=== PATIENT | male | born 1945 | race Caucasian/White ===

== ENCOUNTER 2018-01-31 02:03 | Inpatient (IN) | payer MEDICARE ==
--- NOTE | 2018-01-31 02:45 | ED ---
Chest Pain HPI - General Chief Complaint: Chest Pain Stated Complaint: chest pain Time Seen by Provider: 01/31/18 02:05 Source: patient Mode of arrival: EMS Limitations: no limitations - History of Present Illness Initial Comments: 72 years old male transferred from [facility] with the chest pain, and arrival he has some chest discomfort he calls a 22/10 now shortness of breath earlier when he went to [place] his chest pain was 10 over 10 he had a chest x-ray done he had the CT chest angiogram ruled out pulmonary embolism as well as aortic dissection. Now he denies any headaches no neck stiffness no blurred vision no slurred speech chest pain as above no abdominal pain no frequency urgency dysuria no symptoms of TIA or CVA - Related Data Allergies Allergy/AdvReac Type Severity Reaction Status Date / Time No Known Allergies Allergy Verified 01/31/18 02:18 Review of Systems ROS Statement: Those systems with pertinent positive or pertinent negative responses have been documented in the HPI. ROS Other: All systems not noted in ROS Statement are negative. EKG Findings - EKG Comments: EKG Findings:: EKG is normal sinus rhythm with a sinus bradycardia ventricular rate is 55 CA interval is 180 QRS duration is 84 QT/QTc is 458/438 noticed some T-wave inversion and flattening in lead 1 and 2 and 3 as well as aVL no ST elevation or ST depression noticed in the rest of the leads Past Medical History Past Medical History: No Reported History History of Any Multi-Drug Resistant Organisms: None Reported Past Surgical History: Cholecystectomy, Orthopedic Surgery Additional Past Surgical History / Comment(s): right shoulder rotator cuff Past Psychological History: No Psychological Hx Reported Smoking Status: Former smoker Past Alcohol Use History: None Reported Past Drug Use History: None Reported General Exam - General Exam Comments Initial Comments: General: The patient is awake and alert, in no distress, and does not appear acutely ill. Skin: Skin is warm and dry and no rashes or lesions are noted. Eye: Pupils are equal, round and reactive to light, extra-ocular movements are intact; there is normal conjunctiva bilaterally. Ears, nose, mouth and throat: There are moist mucous membranes and no oral lesions. Neck: The neck is supple, there is no tenderness or JVD. Cardiovascular: There is a regular rate and rhythm. No murmur, rub or gallop is appreciated. Respiratory: To auscultation bilateral, no wheezing no rhonchi no distress respiratory suazo noticed Gastrointestinal: Soft, non-distended, non-tender abdomen without masses or organomegaly noted. There is no rebound or guarding present. Bowel sounds are unremarkable. Back: There is no tenderness to palpation in the midline. There is no obvious deformity. Musculoskeletal: Normal ROM, no tenderness, There is no pedal edema. There is no calf tenderness or swelling. No cords were appreciated. Neurological: CN II-XII intact, Cranial nerves III through XII are intact. There are no obvious motor or sensory deficits. Coordination appears grossly intact. Speech is normal. Psychiatric: Cooperative, appropriate mood & affect, normal judgment. Limitations: no limitations Course Vital Signs 01/31/18 02:10 Temperature 97.8 F Pulse Rate 66 Respiratory 18 Rate Blood Pressure 148/88 O2 Sat by Pulse 97 Oximetry Supine] First troponin at the [place] was unremarkable second troponin and [place] is 0.201, patient be started on a heparin infusion , will be admitted to selective care and cardiology be consulted and patient be admitted under Dr. Oliver Shannon's service Critical Care Time Total Critical Care Time: 30 Critical Care Time: Patient had him a chest pain is May started earlier about 1 PM today, May toes off-and-on all day he was evaluated at [facility] 8 PM, EKG and troponin was unremarkable, second troponin now here was quite significantly positive patient is hemodynamically stable all started him on heparin infusion and will consult cardiology was probably organic further evaluation for his coronaries over the next 24 hours Disposition Clinical Impression: Chest pain, Myocardial infarction Disposition: ADMITTED IP TO THIS HOSP Condition: Good Referrals: None,Stated [Primary Care Provider] - 1-2 days
[2018-01-31] MEDS ORDERED: HEPARIN SODIUM,PORCINE 5,000 UNIT/ML 1 ML VIAL IV ONE (03:43)
[2018-01-31] MEDS ORDERED: HEPARIN SOD,PORK IN 0.45% NACL 25,000 UNIT in 0.45% NACL 1 500ML.BAG IV SCH (03:45)
[2018-01-31] MEDS: HEPARIN SODIUM,PORCINE/D5W PMX 25,000 UNIT in DEXTROSE/WATER 1 500ML.BAG IV SCH (04:20)
[2018-01-31 05:08] LABS: Glucose,Whole Blood 79 mg/dL (75-99)
[2018-01-31 06:35] LABS: Basophils % (A) 1 %; Eosinophils # (A) 0.3 k/uL (0-0.7); Eosinophils % (A) 4 %; HCT 32.5 % (39.0-53.0); HGB 10.8 gm/dL (13.0-17.5); Lymphocytes # (A) 1.8 k/uL (1.0-4.8); Lymphocytes % (A) 28 %; MCH 32.6 pg (25.0-35.0); MCHC 33.1 g/dL (31.0-37.0); MCV 98.5 fL (80.0-100.0); Monocytes # (A) 0.3 k/uL (0-1.0); Monocytes % (A) 5 %; Neutrophils # (A) 3.9 k/uL (1.3-7.7); Neutrophils % (A) 61 %; Platelet Count 175 k/uL (150-450); RDW 14.5 % (11.5-15.5); WBC 6.5 k/uL (3.8-10.6)
[2018-01-31] MEDS: NITROGLYCERIN OINT 1 INCH/GM PACKET TOPICAL SCH ×3 (07:30→18:09)
[2018-01-31 07:38] LABS: Calcium 9.5 mg/dL (8.4-10.2); Magnesium 2.1 mg/dL (1.6-2.3); Potassium 3.9 mmol/L (3.5-5.1)
--- NOTE | 2018-01-31 07:56 | HP ---
HISTORY AND PHYSICAL CHIEF COMPLAINT: A 72-year-old male with chest pain with some chest discomfort. Went to [place]. His chest pain is 10 out of 10. Chest x-ray, CT and angiogram revealed a pulmonary embolism as well as aortic dissection. Came to hospital due to possible myocardial infarction. No dysuria, urgency, frequency, hesitancy, TIA or CVA. ALLERGIES: Negative. REVIEW OF SYSTEMS: Fourteen point review of systems negative except for mentioned in HPI. EKG shows normal sinus rhythm, sinus bradycardia. T-wave inversion and flattening in leads 1, 2 and 3. PAST MEDICAL HISTORY: SURGICAL HISTORY: Cholecystectomy, orthopedic surgery, right rotator cuff surgery. SOCIAL HISTORY: Former smoker. No alcohol. No illicit drugs. PHYSICAL EXAM: Temp 97.8, pulse 66, respiratory 16 to 18, blood pressure 148/88, O2 97% on room air. Cardiovascular S1, S2. LUNGS: Transmitted upper airway sounds. GI soft, nontender. Hematology negative Homans. Psych fair mood and affect. NEUROLOGIC: Alert and oriented x3. Ophthalmologic pupils equal, round, reactive to light and accommodation. ENT examination of ear canals within normal limits. NECK: Supple. No lymphadenopathy. Ophthalmologic: Pupils equal, round, reactive to light and accommodation. ASSESSMENT: At this time is: 1. Chest pain, possible myocardial infarction. 2. Acute on chronic anemia. PLAN: Await Cardiology consult. He remains on nitroglycerin, heparin, Lipitor. ICU time 45 minutes. MMODL / IJN: [id number] /
[2018-01-31] MEDS: LISINOPRIL 10 MG TAB PO SCH (08:22)
[2018-01-31] MEDS ORDERED: ATORVASTATIN 80 MG TAB PO STA (09:50)
[2018-01-31] MEDS ORDERED: SODIUM CHLORIDE 0.9% 1,000 ML in EMPTY BAG 1 BAG IV ONE (09:50)
[2018-01-31] MEDS ORDERED: ALPRAZolam 0.5 MG TAB PO PRN (09:50)
[2018-01-31] MEDS ORDERED: ALPRAZolam 0.25 MG TAB PO PRN (09:50)
[2018-01-31] MEDS ORDERED: NITROGLYCERIN SL TABS 0.4 MG TAB SUBLINGUAL PRN (09:50)
[2018-01-31] MEDS ORDERED: ASPIRIN 325 MG TAB PO STA (09:50)
[2018-01-31 09:59] LABS: HDL Cholesterol 82 mg/dL (40-60); Triglycerides 109 mg/dL (<150)
[2018-01-31 10:05] LABS: LDL Cholesterol,Calculated 268 mg/dL (0-99)
[2018-01-31 10:10] LABS: Cholesterol 372 mg/dL (<200)
--- NOTE | 2018-01-31 10:35 | CONS ---
CONSULTATION Mrs. Roper is a 72-year-old male, who was transferred from the [facility] with chest pain. The patient gives a history that yesterday afternoon he started having discomfort in the chest which was across the chest and in the both arms and the pain was very reoccurring. Ultimately patient went to the [facility] where he had a CT angiogram done which did not show any evidence of pulmonary embolism or dissection. The patient was transferred over here. Initial troponin was normal. The patient denies any history of diabetes or hypertension. He is physically and functionally independent but not much active. PAST MEDICAL HISTORY: History of cholecystectomy. No history of any other major surgeries. REVIEW OF THE SYSTEM: Patient does not smoke. PHYSICAL EXAMINATION: At present reveals a 72-year-old gentleman who does not appear to be in any acute distress. Blood pressure is 152/97 mmHg. Heart rate is 60 per minute. HEENT examination is negative. NECK: Supple. No increase in jugular venous pressure is noted. Both the carotid pulses are felt. There is no bruit. Chest is symmetrical. Heart the PMI is not felt. First and second heart sounds are normal. No significant murmurs are noted. Lungs are clinically clear to auscultation and percussion. ABDOMEN: Soft. Liver and spleen are not enlarged. Bowel sounds are heard. Extremities, peripheral pulses are 1+ and diminished. EKG shows a normal sinus rhythm without any acute ischemic changes. Patient's hemoglobin is 10.8, initial troponin was less than 0.012 at [place], repeat troponin here is 0.2. FINAL IMPRESSION: This patient has history suggestive of non-Q-wave myocardial infarction. The patient had a 2nd troponin is high, 3rd troponin is being awaited. EKG does not show any significant acute ischemic changes. Patient is advised further evaluation with a cardiac catheterization for definitive diagnosis. Procedure and risks were fully explained to the patient. We will obtain echo and Doppler study. Thank you for the consultation. MMODL / IJN: [id number] /
[2018-01-31 10:45] LABS: Creatine Kinase MB 11.9 ng/mL (0.0-2.4); Troponin I 0.862 ng/mL (0.000-0.034)
[2018-01-31] MEDS ORDERED: SODIUM CHLORIDE 0.9% 1,000 ML IV ONE (11:16)
[2018-01-31 11:18] LABS: T4, Free (Free Thyroxine) <0.07 ng/dL (0.78-2.19)
[2018-01-31] MEDS ORDERED: fentaNYL (PF) 50 MCG/ML 2 ML AMP IV ONE (11:25)
[2018-01-31] MEDS ORDERED: MIDAZOLAM 2 MG/2 ML VIAL IV ONE (11:25)
[2018-01-31] MEDS ORDERED: LIDOCAINE 2% INJ 20 MG/ML SQ ONE (11:29)
[2018-01-31] MEDS ORDERED: NALOXONE 0.4 MG/ML 1 ML VIAL IV ONE (11:42)
[2018-01-31] MEDS ORDERED: IOPAMIDOL-370 125ML BTL INJ ONE (11:46)
[2018-01-31] MEDS ORDERED: IOPAMIDOL-370 50ML BTL INJ ONE (11:47)
[2018-01-31] MEDS: ACETAMINOPHEN TAB 325 MG TAB PO PRN (12:52)
--- NOTE | 2018-01-31 13:17 | CC ---
CARDIAC CATHETERIZATION REPORT Mr. Roper was admitted with symptoms of prolonged episode of chest pain. The patient's 2nd troponin was elevated suggestive of non-Q-wave myocardial infarction. In view of that, the patient was recommended to have a cardiac catheterization for definitive diagnosis. DESCRIPTION OF PROCEDURE: The right groin was prepped and draped in the usual manner and the skin was infiltrated with 2% Xylocaine. The right femoral artery was entered using Seldinger technique with micropuncture technique and #6-Maltese sheath was placed in. Selective coronary angiography was then performed in multiple projections. The left ventriculography was performed in 30 degree BRUCE projection. Patient tolerated the procedure well. HEMODYNAMICS: The left ventricular end-diastolic pressure is 16 mmHg prior to angiography. No gradient is noted across the aortic valve. SELECTIVE CORONARY ANGIOGRAPHY: 1. Left main coronary artery shows the distal left main stenosis of about 70%. 2. The LAD is a good caliber blood vessels. There is ostial stenosis of about 40%. The proximal LAD has a long lesion of 50-60% and in the mid LAD has a high-grade lesion of 90%. 3. The circumflex coronary artery is a good caliber blood vessel. The ostial circumflex has a 50% stenosis. There was a good size obtuse marginal branch. 4. Right coronary artery is a good caliber blood vessel and is diffusely diseased. The distal right coronary artery has a 50-60% stenosis. The PDA branch, ostium of the PDA branch has 80% stenosis and the mid portion of the PDA branch has another area of 80% stenosis. PLV is a good caliber blood vessel. LEFT VENTRICULOGRAPHY: Left ventriculography was performed in 30 degree BRUCE projections reveals normal left ventricular systolic function. FINAL IMPRESSION: This study reveals severe triple-vessel disease. There is a 70% the left main coronary artery stenosis. Proximal LAD has a diffuse area of 60% stenosis. Mid LAD has 90% stenosis. Ostial circumflex has 50% stenosis. Right coronary artery is diffusely diseased. Distal RCA has a 60% stenosis. The origin of the PDA branch has a 80% stenosis. Mid portion of the PDA branch also has 80% stenosis. RECOMMENDATIONS: In view of the diffuse coronary artery disease, surgical evaluation would be obtained and patient would be considered for coronary artery bypass surgery. Total sedation time use was 15 minutes. MMODL / IJN: [id number] /
[2018-01-31] MEDS ORDERED: MD COMMUNICATION TO PHARMACY 1 EACH MISC PO ONE (13:26)
[2018-01-31 14:32] LABS: Magnesium 2.1 mg/dL (1.6-2.3)
--- NOTE | 2018-01-31 16:01 | P.GSCN ---
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 Requesting physician: Megan Justice History of present illness: This is a 72-year-old gentleman who has not seen a primary care physician in over a year as his primary care left his practice and the patient has not found another physician to follow up with. He does have a previous medical history of hyperlipidemia, previous tobacco dependence, obstructive sleep apnea without CPAP use, and family history of heart disease. He presented to [facility] with complaints of chest pain which began Wednesday around 1 PM. He states that the pain radiated to his back and both arms as well as his jaw, it did get better with movement, and worse with laying still. He described it as pressure. He denied nausea, vomiting, shortness of breath, diaphoresis or any similar type of pain in the past. EKG at [place] demonstrated sinus rhythm with no ischemic changes. He did have a CT angiogram which was negative for pulmonary embolus him and aortic dissection. His initial troponin was negative. He was transported to [facility] for further workup and evaluation. Second troponin was positive and he was ruled in for non-ST elevation myocardial infarction. He was taken to the cardiac catheter lab which demonstrated distal left main stenosis 70%, mid LAD stenosis 90%, RCA stenosis 50-60%, ostial circumflex stenosis 50%, and PDA 80% stenosis. Left ventricular gram was completed which demonstrated normal LV function. Due to the results of his heart catheterization Dr. Singh from cardiothoracic surgery was consulted for surgical recommendations. Review of Systems 14 point review of systems was completed and was negative except as noted. - Constitutional Reports weakness - Cardiovascular Reports as per HPI, Reports chest pain, Reports decreased exercise tolerance - Respiratory Reports as per HPI, Reports sleep apnea - Musculoskeletal Reports frequent falls, Reports low back pain right: shoulder pain Past Medical History Past Medical History: Coronary Artery Disease (CAD), Hyperlipidemia, Sleep Apnea /CPAP/BIPAP History of Any Multi-Drug Resistant Organisms: None Reported Past Surgical History: Cholecystectomy, Orthopedic Surgery Additional Past Surgical History / Comment(s): right shoulder rotator cuff Past Psychological History: No Psychological Hx Reported Smoking Status: Former smoker Past Alcohol Use History: None Reported Past Drug Use History: None Reported Medications and Allergies Home Medications Medication Instructions Recorded Confirmed Type No Known Home Medications [No 01/31/18 01/31/18 History Known Home Medications] Allergies Allergy/AdvReac Type Severity Reaction Status Date / Time morphine AdvReac Hallucinati Verified 01/31/18 09:10 ons Surgical - Exam Vital Signs Temp Pulse Resp BP Pulse Ox 97.8 F 66 18 148/88 97 01/31/18 02:10 01/31/18 02:10 01/31/18 02:10 01/31/18 02:10 01/31/18 02:10 - General well developed, well nourished, no distress, no pain - Eyes PERRL, normal ocular movement - ENT no hearing loss, dentures - Neck no masses, no bruits, trachea midline - Respiratory Lungs sounds diminished bilaterally. Respirations even, nonlabored. Currently on 2 L nasal cannula oxygen saturation 98%. No chest wall deformity. - Cardiovascular S1, S2 present. Slow but regular rate and rhythm, sinus bradycardia on telemetry. Palpable peripheral pulses bilaterally. No edema present. Positive varicosities to bilateral lower extremities. Left radial artery negative Du's test. - Abdomen Abdomen: soft, non tender, bowel sounds - Genitourinary Deferred - Rectum Deferred - Integumentary no rash, no growths - Neurologic Patient's speech is slow which family states his intermittently normal for him. normal coordination, normal sensation - Psychiatric oriented to time, oriented to person, oriented to place, speech is normal, memory intact Results - Labs 01/31/18 06:25 01/31/18 06:25 Abnormal Lab Results - Last 24 Hours (Table) 01/31/18 01/31/18 01/31/18 Range/Units 02:40 05:44 06:25 RBC 3.30 L (4.30-5.90) m/uL Hgb 10.8 L (13.0-17.5) gm/dL Hct 32.5 L (39.0-53.0) % APTT (22.0-30.0) sec Total Creatine Kinase (55-170) U/L CK-MB (CK-2) (0.0-2.4) ng/mL Troponin I 0.201 H* (0.000-0.034) ng/mL Cholesterol (<200) mg/dL LDL Cholesterol, Calc (0-99) mg/dL HDL Cholesterol (40-60) mg/dL TSH 46.000 H (0.465-4.680) mIU/L Free T4 (0.78-2.19) ng/dL 01/31/18 01/31/18 01/31/18 Range/Units 09:28 09:28 09:28 RBC (4.30-5.90) m/uL Hgb (13.0-17.5) gm/dL Hct (39.0-53.0) % APTT 96.6 H* (22.0-30.0) sec Total Creatine Kinase 683 H (55-170) U/L CK-MB (CK-2) 11.9 H* (0.0-2.4) ng/mL Troponin I 0.862 H* (0.000-0.034) ng/mL Cholesterol 372 H (<200) mg/dL LDL Cholesterol, Calc 268 H (0-99) mg/dL HDL Cholesterol 82 H (40-60) mg/dL TSH 46.300 H (0.465-4.680) mIU/L Free T4 <0.07 L (0.78-2.19) ng/dL Diabetes panel 01/31/18 01/31/18 Range/Units 06:25 09:28 Sodium 141 (137-145) mmol/L Potassium 3.9 (3.5-5.1) mmol/L Chloride 101 (98-107) mmol/L Carbon Dioxide 29 (22-30) mmol/L BUN 19 (9-20) mg/dL Creatinine 1.05 (0.66-1.25) mg/dL Glucose 88 (74-99) mg/dL Calcium 9.5 (8.4-10.2) mg/dL Triglycerides 109 (<150) mg/dL HDL Cholesterol 82 H (40-60) mg/dL Thyroid panel 01/31/18 01/31/18 Range/Units 05:44 09:28 TSH 46.000 H 46.300 H (0.465-4.680) mIU/L Calcium panel 01/31/18 Range/Units 06:25 Calcium 9.5 (8.4-10.2) mg/dL Pituitary panel 01/31/18 01/31/18 01/31/18 Range/Units 05:44 06:25 09:28 Sodium 141 (137-145) mmol/L Potassium 3.9 (3.5-5.1) mmol/L Chloride 101 (98-107) mmol/L Carbon Dioxide 29 (22-30) mmol/L BUN 19 (9-20) mg/dL Creatinine 1.05 (0.66-1.25) mg/dL Glucose 88 (74-99) mg/dL Calcium 9.5 (8.4-10.2) mg/dL TSH 46.000 H 46.300 H (0.465-4.680) mIU/L Adrenal panel 01/31/18 Range/Units 06:25 Sodium 141 (137-145) mmol/L Potassium 3.9 (3.5-5.1) mmol/L Chloride 101 (98-107) mmol/L Carbon Dioxide 29 (22-30) mmol/L BUN 19 (9-20) mg/dL Creatinine 1.05 (0.66-1.25) mg/dL Glucose 88 (74-99) mg/dL Calcium 9.5 (8.4-10.2) mg/dL - Imaging Additional studies: Cardiac catheterization films reviewed. Assessment and Plan (1) Non-STEMI (non-ST elevated myocardial infarction) Current Visit: Yes Status: Acute Code(s): I21.4 - NON-ST ELEVATION (NSTEMI) MYOCARDIAL INFARCTION SNOMED Code(s): 016671460 (2) Hyperlipidemia Current Visit: Yes Status: Chronic Code(s): E78.5 - HYPERLIPIDEMIA, UNSPECIFIED SNOMED Code(s): 27670580 (3) Obstructive sleep apnea Current Visit: Yes Status: Chronic Code(s): G47.33 - OBSTRUCTIVE SLEEP APNEA (ADULT) (PEDIATRIC) SNOMED Code(s): 52127051 (4) Tobacco dependence in remission Current Visit: No Status: Resolved Code(s): F17.201 - NICOTINE DEPENDENCE, UNSPECIFIED, IN REMISSION SNOMED Code(s): 942400018 (5) Chronic low back pain Current Visit: Yes Status: Chronic Code(s): M54.5 - LOW BACK PAIN; G89.29 - OTHER CHRONIC PAIN SNOMED Code(s): 575596863 Plan: The patient was seen and examined at the bedside with Dr. Singh. Chart/ diagnostics were reviewed. Cardiac catheterization films were reviewed. Preoperative testing initiated. Preoperative teaching initiated with the patient in the family. At this time would recommend continuing aspirin, statin , Edin. Would like patient to be on beta konrad, however currently bradycardic with heart rate in the low 50s. Plan is for coronary artery bypass graft surgery on February 03 pending outcome of preoperative testing. Extensive discussion had with patient and family regarding risks and benefits. They do consent to surgery. More recommendations to follow. Thank you Dr. Justice for this consult. We look forward to working with you in the care of your patient. Time with Patient: Greater than 30
[2018-01-31 16:09] LABS: Creatine Kinase MB 11.6 ng/mL (0.0-2.4); Troponin I 0.955 ng/mL (0.000-0.034)
--- NOTE | 2018-01-31 17:02 | US ---
EXAMINATION TYPE: US carotid duplex BILAT DATE OF EXAM: 01/31/2018 COMPARISON: NONE CLINICAL HISTORY: Ankle Brachial Index (MADDI) . PreCABG, No TIA's, no HTN EXAM MEASUREMENTS: RIGHT: Peak Systolic Velocity (PSV) cm/sec ----- Right CCA: 59.2 ----- Right ICA: 59.2 ----- Right ECA: 51.4 ICA/CCA ratio: 1.0 RIGHT: End Diastole cm/sec ----- Right CCA: 13.9 ----- Right ICA: 27.0 ----- Right ECA: 0.0 LEFT: Peak Systolic Velocity (PSV) cm/sec ----- Left CCA: 45.5 ----- Left ICA: 56.2 ----- Left ECA: 56.2 ICA/CCA ratio: 1.2 LEFT: End Diastole cm/sec ----- Left CCA: 12.7 ----- Left ICA: 14.2 ----- Left ECA: 0.0 VERTEBRALS (direction of flow): Right Vertebral: Antegrade Left Vertebral: Antegrade Rhythm: Normal Grayscale images show no significant focal plaque at the carotid bulb level bilaterally. Velocity shelly surements and ratios in visualized portion of both internal carotid arteries is within normal limits. IMPRESSION: No hemodynamically significant stenosis is seen in either internal carotid artery.
[2018-01-31 17:52] LABS: Appearance,Urine Clear (Clear); Bilirubin,Urine Negative (Negative); Blood,Urine Negative (Negative); Color,Urine Yellow; Glucose,Urine (UA) Negative (Negative); Ketones,Urine Negative (Negative); Leukocyte Esterase,Urine Negative (Negative); Nitrite,Urine Negative (Negative); Protein,Urine Negative (Negative); Urobilinogen,Urine <2.0 mg/dL (<2.0)
[2018-01-31] MEDS: SODIUM CHLORIDE 0.9% 1,000 ML IV SCH (18:09)
[2018-01-31 20:10] LABS: Hepatitis A Antibody IgM Non-Reactive (Non-Reactive); Hepatitis B Core IgM Non-Reactive (Non-Reactive)
[2018-01-31 20:23] LABS: Hemoglobin A1C 6.1 % (4.0-6.0)
[2018-01-31] MEDS ORDERED: ATORVASTATIN 40 MG TAB PO SCH (21:00)
[2018-01-31] MEDS: MUPIROCIN 2% OINT 22 GM TUBE NASAL SCH (21:11)
[2018-02-01] MEDS: NITROGLYCERIN OINT 1 INCH/GM PACKET TOPICAL SCH ×4 (00:08→17:45)
[2018-02-01] MEDS: HEPARIN SODIUM,PORCINE/D5W PMX 25,000 UNIT in DEXTROSE/WATER 1 500ML.BAG IV SCH (04:19)
[2018-02-01 04:45] LABS: Basophils % (A) 1 %; Eosinophils # (A) 0.2 k/uL (0-0.7); Eosinophils % (A) 5 %; HCT 30.1 % (39.0-53.0); Lymphocytes # (A) 1.2 k/uL (1.0-4.8); Lymphocytes % (A) 25 %; MCHC 33.2 g/dL (31.0-37.0); MCV 99.3 fL (80.0-100.0); Monocytes # (A) 0.3 k/uL (0-1.0); Monocytes % (A) 5 %; Neutrophils % (A) 62 %; Platelet Count 163 k/uL (150-450); RBC 3.03 m/uL (4.30-5.90); RDW 14.3 % (11.5-15.5); WBC 4.8 k/uL (3.8-10.6)
[2018-02-01 04:53] LABS: Partial Thromboplastin Time 27.8 sec (22.0-30.0); Prothrombin Time 10.2 sec (9.0-12.0)
[2018-02-01 04:55] LABS: Albumin 3.6 g/dL (3.5-5.0); Calcium 9.1 mg/dL (8.4-10.2); Potassium 4.1 mmol/L (3.5-5.1); Total Bilirubin 0.3 mg/dL (0.2-1.3); Total Protein 5.9 g/dL (6.3-8.2)
--- NOTE | 2018-02-01 07:39 | P.CNPUL ---
History of Present Illness Consult date: 02/01/18 Reason for consult: other Chief complaint: Three-vessel coronary artery disease History of present illness: Consult dated 02/01/2018 72-year-old male transferred down from [facility] with chest discomfort. EKG had some nonspecific changes. Troponins were elevated. He also shortness of breath. He had a chest x-ray that apparently was normal and a CT angiogram which ruled out pulmonary embolism as well as aortic dissection. He apparently went to the catheterization laboratory and was discovered have severe three-vessel coronary disease and apparently is going to have a bypass grafting on . Currently he is resting comfortably sleeping actually he is on O2 at 2 L receiving a IV of saline. He has no known ALLERGIES. He apparently has no known medical history and was on no medications at home. Currently resting comfortably without any pain. Review of Systems A 12 point review of system is positive for chest pain and shortness of breath. Both symptoms are improved. Past Medical History Past Medical History: Coronary Artery Disease (CAD), Hyperlipidemia, Sleep Apnea /CPAP/BIPAP History of Any Multi-Drug Resistant Organisms: None Reported Past Surgical History: Cholecystectomy, Orthopedic Surgery Additional Past Surgical History / Comment(s): right shoulder rotator cuff Past Psychological History: No Psychological Hx Reported Smoking Status: Former smoker Past Alcohol Use History: None Reported Past Drug Use History: None Reported Medications and Allergies Home Medications Medication Instructions Recorded Confirmed Type No Known Home Medications [No 01/31/18 01/31/18 History Known Home Medications] Allergies Allergy/AdvReac Type Severity Reaction Status Date / Time morphine AdvReac Hallucinati Verified 01/31/18 09:10 ons Physical Exam Osteopathic Statement: *. No significant issues noted on an osteopathic structural exam other than those noted in the History and Physical/Consult. Vitals: Vital Signs Temp Pulse Pulse Resp BP BP Pulse Ox 02/01/18 07:00 49 L 18 138/82 98 02/01/18 06:30 48 L 16 138/82 99 02/01/18 06:00 51 L 16 108/67 100 02/01/18 05:30 51 L 15 108/67 100 02/01/18 05:00 51 L 15 102/59 100 02/01/18 04:30 52 L 15 102/59 100 02/01/18 04:00 98.2 F 55 L 16 100/66 100 02/01/18 03:30 47 L 14 100/66 100 02/01/18 03:00 58 L 19 102/70 98 02/01/18 02:30 58 L 18 102/70 100 02/01/18 02:00 55 L 14 94/60 98 02/01/18 01:30 54 L 19 94/60 99 02/01/18 01:00 63 22 87/54 95 02/01/18 00:30 51 L 18 87/54 99 02/01/18 00:00 98.7 F 52 L 16 110/65 99 01/31/18 23:30 53 L 15 110/65 100 01/31/18 23:00 55 L 16 104/70 99 01/31/18 22:30 49 L 15 104/70 100 01/31/18 22:00 56 L 16 123/77 100 01/31/18 21:30 56 L 14 123/77 99 01/31/18 21:00 52 L 13 114/70 99 01/31/18 20:30 54 L 15 114/70 99 01/31/18 20:00 98.9 F 52 L 13 102/67 100 01/31/18 19:33 50 L 0 L 102/67 99 01/31/18 19:30 60 15 102/67 99 01/31/18 19:00 49 L 15 115/71 99 01/31/18 18:30 51 L 12 115/71 98 01/31/18 18:00 60 22 105/64 99 01/31/18 17:30 63 12 105/64 99 01/31/18 17:00 63 16 119/79 99 01/31/18 16:30 58 L 12 119/79 100 01/31/18 16:00 96 20 107/76 100 01/31/18 15:30 62 22 107/76 100 01/31/18 15:00 64 12 119/80 95 01/31/18 14:30 58 L 12 119/80 98 01/31/18 14:00 56 L 15 112/79 98 01/31/18 13:30 50 L 12 112/79 100 01/31/18 13:00 53 L 16 117/80 97 01/31/18 12:30 54 L 15 117/80 98 01/31/18 12:00 53 L 15 117/80 117/80 98 01/31/18 11:30 122/74 01/31/18 11:00 122/74 01/31/18 10:30 54 L 15 122/74 98 01/31/18 10:00 55 L 17 158/89 100 01/31/18 09:50 18 96 01/31/18 09:30 57 L 15 158/89 100 01/31/18 09:00 52 L 12 114/68 100 01/31/18 08:30 56 L 21 114/68 100 01/31/18 08:00 59 L 55 L 21 158/100 100 Intake and Output 01/31/18 02/01/18 02/01/18 22:59 06:59 14:59 Intake Total 60 160 Output Total 1100 350 Balance -1040 -190 Intake: IV 60 160 Sodium Chloride 0.9% 1, 60 160 000 ml @ 20 mls/hr IV . Q24H [facility] Rx#:[id number] Output: Urine 1100 350 Other: Voiding Method Urinal Urinal # Voids 1 1 Weight 87.5 kg 88.6 kg No acute distress, oriented 3. Nasal O2 in place. HEENT examination is grossly unremarkable. Mucous membranes are moist. No oral lesions. Neck supple. Full range of motion. No adenopathy thyromegaly or neck vein distention. Cardiovascular examination reveals regular rhythm rate. S1-S2 normal. No S3 or S4. No discernible murmur noted. Lungs reveal clear breath sounds. His breath sounds are equal bilaterally. No adventitious lung sounds including wheezes rhonchi or crackles. Abdomen soft bowel sounds are heard. No masses or tenderness. Extremities are intact. No cyanosis clubbing or edema. Skin is without rash or lesion. Neurologic examination is brief but nonfocal. Results - Laboratory Findings CBC and BMP: 02/01/18 03:56 02/01/18 03:56 PT/INR, D-dimer PT 10.2 sec (9.0-12.0) 02/01/18 03:56 INR 1.0 (<1.2) 02/01/18 03:56 Abnormal lab findings: Abnormal Labs 01/31/18 01/31/18 01/31/18 02:40 05:44 06:25 RBC 3.30 L Hgb 10.8 L Hct 32.5 L APTT Carbon Dioxide Hemoglobin A1c Total Creatine Kinase CK-MB (CK-2) Troponin I 0.201 H* Total Protein Cholesterol LDL Cholesterol, Calc HDL Cholesterol TSH 46.000 H Free T4 Ur Specific [place] 01/31/18 01/31/18 01/31/18 09:28 09:28 09:28 RBC Hgb Hct APTT 96.6 H* Carbon Dioxide Hemoglobin A1c 6.1 H Total Creatine Kinase 683 H CK-MB (CK-2) 11.9 H* Troponin I 0.862 H* Total Protein Cholesterol LDL Cholesterol, Calc HDL Cholesterol TSH Free T4 Ur Specific [place] 01/31/18 01/31/18 01/31/18 09:28 15:11 16:51 RBC Hgb Hct APTT Carbon Dioxide Hemoglobin A1c Total Creatine Kinase 682 H CK-MB (CK-2) 11.6 H* Troponin I 0.955 H* Total Protein Cholesterol 372 H LDL Cholesterol, Calc 268 H HDL Cholesterol 82 H TSH 46.300 H Free T4 <0.07 L Ur Specific [place] 1.050 H 02/01/18 02/01/18 03:56 03:56 RBC 3.03 L Hgb 10.0 L Hct 30.1 L APTT Carbon Dioxide 31 H Hemoglobin A1c Total Creatine Kinase CK-MB (CK-2) Troponin I Total Protein 5.9 L Cholesterol 343 H LDL Cholesterol, Calc 239 H HDL Cholesterol 81 H TSH Free T4 Ur Specific [place] - Diagnostic Findings Chest x-ray: image reviewed (Labs x-rays a medications are reviewed) Assessment and Plan Assessment: Assessment Non-ST segment elevation myocardial infarction Severe triple-vessel coronary artery disease, status post cardiac catheterization No significant past medical history speak of. Anticipated bypass grafting on of this week. Plan: Plan dated 02/01/2018 The patient was a former smoker. A bedside spirometry will be done. The patient apparently has no symptoms and past medical history. Was on no medications at home. No history of any ALLERGIES other than possible morphine. The patient otherwise is doing well. Anticipated bypass grafting on . Time with Patient: Greater than 30
[2018-02-01] MEDS: LISINOPRIL 10 MG TAB PO SCH (08:17)
[2018-02-01] MEDS: ASPIRIN 325 MG TAB PO SCH (08:17)
[2018-02-01] MEDS: MUPIROCIN 2% OINT 22 GM TUBE NASAL SCH ×2 (08:18→20:31)
--- NOTE | 2018-02-01 09:32 | ECHOF ---
Referral Reason:assess lvf MEASUREMENTS -------- HEIGHT: 175.3 cm WEIGHT: 87.1 kg BP: IVSd: 1.5 cm (0.6 - 1.1) LVIDd: 4.6 cm (3.9 - 5.3) LVPWd: 1.4 cm (0.6 - 1.1) IVSs: 1.8 cm LVIDs: 3.0 cm LVPWs: 1.9 cm LAESV Index (A-L): 19.27 ml/m Ao Diam: 4.3 cm (2.0 - 3.7) AV Cusp: 2.2 cm (1.5 - 2.6) LA Diam: 2.8 cm (2.7 - 3.8) EPSS: 0.4 cm MV E Uvaldo: 0.46 m/s MV DecT: 485 ms MV A [place]: 0.62 m/s MV E/A Ratio: 0.74 RAP: 5.00 mmHg RVSP: 16.43 mmHg MV EF SLOPE: 42.42 mm/s (70 - 150) MV EXCURSION: 1.76 cm (> 18.000) FINDINGS -------- Sinus rhythm. This was a technically difficult study with suboptimal views. The left ventricular size is normal. There is moderate concentric left ventricular hypertrophy. O verall left ventricular systolic function is normal with, an EF between 55 - 60 %. The right ventricle is normal in size and function. Normal LA size by volume 22+/-6 ml/m2. The right atrium is normal in size. 2ml of Lumason was utilized for enhancement of images. Aortic valve is trileaflet and is mildly thickened. There is no evidence of aortic regurgitation. There is no evidence of aortic stenosis. The mitral valve leaflets are mildly thickened. There is trace mitral regurgitation. Trace tricuspid regurgitation present. Right ventricular systolic pressure is normal at < 35 mmHg. There is no evidence of pulmonary hypertension. The pulmonic valve was not well visualized. The aortic root is borderline dilated up to 3.8 cm. Normal inferior vena cava with normal inspiratory collapse consistent with estimated right atrial pre ssure of 5 mmHg. There is no pericardial effusion. CONCLUSIONS -------- 1. Sinus rhythm. 2. This was a technically difficult study with suboptimal views. 3. The left ventricular size is normal. 4. There is moderate concentric left ventricular hypertrophy. 5. Overall left ventricular systolic function is normal with, an EF between 55 - 60 %. 6. Normal LA size by volume 22+/-6 ml/m2. 7. 2ml of Lumason was utilized for enhancement of images. 8. Aortic valve is trileaflet and is mildly thickened. 9. The mitral valve leaflets are mildly thickened. 10. There is trace mitral regurgitation. 11. Trace tricuspid regurgitation present. 12. Right ventricular systolic pressure is normal at < 35 mmHg. 13. There is no evidence of pulmonary hypertension. 14. The pulmonic valve was not well visualized. 15. The aortic root is borderline dilated up to 3.8 cm. 16. There is no pericardial effusion. FRONT DESK: Con Cervantes RDCS
--- NOTE | 2018-02-01 15:56 | XR ---
EXAMINATION TYPE: XR chest 2V DATE OF EXAM: 02/01/2018 COMPARISON: Outside CTA chest and chest x-ray January 30, 2018 HISTORY: Presurgical study TECHNIQUE: Frontal and lateral views of the chest are obtained. FINDINGS: There is no focal air space opacity, pleural effusion, or pneumothorax seen. The cardiac silhouette size is upper limits of normal. The osseous structures are intact. IMPRESSION: No acute cardiopulmonary process.
[2018-02-01] MEDS: ACETAMINOPHEN TAB 325 MG TAB PO PRN (16:24)
[2018-02-01] MEDS: LEVOTHYROXINE IVP 100 MCG/5 ML VIAL IV SCH (16:52)
--- NOTE | 2018-02-01 17:21 | P.PN ---
Subjective Progress Note Date: 02/01/18 Principal diagnosis: Severe triple vessel coronary artery disease with left main disease, hyperlipidemia, non-ST segment elevation myocardial infarction this admission, remote history of tobacco dependence, obstructive sleep apnea without CPAP use, and family history of coronary artery disease. The patient is lying in bed with his head elevated. He is in no acute distress. He reports that he feels tired and worn out. He denies any complaints of pain or shortness of breath at this time. Oxygen saturation is 99 % on room air. Objective - Vital Signs Vital signs: Vital Signs Temp 98.2 F 02/01/18 08:00 Pulse 59 L 02/01/18 15:00 Resp 13 02/01/18 15:00 BP 94/63 02/01/18 15:00 Pulse Ox 99 02/01/18 14:30 Intake & Output 01/31/18 02/01/18 02/01/18 18:59 06:59 18:59 Intake Total 162.5 220 20 Output Total 1750 750 350 Balance -1587.5 -530 -330 Weight 87.5 kg 88.6 kg Intake: IV 75 220 20 Sodium Chloride 0.9% 1, 220 20 000 ml @ 20 mls/hr IV . Q24H [facility] Rx#:[id number] Intake, IV Titration 87.5 Amount Sodium Chloride 0.9% 1, 87.5 000 ml In Empty Bag 1 bag @ 1 ML/KG/HR 87.5 mls/hr IV .[id number] ONE Rx#: [id number] Output: Urine 1750 750 350 Other: Voiding Method Urinal Urinal Urinal # Voids 1 1 1 - Constitutional General appearance: Present: cooperative, no acute distress, obese - Respiratory Details: Lung sounds essentially clear throughout, diminished to his bilateral bases. Respirations are symmetrical and nonlabored. Oxygen saturation is 99% on room air. He is achieving 1500 mL on his incentive spirometry. Bedside FEV1 was completed which demonstrated a 75% of predicted value. - Cardiovascular Details: Regular rhythm and bradycardic rate. S1 and S2 present, negative for S3, gallop or murmur. Bedside telemetry showing sinus bradycardia heart rate 51. No edema present. Knee-high sequential compression devices in place to his bilateral lower extremities. - Gastrointestinal Gastrointestinal Comment(s): Abdomen is soft, nontender nondistended. Active bowel sounds all 4 abdominal quadrants. Tolerating oral intake. No organomegaly. No guarding or rigidity. - Genitourinary Genitourinary Comment(s): Voiding clear oscar urine. 350 mL output in the last 8 hours. - Integumentary Integumentary Comment(s): Skin is warm and dry. No clubbing or cyanosis present. No rash or abnormal pigmentation present. - Neurologic Neurologic: Present: CNII-XII intact - Musculoskeletal Musculoskeletal: Present: gait normal, strength equal bilaterally - Psychiatric Psychiatric: Present: A&O x's 3, appropriate affect, intact judgment & insight - Allied health notes Allied health notes reviewed: nursing - Labs CBC & Chem 7: 02/01/18 03:56 02/01/18 03:56 Labs: Abnormal Lab Results - Last 24 Hours (Table) 01/31/18 01/31/18 02/01/18 Range/Units 09:28 16:51 03:56 RBC (4.30-5.90) m/uL Hgb (13.0-17.5) gm/dL Hct (39.0-53.0) % Carbon Dioxide 31 H (22-30) mmol/L Hemoglobin A1c 6.1 H (4.0-6.0) % Total Protein 5.9 L (6.3-8.2) g/dL Cholesterol 343 H (<200) mg/dL LDL Cholesterol, Calc 239 H (0-99) mg/dL HDL Cholesterol 81 H (40-60) mg/dL Ur Specific [place] 1.050 H (1.001-1.035) 02/01/18 Range/Units 03:56 RBC 3.03 L (4.30-5.90) m/uL Hgb 10.0 L (13.0-17.5) gm/dL Hct 30.1 L (39.0-53.0) % Carbon Dioxide (22-30) mmol/L Hemoglobin A1c (4.0-6.0) % Total Protein (6.3-8.2) g/dL Cholesterol (<200) mg/dL LDL Cholesterol, Calc (0-99) mg/dL HDL Cholesterol (40-60) mg/dL Ur Specific [place] (1.001-1.035) Microbiology - Last 24 Hours (Table) 01/31/18 16:51 Urine Culture - Preliminary Urine,Voided 01/31/18 16:51 Nasal Screen MRSA/MSSA (DELMER) - Preliminary Nasal Swab - Imaging and Cardiology Chest x-ray: report reviewed, image reviewed Assessment and Plan (1) Triple vessel coronary artery disease Current Visit: Yes Status: Acute Code(s): I25.10 - ATHSCL HEART DISEASE OF [place] CORONARY ARTERY W/O ANG PCTRS SNOMED Code(s): 061702222 (2) Non-STEMI (non-ST elevated myocardial infarction) Current Visit: Yes Status: Acute Code(s): I21.4 - NON-ST ELEVATION (NSTEMI) MYOCARDIAL INFARCTION SNOMED Code(s): 898944679 (3) Hyperlipidemia Current Visit: Yes Status: Chronic Code(s): E78.5 - HYPERLIPIDEMIA, UNSPECIFIED SNOMED Code(s): 13444713 (4) Obstructive sleep apnea Current Visit: Yes Status: Chronic Code(s): G47.33 - OBSTRUCTIVE SLEEP APNEA (ADULT) (PEDIATRIC) SNOMED Code(s): 72692379 (5) Tobacco dependence in remission Current Visit: No Status: Resolved Code(s): F17.201 - NICOTINE DEPENDENCE, UNSPECIFIED, IN REMISSION SNOMED Code(s): 372873484 Plan: 1. Preoperative teaching continued. 2. Encourage use of his incentive spirometry every hour while awake. 3. Pulmonary recommendations per Dr. Mack. 4. The patient's TSH level is 46.300 with a free T4 less than 0.07. The patient will be started on levothyroxine 100 g IV daily. We will recheck his thyroid levels on or Wednesday of this week. 5. The was initially scheduled for coronary artery bypass grafting surgery on , 02/03/2018, he will be rescheduled for early next week due to his thyroid studies. 6. Continue to optimize his medical management, continue aspirin, statin, RITO inhibitor and heparin. Continue to hold his beta konrad due to his bradycardia. 7. Further recommendations to follow as based on his clinical course. Time with Patient: Greater than 30
[2018-02-01] MEDS: SODIUM CHLORIDE 0.9% 1,000 ML IV SCH (17:45)
--- NOTE | 2018-02-01 21:49 | PN ---
PROGRESS NOTE This patient was admitted with non-Q-wave myocardial infarction. Cardiac catheterization revealed severe triple-vessel disease. Patient remains comfortable. He is not having any chest pains. Patient denies any shortness of breath. Blood pressure is 94/63 mmHg, heart rate is 60 per minute. First and second heart sounds are normal. Lungs are clinically clear to auscultation and percussion. Patient's lab tests are reviewed which show evidence of severe hypothyroidism with T4 less than 0.07 and TSH is 47. Discussed the patient's condition with Dr. Meraz. Patient will be given IV thyroid supplementation and we will recheck the free thyroid level in the next 3 to 4 days. As long as the patient remains stable, we will postpone the surgery until early next week. This was discussed with the family members. I will discontinue the IV heparin from tomorrow. DARIN / JAMAR: [id number] /
--- NOTE | 2018-02-01 23:20 | PN ---
PROGRESS NOTE A 72-year-old white female in ICU with myocardial infarction. Cardiac surgery next . Had dizziness, syncope. VITAL SIGNS: Stable. Afebrile. CARDIOVASCULAR: S1, S2. LUNGS: Transmitted upper sounds. HEMATOLOGY: Negative Homans'. PSYCH: Fair mood and affect. ASSESSMENT: 1. Myocardial infarction. 2. Coronary artery disease. 3. Coronary artery bypass graft scheduled for . Continue with current treatment for non-Q-wave myocardial infarction, cardiac catheterization, await bypass surgery. ICU TIME: 30 minutes. MMODL / IJN: [id number] /
[2018-02-02] MEDS: NITROGLYCERIN OINT 1 INCH/GM PACKET TOPICAL SCH ×5 (00:21→19:56)
[2018-02-02] MEDS: HEPARIN SODIUM,PORCINE/D5W PMX 25,000 UNIT in DEXTROSE/WATER 1 500ML.BAG IV SCH (01:59)
[2018-02-02] MEDS: ASPIRIN 325 MG TAB PO SCH (08:25)
[2018-02-02] MEDS: LISINOPRIL 10 MG TAB PO SCH (08:26)
[2018-02-02] MEDS: MUPIROCIN 2% OINT 22 GM TUBE NASAL SCH ×2 (08:27→20:05)
[2018-02-02] MEDS: LEVOTHYROXINE IVP 100 MCG/5 ML VIAL IV SCH (08:28)
--- NOTE | 2018-02-02 08:57 | P.PN ---
Subjective Progress Note Date: 02/02/18 Principal diagnosis: Non-ST segment elevation myocardial infarction, severe triple-vessel coronary artery disease status post heart catheterization Consult dated 02/01/2018 72-year-old male transferred down from [facility] with chest discomfort. EKG had some nonspecific changes. Troponins were elevated. He also shortness of breath. He had a chest x-ray that apparently was normal and a CT angiogram which ruled out pulmonary embolism as well as aortic dissection. He apparently went to the catheterization laboratory and was discovered have severe three-vessel coronary disease and apparently is going to have a bypass grafting on . Currently he is resting comfortably sleeping actually he is on O2 at 2 L receiving a IV of saline. He has no known ALLERGIES. He apparently has no known medical history and was on no medications at home. Currently resting comfortably without any pain. On 02/02/2018 patient seen in follow-up. He is resting in the bed, in the intensive care unit. In no acute distress. Denies any chest pain, denies any dyspnea. Vital signs are stable, room air with O2 sat at 94%. He is afebrile, respirations are even and nonlabored. Patient is anticipated to be able to transfer out of the intensive care unit today to a monitor bed on selective care unit. He was evaluated by cardiothoracic surgery, and he is tentatively scheduled for 2 vessel CABG next week on Wednesday. Patient was found to be severely hypothyroid, and medical management is in progress in regards to hypothyroidism. Otherwise no acute events overnight, patient is doing fairly well. Objective - Vital Signs Vital signs: Vital Signs Temp 98.4 F 02/02/18 04:00 Pulse 51 L 02/02/18 04:00 Resp 15 02/02/18 04:00 BP 106/57 02/02/18 04:00 Pulse Ox 94 L 02/02/18 04:00 Intake & Output 02/01/18 02/02/18 02/02/18 18:59 06:59 18:59 Intake Total 20 320 Output Total 350 500 Balance -330 -180 Weight 84.5 kg Intake: IV 20 320 Sodium Chloride 0.9% 1, 20 320 000 ml @ 20 mls/hr IV . Q24H [facility] Rx#:[id number] Output: Urine 350 500 Other: Voiding Method Urinal Urinal # Voids 1 2 - Exam GENERAL EXAM: Alert, pleasant, 72-year-old white male comfortable in no apparent distress. HEAD: Normocephalic/atraumatic. EYES: Normal reaction of pupils, equal size. Conjunctiva pink, sclera white. NOSE: Clear with pink turbinates. THROAT: No erythema or exudates. NECK: No masses, no JVD, no thyroid enlargement, no adenopathy. CHEST: No chest wall deformity. Symmetrical expansion. LUNGS: Equal air entry with no crackles, wheeze, rhonchi or dullness. CVS: Regular rate and rhythm, normal S1 and S2, no gallops, no murmurs, no rubs ABDOMEN: Soft, nontender. No hepatosplenomegaly, normal bowel sounds, no guarding or rigidity. EXTREMITIES: No clubbing, no edema, no cyanosis, 2+ pulses and upper and lower extremities. MUSCULOSKELETAL: Muscle strength and tone normal. SPINE: No scoliosis or deformity SKIN: No rashes CENTRAL NERVOUS SYSTEM: Alert and oriented -3. No focal deficits, tone is normal in all 4 extremities. PSYCHIATRIC: Alert and oriented -3. Appropriate affect. Intact judgment and insight. - Labs CBC & Chem 7: 02/01/18 03:56 02/01/18 03:56 Labs: Abnormal Lab Results - Last 24 Hours (Table) 02/01/18 Range/Units 03:56 Crossmatch See Detail Microbiology - Last 24 Hours (Table) 01/31/18 16:51 Urine Culture - Final Urine,Voided Assessment and Plan Plan: Assessment: Non-ST segment elevation myocardial infarction Severe triple-vessel coronary artery disease, status post cardiac catheterization History of remote nicotine dependence, in remission Hypothyroidism Plan: Patient remains stable, no chest pain, no dyspnea, vital signs are stable. Medical management is in progress regarding his hypothyroidism. No acute events overnight. Patient is stable to be transferred out of the intensive care unit to selective care floor today. We'll continue to follow. I performed a history & physical examination of the patient and discussed their management with my nurse practitioner, Elsa Tucker. I reviewed the nurse practitioner's note and agree with the documented findings and plan of care. Lung sounds are clear. The findings and the impression was discussed with the patient. I attest to the documentation by the nurse practitioner. Time with Patient: Less than 30
[2018-02-02] MEDS ORDERED: ATORVASTATIN 40 MG TAB PO SCH (09:00)
--- NOTE | 2018-02-02 09:37 | CDI ---
Last Revision, September 2017 Documentation Clarification Form Date: 02/02/18 From: Rosanna Johnson RN, CCDS Admit Date: 01/31/2018 3:43:00 AM Patient Name: Jacob Roper Visit Number: [id number] Discharge Date: ATTENTION: The Clinical Documentation Specialists (CDI) and [facility] Coding Staff appreciate your assistance in clarifying documentation. Please respond to the clarification below the line at the bottom and electronically sign. The CDI & [facility] Coding staff will review the response and follow-up if needed. Please note: Queries are made part of the Legal Health Record. If you have any questions, please contact the author of this message via ITS. Dr. Oliver Shannon A diagnosis of anemia lacks specificity to accurately reflect your patients severity of condition and clarification is needed. History/Risk Factors: Coronary artery disease, Former smoker Clinical indicators: Transfer from [facility] with complaints of chest pain and shortness of breath. Admission Hemoglobin: 10.8 02/01/18 10.0 Admission Hematocrit: 32.5 02/01/18 30.1 Treatment: monitoring labs In order to capture the severity of condition, please clarify the type of anemia and etiology if known: Acute blood loss anemia Acute on chronic blood loss anemia Chronic blood loss anemia Iron deficiency anemia Unable to determine Other, please specify Please continue to document in your progress notes and discharge summary in order to capture severity of illness and risk of mortality. Include clinical findings that support your diagnosis. MTDD
[2018-02-02] MEDS: ACETAMINOPHEN TAB 325 MG TAB PO PRN (11:59)
--- NOTE | 2018-02-02 15:08 | P.PN ---
Subjective Progress Note Date: 02/02/18 Principal diagnosis: Severe triple vessel coronary artery disease with left main disease, hyperlipidemia, non-ST segment elevation myocardial infarction this admission, remote history of tobacco dependence, obstructive sleep apnea without CPAP use, and family history of coronary artery disease. The patient is lying in bed with his head elevated. He is in no acute distress. He denies any complaints of pain or shortness of breath at this time. Oxygen saturation is 96% on room air. He is achieving 2250 mL on his incentive spirometry. His is at his bedside, their questions were answered to the best of my ability. Objective - Vital Signs Vital signs: Vital Signs Temp 98.5 F 02/02/18 11:38 Pulse 60 02/02/18 11:38 Resp 16 02/02/18 11:38 BP 106/54 02/02/18 11:38 Pulse Ox 96 02/02/18 11:38 Intake & Output 02/01/18 02/02/18 02/02/18 18:59 06:59 18:59 Intake Total 20 320 Output Total 350 500 Balance -330 -180 Weight 84.5 kg Intake: IV 20 320 Sodium Chloride 0.9% 1, 20 320 000 ml @ 20 mls/hr IV . Q24H [facility] Rx#:[id number] Output: Urine 350 500 Other: Voiding Method Urinal Urinal Urinal # Voids 1 2 - Constitutional General appearance: Present: cooperative, no acute distress, obese - Respiratory Details: Lung sounds are essentially clear to his bilateral upper lobes, few scattered crackles to his bilateral bases. Respirations are symmetrical and nonlabored. Oxygen saturation are 96% on room air. He is achieving 2250 mL on his incentive spirometry. Bedside FEV1 completed on 01/31/2018 with a predicted FEV1 value of 75%. - Cardiovascular Details: Regular rhythm and rate. S1 and S2 present, negative for S3, gallop or murmur. Remote telemetry showing sinus bradycardia heart rate 58. No edema present. Knee-high sequential compression devices in place to his bilateral lower extremities. - Gastrointestinal Gastrointestinal Comment(s): Abdomen is soft, nontender and nondistended. Active bowel sounds to all 4 abdominal quadrants. Tolerating oral intake. Passing flatus. - Genitourinary Genitourinary Comment(s): Voiding clear yellow urine. - Integumentary Integumentary Comment(s): Skin is warm and dry. No clubbing or cyanosis present. No abnormal pigmentation or rash present. - Neurologic Neurologic: Present: CNII-XII intact - Musculoskeletal Musculoskeletal: Present: gait normal, strength equal bilaterally - Psychiatric Psychiatric: Present: A&O x's 3, appropriate affect, intact judgment & insight - Allied health notes Allied health notes reviewed: nursing - Labs CBC & Chem 7: 02/01/18 03:56 02/01/18 03:56 Labs: Abnormal Lab Results - Last 24 Hours (Table) 02/01/18 Range/Units 03:56 Crossmatch See Detail Microbiology - Last 24 Hours (Table) 01/31/18 16:51 Urine Culture - Final Urine,Voided Assessment and Plan (1) Triple vessel coronary artery disease Current Visit: Yes Status: Acute Code(s): I25.10 - ATHSCL HEART DISEASE OF [place] CORONARY ARTERY W/O ANG PCTRS SNOMED Code(s): 796958894 (2) Non-STEMI (non-ST elevated myocardial infarction) Current Visit: Yes Status: Acute Code(s): I21.4 - NON-ST ELEVATION (NSTEMI) MYOCARDIAL INFARCTION SNOMED Code(s): 811657390 (3) Hyperlipidemia Current Visit: Yes Status: Chronic Code(s): E78.5 - HYPERLIPIDEMIA, UNSPECIFIED SNOMED Code(s): 34097961 (4) Obstructive sleep apnea Current Visit: Yes Status: Chronic Code(s): G47.33 - OBSTRUCTIVE SLEEP APNEA (ADULT) (PEDIATRIC) SNOMED Code(s): 19057903 (5) Tobacco dependence in remission Current Visit: No Status: Resolved Code(s): F17.201 - NICOTINE DEPENDENCE, UNSPECIFIED, IN REMISSION SNOMED Code(s): 178742389 Plan: 1. Preoperative teaching continued. 2. Encourage use of his incentive spirometry every hour while awake. 3. Pulmonary recommendations per Dr. Mack. 4. The patient's TSH level is 46.300 with a free T4 less than 0.07. Continue levothyroxine 100 g IV daily. We will recheck his thyroid levels on or Wednesday of this week. 5. The was initially scheduled for coronary artery bypass grafting surgery on , 02/03/2018, he will be rescheduled for early next week due to his thyroid studies. 6. Continue to optimize his medical management, continue aspirin, statin, RITO inhibitor and heparin. Continue to hold his beta konrad due to his bradycardia. 7. 5 m walk test completed today by cardiac rehab services, Time 1 : 4.83 seconds, Time 2: 5.60 seconds, Time 3: 4.09 seconds. Time with Patient: Greater than 30
--- NOTE | 2018-02-02 15:59 | PN ---
PROGRESS NOTE SUBJECTIVE: This is a 72-year-old white male with myocardial infarction. He is scheduled for surgery next week. He has profound hypothyroidism, for which he is getting IV Synthroid 100 mcg daily. High cholesterol. Lipitor 80. He will be given Crestor 20 daily that he has taken in the past. Risk factor modifications reviewed with the patient. Vital signs stable. Afebrile. CARDIOVASCULAR: S1, S2. LUNGS: Clear. GI: Soft. HEMATOLOGY: Negative Homans. ASSESSMENT: 1. Myocardial infarction. 2. Coronary artery disease. 3. Profound hypothyroidism. 4. Dyslipidemia. 5. Hypercholesterolemia. Continue current treatment. Waiting for bypass surgery as soon as possible. MMODL / IJN: [id number] /
[2018-02-02 17:05] LABS: Glucose,Whole Blood 68 mg/dL (75-99)
[2018-02-02 17:05] LABS: Glucose,Whole Blood 73 mg/dL (75-99)
[2018-02-02] MEDS: SODIUM CHLORIDE 0.9% 1,000 ML IV SCH (18:33)
--- NOTE | 2018-02-02 19:36 | DS ---
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 MMODL / IJN: [id number] /
[2018-02-02 20:56] LABS: Glucose,Whole Blood 117 mg/dL (75-99)
[2018-02-03] MEDS: HEPARIN SODIUM,PORCINE/D5W PMX 25,000 UNIT in DEXTROSE/WATER 1 500ML.BAG IV SCH (04:25)
[2018-02-03] MEDS ORDERED: ASPIRIN 325 MG TAB PO ONE (05:00)
[2018-02-03] MEDS ORDERED: ALBUMIN HUMAN 5% 500 ML in EMPTY BAG 1 BAG IVPB PRN ×6 (05:00)
[2018-02-03] MEDS ORDERED: PROPOFOL 1,000 MG in EMPTY BAG 1 BAG IV PRN (05:00)
[2018-02-03] MEDS ORDERED: MANNITOL 25% 12.5 GM/50 ML VIAL IV PRN ×2 (05:00)
[2018-02-03] MEDS ORDERED: ALBUMIN HUMAN 25% 50 ML in EMPTY BAG 1 BAG IVPB ONE (05:00)
[2018-02-03] MEDS ORDERED: INSULIN REGULAR 100 UNIT in SODIUM CHLORIDE 0.9% 100 ML IV PRN (05:00)
[2018-02-03] MEDS ORDERED: MAGNESIUM SULFATE SYG 4.06 MEQ/ML SYRINGE IV PRN (05:00)
[2018-02-03] MEDS ORDERED: DEXTROSE 5% IN WATER 1,000 ML with POTASSIUM CHLORIDE 110 MEQ, MAGNESIUM SULFATE 16 MEQ... IV PRN ×5 (05:00)
[2018-02-03] MEDS ORDERED: NITROGLYCERIN-D5W PMX 50 MG in DEXTROSE/WATER 1 250ML.BAG IV PRN (05:00)
[2018-02-03] MEDS ORDERED: PROTAMINE SULFATE 10 MG/ML 25 ML VIAL IV PRN (05:00)
[2018-02-03] MEDS ORDERED: CLEVIDIPINE BUTYRATE 25 MG in EMPTY BAG 1 BAG IV PRN (05:00)
[2018-02-03] MEDS ORDERED: SODIUM BICARB 8.4% 50 ML SYR (1 MEQ/ML) IV PRN (05:00)
[2018-02-03] MEDS ORDERED: CALCIUM CHLORIDE 100 MG/ML 10 ML SYRINGE IVP PRN (05:00)
[2018-02-03] MEDS ORDERED: TRANEXAMIC ACID 2,000 MG in SODIUM CHLORIDE 0.9% 180 ML IV PRN (05:00)
[2018-02-03] MEDS ORDERED: HEPARIN SODIUM 1,000 UN/ML (10ML VL) IV PRN (05:00)
[2018-02-03] MEDS ORDERED: NOREPINEPHRIN 4 MG-0.9% NS PMX 4 MG/250 ML ML IV PRN (05:00)
[2018-02-03] MEDS ORDERED: ATORVASTATIN 10 MG TAB PO ONE (05:00)
[2018-02-03] MEDS ORDERED: METOPROLOL TARTRATE 12.5 MG TAB PO ONE (05:00)
[2018-02-03] MEDS ORDERED: HEPARIN SODIUM,PORCINE 5,000 UNIT in SODIUM CHLORIDE 0.9% 500 ML IV PRN (05:00)
[2018-02-03] MEDS ORDERED: DEXTROSE 5% IN WATER 1,000 ML with POTASSIUM CHLORIDE 25 MEQ, SODIUM CHLORIDE 2.5MEQ/ML... IV PRN ×6 (05:00)
[2018-02-03] MEDS ORDERED: PAPAVERINE 360 MG in SODIUM CHLORIDE 0.9% 90 ML IV PRN (05:00)
[2018-02-03] MEDS ORDERED: NITROGLYCERIN-D5W PMX 25 MG/250 ML BTL IV PRN (05:00)
[2018-02-03] MEDS ORDERED: CHLORHEXIDINE GLUCONATE 15 ML CUP MUCOUS MEM PRN (05:00)
[2018-02-03] MEDS ORDERED: ceFAZolin 2 GM in SODIUM CHLORIDE 0.9% 30 ML IVPB PRN (05:00)
[2018-02-03] MEDS ORDERED: ALBUMIN HUMAN 25% 50 ML in EMPTY BAG 1 BAG IVPB PRN (05:00)
[2018-02-03] MEDS ORDERED: PROTAMINE SULFATE 250 MG in EMPTY BAG 1 BAG IV PRN (05:00)
[2018-02-03] MEDS ORDERED: ceFAZolin 2,000 MG in SODIUM CHLORIDE 0.9% 30 ML IVPB PRN (05:00)
[2018-02-03] MEDS ORDERED: ALBUMIN HUMAN 5% 500 ML in EMPTY BAG 1 BAG IVPB ONE (05:00)
[2018-02-03] MEDS ORDERED: PHENYLEPHRINE 40 MG in SODIUM CHLORIDE 0.9% 250 ML IV PRN (05:00)
[2018-02-03] MEDS ORDERED: PHENYLEPHRINE-0.9% NACL SYG 1 MG/10 ML SYRINGE IV PRN ×4 (05:00)
[2018-02-03 06:01] LABS: Glucose,Whole Blood 90 mg/dL (75-99)
[2018-02-03] MEDS: NITROGLYCERIN OINT 1 INCH/GM PACKET TOPICAL SCH ×3 (06:32→17:10)
[2018-02-03 07:15] LABS: Basophils % (A) 1 %; Eosinophils # (A) 0.2 k/uL (0-0.7); Eosinophils % (A) 5 %; HGB 10.5 gm/dL (13.0-17.5); Lymphocytes # (A) 1.2 k/uL (1.0-4.8); Lymphocytes % (A) 23 %; MCH 32.8 pg (25.0-35.0); MCHC 33.8 g/dL (31.0-37.0); MCV 97.2 fL (80.0-100.0); Mean Platelet Volume 8.4; Monocytes # (A) 0.3 k/uL (0-1.0); Monocytes % (A) 5 %; Neutrophils # (A) 3.3 k/uL (1.3-7.7); Neutrophils % (A) 65 %; Platelet Count 157 k/uL (150-450); RBC 3.18 m/uL (4.30-5.90); RDW 14.2 % (11.5-15.5); WBC 5.1 k/uL (3.8-10.6)
[2018-02-03 07:33] LABS: Calcium 9.3 mg/dL (8.4-10.2); Potassium 4.7 mmol/L (3.5-5.1)
[2018-02-03 07:47] LABS: T4, Free (Free Thyroxine) 0.16 ng/dL (0.78-2.19)
[2018-02-03] MEDS: LEVOTHYROXINE IVP 100 MCG/5 ML VIAL IV SCH (07:56)
[2018-02-03] MEDS: MUPIROCIN 2% OINT 22 GM TUBE NASAL SCH ×2 (07:57→22:12)
[2018-02-03] MEDS: LISINOPRIL 10 MG TAB PO SCH (07:57)
[2018-02-03] MEDS ORDERED: ATORVASTATIN 40 MG TAB PO SCH (09:00)
[2018-02-03] MEDS: ASPIRIN 325 MG TAB PO SCH (10:27)
[2018-02-03] MEDS: HEPARIN SODIUM,PORCINE 5,000 UNIT/ML 1 ML VIAL SQ SCH ×3 (10:27→22:12)
--- NOTE | 2018-02-03 10:52 | P.PN ---
Subjective Progress Note Date: 02/03/18 Principal diagnosis: Non-ST segment elevation myocardial infarction, severe triple-vessel coronary disease. Consult dated 02/01/2018 72-year-old male transferred down from [facility] with chest discomfort. EKG had some nonspecific changes. Troponins were elevated. He also shortness of breath. He had a chest x-ray that apparently was normal and a CT angiogram which ruled out pulmonary embolism as well as aortic dissection. He apparently went to the catheterization laboratory and was discovered have severe three-vessel coronary disease and apparently is going to have a bypass grafting on . Currently he is resting comfortably sleeping actually he is on O2 at 2 L receiving a IV of saline. He has no known ALLERGIES. He apparently has no known medical history and was on no medications at home. Currently resting comfortably without any pain. On 02/02/2018 patient seen in follow-up. He is resting in the bed, in the intensive care unit. In no acute distress. Denies any chest pain, denies any dyspnea. Vital signs are stable, room air with O2 sat at 94%. He is afebrile, respirations are even and nonlabored. Patient is anticipated to be able to transfer out of the intensive care unit today to a monitor bed on selective care unit. He was evaluated by cardiothoracic surgery, and he is tentatively scheduled for 2 vessel CABG next week on Wednesday. Patient was found to be severely hypothyroid, and medical management is in progress in regards to hypothyroidism. Otherwise no acute events overnight, patient is doing fairly well. The patient is seen again today 02/03/2018 in follow-up on the selective care unit. He is currently resting quite comfortably in bed. He is awake and alert in no acute distress. He denies any chest pain, palpitations lightheadedness or dizziness. No worsening shortness of breath, cough or congestion. He is having some low back pain that he relates to the statins. He has been initiated on Synthroid IV push 100 g daily. Current free T4 0.16. He is maintaining good O2 saturations in the 90s on room air. He is working well with the incentive spirometer. He remains afebrile. Objective - Vital Signs Vital signs: Vital Signs Temp 97 F L 02/03/18 04:00 Pulse 58 L 02/03/18 08:00 Resp 20 02/03/18 08:00 BP 104/58 02/03/18 04:00 Pulse Ox 95 02/03/18 04:00 Intake & Output 02/02/18 02/03/18 02/03/18 18:59 06:59 18:59 Intake Total 240 80 120 Balance 240 80 120 Weight 87.5 kg Intake: Intake, IV Titration 80 Amount Sodium Chloride 0.9% 1, 80 000 ml @ 20 mls/hr IV . Q24H [facility] Rx#:[id number] Oral 240 120 Other: Voiding Method Urinal Urinal Urinal # Voids 1 2 # Bowel Movements 0 0 - Exam GENERAL EXAM: Alert, pleasant, 72-year-old white male comfortable in no apparent distress. HEAD: Normocephalic/atraumatic. EYES: Normal reaction of pupils, equal size. Conjunctiva pink, sclera white. NOSE: Clear with pink turbinates. THROAT: No erythema or exudates. NECK: No masses, no JVD, no thyroid enlargement, no adenopathy. CHEST: No chest wall deformity. Symmetrical expansion. LUNGS: Equal air entry with no crackles, wheeze, rhonchi or dullness. CVS: Regular rate and rhythm, normal S1 and S2, no gallops, no murmurs, no rubs ABDOMEN: Soft, nontender. No hepatosplenomegaly, normal bowel sounds, no guarding or rigidity. EXTREMITIES: No clubbing, no edema, no cyanosis, 2+ pulses and upper and lower extremities. MUSCULOSKELETAL: Muscle strength and tone normal. SPINE: No scoliosis or deformity SKIN: No rashes CENTRAL NERVOUS SYSTEM: Alert and oriented -3. No focal deficits, tone is normal in all 4 extremities. PSYCHIATRIC: Alert and oriented -3. Appropriate affect. Intact judgment and insight. - Labs CBC & Chem 7: 02/03/18 06:43 02/03/18 06:43 Labs: Abnormal Lab Results - Last 24 Hours (Table) 02/02/18 02/02/18 02/02/18 Range/Units 16:20 16:30 20:54 RBC (4.30-5.90) m/uL Hgb (13.0-17.5) gm/dL Hct (39.0-53.0) % Carbon Dioxide (22-30) mmol/L BUN (9-20) mg/dL Glucose (74-99) mg/dL POC Glucose (mg/dL) 68 L 73 L 117 H (75-99) mg/dL Free T4 (0.78-2.19) ng/dL 02/03/18 02/03/18 Range/Units 06:43 06:43 RBC 3.18 L (4.30-5.90) m/uL Hgb 10.5 L (13.0-17.5) gm/dL Hct 31.0 L (39.0-53.0) % Carbon Dioxide 32 H (22-30) mmol/L BUN 23 H (9-20) mg/dL Glucose 73 L (74-99) mg/dL POC Glucose (mg/dL) (75-99) mg/dL Free T4 0.16 L (0.78-2.19) ng/dL Microbiology - Last 24 Hours (Table) 01/31/18 16:51 Nasal Screen MRSA/MSSA ([facility]LMER) - Final Nasal Swab Assessment and Plan Assessment: Assessment: Non-ST segment elevation myocardial infarction Severe triple-vessel coronary artery disease, status post cardiac catheterization History of remote nicotine dependence, in remission Hypothyroidism Plan: The patient was seen and evaluated by Dr. Mack. He is currently stable from the pulmonary and critical care standpoint. The plan is for coronary artery bypass grafting early next week. He is again encouraged regarding the use of incentive spirometer and cough and deep breathing exercises. We'll increase his activity as tolerated. We'll continue to follow. I, the cosigning physician, performed a history & physical examination of the patient. Lungs sounds are clear. Maintaining good O2 saturations in the 90s on room air. I discussed the assessment and plan of care with my nurse practitioner, Corrie Walters. I attest to the above note as dictated by her.
[2018-02-03 11:24] LABS: Glucose,Whole Blood 121 mg/dL (75-99)
[2018-02-03] MEDS: CRESTOR 20 MG PO SCH (13:26)
--- NOTE | 2018-02-03 14:51 | P.PN ---
Subjective Progress Note Date: 02/03/18 This is a 72-year-old gentleman was transferred here originally from [facility] with a non-Q-wave myocardial infarction. Underwent cardiac catheterization which revealed severe triple-vessel coronary artery disease. Patient is awaiting coronary artery bypass grafting surgery but because of elevated thyroid levels as is currently been placed on hold. Patient had taken Lipitor in the past, he apparently had significant muscle aching from this and was changed to Crestor as an outpatient which she is able to tolerate. I did speak with pharmacy today, we will initiate Crestor on this patient. We will also put him on a baby aspirin daily. Blood pressure today 104/60 with a heart rate in the 60s, 94% on room air. Hemoglobin 10.5, potassium 4.7, BUN 23, creatinine 1.1. TSH 45, free T4 0.16. Patient was seen and examined this morning, has no complaints, feeling well overall. Denies any episodes of chest discomfort. Objective - Vital Signs Vital signs: Vital Signs Temp 97 F L 02/03/18 04:00 Pulse 60 02/03/18 12:00 Resp 16 02/03/18 08:00 BP 104/68 02/03/18 08:00 Pulse Ox 94 L 02/03/18 08:00 Intake & Output 02/02/18 02/03/18 02/03/18 18:59 06:59 18:59 Intake Total 240 80 120 Balance 240 80 120 Weight 87.5 kg Intake: Intake, IV Titration 80 Amount Sodium Chloride 0.9% 1, 80 000 ml @ 20 mls/hr IV . Q24H [facility] Rx#:[id number] Oral 240 120 Other: Voiding Method Urinal Urinal Urinal # Voids 1 2 1 # Bowel Movements 0 0 - Exam PHYSICAL EXAMINATION: HEENT: Head is atraumatic, normocephalic. Pupils equal, round. Neck is supple. There is no elevated jugular venous pressure. HEART EXAMINATION: Heart S1, S2 normal. No murmur or gallop heard. CHEST EXAMINATION: Lungs are clear to auscultation and precussion. No chest wall tenderness is noted on palpation or with deep breathing. ABDOMEN: Soft, nontender. Bowel sounds are heard. No organomegaly noted. EXTREMITIES: 2+ peripheral pulses with no evidence of peripheral edema and no calf tenderness noted. NEUROLOGIC patient is awake, alert and oriented -3. . - Labs CBC & Chem 7: 02/03/18 06:43 02/03/18 06:43 Labs: Abnormal Lab Results - Last 24 Hours (Table) 02/02/18 02/02/18 02/02/18 Range/Units 16:20 16:30 20:54 RBC (4.30-5.90) m/uL Hgb (13.0-17.5) gm/dL Hct (39.0-53.0) % Carbon Dioxide (22-30) mmol/L BUN (9-20) mg/dL Glucose (74-99) mg/dL POC Glucose (mg/dL) 68 L 73 L 117 H (75-99) mg/dL TSH (0.465-4.680) mIU/L Free T4 (0.78-2.19) ng/dL 02/03/18 02/03/18 02/03/18 Range/Units 06:43 06:43 06:43 RBC 3.18 L (4.30-5.90) m/uL Hgb 10.5 L (13.0-17.5) gm/dL Hct 31.0 L (39.0-53.0) % Carbon Dioxide 32 H (22-30) mmol/L BUN 23 H (9-20) mg/dL Glucose 73 L (74-99) mg/dL POC Glucose (mg/dL) (75-99) mg/dL TSH 45.800 H (0.465-4.680) mIU/L Free T4 0.16 L (0.78-2.19) ng/dL 02/03/18 Range/Units 11:17 RBC (4.30-5.90) m/uL Hgb (13.0-17.5) gm/dL Hct (39.0-53.0) % Carbon Dioxide (22-30) mmol/L BUN (9-20) mg/dL Glucose (74-99) mg/dL POC Glucose (mg/dL) 121 H (75-99) mg/dL TSH (0.465-4.680) mIU/L Free T4 (0.78-2.19) ng/dL Microbiology - Last 24 Hours (Table) 01/31/18 16:51 Nasal Screen MRSA/MSSA ([facility]LMER) - Final Nasal Swab Assessment and Plan Plan: Assessment and plan #1 non-ST elevation myocardial infarction, status post cardiac catheterization which revealed severe triple-vessel coronary artery disease #2 nicotine dependence #3 hypothyroidism Plan We will add Crestor to the patient's medication regime along with an aspirin daily. Once the patient's thyroid levels are within normal limits we'll proceed with coronary artery bypass grafting surgery. We will continue to follow the patient. DNP note has been reviewed, I agree with a documented findings and plan of care. Patient was seen and examined.
[2018-02-03 16:45] LABS: Glucose,Whole Blood 162 mg/dL (75-99)
--- NOTE | 2018-02-03 16:47 | P.PN ---
Subjective Progress Note Date: 02/03/18 Principal diagnosis: Severe triple vessel coronary artery disease with left main disease, hyperlipidemia, non-ST segment elevation myocardial infarction this admission, remote history of tobacco dependence, obstructive sleep apnea without CPAP use, hypothyroid with an admission TSH level of 46.000 and a free T4 of less than 0.07 and family history of coronary artery disease. The patient is lying in bed with his head elevated. He is in no acute distress. He denies any complaints of pain or shortness of breath at this time. Oxygen saturation is 95% on room air. He is achieving 2250 mL on his incentive spirometry. His is at his bedside, their questions were answered to the best of my ability. His TSH was redrawn today and is 45.800 and his free T4 is 0.16. Objective - Vital Signs Vital signs: Vital Signs Temp 97.5 F L 02/03/18 12:00 Pulse 64 02/03/18 16:00 Resp 18 02/03/18 16:00 BP 110/74 02/03/18 12:00 Pulse Ox 95 02/03/18 12:00 Intake & Output 02/02/18 02/03/18 02/03/18 18:59 06:59 18:59 Intake Total 240 80 120 Balance 240 80 120 Weight 87.5 kg Intake: Intake, IV Titration 80 Amount Sodium Chloride 0.9% 1, 80 000 ml @ 20 mls/hr IV . Q24H [facility] Rx#:[id number] Oral 240 120 Other: Voiding Method Urinal Urinal Urinal # Voids 1 2 1 # Bowel Movements 0 0 - Constitutional General appearance: Present: cooperative, no acute distress, obese - Respiratory Details: Lung sounds are essentially clear to his bilateral upper lobes, few scattered crackles to his bilateral bases. Respirations are symmetrical and nonlabored. Oxygen saturation are 95% on room air. He is achieving 2250 mL on his incentive spirometry. Bedside FEV1 completed on 01/31/2018 with a predicted FEV1 value of 75% - Cardiovascular Details: Regular rhythm and rate. S1 and S2 present, negative for S3, gallop or murmur. Remote telemetry showing normal sinus rhythm heart rate 61. No edema present. Knee-high sequential compression devices in place to his bilateral lower extremities. - Gastrointestinal Gastrointestinal Comment(s): Abdomen is soft, nontender and nondistended. Active bowel sounds to all 4 abdominal quadrants. Tolerating oral intake. Passing flatus. No guarding or rigidity. - Genitourinary Genitourinary Comment(s): Voiding clear yellow urine. - Integumentary Integumentary Comment(s): Skin is warm and dry. No clubbing or cyanosis present. No rash or abnormal pigmentation present. - Neurologic Neurologic: Present: CNII-XII intact - Musculoskeletal Musculoskeletal: Present: gait normal, strength equal bilaterally - Psychiatric Psychiatric: Present: A&O x's 3, appropriate affect, intact judgment & insight - Labs CBC & Chem 7: 02/03/18 06:43 02/03/18 06:43 Labs: Abnormal Lab Results - Last 24 Hours (Table) 02/02/18 02/02/18 02/02/18 Range/Units 16:20 16:30 20:54 RBC (4.30-5.90) m/uL Hgb (13.0-17.5) gm/dL Hct (39.0-53.0) % Carbon Dioxide (22-30) mmol/L BUN (9-20) mg/dL Glucose (74-99) mg/dL POC Glucose (mg/dL) 68 L 73 L 117 H (75-99) mg/dL TSH (0.465-4.680) mIU/L Free T4 (0.78-2.19) ng/dL 02/03/18 02/03/18 02/03/18 Range/Units 06:43 06:43 06:43 RBC 3.18 L (4.30-5.90) m/uL Hgb 10.5 L (13.0-17.5) gm/dL Hct 31.0 L (39.0-53.0) % Carbon Dioxide 32 H (22-30) mmol/L BUN 23 H (9-20) mg/dL Glucose 73 L (74-99) mg/dL POC Glucose (mg/dL) (75-99) mg/dL TSH 45.800 H (0.465-4.680) mIU/L Free T4 0.16 L (0.78-2.19) ng/dL 02/03/18 Range/Units 11:17 RBC (4.30-5.90) m/uL Hgb (13.0-17.5) gm/dL Hct (39.0-53.0) % Carbon Dioxide (22-30) mmol/L BUN (9-20) mg/dL Glucose (74-99) mg/dL POC Glucose (mg/dL) 121 H (75-99) mg/dL TSH (0.465-4.680) mIU/L Free T4 (0.78-2.19) ng/dL Microbiology - Last 24 Hours (Table) 01/31/18 16:51 Nasal Screen MRSA/MSSA ([facility]) - Final Nasal Swab Assessment and Plan (1) Triple vessel coronary artery disease Current Visit: Yes Status: Acute Code(s): I25.10 - ATHSCL HEART DISEASE OF [place] CORONARY ARTERY W/O ANG PCTRS SNOMED Code(s): 869735229 (2) Non-STEMI (non-ST elevated myocardial infarction) Current Visit: Yes Status: Acute Code(s): I21.4 - NON-ST ELEVATION (NSTEMI) MYOCARDIAL INFARCTION SNOMED Code(s): 818984115 (3) Hyperlipidemia Current Visit: Yes Status: Chronic Code(s): E78.5 - HYPERLIPIDEMIA, UNSPECIFIED SNOMED Code(s): 88209676 (4) Obstructive sleep apnea Current Visit: Yes Status: Chronic Code(s): G47.33 - OBSTRUCTIVE SLEEP APNEA (ADULT) (PEDIATRIC) SNOMED Code(s): 68228602 (5) Tobacco dependence in remission Current Visit: No Status: Resolved Code(s): F17.201 - NICOTINE DEPENDENCE, UNSPECIFIED, IN REMISSION SNOMED Code(s): 485415327 Plan: 1. Preoperative teaching continued. 2. Encourage use of his incentive spirometry every hour while awake. 3. Pulmonary recommendations per Dr. Mack. 4. The patient's TSH level is 45.800 with a free T4 less 0.16. Continue levothyroxine 100 g IV daily. We will recheck his thyroid levels on Wednesday, . 5. He will be scheduled for coronary artery bypass grafting surgery on Wednesday02/08/2018, for myocardial revascularization surgery to be performed by Dr. Genoveva Meraz 6. Continue to optimize his medical management, continue aspirin, statin, RITO inhibitor, levothyroxine and heparin. We will start metoprolol to heart rate 12.5 mg by mouth twice a day which is to be held for heart rate less than 60. 7. More recommendations to follow based on the patient's clinical course. Time with Patient: Greater than 30
--- NOTE | 2018-02-03 20:40 | PN ---
PROGRESS NOTE SUBJECTIVE: A 72-year-old white male with myocardial infarction scheduled for bypass surgery next Wednesday, but he has severe hypothyroidism, is getting IV Synthroid 100 mcg per day over the weekend prior to heart surgery. VITAL SIGNS: Stable, afebrile. CARDIOVASCULAR: S1, S2. LUNGS: Clear. GI: Soft. HEMATOLOGY: Negative Homans'. ASSESSMENT: 1. Myocardial infarction. 2. Hypothyroidism. 3. Coronary artery disease. Continue current treatment. Follow up in the next 24-48 hours. MMODL / IJN: [id number] /
[2018-02-03 21:04] LABS: Glucose,Whole Blood 111 mg/dL (75-99)
[2018-02-03] MEDS: METOPROLOL TARTRATE 12.5 MG TAB PO SCH (22:12)
[2018-02-03] MEDS: SODIUM CHLORIDE 0.9% 1,000 ML IV SCH (22:13)
[2018-02-04] MEDS: NITROGLYCERIN OINT 1 INCH/GM PACKET TOPICAL SCH ×5 (01:46→23:02)
[2018-02-04 06:15] LABS: Glucose,Whole Blood 101 mg/dL (75-99)
[2018-02-04] MEDS: CRESTOR 20 MG PO SCH (09:17)
[2018-02-04] MEDS: METOPROLOL TARTRATE 12.5 MG TAB PO SCH ×2 (09:18→19:46)
[2018-02-04] MEDS: ASPIRIN 325 MG TAB PO SCH (09:18)
[2018-02-04] MEDS: LISINOPRIL 10 MG TAB PO SCH (09:18)
[2018-02-04] MEDS: LEVOTHYROXINE IVP 100 MCG/5 ML VIAL IV SCH (09:18)
[2018-02-04] MEDS: HEPARIN SODIUM,PORCINE 5,000 UNIT/ML 1 ML VIAL SQ SCH ×3 (09:18→23:03)
[2018-02-04] MEDS: MUPIROCIN 2% OINT 22 GM TUBE NASAL SCH ×2 (09:27→19:47)
--- NOTE | 2018-02-04 09:39 | P.PN ---
Subjective Progress Note Date: 02/04/18 Principal diagnosis: Severe triple vessel coronary artery disease with left main disease, hyperlipidemia, non-ST segment elevation myocardial infarction this admission, remote history of tobacco dependence, obstructive sleep apnea without CPAP use, hypothyroid with an admission TSH level of 46.000 and a free T4 of less than 0.07 and family history of coronary artery disease. The patient is sitting up to the bedside edge eating his breakfast. He is in no acute distress. He reports that he feels like he has somewhat more energy today. Remote telemetry showing normal sinus rhythm heart rate 75. He denies any complaints of chest pain or shortness of breath. Objective - Vital Signs Vital signs: Vital Signs Temp 97.6 F 02/04/18 08:00 Pulse 71 02/04/18 08:00 Resp 16 02/04/18 08:00 BP 102/86 02/04/18 08:00 Pulse Ox 95 02/04/18 08:00 Intake & Output 02/03/18 02/04/18 02/04/18 18:59 06:59 18:59 Intake Total 360 240 Output Total 300 300 Balance 60 -300 240 Weight 88.2 kg Intake: Oral 360 240 Output: Urine 300 300 Other: Voiding Method Urinal Urinal # Voids 1 1 # Bowel Movements 0 1 - Constitutional General appearance: Present: cooperative, no acute distress, obese - Respiratory Details: Lungs sounds essentially clear throughout, diminished to his bilateral bases. Respirations are symmetrical nonlabored. Oxygen saturation are 95% on room air. He is achieving 2800 mL on his incentive spirometry. - Cardiovascular Details: Regular rhythm and rate. S1 and S2 present, negative for S3, gallop or murmur. No edema present. Remote telemetry showing normal sinus rhythm heart rate 75. - Gastrointestinal Gastrointestinal Comment(s): Abdomen is soft, nontender and nondistended. Active bowel sounds all 4 abdominal quadrants. Tolerating oral intake. Passing flatus. Bowel movement yesterday 02/03/2018. - Genitourinary Genitourinary Comment(s): Voiding clear yellow urine. - Integumentary Integumentary Comment(s): Skin is warm and dry. No clubbing or cyanosis present. No rash or abnormal pigmentation. - Neurologic Neurologic: Present: CNII-XII intact - Musculoskeletal Musculoskeletal: Present: gait normal, strength equal bilaterally - Psychiatric Psychiatric: Present: A&O x's 3, appropriate affect, intact judgment & insight - Allied health notes Allied health notes reviewed: nursing - Labs CBC & Chem 7: 02/03/18 06:43 02/03/18 06:43 Labs: Abnormal Lab Results - Last 24 Hours (Table) 02/01/18 02/03/18 02/03/18 Range/Units 03:56 06:43 11:17 POC Glucose (mg/dL) 121 H (75-99) mg/dL TSH 45.800 H (0.465-4.680) mIU/L Crossmatch See Detail 02/03/18 02/03/18 02/04/18 Range/Units 16:23 21:02 06:13 POC Glucose (mg/dL) 162 H 111 H 101 H (75-99) mg/dL TSH (0.465-4.680) mIU/L Crossmatch Assessment and Plan (1) Triple vessel coronary artery disease Current Visit: Yes Status: Acute Code(s): I25.10 - ATHSCL HEART DISEASE OF [place] CORONARY ARTERY W/O ANG PCTRS SNOMED Code(s): 289071837 (2) Non-STEMI (non-ST elevated myocardial infarction) Current Visit: Yes Status: Acute Code(s): I21.4 - NON-ST ELEVATION (NSTEMI) MYOCARDIAL INFARCTION SNOMED Code(s): 313311841 (3) Hyperlipidemia Current Visit: Yes Status: Chronic Code(s): E78.5 - HYPERLIPIDEMIA, UNSPECIFIED SNOMED Code(s): 56077039 (4) Obstructive sleep apnea Current Visit: Yes Status: Chronic Code(s): G47.33 - OBSTRUCTIVE SLEEP APNEA (ADULT) (PEDIATRIC) SNOMED Code(s): 19508521 (5) Tobacco dependence in remission Current Visit: No Status: Resolved Code(s): F17.201 - NICOTINE DEPENDENCE, UNSPECIFIED, IN REMISSION SNOMED Code(s): 579243437 Plan: 1. Preoperative teaching continued. 2. Encourage use of his incentive spirometry every hour while awake. 3. Pulmonary recommendations per Dr. Mack. 4. Continue levothyroxine 100 g IV daily. We will recheck his thyroid levels on 02/07/2018. 5. He will be scheduled for myocardial revascularization surgery on 05/2018, to be performed by Dr. Genoveva Meraz 6. Continue to optimize his medical management, continue aspirin, statin, RITO inhibitor, levothyroxine and heparin. Continue metoprolol to heart rate 12.5 mg by mouth twice a day which is to be held for heart rate less than 60. 7. More recommendations to follow based on the patient's clinical course. Time with Patient: Greater than 30
--- NOTE | 2018-02-04 10:33 | P.PN ---
Subjective Progress Note Date: 02/04/18 Principal diagnosis: Coronary artery disease Progress note dated 02/04/2018 This is a 72-year-old male who was admitted with a diagnosis of non-ST segment elevation myocardial infarction and was discovered on catheterization to have severe triple-vessel coronary artery disease. He is scheduled for a bypass grafting on Wednesday of next week. He has a history of remote nicotine addiction and history of hypothyroidism. The patient generally doing well. Was hoping to be open to discharge home but they plan on keeping him here in the hospital until next Wednesday. There are no active pulmonary issues at this time. He is getting Synthroid for his hypothyroidism. No additional chest pain or chest discomfort. No shortness of breath cough wheezing phlegm production hemoptysis nausea vomiting diarrhea fever chills or other complaints for that matter. Objective - Vital Signs Vital signs: Vital Signs Temp 97.6 F 02/04/18 08:00 Pulse 71 02/04/18 08:00 Resp 16 02/04/18 08:00 BP 102/86 02/04/18 08:00 Pulse Ox 95 02/04/18 08:00 Intake & Output 02/03/18 02/04/18 02/04/18 18:59 06:59 18:59 Intake Total 360 240 Output Total 300 300 Balance 60 -300 240 Weight 88.2 kg Intake: Oral 360 240 Output: Urine 300 300 Other: Voiding Method Urinal Urinal # Voids 1 1 # Bowel Movements 0 1 - Exam No acute distress, oriented 3. HEENT examination is grossly unremarkable. Mucous membranes are moist. No oral lesions. Neck supple. Full range of motion. No adenopathy thyromegaly or neck vein distention. Cardiovascular examination reveals regular rhythm rate. S1-S2 normal. No S3 or S4. No discernible murmur noted. Lungs reveal clear breath sounds. His breath sounds are equal bilaterally. No adventitious lung sounds including wheezes rhonchi or crackles. Abdomen soft bowel sounds are heard. No masses or tenderness. Extremities are intact. No cyanosis clubbing or edema. Skin is without rash or lesion. Neurologic examination is brief but nonfocal. - Labs CBC & Chem 7: 02/03/18 06:43 02/03/18 06:43 Labs: Abnormal Lab Results - Last 24 Hours (Table) 02/01/18 02/03/18 02/03/18 Range/Units 03:56 06:43 11:17 POC Glucose (mg/dL) 121 H (75-99) mg/dL TSH 45.800 H (0.465-4.680) mIU/L Crossmatch See Detail 02/03/18 02/03/18 02/04/18 Range/Units 16:23 21:02 06:13 POC Glucose (mg/dL) 162 H 111 H 101 H (75-99) mg/dL TSH (0.465-4.680) mIU/L Crossmatch Assessment and Plan Assessment: Assessment Non-ST segment elevation myocardial infarction Severe triple-vessel coronary artery disease, status post cardiac catheterization No significant past medical history to speak of. Anticipated bypass grafting on Wednesday of next week. Hypothyroidism Plan: Plan dated 02/01/2018 The patient was a former smoker. A bedside spirometry will be done. The patient apparently has no symptoms and past medical history. Was on no medications at home. No history of any ALLERGIES other than possible morphine. The patient otherwise is doing well. Anticipated bypass grafting on . Plan dated 02/04/2018 The patient is doing well. His surgery has been pushed back from yesterday to Wednesday of next week. He is receiving IV Synthroid for his hypothyroidism. His pulmonary status is stable. He's had no additional chest pain. He apparently was seen here over the weekend. We'll continue to follow. Time with Patient: Less than 30
[2018-02-04 11:46] LABS: Glucose,Whole Blood 102 mg/dL (75-99)
--- NOTE | 2018-02-04 14:14 | P.PN ---
Subjective Progress Note Date: 02/04/18 This is a 72-year-old gentleman was transferred here originally from [facility] with a non-Q-wave myocardial infarction. Underwent cardiac catheterization which revealed severe triple-vessel coronary artery disease. Patient is awaiting coronary artery bypass grafting surgery but because of elevated thyroid levels as is currently been placed on hold. Patient had taken Lipitor in the past, he apparently had significant muscle aching from this and was changed to Crestor as an outpatient which she is able to tolerate. I did speak with pharmacy today, we will initiate Crestor on this patient. We will also put him on a baby aspirin daily. Blood pressure today 104/60 with a heart rate in the 60s, 94% on room air. Hemoglobin 10.5, potassium 4.7, BUN 23, creatinine 1.1. TSH 45, free T4 0.16. Patient was seen and examined this morning, has no complaints, feeling well overall. Denies any episodes of chest discomfort. 02/04/2018 Patient seen and examined today, denies any chest pain or difficulty in breathing. TSH level XLV.8, T4 0.16. Blood pressure 98/60. Denies any chest pain or difficulty in breathing. Objective - Vital Signs Vital signs: Vital Signs Temp 97.6 F 02/04/18 08:00 Pulse 53 L 02/04/18 12:00 Resp 15 02/04/18 12:00 BP 97/67 02/04/18 12:00 Pulse Ox 96 02/04/18 12:00 Intake & Output 02/03/18 02/04/18 02/04/18 18:59 06:59 18:59 Intake Total 360 710 Output Total 300 300 Balance 60 -300 710 Weight 88.2 kg Intake: Oral 360 710 Output: Urine 300 300 Other: Voiding Method Urinal Urinal Urinal # Voids 1 1 1 # Bowel Movements 0 1 - Exam PHYSICAL EXAMINATION: HEENT: Head is atraumatic, normocephalic. Pupils equal, round. Neck is supple. There is no elevated jugular venous pressure. HEART EXAMINATION: Heart S1, S2 normal. No murmur or gallop heard. CHEST EXAMINATION: Lungs are clear to auscultation and precussion. No chest wall tenderness is noted on palpation or with deep breathing. ABDOMEN: Soft, nontender. Bowel sounds are heard. No organomegaly noted. EXTREMITIES: 2+ peripheral pulses with no evidence of peripheral edema and no calf tenderness noted. NEUROLOGIC patient is awake, alert and oriented -3. . - Labs CBC & Chem 7: 02/03/18 06:43 02/03/18 06:43 Labs: Abnormal Lab Results - Last 24 Hours (Table) 02/01/18 02/03/18 02/03/18 Range/Units 03:56 16:23 21:02 POC Glucose (mg/dL) 162 H 111 H (75-99) mg/dL Crossmatch See Detail 02/04/18 02/04/18 Range/Units 06:13 11:39 POC Glucose (mg/dL) 101 H 102 H (75-99) mg/dL Crossmatch Assessment and Plan Plan: Assessment and plan #1 non-ST elevation myocardial infarction, status post cardiac catheterization which revealed severe triple-vessel coronary artery disease #2 nicotine dependence #3 hypothyroidism Plan TSH is improving, patient will be scheduled likely sometime next week for coronary artery bypass grafting surgery. DNP note has been reviewed, I agree with a documented findings and plan of care. Patient was seen and examined.
[2018-02-04] MEDS: SODIUM CHLORIDE 0.9% 1,000 ML IV SCH (15:57)
[2018-02-04 16:41] LABS: Glucose,Whole Blood 158 mg/dL (75-99)
[2018-02-04 21:02] LABS: Glucose,Whole Blood 104 mg/dL (75-99)
[2018-02-05] MEDS: ACETAMINOPHEN TAB 325 MG TAB PO PRN (05:01)
[2018-02-05] MEDS: NITROGLYCERIN OINT 1 INCH/GM PACKET TOPICAL SCH ×4 (05:04→21:15)
[2018-02-05 06:01] LABS: Glucose,Whole Blood 107 mg/dL (75-99)
[2018-02-05] MEDS: CRESTOR 20 MG PO SCH (08:27)
[2018-02-05] MEDS: LEVOTHYROXINE IVP 100 MCG/5 ML VIAL IV SCH (08:27)
[2018-02-05] MEDS: HEPARIN SODIUM,PORCINE 5,000 UNIT/ML 1 ML VIAL SQ SCH ×3 (08:27→22:46)
[2018-02-05] MEDS: MUPIROCIN 2% OINT 22 GM TUBE NASAL SCH ×2 (08:27→19:49)
[2018-02-05] MEDS: ASPIRIN 325 MG TAB PO SCH (08:27)
[2018-02-05] MEDS: METOPROLOL TARTRATE 12.5 MG TAB PO SCH ×2 (08:49→19:49)
--- NOTE | 2018-02-05 09:54 | PN ---
PROGRESS NOTE DATE OF SERVICE: 02/04/2018 CHIEF COMPLAINT: A 72-year-old white male who is getting much more energy and less fatigue since he has been on IV levothyroxine. He is awaiting for CABG surgery for ischemic coronary artery disease. Vital signs stable, afebrile. Cardiovascular S1, S2. Lungs clear. GI soft. Hematology negative Homans. ASSESSMENT: 1. Coronary artery disease. 2. Myocardial infarction. 3. Dehydration. 4. Profound hypothyroidism. Remains on IV levothyroxine. Await surgery next week and medically stable at this time. MMODL / IJN: [id number] /
[2018-02-05] MEDS: LISINOPRIL 10 MG TAB PO SCH (10:32)
[2018-02-05 11:53] LABS: Glucose,Whole Blood 96 mg/dL (75-99)
--- NOTE | 2018-02-05 12:23 | P.PN ---
Subjective Progress Note Date: 02/05/18 Principal diagnosis: Severe triple vessel coronary artery disease with left main disease, hyperlipidemia, non-ST segment elevation myocardial infarction this admission, remote history of tobacco dependence, obstructive sleep apnea without CPAP use, hypothyroid with an admission TSH level of 46.000 and a free T4 of less than 0.07 and family history of coronary artery disease. The patient is sitting up to the bedside edge eating his breakfast. He is in no acute distress. He reports that he feels like he has more energy today. Remote telemetry showing normal sinus rhythm heart rate 60. He denies any complaints of chest pain or shortness of breath. Objective - Vital Signs Vital signs: Vital Signs Temp 98.1 F 02/05/18 08:00 Pulse 55 L 02/05/18 10:30 Resp 16 02/05/18 08:00 BP 103/53 02/05/18 10:30 Pulse Ox 95 02/05/18 08:00 Intake & Output 02/04/18 02/05/18 02/05/18 18:59 06:59 18:59 Intake Total 950 290 240 Balance 950 290 240 Weight 85.956 kg Intake: Oral 950 290 240 Other: Voiding Method Urinal Urinal Urinal # Voids 2 2 # Bowel Movements 1 - Constitutional General appearance: Present: cooperative, no acute distress, obese - Respiratory Details: Lungs sounds essentially clear throughout, diminished to his bilateral bases. Respirations are symmetrical nonlabored. Oxygen saturation are 98% on room air. He is achieving 2800 mL on his incentive spirometry. - Cardiovascular Details: Regular rhythm and rate. S1 and S2 present, negative for S3, gallop or murmur. No edema present. Remote telemetry showing normal sinus rhythm heart rate 60. - Gastrointestinal Gastrointestinal Comment(s): Abdomen is soft, nontender and nondistended. Active bowel sounds all 4 abdominal quadrants. Tolerating oral intake. Past place. - Genitourinary Genitourinary Comment(s): Adequate urine output. Voiding clear yellow urine. - Integumentary Integumentary Comment(s): Skin is warm and dry. No clubbing or cyanosis present. No rash or abnormal pigmentation present. - Neurologic Neurologic: Present: CNII-XII intact - Musculoskeletal Musculoskeletal: Present: gait normal, strength equal bilaterally - Psychiatric Psychiatric: Present: A&O x's 3, appropriate affect, intact judgment & insight - Allied health notes Allied health notes reviewed: nursing - Labs CBC & Chem 7: 02/03/18 06:43 02/03/18 06:43 Labs: Abnormal Lab Results - Last 24 Hours (Table) 02/04/18 02/04/18 02/05/18 Range/Units 16:35 21:00 05:59 POC Glucose (mg/dL) 158 H 104 H 107 H (75-99) mg/dL Assessment and Plan (1) Triple vessel coronary artery disease Current Visit: Yes Status: Acute Code(s): I25.10 - ATHSCL HEART DISEASE OF [place] CORONARY ARTERY W/O ANG PCTRS SNOMED Code(s): 718952899 (2) Non-STEMI (non-ST elevated myocardial infarction) Current Visit: Yes Status: Acute Code(s): I21.4 - NON-ST ELEVATION (NSTEMI) MYOCARDIAL INFARCTION SNOMED Code(s): 223688529 (3) Hyperlipidemia Current Visit: Yes Status: Chronic Code(s): E78.5 - HYPERLIPIDEMIA, UNSPECIFIED SNOMED Code(s): 44370479 (4) Obstructive sleep apnea Current Visit: Yes Status: Chronic Code(s): G47.33 - OBSTRUCTIVE SLEEP APNEA (ADULT) (PEDIATRIC) SNOMED Code(s): 73888668 (5) Tobacco dependence in remission Current Visit: No Status: Resolved Code(s): F17.201 - NICOTINE DEPENDENCE, UNSPECIFIED, IN REMISSION SNOMED Code(s): 444176105 Plan: 1. Preoperative teaching continued. 2. Encourage use of his incentive spirometry every hour while awake. 3. Pulmonary recommendations per Dr. Mack. 4. Continue levothyroxine 100 g IV daily. We will recheck his thyroid levels on 02/07/2018. 5. He will be scheduled for myocardial revascularization surgery on 05/2018, to be performed by Dr. Genoveva Meraz 6. Continue to optimize his medical management, continue aspirin, statin, RITO inhibitor, levothyroxine and heparin. Continue metoprolol to heart rate 12.5 mg by mouth twice a day which is to be held for heart rate less than 60. 7. More recommendations to follow based on the patient's clinical course. Time with Patient: Greater than 30
--- NOTE | 2018-02-05 13:00 | PN ---
PROGRESS NOTE This patient has a severe triple-vessel disease. Patient remains comfortable. He is feeling better. He is feeling stronger. His repeat thyroid studies shows T4 was 0.17. Patient remains afebrile. Blood pressure is 103/53 mmHg. First and second heart sounds are normal. Lungs are clinically clear to auscultation and percussion. Patient would undergo the coronary artery bypass surgery early next week. MMODL / IJN: [id number] /
--- NOTE | 2018-02-05 14:17 | P.PN ---
Subjective Progress Note Date: 02/05/18 Principal diagnosis: Non-ST segment elevation myocardial infarction, severe triple-vessel coronary disease. Consult dated 02/01/2018 72-year-old male transferred down from [facility] with chest discomfort. EKG had some nonspecific changes. Troponins were elevated. He also shortness of breath. He had a chest x-ray that apparently was normal and a CT angiogram which ruled out pulmonary embolism as well as aortic dissection. He apparently went to the catheterization laboratory and was discovered have severe three-vessel coronary disease and apparently is going to have a bypass grafting on . Currently he is resting comfortably sleeping actually he is on O2 at 2 L receiving a IV of saline. He has no known ALLERGIES. He apparently has no known medical history and was on no medications at home. Currently resting comfortably without any pain. On 02/02/2018 patient seen in follow-up. He is resting in the bed, in the intensive care unit. In no acute distress. Denies any chest pain, denies any dyspnea. Vital signs are stable, room air with O2 sat at 94%. He is afebrile, respirations are even and nonlabored. Patient is anticipated to be able to transfer out of the intensive care unit today to a monitor bed on selective care unit. He was evaluated by cardiothoracic surgery, and he is tentatively scheduled for 2 vessel CABG next week on Wednesday. Patient was found to be severely hypothyroid, and medical management is in progress in regards to hypothyroidism. Otherwise no acute events overnight, patient is doing fairly well. The patient is seen again today 02/03/2018 in follow-up on the selective care unit. He is currently resting quite comfortably in bed. He is awake and alert in no acute distress. He denies any chest pain, palpitations lightheadedness or dizziness. No worsening shortness of breath, cough or congestion. He is having some low back pain that he relates to the statins. He has been initiated on Synthroid IV push 100 g daily. Current free T4 0.16. He is maintaining good O2 saturations in the 90s on room air. He is working well with the incentive spirometer. He remains afebrile. Progress note dated 02/04/2018 This is a 72-year-old male who was admitted with a diagnosis of non-ST segment elevation myocardial infarction and was discovered on catheterization to have severe triple-vessel coronary artery disease. He is scheduled for a bypass grafting on Wednesday of next week. He has a history of remote nicotine addiction and history of hypothyroidism. The patient generally doing well. Was hoping to be open to discharge home but they plan on keeping him here in the hospital until next Wednesday. There are no active pulmonary issues at this time. He is getting Synthroid for his hypothyroidism. No additional chest pain or chest discomfort. No shortness of breath cough wheezing phlegm production hemoptysis nausea vomiting diarrhea fever chills or other complaints for that matter. The patient is seen again today 02/05/2018 in follow-up on the selective care unit. He is awake and alert in no acute distress. He denies any shortness of breath, cough or congestion. No chest pain, dizziness or lightheadedness. He remains on aspirin beta blockers Nitro-Bid and statins. Objective - Vital Signs Vital signs: Vital Signs Temp 98.1 F 02/05/18 08:00 Pulse 55 L 02/05/18 10:30 Resp 16 02/05/18 08:00 BP 103/53 02/05/18 10:30 Pulse Ox 95 02/05/18 08:00 Intake & Output 02/04/18 02/05/18 02/05/18 18:59 06:59 18:59 Intake Total 950 290 480 Balance 950 290 480 Weight 85.956 kg Intake: Oral 950 290 480 Other: Voiding Method Urinal Urinal Urinal # Voids 2 2 # Bowel Movements 1 - Exam GENERAL EXAM: Alert, pleasant, 72-year-old white male comfortable in no apparent distress. HEAD: Normocephalic/atraumatic. EYES: Normal reaction of pupils, equal size. Conjunctiva pink, sclera white. NOSE: Clear with pink turbinates. THROAT: No erythema or exudates. NECK: No masses, no JVD, no thyroid enlargement, no adenopathy. CHEST: No chest wall deformity. Symmetrical expansion. LUNGS: Equal air entry with no crackles, wheeze, rhonchi or dullness. CVS: Regular rate and rhythm, normal S1 and S2, no gallops, no murmurs, no rubs ABDOMEN: Soft, nontender. No hepatosplenomegaly, normal bowel sounds, no guarding or rigidity. EXTREMITIES: No clubbing, no edema, no cyanosis, 2+ pulses and upper and lower extremities. MUSCULOSKELETAL: Muscle strength and tone normal. SPINE: No scoliosis or deformity SKIN: No rashes CENTRAL NERVOUS SYSTEM: Alert and oriented -3. No focal deficits, tone is normal in all 4 extremities. PSYCHIATRIC: Alert and oriented -3. Appropriate affect. Intact judgment and insight. - Labs CBC & Chem 7: 02/03/18 06:43 02/03/18 06:43 Labs: Abnormal Lab Results - Last 24 Hours (Table) 02/04/18 02/04/18 02/05/18 Range/Units 16:35 21:00 05:59 POC Glucose (mg/dL) 158 H 104 H 107 H (75-99) mg/dL Assessment and Plan Assessment: Assessment: Non-ST segment elevation myocardial infarction Severe triple-vessel coronary artery disease, status post cardiac catheterization awaiting revascularization. History of remote nicotine dependence, in remission Hypothyroidism, remains on IV Synthroid. Plan: The patient was seen and evaluated by Dr. Mack. He is currently stable from the pulmonary standpoint. The plan is for coronary artery bypass grafting early next week. He is again encouraged regarding the use of incentive spirometer and cough and deep breathing exercises. We'll increase his activity as tolerated. We'll continue to follow. I, the cosigning physician, performed a history & physical examination of the patient. Lungs sounds are clear. Maintaining good O2 saturations in the 90s on room air. I discussed the assessment and plan of care with my nurse practitioner, Corrie Walters. I attest to the above note as dictated by her.
[2018-02-05 16:45] LABS: Glucose,Whole Blood 105 mg/dL (75-99)
[2018-02-05] MEDS: SODIUM CHLORIDE 0.9% 1,000 ML IV SCH (17:13)
--- NOTE | 2018-02-05 17:15 | PN ---
PROGRESS NOTE Feel much better. He has more energy, given appropriate answers. Has no fatigue. He is status post non-STEMI, severe triple vessel coronary artery disease. He remains on IV levothyroxine, IV 100 mcg daily. He is having no chest pain, shortness of breath, no of syncope. He is on aspirin, beta blockers, and statins. Temperature 98, pulse is 50s to 60s, respiratory rate is 16 to 20, blood pressure 103/53, O2 SATs at 95%. CARDIOVASCULAR: S1, S2. LUNGS: Clear. GI: Soft. ASSESSMENT: 1. Non STEMI, severe triple-vessel coronary artery disease. 2. Hypothyroidism. 3. Nicotine addiction. He is going to have CABG surgery. Will repeat his thyroid blood tests. Please see further orders. MMODL / IJN: [id number] /
[2018-02-05 20:58] LABS: Glucose,Whole Blood 138 mg/dL (75-99)
[2018-02-06] MEDS: NITROGLYCERIN OINT 1 INCH/GM PACKET TOPICAL SCH ×4 (06:02→23:44)
[2018-02-06 06:56] LABS: Glucose,Whole Blood 103 mg/dL (75-99)
[2018-02-06] MEDS ORDERED: MD COMMUNICATION TO PHARMACY 1 EACH MISC PO ONE ×4 (07:57)
[2018-02-06] MEDS: LISINOPRIL 10 MG TAB PO SCH (09:05)
[2018-02-06] MEDS: LEVOTHYROXINE IVP 100 MCG/5 ML VIAL IV SCH (09:06)
[2018-02-06] MEDS: HEPARIN SODIUM,PORCINE 5,000 UNIT/ML 1 ML VIAL SQ SCH ×3 (09:06→23:46)
[2018-02-06] MEDS: CRESTOR 20 MG PO SCH (09:06)
[2018-02-06] MEDS: METOPROLOL TARTRATE 12.5 MG TAB PO SCH ×2 (09:06→19:57)
[2018-02-06] MEDS: ASPIRIN 325 MG TAB PO SCH (09:06)
[2018-02-06 11:21] LABS: Glucose,Whole Blood 97 mg/dL (75-99)
--- NOTE | 2018-02-06 11:23 | P.PN ---
Subjective Progress Note Date: 02/06/18 Principal diagnosis: Severe triple vessel coronary artery disease with left main disease, hyperlipidemia, non-ST segment elevation myocardial infarction this admission, remote history of tobacco dependence, obstructive sleep apnea without CPAP use, hypothyroid with an admission TSH level of 46.000 and a free T4 of less than 0.07 and family history of coronary artery disease. The patient is sitting up to the bedside edge eating his breakfast. He is in no acute distress. Remote telemetry showing normal sinus bradycardia heart rate 48. He denies any complaints of chest pain or shortness of breath. His and daughter are at his bedside, questions answered to the best of my ability. Objective - Vital Signs Vital signs: Vital Signs Temp 97.6 F 02/06/18 07:58 Pulse 64 02/06/18 08:00 Resp 15 02/06/18 08:00 BP 98/62 02/06/18 07:58 Pulse Ox 94 L 02/06/18 07:58 Intake & Output 02/05/18 02/06/18 02/06/18 18:59 06:59 18:59 Intake Total 1020 240 500 Balance 1020 240 500 Weight 86.2 kg Intake: Oral 1020 240 500 Other: Voiding Method Urinal Urinal Urinal # Voids 1 2 # Bowel Movements 0 - Constitutional General appearance: Present: cooperative, no acute distress, obese - Respiratory Details: Lungs sounds essentially clear throughout, diminished to his bilateral bases. Respirations are symmetrical and nonlabored. Oxygen saturation are 99% on room air. He is achieving 2800 mL on his incentive spirometry. - Cardiovascular Details: Regular rhythm and bradycardic rate. S1 and S2 present. Negative for S3, gallop or murmur. No edema present. Remote telemetry showing sinus bradycardia heart rate 48. - Gastrointestinal Gastrointestinal Comment(s): Abdomen is soft, nontender and nondistended. Active bowel sounds all 4 abdominal quadrants. Tolerating oral intake. - Genitourinary Genitourinary Comment(s): Voiding clear yellow urine. - Integumentary Integumentary Comment(s): Skin is warm and dry. No clubbing or cyanosis present. No rash or abnormal pigmentation present. - Neurologic Neurologic: Present: CNII-XII intact - Musculoskeletal Musculoskeletal: Present: gait normal, strength equal bilaterally - Psychiatric Psychiatric: Present: A&O x's 3, appropriate affect, intact judgment & insight - Allied health notes Allied health notes reviewed: nursing - Labs CBC & Chem 7: 02/03/18 06:43 02/03/18 06:43 Labs: Abnormal Lab Results - Last 24 Hours (Table) 02/05/18 02/05/18 02/06/18 Range/Units 16:19 20:57 06:55 POC Glucose (mg/dL) 105 H 138 H 103 H (75-99) mg/dL Assessment and Plan (1) Triple vessel coronary artery disease Current Visit: Yes Status: Acute Code(s): I25.10 - ATHSCL HEART DISEASE OF [place] CORONARY ARTERY W/O ANG PCTRS SNOMED Code(s): 457640856 (2) Non-STEMI (non-ST elevated myocardial infarction) Current Visit: Yes Status: Acute Code(s): I21.4 - NON-ST ELEVATION (NSTEMI) MYOCARDIAL INFARCTION SNOMED Code(s): 062540426 (3) Hyperlipidemia Current Visit: Yes Status: Chronic Code(s): E78.5 - HYPERLIPIDEMIA, UNSPECIFIED SNOMED Code(s): 29280496 (4) Obstructive sleep apnea Current Visit: Yes Status: Chronic Code(s): G47.33 - OBSTRUCTIVE SLEEP APNEA (ADULT) (PEDIATRIC) SNOMED Code(s): 95490803 (5) Tobacco dependence in remission Current Visit: No Status: Resolved Code(s): F17.201 - NICOTINE DEPENDENCE, UNSPECIFIED, IN REMISSION SNOMED Code(s): 234306034 Plan: 1. Preoperative teaching continued. 2. Encourage use of his incentive spirometry every hour while awake. 3. Pulmonary recommendations per Dr. Mack. 4. Continue levothyroxine 100 g IV daily. We will recheck his thyroid levels on 02/07/2018. 5. He is scheduled for myocardial revascularization surgery on Wednesday, to be performed by Dr. Genoveva Meraz 6. Continue to optimize his medical management, continue aspirin, statin, levothyroxine and heparin. Continue metoprolol to heart rate 12.5 mg by mouth twice a day which is to be held for heart rate less than 60. 7. GI and DVT prophylaxis. 8. More recommendations to follow based on the patient's clinical course. Time with Patient: Greater than 30
--- NOTE | 2018-02-06 11:37 | P.PN ---
Subjective Progress Note Date: 02/06/18 Principal diagnosis: Coronary artery disease Progress note dated 02/04/2018 This is a 72-year-old male who was admitted with a diagnosis of non-ST segment elevation myocardial infarction and was discovered on catheterization to have severe triple-vessel coronary artery disease. He is scheduled for a bypass grafting on Wednesday of next week. He has a history of remote nicotine addiction and history of hypothyroidism. The patient generally doing well. Was hoping to be open to discharge home but they plan on keeping him here in the hospital until next Wednesday. There are no active pulmonary issues at this time. He is getting Synthroid for his hypothyroidism. No additional chest pain or chest discomfort. No shortness of breath cough wheezing phlegm production hemoptysis nausea vomiting diarrhea fever chills or other complaints for that matter. Progress note dated 02/06/2018 72-year-old male with coronary disease and non-ST segment elevation myocardial infarction. The patient will have bypass grafting on Wednesday. He is doing relatively well. No major complaints. No additional chest pain or chest discomfort. No shortness of breath. Has a history of remote tobacco use. Also with a history of hypothyroidism. The patient feels well has no complaints today. Objective - Vital Signs Vital signs: Vital Signs Temp 96.7 F L 02/06/18 11:24 Pulse 53 L 02/06/18 11:24 Resp 16 02/06/18 11:24 BP 100/67 02/06/18 11:24 Pulse Ox 98 02/06/18 11:24 Intake & Output 02/05/18 02/06/18 02/06/18 18:59 06:59 18:59 Intake Total 1020 240 500 Balance 1020 240 500 Weight 86.2 kg Intake: Oral 1020 240 500 Other: Voiding Method Urinal Urinal Urinal # Voids 1 2 # Bowel Movements 0 - Exam No acute distress, oriented 3. HEENT examination is grossly unremarkable. Mucous membranes are moist. No oral lesions. Neck supple. Full range of motion. No adenopathy thyromegaly or neck vein distention. Cardiovascular examination reveals regular rhythm rate. S1-S2 normal. No S3 or S4. No discernible murmur noted. Lungs reveal clear breath sounds. His breath sounds are equal bilaterally. No adventitious lung sounds including wheezes rhonchi or crackles. Abdomen soft bowel sounds are heard. No masses or tenderness. Extremities are intact. No cyanosis clubbing or edema. Skin is without rash or lesion. Neurologic examination is brief but nonfocal. - Labs CBC & Chem 7: 02/03/18 06:43 02/03/18 06:43 Labs: Abnormal Lab Results - Last 24 Hours (Table) 02/05/18 02/05/18 02/06/18 Range/Units 16:19 20:57 06:55 POC Glucose (mg/dL) 105 H 138 H 103 H (75-99) mg/dL Assessment and Plan Assessment: Assessment Non-ST segment elevation myocardial infarction Severe triple-vessel coronary artery disease, status post cardiac catheterization No significant past medical history to speak of. Anticipated bypass grafting on Wednesday of next week. Hypothyroidism Plan: Plan dated 02/01/2018 The patient was a former smoker. A bedside spirometry will be done. The patient apparently has no symptoms and past medical history. Was on no medications at home. No history of any ALLERGIES other than possible morphine. The patient otherwise is doing well. Anticipated bypass grafting on . Plan dated 02/04/2018 The patient is doing well. His surgery has been pushed back from yesterday to Wednesday of next week. He is receiving IV Synthroid for his hypothyroidism. His pulmonary status is stable. He's had no additional chest pain. He apparently was seen here over the weekend. We'll continue to follow. Plan dated 02/06/2018 The patient's doing well. We'll continue to follow. Anticipated bypass grafting on Wednesday. No cardiac issues to speak of. No additional chest pain. No shortness of breath. The patient appears very stable this time. Time with Patient: Less than 30
[2018-02-06] MEDS: MUPIROCIN 2% OINT 22 GM TUBE NASAL SCH ×2 (13:48→20:01)
[2018-02-06 16:22] LABS: Glucose,Whole Blood 95 mg/dL (75-99)
[2018-02-06] MEDS: SODIUM CHLORIDE 0.9% 1,000 ML IV SCH (16:52)
--- NOTE | 2018-02-06 18:49 | PN ---
PROGRESS NOTE Preop for cardiac surgery. He is feeling much improved from medical standpoint. Energy is much better with IV levothyroxine. Hemoglobin is stable at 10.5. Glucose is low 90s to 100s. His hepatitis is negative. PLAN: Continue with current treatment. Possible surgery on Wednesday for bypass surgery as he has ischemic coronary artery disease, profound hypothyroidism. Please see further orders. Remains on IV thyroid. Check TSH, free T4 soon. MMODL / IJN: [id number] /
--- NOTE | 2018-02-06 19:07 | PN ---
PROGRESS NOTE This patient was admitted with a non-Q-wave myocardial infarction. The patient has severe triple-vessel disease. The patient also was , hypothyroidism which is being corrected. Patient is feeling better. Blood pressure is 102/57 mmHg. First and second heart sounds are normal. Lungs are clinically clear to auscultation and percussion. Blood sugar remains fairly well controlled. The patient is going to undergo surgery on Wednesday. MMODL / IJN: [id number] /
[2018-02-06 21:12] LABS: Glucose,Whole Blood 91 mg/dL (75-99)
[2018-02-07] MEDS: NITROGLYCERIN OINT 1 INCH/GM PACKET TOPICAL SCH ×4 (05:01→23:33)
[2018-02-07 06:18] LABS: Glucose,Whole Blood 121 mg/dL (75-99)
[2018-02-07 06:23] LABS: Basophils # (A) 0.1 k/uL (0-0.2); Basophils % (A) 1 %; Eosinophils # (A) 0.3 k/uL (0-0.7); Eosinophils % (A) 5 %; HCT 30.9 % (39.0-53.0); Lymphocytes # (A) 1.4 k/uL (1.0-4.8); Lymphocytes % (A) 28 %; MCH 31.7 pg (25.0-35.0); MCHC 32.6 g/dL (31.0-37.0); MCV 97.2 fL (80.0-100.0); Mean Platelet Volume 8.9; Monocytes # (A) 0.4 k/uL (0-1.0); Monocytes % (A) 8 %; Neutrophils # (A) 2.9 k/uL (1.3-7.7); Neutrophils % (A) 56 %; Platelet Count 160 k/uL (150-450); RBC 3.17 m/uL (4.30-5.90); RDW 14.4 % (11.5-15.5); WBC 5.2 k/uL (3.8-10.6)
[2018-02-07 06:42] LABS: Albumin 3.9 g/dL (3.5-5.0); Calcium 9.7 mg/dL (8.4-10.2); Potassium 4.4 mmol/L (3.5-5.1); Total Bilirubin 0.2 mg/dL (0.2-1.3); Total Protein 6.2 g/dL (6.3-8.2)
[2018-02-07 06:56] LABS: T4, Free (Free Thyroxine) 0.29 ng/dL (0.78-2.19)
[2018-02-07] MEDS: LEVOTHYROXINE IVP 100 MCG/5 ML VIAL IV SCH (08:16)
[2018-02-07] MEDS: ASPIRIN 325 MG TAB PO SCH (08:16)
[2018-02-07] MEDS: MUPIROCIN 2% OINT 22 GM TUBE NASAL SCH ×2 (08:16→19:58)
[2018-02-07] MEDS: HEPARIN SODIUM,PORCINE 5,000 UNIT/ML 1 ML VIAL SQ SCH ×3 (08:16→23:33)
[2018-02-07] MEDS: CRESTOR 20 MG PO SCH (08:17)
[2018-02-07] MEDS: METOPROLOL TARTRATE 12.5 MG TAB PO SCH ×2 (10:41→19:58)
[2018-02-07 11:57] LABS: Glucose,Whole Blood 97 mg/dL (75-99)
--- NOTE | 2018-02-07 13:52 | P.PN ---
Subjective Progress Note Date: 02/07/18 Principal diagnosis: Severe triple vessel coronary artery disease with left main disease, hyperlipidemia, non-ST segment elevation myocardial infarction this admission, remote history of tobacco dependence, obstructive sleep apnea without CPAP use, hypothyroid with an admission TSH level of 46.000 and a free T4 of less than 0.07 and family history of coronary artery disease. The patient is sitting up to the bedside edge eating his breakfast. He is in no acute distress. Remote telemetry showing normal sinus bradycardia heart rate 56. He denies any complaints of chest pain or shortness of breath. His and daughter are at his bedside, questions answered to the best of my ability. Preoperative teaching continued. Objective - Vital Signs Vital signs: Vital Signs Temp 96.3 F L 02/07/18 11:32 Pulse 58 L 02/07/18 11:32 Resp 18 02/07/18 11:32 BP 125/83 02/07/18 11:32 Pulse Ox 95 02/07/18 11:32 Intake & Output 02/06/18 02/07/18 02/07/18 18:59 06:59 18:59 Intake Total 980 240 Balance 980 240 Weight 86.5 kg 86.5 kg Intake: Oral 980 240 Other: Voiding Method Urinal Urinal # Voids 3 1 2 - Constitutional General appearance: Present: cooperative, no acute distress, obese - Respiratory Details: Lung sounds essentially clear throughout, diminished to his bilateral bases. Respirations are symmetrical and nonlabored. Oxygen saturation are 97% on room air. He is achieving 2800 mL on his incentive spirometry. Preoperative FEV1 completed which was 75% of predicted. - Cardiovascular Details: Regular rhythm and bradycardic rate. S1 and S2 present, negative for S3, gallop or murmur. Remote telemetry showing sinus bradycardia heart rate 56. No edema present. - Gastrointestinal Gastrointestinal Comment(s): Abdomen is soft, nontender nondistended. Active bowel sounds all 4 abdominal quadrants. Tolerating oral intake. - Genitourinary Genitourinary Comment(s): Voiding clear oscar urine. - Integumentary Integumentary Comment(s): Skin is warm and dry. No clubbing or cyanosis present. No rash or abnormal pigmentation present. - Neurologic Neurologic: Present: CNII-XII intact - Musculoskeletal Musculoskeletal: Present: gait normal, strength equal bilaterally - Psychiatric Psychiatric: Present: A&O x's 3, appropriate affect, intact judgment & insight - Allied health notes Allied health notes reviewed: nursing - Labs CBC & Chem 7: 02/07/18 05:43 02/07/18 05:43 Labs: Abnormal Lab Results - Last 24 Hours (Table) 02/07/18 02/07/18 02/07/18 Range/Units 05:43 05:43 05:43 RBC 3.17 L (4.30-5.90) m/uL Hgb 10.0 L (13.0-17.5) gm/dL Hct 30.9 L (39.0-53.0) % BUN 22 H (9-20) mg/dL POC Glucose (mg/dL) (75-99) mg/dL Total Protein 6.2 L (6.3-8.2) g/dL TSH (0.465-4.680) mIU/L Free T4 0.29 L (0.78-2.19) ng/dL Crossmatch See Detail 02/07/18 02/07/18 Range/Units 05:43 06:17 RBC (4.30-5.90) m/uL Hgb (13.0-17.5) gm/dL Hct (39.0-53.0) % BUN (9-20) mg/dL POC Glucose (mg/dL) 121 H (75-99) mg/dL Total Protein (6.3-8.2) g/dL TSH 39.800 H (0.465-4.680) mIU/L Free T4 (0.78-2.19) ng/dL Crossmatch Assessment and Plan (1) Triple vessel coronary artery disease Current Visit: Yes Status: Acute Code(s): I25.10 - ATHSCL HEART DISEASE OF [place] CORONARY ARTERY W/O ANG PCTRS SNOMED Code(s): 972030363 (2) Non-STEMI (non-ST elevated myocardial infarction) Current Visit: Yes Status: Acute Code(s): I21.4 - NON-ST ELEVATION (NSTEMI) MYOCARDIAL INFARCTION SNOMED Code(s): 920891772 (3) Hyperlipidemia Current Visit: Yes Status: Chronic Code(s): E78.5 - HYPERLIPIDEMIA, UNSPECIFIED SNOMED Code(s): 25667122 (4) Obstructive sleep apnea Current Visit: Yes Status: Chronic Code(s): G47.33 - OBSTRUCTIVE SLEEP APNEA (ADULT) (PEDIATRIC) SNOMED Code(s): 14638786 (5) Tobacco dependence in remission Current Visit: No Status: Resolved Code(s): F17.201 - NICOTINE DEPENDENCE, UNSPECIFIED, IN REMISSION SNOMED Code(s): 898307114 Plan: 1. Preoperative teaching continued. 2. Encourage use of his incentive spirometry every hour while awake. 3. Pulmonary recommendations per Dr. Mack. 4. Continue levothyroxine 100 g IV daily. Repeat free T4 results showed 0.29 ng/dL. 5. He is scheduled for myocardial revascularization surgery tomorrow 02/08/2018 , to be performed by Dr. Genoveva Meraz 6. Continue to optimize his medical management, continue aspirin, statin, levothyroxine and heparin. Continue metoprolol to heart rate 12.5 mg by mouth twice a day which is to be held for heart rate less than 60. 7. GI and DVT prophylaxis. 8. More recommendations to follow based on the patient's clinical course. Time with Patient: Greater than 30
--- NOTE | 2018-02-07 15:50 | P.PN ---
Subjective Progress Note Date: 02/07/18 A 72-year-old male patient with multivessel coronary artery disease involving left main disease with status post acute non-ST segment elevation myocardial infarction. He is an ex-smoker. He is awaiting his cardiac surgery. Note that during this current hospitalization the patient was found to have severe clinical and chemical hypothyroidism and the patient was started on Synthroid and his TSH is down to 39 and his free T4 is up to 0.29. Clinically the patient is feeling of any chest pain. He is feeling better and he seems to be more energetic and more awake and alert and less sleepy. His FEV1 was noted of 75% of predicted. No cough. No sputum production. No chest tightness. No wheezing. He is a nonsmoker. Family is at the bedside. We discussed cardiac surgery and explained to him the postoperative course and he clearly understands that he is getting be briefly on mechanical ventilator and further pulmonary care will need to be done following the surgery. He is tentatively scheduled to undergo surgery by tomorrow. He is using incentive spirometer on a regular basis. Objective - Vital Signs Vital signs: Vital Signs Temp 96.3 F L 02/07/18 11:32 Pulse 58 L 02/07/18 11:32 Resp 18 02/07/18 11:32 BP 125/83 02/07/18 11:32 Pulse Ox 95 02/07/18 11:32 Intake & Output 02/06/18 02/07/18 02/07/18 18:59 06:59 18:59 Intake Total 980 240 Balance 980 240 Weight 86.5 kg 86.5 kg Intake: Oral 980 240 Other: Voiding Method Urinal Urinal # Voids 3 1 2 - Exam - Constitutional General appearance: Present: cooperative, no acute distress, obese - Respiratory Details: Lung sounds essentially clear throughout, diminished to his bilateral bases. Respirations are symmetrical and nonlabored. Oxygen saturation are 97% on room air. He is achieving 2800 mL on his incentive spirometry. Preoperative FEV1 completed which was 75% of predicted. - Cardiovascular Details: Regular rhythm and bradycardic rate. S1 and S2 present, negative for S3, gallop or murmur. Remote telemetry showing sinus bradycardia heart rate 56. No edema present. - Gastrointestinal Gastrointestinal Comment(s): Abdomen is soft, nontender nondistended. Active bowel sounds all 4 abdominal quadrants. Tolerating oral intake. - Genitourinary Genitourinary Comment(s): Voiding clear oscar urine. - Integumentary Integumentary Comment(s): Skin is warm and dry. No clubbing or cyanosis present. No rash or abnormal pigmentation present. - Neurologic Neurologic: Present: CNII-XII intact - Musculoskeletal Musculoskeletal: Present: gait normal, strength equal bilaterally - Psychiatric Psychiatric: Present: A&O x's 3, appropriate affect, intact judgment & insight - Labs CBC & Chem 7: 02/07/18 05:43 02/07/18 05:43 Labs: Abnormal Lab Results - Last 24 Hours (Table) 02/07/18 02/07/18 02/07/18 Range/Units 05:43 05:43 05:43 RBC 3.17 L (4.30-5.90) m/uL Hgb 10.0 L (13.0-17.5) gm/dL Hct 30.9 L (39.0-53.0) % BUN 22 H (9-20) mg/dL POC Glucose (mg/dL) (75-99) mg/dL Total Protein 6.2 L (6.3-8.2) g/dL TSH (0.465-4.680) mIU/L Free T4 0.29 L (0.78-2.19) ng/dL Crossmatch See Detail 02/07/18 02/07/18 Range/Units 05:43 06:17 RBC (4.30-5.90) m/uL Hgb (13.0-17.5) gm/dL Hct (39.0-53.0) % BUN (9-20) mg/dL POC Glucose (mg/dL) 121 H (75-99) mg/dL Total Protein (6.3-8.2) g/dL TSH 39.800 H (0.465-4.680) mIU/L Free T4 (0.78-2.19) ng/dL Crossmatch Assessment and Plan Plan: 1 multivessel coronary artery disease, awaiting coronary artery bypass surgery. 2 acute non-ST segment elevation myocardial infarction currently free of any angina 3 hypothyroidism both chemical and clinical and the patient is improving on thyroid hormone replacement and the patient is receiving levothyroxine 100 g on a daily basis and follow-up free T4 is up to 0.29 4 obstructive sleep apnea 5 hyperlipidemia 6 COPD mild an FEV1 of 75% of predicted 7 hyperlipidemia 8 degenerative arthritis Plan We'll proceed with surgery tomorrow morning. Continue using incentive spirometer. Continue IV levothyroxine. Continue bronchodilators around the clock. We'll manage the ventilator and will attend for any pulmonary complications or any needs on this patient following his surgery. Had a lengthy discussion with him and with his family and all of the questions have been answered to his satisfaction. Preop FEV1 is noted of 75% of predicted. The preop chest x-ray shows no acute cardio poorly process. Preop echocardiogram shows a preserved LV function with an ejection fraction of 55-60 % without any significant valvular abnormalities of pulmonary hypertension.
--- NOTE | 2018-02-07 15:53 | P.PN ---
Subjective Progress Note Date: 02/07/18 This is a 72-year-old gentleman was transferred here originally from [facility] with a non-Q-wave myocardial infarction. Underwent cardiac catheterization which revealed severe triple-vessel coronary artery disease. Patient is awaiting coronary artery bypass grafting surgery but because of elevated thyroid levels as is currently been placed on hold. Patient had taken Lipitor in the past, he apparently had significant muscle aching from this and was changed to Crestor as an outpatient which she is able to tolerate. I did speak with pharmacy today, we will initiate Crestor on this patient. We will also put him on a baby aspirin daily. Blood pressure today 104/60 with a heart rate in the 60s, 94% on room air. Hemoglobin 10.5, potassium 4.7, BUN 23, creatinine 1.1. TSH 45, free T4 0.16. Patient was seen and examined this morning, has no complaints, feeling well overall. Denies any episodes of chest discomfort. 02/04/2018 Patient seen and examined today, denies any chest pain or difficulty in breathing. TSH level XLV.8, T4 0.16. Blood pressure 98/60. Denies any chest pain or difficulty in breathing. 02/07/2018 Patient was seen and examined this morning, breathing is overall stable, he's been up ambulating without any difficulty. White blood cell count 5.2, hemoglobin 10.0, platelet count 160. Sodium 140, potassium 4.4, BUN 22, creatinine 1.2. Patient is scheduled to undergo coronary artery bypass grafting surgery tomorrow. Objective - Vital Signs Vital signs: Vital Signs Temp 96.3 F L 02/07/18 11:32 Pulse 58 L 02/07/18 11:32 Resp 18 02/07/18 11:32 BP 125/83 02/07/18 11:32 Pulse Ox 95 02/07/18 11:32 Intake & Output 02/06/18 02/07/18 02/07/18 18:59 06:59 18:59 Intake Total 980 240 Balance 980 240 Weight 86.5 kg 86.5 kg Intake: Oral 980 240 Other: Voiding Method Urinal Urinal # Voids 3 1 2 - Exam PHYSICAL EXAMINATION: HEENT: Head is atraumatic, normocephalic. Pupils equal, round. Neck is supple. There is no elevated jugular venous pressure. HEART EXAMINATION: Heart S1, S2 normal. No murmur or gallop heard. CHEST EXAMINATION: Lungs are clear to auscultation and precussion. No chest wall tenderness is noted on palpation or with deep breathing. ABDOMEN: Soft, nontender. Bowel sounds are heard. No organomegaly noted. EXTREMITIES: 2+ peripheral pulses with no evidence of peripheral edema and no calf tenderness noted. NEUROLOGIC patient is awake, alert and oriented -3. . - Labs CBC & Chem 7: 02/07/18 05:43 02/07/18 05:43 Labs: Abnormal Lab Results - Last 24 Hours (Table) 02/07/18 02/07/18 02/07/18 Range/Units 05:43 05:43 05:43 RBC 3.17 L (4.30-5.90) m/uL Hgb 10.0 L (13.0-17.5) gm/dL Hct 30.9 L (39.0-53.0) % BUN 22 H (9-20) mg/dL POC Glucose (mg/dL) (75-99) mg/dL Total Protein 6.2 L (6.3-8.2) g/dL TSH (0.465-4.680) mIU/L Free T4 0.29 L (0.78-2.19) ng/dL Crossmatch See Detail 02/07/18 02/07/18 Range/Units 05:43 06:17 RBC (4.30-5.90) m/uL Hgb (13.0-17.5) gm/dL Hct (39.0-53.0) % BUN (9-20) mg/dL POC Glucose (mg/dL) 121 H (75-99) mg/dL Total Protein (6.3-8.2) g/dL TSH 39.800 H (0.465-4.680) mIU/L Free T4 (0.78-2.19) ng/dL Crossmatch Assessment and Plan Plan: Assessment and plan #1 non-ST elevation myocardial infarction, status post cardiac catheterization which revealed severe triple-vessel coronary artery disease #2 nicotine dependence #3 hypothyroidism Plan Patient is scheduled for coronary artery bypass grafting surgery tomorrow. We will continue to follow. DNP note has been reviewed, I agree with a documented findings and plan of care. Patient was seen and examined.
[2018-02-07 16:56] LABS: Glucose,Whole Blood 117 mg/dL (75-99)
[2018-02-07 20:46] LABS: Glucose,Whole Blood 147 mg/dL (75-99)
--- NOTE | 2018-02-07 21:26 | PN ---
PROGRESS NOTE SUBJECTIVE: This is a white male who is scheduled to have cardiac bypass surgery tomorrow. His free T4 has increased 10.16 up from 0.07. TSH is at 45, hemoglobin 10.5, BUN 23, creatinine 1.1. He has way more energy than when he came in. Change to Crestor due to significant myalgias in the past. He is awaiting bypass grafting tomorrow. Vital signs stable, afebrile cardiovascular S1, S2. No chest pain or shortness of breath. He is afebrile. Blood pressure 125/83, respiratory 18 to 20, pulse is 58, O2 95% on room air. Lungs are clear. GI: Soft. Hematology negative Homans. Psych: Fair mood and affect. ASSESSMENT: 1. Severe hypothyroidism. 2. Severe triple-vessel disease. Going to have bypass surgery tomorrow. He is cleared for surgery. He is feeling much better. MMODL / IJN: [id number] /
[2018-02-07] MEDS: SODIUM CHLORIDE 0.9% 1,000 ML IV SCH (23:33)
[2018-02-08] MEDS ORDERED: INSULIN REGULAR 100 UNIT in SODIUM CHLORIDE 0.9% 100 ML IV ONE (05:00)
[2018-02-08] MEDS ORDERED: TRANEXAMIC ACID 2,000 MG in SODIUM CHLORIDE 0.9% 180 ML IV ONE (05:00)
[2018-02-08] MEDS ORDERED: PROTAMINE SULFATE 250 MG in EMPTY BAG 1 BAG IV ONE (05:00)
[2018-02-08] MEDS ORDERED: MANNITOL 25% 12.5 GM/50 ML VIAL IV ONE ×2 (05:00)
[2018-02-08] MEDS ORDERED: NITROGLYCERIN-D5W PMX 50 MG in DEXTROSE/WATER 1 250ML.BAG IV ONE (05:00)
[2018-02-08] MEDS ORDERED: NITROGLYCERIN-D5W PMX 25 MG/250 ML BTL IV ONE (05:00)
[2018-02-08] MEDS ORDERED: ALBUMIN HUMAN 25% 50 ML in EMPTY BAG 1 BAG IVPB ONE (05:00)
[2018-02-08] MEDS ORDERED: SODIUM BICARB 8.4% 50 ML SYR (1 MEQ/ML) IV ONE (05:00)
[2018-02-08] MEDS ORDERED: CHLORHEXIDINE GLUCONATE 15 ML CUP MUCOUS MEM ONE (05:00)
[2018-02-08] MEDS ORDERED: ALBUMIN HUMAN 5% 500 ML in EMPTY BAG 1 BAG IVPB ONE ×6 (05:00)
[2018-02-08] MEDS ORDERED: ceFAZolin 1,000 MG in SODIUM CHLORIDE 0.9% IRRIGATIO 1,000 ML IRRIGATION ONE (05:00)
[2018-02-08] MEDS ORDERED: METOPROLOL TARTRATE 12.5 MG TAB PO ONE (05:00)
[2018-02-08] MEDS ORDERED: HEPARIN SODIUM,PORCINE 5,000 UNIT in SODIUM CHLORIDE 0.9% 500 ML IV ONE (05:00)
[2018-02-08] MEDS ORDERED: ceFAZolin 2 GM in SODIUM CHLORIDE 0.9% 30 ML IVPB ONE (05:00)
[2018-02-08] MEDS ORDERED: ASPIRIN 325 MG TAB PO ONE (05:00)
[2018-02-08] MEDS ORDERED: PHENYLEPHRINE 40 MG in SODIUM CHLORIDE 0.9% 250 ML IV ONE (05:00)
[2018-02-08] MEDS ORDERED: PHENYLEPHRINE-0.9% NACL SYG 1 MG/10 ML SYRINGE IV ONE ×4 (05:00)
[2018-02-08] MEDS ORDERED: NOREPINEPHRIN 4 MG-0.9% NS PMX 4 MG/250 ML ML IV SCH (05:00)
[2018-02-08] MEDS ORDERED: PROTAMINE SULFATE 10 MG/ML 25 ML VIAL IV ONE ×2 (05:00→08:09)
[2018-02-08] MEDS ORDERED: MAGNESIUM SULFATE SYG 4.06 MEQ/ML SYRINGE IV ONE (05:00)
[2018-02-08] MEDS ORDERED: ceFAZolin 2,000 MG in SODIUM CHLORIDE 0.9% 30 ML IVPB ONE (05:00)
[2018-02-08] MEDS ORDERED: HEPARIN SODIUM 1,000 UN/ML (10ML VL) IV ONE (05:00)
[2018-02-08] MEDS ORDERED: PAPAVERINE 360 MG in SODIUM CHLORIDE 0.9% 90 ML IV ONE (05:00)
[2018-02-08] MEDS ORDERED: CLEVIDIPINE BUTYRATE 25 MG in EMPTY BAG 1 BAG IV ONE (05:00)
[2018-02-08] MEDS ORDERED: CALCIUM CHLORIDE 100 MG/ML 10 ML SYRINGE IVP ONE (05:00)
[2018-02-08 05:25] LABS: Glucose,Whole Blood 96 mg/dL (75-99)
[2018-02-08] MEDS ORDERED: LACTATED RINGERS 1,000 ML IV ONE (07:00)
[2018-02-08] MEDS: METOPROLOL TARTRATE 12.5 MG TAB PO SCH ×2 (07:55→07:56)
[2018-02-08] MEDS ORDERED: PROPOFOL 1,000 MG in EMPTY BAG 1 BAG IV ONE (07:57)
[2018-02-08] MEDS ORDERED: DEXTROSE 5% IN WATER 1,000 ML with POTASSIUM CHLORIDE 25 MEQ, SODIUM CHLORIDE 2.5MEQ/ML... IV SCH ×6 (08:00)
[2018-02-08] MEDS ORDERED: DEXTROSE 5% IN WATER 1,000 ML with POTASSIUM CHLORIDE 110 MEQ, MAGNESIUM SULFATE 16 MEQ... IV SCH ×5 (08:00)
[2018-02-08] MEDS ORDERED: ePHEDrine SULFATE/0.9% NACL/PF 50 MG/5 ML SYRINGE IV ONE (08:09)
[2018-02-08] MEDS ORDERED: ELECTROLYTE-R (PH 7.4) 1,000 ML IV.SOLN IV ONE (08:09)
[2018-02-08] MEDS ORDERED: CALCIUM CHLORIDE 100 MG/ML 10 ML SYRINGE ONE (08:09)
[2018-02-08] MEDS ORDERED: LIDOCAINE 2% SYG (PF) 100 MG/5 ML ONE (08:09)
[2018-02-08] MEDS ORDERED: TRANEXAMIC ACID 1,000 MG/10 ML VIAL ONE (08:09)
[2018-02-08] MEDS ORDERED: ceFAZolin 1,000 MG VIAL ONE (08:09)
[2018-02-08] MEDS ORDERED: PROPOFOL 10 MG/ML 20 ML VIAL IV ONE (08:09)
[2018-02-08] MEDS ORDERED: fentaNYL (PF) 50 MCG/ML 2 ML AMP ONE (08:09)
[2018-02-08] MEDS ORDERED: SODIUM CHLORIDE 0.9% 250 ML BAG ONE (08:09)
[2018-02-08] MEDS ORDERED: VECURONIUM 10 MG VIAL IV ONE (08:09)
[2018-02-08] MEDS ORDERED: MIDAZOLAM 2 MG/2 ML VIAL ONE (08:09)
[2018-02-08] MEDS ORDERED: PHENYLEPHRINE-0.9% NACL SYG 1 MG/10 ML SYRINGE ONE (08:09)
[2018-02-08] MEDS ORDERED: fentaNYL (PF) 50 MCG/ML 50 ML VIAL ONE (08:09)
[2018-02-08] MEDS ORDERED: HEPARIN SODIUM,PORCINE 10,000 UNIT/ML 1 ML VIAL ONE (08:09)
[2018-02-08] MEDS ORDERED: SODIUM CHLORIDE 0.9% IRRIG 1,000 ML BTL IRRIGATION ONE (08:09)
[2018-02-08] MEDS ORDERED: ALBUMIN HUMAN 5% 500 ML VIAL IVPB ONE (08:09)
[2018-02-08 08:52] LABS: ABG Base Excess 2.4 mmol/L; ABG HCO3 27 mmol/L (21-25); ABG Oxygen Saturation 97.4 % (94-97); ABG PCO2 40 mmHg (35-45); ABG PH 7.44 (7.35-7.45); ABG PO2 125 mmHg (83-108); ABG Potassium Whole Blood 3.9 mmol/L (3.4-4.5); ABG Sodium Whole Blood 139 mmol/L (135-146); ABG TCO2 28 mmol/L (19-24)
[2018-02-08 11:00] LABS: ABG Base Excess 0.7 mmol/L; ABG HCO3 26 mmol/L (21-25); ABG Oxygen Saturation 99.6 % (94-97); ABG PCO2 43 mmHg (35-45); ABG PH 7.39 (7.35-7.45); ABG PO2 192 mmHg (83-108); ABG Potassium Whole Blood 3.5 mmol/L (3.4-4.5); ABG Sodium Whole Blood 139 mmol/L (135-146); ABG TCO2 27 mmol/L (19-24)
[2018-02-08 11:37] LABS: ABG Base Excess -0.1 mmol/L; ABG HCO3 24 mmol/L (21-25); ABG PCO2 38 mmHg (35-45); ABG PH 7.42 (7.35-7.45); ABG Potassium Whole Blood 3.8 mmol/L (3.4-4.5); ABG Sodium Whole Blood 136 mmol/L (135-146); ABG TCO2 26 mmol/L (19-24)
--- NOTE | 2018-02-08 11:52 | P.VSCSTY ---
Greater Saphenous Vein Mapping This is bilateral lower extremity greater saphenous vein mapping. Date of service 01/31/2018 Vein quality and ultrasound appearance the right shows no wall changes or intraluminal thrombus. The left shows thickened valves and rouleaux formation which may mean either previous superficial phlebitis or an accessory vein with previous superficial phlebitis.. Vein size groin right 6.5 x 7.4 groin left 5.8 x 6.1 High thigh right 5.0 x 4.9 high thigh left 4.2 x 4.8 Mid thigh right 4.6 x 5.4 mid thigh left 3.2 x 3.1 Above-knee right 3.3 x 5.4 above-knee left 2.7 x 2.8 Below knee right 3.2 x 4.0 below-knee left 1.9 x 2.8 Mid calf right 2.0 x 2.0 mid calf left 2.0 x 2.7 Ankle right 2.4 x 2.7 ankle left 2.4 x 2.2 Impression usable greater saphenous vein on the right. The left shows some thickened valves and some Rouleau flow. Would preferentially use the right side. Would use upper portion on the left only 5 avoidable..
--- NOTE | 2018-02-08 11:56 | P.ARTDOP ---
Arterial Doppler Bilateral radial artery studies: Reason for study: Preop CABG. Date of study: 02/01/2018 On Doppler we find mild gradient left to right throughout. Right side, with lower pressure, has some symptoms of numbness and limited range of motion and was therefore not studied with plethysmography. Digital plethysmography with radial artery compression shows no significant change on the left. Left radial artery varies between 2.5 x 3.3 distally and 3.6 x 3.3 proximally. Right radial artery is not usable based on an inability to do compression studies. Symptoms were present. Left radial artery appears very suitable for use as conduit.
[2018-02-08 12:43] LABS: ABG Base Excess 0.1 mmol/L; ABG HCO3 25 mmol/L (21-25); ABG PCO2 42 mmHg (35-45); ABG PH 7.38 (7.35-7.45); ABG PO2 317 mmHg (83-108); ABG Potassium Whole Blood 4.8 mmol/L (3.4-4.5); ABG Sodium Whole Blood 136 mmol/L (135-146); ABG TCO2 27 mmol/L (19-24)
[2018-02-08 13:17] LABS: ABG Base Excess -0.6 mmol/L; ABG HCO3 25 mmol/L (21-25); ABG Oxygen Saturation 99.9 % (94-97); ABG PCO2 45 mmHg (35-45); ABG PH 7.35 (7.35-7.45); ABG PO2 350 mmHg (83-108); ABG Potassium Whole Blood 5.1 mmol/L (3.4-4.5); ABG Sodium Whole Blood 135 mmol/L (135-146); ABG TCO2 26 mmol/L (19-24)
[2018-02-08 14:50] LABS: ABG HCO3 23 mmol/L (21-25); ABG Oxygen Saturation 99.4 % (94-97); ABG PCO2 38 mmHg (35-45); ABG PH 7.39 (7.35-7.45); ABG PO2 197 mmHg (83-108); ABG Sodium Whole Blood 137 mmol/L (135-146); ABG TCO2 24 mmol/L (19-24)
[2018-02-08] MEDS: HEPARIN SODIUM,PORCINE 5,000 UNIT/ML 1 ML VIAL SQ SCH ×3 (14:52→23:07)
[2018-02-08] MEDS: MUPIROCIN 2% OINT 22 GM TUBE NASAL SCH ×2 (14:52→20:20)
[2018-02-08] MEDS: LEVOTHYROXINE IVP 100 MCG/5 ML VIAL IV SCH (14:52)
[2018-02-08] MEDS: ASPIRIN 325 MG TAB PO SCH (14:52)
[2018-02-08] MEDS: NITROGLYCERIN OINT 1 INCH/GM PACKET TOPICAL SCH (14:52)
[2018-02-08] MEDS: CRESTOR 20 MG PO SCH (14:53)
[2018-02-08 14:59] LABS: ABG PO2 >420 mmHg (83-108)
[2018-02-08 15:47] LABS: ABG HCO3 23 mmol/L (21-25); ABG Oxygen Saturation 97.7 % (94-97); ABG PCO2 42 mmHg (35-45); ABG PH 7.34 (7.35-7.45); ABG PO2 99 mmHg (83-108); ABG Potassium Whole Blood 4.1 mmol/L (3.4-4.5); ABG Sodium Whole Blood 138 mmol/L (135-146); ABG TCO2 24 mmol/L (19-24)
[2018-02-08] MEDS ORDERED: PROPOFOL 1,000 MG in EMPTY BAG 1 BAG IV SCH (16:02)
[2018-02-08] MEDS ORDERED: Magnesium Replacement Protocol 1 EACH MISC MISCELLANE PRN (16:02)
[2018-02-08] MEDS ORDERED: ONDANSETRON 4 MG/2 ML VIAL IVP PRN (16:02)
[2018-02-08] MEDS ORDERED: BENZOCAINE/MENTHOL LOZENG 1 EACH LOZENGE MUCOUS MEM PRN (16:02)
[2018-02-08] MEDS ORDERED: AMIODARONE 450 MG in DEXTROSE 5% IN WATER 250 ML IV PRN ×2 (16:02)
[2018-02-08] MEDS ORDERED: DEXTROSE 5% IN WATER 100 ML with AMIODARONE 150 MG IV PRN (16:02)
[2018-02-08] MEDS ORDERED: Phosphorus Replacement Protoco 1 EACH MISC MISCELLANE PRN (16:02)
[2018-02-08] MEDS ORDERED: Potassium Replacement Protocol 1 EACH MISC MISCELLANE PRN (16:02)
[2018-02-08] MEDS ORDERED: LEVOTHYROXINE IVP 100 MCG/5 ML VIAL IV ONE (16:20)
[2018-02-08] MEDS: IPRATROPIUM-ALBUTEROL 3 ML NEB INHALATION SCH ×3 (16:31→23:38)
--- NOTE | 2018-02-08 16:45 | HP ---
HISTORY AND PHYSICAL DATE OF THE SURGERY: 02/08/2018. SURGEON: Dr. Genoveva Meraz. NETWORK CABLE INSTALLER: Rigoberto Alvarez and Mega Ruiz. PREOPERATIVE DIAGNOSES: 1. Triple vessel CAD, left main. 2. Severe hypothyroidism. 3. Anemia. 4. Hyperlipidemia. 5. Sleep apnea. POSTOPERATIVE DIAGNOSIS: 1. Triple vessel CAD, left main. 2. Severe hypothyroidism. 3. Anemia. 4. Hyperlipidemia. 5. Sleep apnea. 6. Diffuse coronary artery disease. PROCEDURE PERFORMED: 1. Quadruple coronary artery bypass grafting using the left internal mammary artery to the left anterior descending artery after endarterectomy. Reverse saphenous vein graft, aorta to the right coronary artery. Reverse saphenous vein graft from the aorta to the 1st diagonal artery. Reverse saphenous vein graft from the aorta to the obtuse marginal artery. 5. Endoscopic harvesting of the right greater saphenous vein. 6. Intraoperative transesophageal echocardiogram and epiaortic scanning. 7. Intraoperative graft flow measurements using the Medi-Stim system. INDICATIONS FOR SURGERY: Patient is a 72-year-old gentleman who presented to [facility] with typical anginal chest pain. However, he underwent a chest CT scan that ruled out any obvious intrathoracic pathology. He was transferred to [facility] for workup. Cardiac catheterization showed severe triple-vessel coronary artery disease. His 2D echo ruled out any significant valvular abnormality and showed overall preserved left ventricular function. The patient's surgery needed to be delayed in view of severely elevated TSH and severely decreased free T4 levels. He was given IV thyroid hormones for around 7 days before proceeding at this point with surgery with a free T4 that is trending up while it remained a little bit on the low side. The STS risk was discussed with him and his family. They understood it and agreed to proceed. DESCRIPTION OF THE PROCEDURE: The patient had a right internal jugular [place] catheter and a right radial arterial line placed in the preoperative holding area. He was brought to the operating room. He had normal PA pressure and good cardiac index. Subsequently, general endotracheal anesthesia was induced uneventfully. The patient received 2 g of cefazolin intravenously. A Pan catheter was inserted. The chest, abdomen and both lower extremities were prepped and draped using ChloraPrep. Ioban was used to cover the skin. Transesophageal echocardiogram confirmed the preoperative finding of overall preserved left ventricular function and no significant valvular abnormalities. Median sternotomy was performed and no bone wax was used. The left hemisternum was elevated. The left internal mammary artery was harvested in a somewhat skeletonized fashion. The left pleura was intentionally opened in this process and was drained with a 28-[place]ian chest tube. I made a small breach in the right pleura at the end of the case. The right pleura was not drained. The patient was given 5000 units of heparin and the mammary pedicle was double clipped distally and transected had an excellent pulsatile flow in it and was around 1.7 mm in diameter. In the same setting, the right greater saphenous vein was harvested endoscopically from groin to above the ankle level after administration of 1500 units of heparin. The branches were tied. The leg incisions were closed over a drain. The vein appeared to be of reasonable quality. Mediastinal fat was transected between 2 ties and epiaortic scanning revealed concentric intimal thickening but no protruding atheroma. The pericardium was opened in an inverted T-fashion and a pericardial cradle was created. Findings included a highly riding pulmonary artery and evidence of visible diffuse coronary artery disease that is soft in nature. After systemic heparinization and after placement of respective pledgeted pursestrings, aortic cannulation with a 21-Iranian soft flow cannula and venous cannulation with a dual stage cannula via the right atrial appendage was performed. Antegrade as well as retrograde cardioplegia catheter were placed. Cardiopulmonary bypass was initiated and patient's temperature was allowed to drift down to 34C. With the heart empty and beating we looked at the targets. The LAD had a soft mid aspect plaque site of the severe stenosis. The large first diagonal artery had diffuse disease in it and we picked a soft spot proximally for bypass. The distal obtuse marginal artery was performed but identified and bypassable. The right coronary artery system had diffuse disease in particular proximal and mid disease of the posterior descending artery and for that reason I elected to bypass the main right coronary artery before the bifurcation as the patient had also a good size posterolateral system. During aortic clamping myocardial protection was achieved with initial dose of 700 mL of antegrade cold blood cardioplegia followed by 500 mL of cold blood cardioplegia given retrograde. All subsequent doses were given retrograde at 15 minutes interval. The first distal anastomosis was between segment of saphenous vein graft and the first diagonal artery which was opened was around 2 mm in diameter using Prolene 70 continuous fashion. The second distal anastomosis was between another segment of vein and the distal obtuse marginal artery which was around 1.5 mm in diameter and thin-walled using Prolene 70 in continuous fashion. The third distal anastomosis was to the segment of vein which was around 3.5 mm in diameter thin-walled and the right coronary artery before its bifurcation where it was around 2 mm diameter mildly thickened using Prolene 70 in continuous fashion. For the LAD it was opened in its mid aspect across the plaque and it was evident that we needed to endarterectomize the plaque. This was done and the plaque was transected proximally sharply as well as distally beyond the plaque. The wall was reconstructed by tacking the posterior layers with a running 70 tied outside artery. Subsequently the left internal mammary artery was sewn to this long arteriotomy as a patch angioplasty using Prolene 7 0 in continuous fashion. Satisfied with the distal anastomosis rewarming was started. 3 bottles 5 mm each were pushed out of the ascending aorta and the 3 vein graft anastomoses using Prolene 60 in continuous fashion. Patient was loaded with Primacor and started on low dose was given lidocaine and magnesium, de-airing maneuver performed before unclamping the aorta. The heart required one single defibrillation to regain spontaneous sinus rhythm After a period of reperfusion we were able to wean off cardiopulmonary bypass. SERGIO showed good left ventricular function. Graft flow measurements revealed excellent flows and in particular the flow into the left internal mammary artery to the left anterior descending artery which had excellent parameters. With that, test dose and full dose protamine was given. Decannulation followed. The venous cannulation site was oversewn with a running Prolene 40. 2 monopolar atrial pacer wires were affixed to the right atrial pursestring sites and one bipolar ventricular pacing wire was affixed to the inferior aspect of the right ventricle. One 36-Iranian chest tube was placed substernally. The proximal anastomosis required several interrupted suture to achieve hemostasis. I used FloSeal over old anastomosis as there was an obvious coagulopathy. I intentionally did not want to give platelets and fresh frozen plasma in view of the fact that I had performed an endarterectomy and would rather have the patient: mildly coagulopathic rather than hypercoagulable. Pericardial fat was elevated over the heart and the aorta and old grafts were covered. After ensuring adequate hemostasis and hemodynamic and after correct sponge and instrument and needle count the sternum was approximated using 5 gskava-[id number] [place] cables after interposing fibrillar between the sternal edges. Thorough irrigation with cefazolin followed. The rest of the closure proceeded in layers. Skin glue was applied. Patient received 3 units of packed red blood cells on pump as he started with a low hematocrit. He received 300 mL of Cell Saver blood. He was transferred to the ICU on 0.3 mics per kilogram per minute of Primacor and low-dose Levophed with excellent dynamics. Cardiac index was 2.8 with the chest closed. MMODL / IJN: [id number] / MTDD
[2018-02-08] MEDS: ALBUMIN HUMAN 5% 250 ML in EMPTY BAG 1 BAG IVPB PRN ×3 (16:50→17:41)
[2018-02-08 16:56] LABS: Glucose,Whole Blood 152 mg/dL (75-99)
[2018-02-08] MEDS ORDERED: NOREPINEPHRINE 16 MG in SODIUM CHLORIDE 0.9% 250 ML IV SCH (17:00)
[2018-02-08 17:08] LABS: INR 1.3 (<1.2); Partial Thromboplastin Time 28.1 sec (22.0-30.0); Prothrombin Time 11.9 sec (9.0-12.0)
--- NOTE | 2018-02-08 17:10 | XR ---
EXAMINATION TYPE: XR chest 1V portable DATE OF EXAM: 02/08/2018 COMPARISON: 02/01/2018 HISTORY: Postop cardiac surgery TECHNIQUE: Single frontal view of the chest is obtained. FINDINGS: Endotracheal tube appears in good position. There is some mild infiltrate in both lower lo bes and more on the left side. There is left chest tube. There is right jugular catheter with the tip in the right pulmonary artery. There is no pneumothorax. There are chest leads. There is nasogastric tube in good position. IMPRESSION: No heart failure. Lower lobe pulmonary infiltrates and more on the left side. This appea rs new compared to last exam.
[2018-02-08 17:13] LABS: Basophils % (A) 0 %; Eosinophils # (A) 0.1 k/uL (0-0.7); Eosinophils % (A) 1 %; HCT 26.4 % (39.0-53.0); HGB 8.9 gm/dL (13.0-17.5); Lymphocytes # (A) 0.7 k/uL (1.0-4.8); Lymphocytes % (A) 11 %; MCH 31.6 pg (25.0-35.0); MCHC 33.8 g/dL (31.0-37.0); MCV 93.6 fL (80.0-100.0); Mean Platelet Volume 9.3; Monocytes # (A) 0.4 k/uL (0-1.0); Monocytes % (A) 7 %; Neutrophils # (A) 4.8 k/uL (1.3-7.7); Neutrophils % (A) 80 %; RBC 2.82 m/uL (4.30-5.90); RDW 15.4 % (11.5-15.5)
[2018-02-08 17:17] LABS: ABG Base Excess -2.2 mmol/L; ABG HCO3 23 mmol/L (21-25); ABG PCO2 39 mmHg (35-45); ABG PH 7.38 (7.35-7.45); ABG PO2 295 mmHg (83-108); ABG TCO2 24 mmol/L (19-24)
[2018-02-08] MEDS: LACTATED RINGERS 1,000 ML IV SCH (17:18)
[2018-02-08 17:25] LABS: ALT 23 U/L (21-72); AST 44 U/L (17-59); Albumin 3.6 g/dL (3.5-5.0); Alkaline Phosphatase 27 U/L (38-126); Anion Gap 13 mmol/L; Blood Urea Nitrogen 16 mg/dL (9-20); Calcium 9.1 mg/dL (8.4-10.2); Carbon Dioxide 22 mmol/L (22-30); Chloride 105 mmol/L (98-107); Glucose 142 mg/dL (74-99); Magnesium 2.5 mg/dL (1.6-2.3); Potassium 4.3 mmol/L (3.5-5.1); Sodium 140 mmol/L (137-145); Total Bilirubin 0.4 mg/dL (0.2-1.3); Total Protein 5.2 g/dL (6.3-8.2)
[2018-02-08 17:35] LABS: Polychromasia Present
[2018-02-08 17:36] LABS: Large Platelets Present; Platelet Count 93 k/uL (150-450)
[2018-02-08] MEDS: ceFAZolin IN SWFI 2 GM/20 ML SYRINGE IVP SCH ×2 (17:40→23:07)
--- NOTE | 2018-02-08 17:48 | P.PN ---
<RomeoCorrie - Last Filed: 02/08/18 17:19> Subjective Progress Note Date: 02/08/18 Principal diagnosis: Non-ST segment elevation myocardial infarction, severe triple-vessel coronary disease. This is a very pleasant 72-year-old gentleman who was admitted here on 2017 from [facility] with complaints of chest discomfort. The EKG had some nonspecific changes. His troponins were found to be elevated and he ruled in for a non-ST segment elevation myocardial infarction. He also had significant clinical and chemical hypothyroidism and was initiated on Synthroid. His numbers have improved. CT angiogram ruled out pulmonary embolism and aortic dissection. He had subsequently undergone cardiac catheterization that same day that revealed severe triple-vessel disease with 70 % left main stenosis, 60% diffuse proximal LAD stenosis, 90% mid LAD stenosis and 50% ostial circumflex stenosis. The right coronary artery was diffusely diseased with a distal RCA of 60% stenosis, PDA branch 80% stenosis in the midportion of the PDA branch another 80% stenosis. Echocardiogram revealed preserved left ventricular systolic function with an ejection fraction 55-60%. He was recommended coronary artery bypass grafting. He is seen and evaluated today 02/08/2018 in the immediate postoperative period in the intensive care unit. He is currently intubated and on the mechanical ventilator in the SIMV mode at a rate of 12, tidal volume 500, pressure support of 5 and a PEEP of 5. Arterial blood gases reveal a P O2 of 295, pCO2 38, pH 7.38. This is on FiO2 of 100% and will be titrated accordingly. Chest x-ray reveals good position of the endotracheal tube. There is a mediastinal and left chest tube in place. Right jugular catheter with its tip in the right pulmonary artery. Nasogastric tube in place. No evidence of pneumothorax. There there are minor infiltrates more so on the left. He is sedated on propofol at 50 mcg/kg/m. He is on nitroglycerin drip at 5 mcg/m. Primacor at 0.3 mcg/kg/m and lactated Ringer's at 50 MLS per hour. He has received 2 units of albumin and 3 units of packed red blood cells. PA pressure 24/14 with a mean of 18. CVP 11. Cardiac index 1.8. Backup pacer is in place. Currently in sinus rhythm at a rate of 70. White count 6.0. Hemoglobin 8.9. INR 1.3. Objective - Vital Signs Vital signs: Vital Signs Temp 98.4 F 02/08/18 06:21 Pulse 71 02/08/18 17:00 Resp 16 02/08/18 06:21 BP 121/67 02/08/18 06:21 Pulse Ox 100 02/08/18 17:00 Intake & Output 02/07/18 02/08/18 02/08/18 18:59 06:59 18:59 Intake Total 705 172 2975.2 Output Total 1940 Balance 480 300 -417.8 Weight 86.5 kg 85.7 kg Intake: IV 33 Intake, IV Titration 559.2 Amount Albumin Human 5% 500 ml 500 In Empty Bag 1 bag @ 250 mls/hr IVPB ONCE ONE Rx#: [id number] Lactated Ringers 1,000 ml 50 @ 50 mls/hr IV .Q20H [facility] Rx#:[id number] Nitroglycerin-D5w Pmx 50 1.5 mg In Dextrose/Water 1 250ml.bag @ 5 MCG/MIN 1.5 mls/hr IV .Q24H [facility] Rx#: [id number] Propofol 1,000 mg In 7.7 Empty Bag 1 bag @ Titrate IV .Q0M [facility] Rx#: [id number] Oral 480 300 Blood Product 930 Rc As-1 Unit 310 [id number] Rc As-1 Unit 310 [id number] Rc Pheresis 2 As3 Unit 310 [id number] Output: Chest Tube Drainage 50 Left Pleural Chest Tube 10 Mediastinal 40 Urine 1190 Estimated Blood Loss 700 Other: Voiding Method Urinal # Voids 2 1 ABP, PAP, CO, CI - Last Documented Arterial Blood Pressure 94/58 Pulmonary Artery Pressure 24/15 Cardiac Output 3.6 Cardiac Index 1.8 - Exam GENERAL EXAM: Sedated, intubated 72-year-old white male comfortable in no apparent distress. HEAD: Normocephalic/atraumatic. EYES: Sluggish reaction of pupils, equal size. Conjunctiva pink, sclera white. NOSE: Clear with pink turbinates. THROAT: Oral endotracheal and gastric tubes secured in place No erythema or exudates. NECK: No masses, no JVD, no thyroid enlargement, no adenopathy. Right [place]- [place] catheter in place. CHEST: Dressing is dry and intact. Mediastinal and left pleural chest tubes in place. Symmetrical expansion. LUNGS: Equal air entry with no crackles, wheeze, rhonchi or dullness. Few crackles in the posterior bases. CVS: Regular rate and rhythm, normal S1 and S2, no gallops, no murmurs, no rubs ABDOMEN: Soft. No hepatosplenomegaly, hypoactive bowel sounds, no guarding or rigidity. EXTREMITIES: No clubbing, no edema, no cyanosis, 2+ pulses and upper and lower extremities. REBEKA drain to the right lower extremity. MUSCULOSKELETAL: Muscle tone normal. SPINE: No scoliosis or deformity SKIN: No rashes CENTRAL NERVOUS SYSTEM: Sedated. PSYCHIATRIC: Sedated - Labs CBC & Chem 7: 02/08/18 16:50 02/07/18 05:43 Labs: Abnormal Lab Results - Last 24 Hours (Table) 02/07/18 02/07/18 02/08/18 Range/Units 05:43 20:44 08:52 RBC (4.30-5.90) m/uL Hgb (13.0-17.5) gm/dL Hct (39.0-53.0) % INR (<1.2) ABG pH (7.35-7.45) ABG pO2 125 H (83-108) mmHg ABG HCO3 27 H (21-25) mmol/L ABG Total CO2 28 H (19-24) mmol/L ABG O2 Saturation 97.4 H (94-97) % ABG Hematocrit 30 L (34.0-46.0) % ABG Potassium (3.4-4.5) mmol/L ABG Ionized Calcium (4.5-5.3) mg/dL ABG Glucose (75-99) mg/dL ABG Lactic Acid (0.5-1.6) mmol/L Hemoglobin 9.6 L (13.0-17.5) gm/dL POC Glucose (mg/dL) 147 H (75-99) mg/dL Arterial Blood Potassium (3.4-4.5) mmol/L Arterial Blood Glucose (75-99) mg/dL Crossmatch See Detail 02/08/18 02/08/18 02/08/18 Range/Units 11:01 11:37 12:44 RBC (4.30-5.90) m/uL Hgb (13.0-17.5) gm/dL Hct (39.0-53.0) % INR (<1.2) ABG pH (7.35-7.45) ABG pO2 192 H >420 H 317 H (83-108) mmHg ABG HCO3 26 H (21-25) mmol/L ABG Total CO2 27 H 26 H 27 H (19-24) mmol/L ABG O2 Saturation 99.6 H 100.0 H 100.0 H (94-97) % ABG Hematocrit 24 L 22 L 25 L (34.0-46.0) % ABG Potassium 4.8 H (3.4-4.5) mmol/L ABG Ionized Calcium 4.2 L 4.3 L (4.5-5.3) mg/dL ABG Glucose 102 H 112 H 182 H (75-99) mg/dL ABG Lactic Acid (0.5-1.6) mmol/L Hemoglobin 7.8 L 7.2 L 8.2 L (13.0-17.5) gm/dL POC Glucose (mg/dL) (75-99) mg/dL Arterial Blood Potassium 4.8 H (3.4-4.5) mmol/L Arterial Blood Glucose 102 H 112 H 182 H (75-99) mg/dL Crossmatch 02/08/18 02/08/18 02/08/18 Range/Units 13:17 14:50 15:48 RBC (4.30-5.90) m/uL Hgb (13.0-17.5) gm/dL Hct (39.0-53.0) % INR (<1.2) ABG pH 7.34 L (7.35-7.45) ABG pO2 350 H 197 H (83-108) mmHg ABG HCO3 (21-25) mmol/L ABG Total CO2 26 H (19-24) mmol/L ABG O2 Saturation 99.9 H 99.4 H 97.7 H (94-97) % ABG Hematocrit 25 L 24 L 26 L (34.0-46.0) % ABG Potassium 5.1 H (3.4-4.5) mmol/L ABG Ionized Calcium 4.4 L (4.5-5.3) mg/dL ABG Glucose 225 H 169 H 165 H (75-99) mg/dL ABG Lactic Acid 1.9 H 2.4 H* 2.4 H* (0.5-1.6) mmol/L Hemoglobin 8.1 L 8.0 L 8.6 L (13.0-17.5) gm/dL POC Glucose (mg/dL) (75-99) mg/dL Arterial Blood Potassium 5.1 H (3.4-4.5) mmol/L Arterial Blood Glucose 225 H 169 H 165 H (75-99) mg/dL Crossmatch 02/08/18 02/08/18 02/08/18 Range/Units 16:50 16:50 16:53 RBC 2.82 L (4.30-5.90) m/uL Hgb 8.9 L (13.0-17.5) gm/dL Hct 26.4 L (39.0-53.0) % INR 1.3 H (<1.2) ABG pH (7.35-7.45) ABG pO2 (83-108) mmHg ABG HCO3 (21-25) mmol/L ABG Total CO2 (19-24) mmol/L ABG O2 Saturation (94-97) % ABG Hematocrit (34.0-46.0) % ABG Potassium (3.4-4.5) mmol/L ABG Ionized Calcium (4.5-5.3) mg/dL ABG Glucose (75-99) mg/dL ABG Lactic Acid (0.5-1.6) mmol/L Hemoglobin (13.0-17.5) gm/dL POC Glucose (mg/dL) 152 H (75-99) mg/dL Arterial Blood Potassium (3.4-4.5) mmol/L Arterial Blood Glucose (75-99) mg/dL Crossmatch 02/08/18 Range/Units 17:15 RBC (4.30-5.90) m/uL Hgb (13.0-17.5) gm/dL Hct (39.0-53.0) % INR (<1.2) ABG pH (7.35-7.45) ABG pO2 295 H (83-108) mmHg ABG HCO3 (21-25) mmol/L ABG Total CO2 (19-24) mmol/L ABG O2 Saturation 100.0 H (94-97) % ABG Hematocrit (34.0-46.0) % ABG Potassium (3.4-4.5) mmol/L ABG Ionized Calcium (4.5-5.3) mg/dL ABG Glucose (75-99) mg/dL ABG Lactic Acid (0.5-1.6) mmol/L Hemoglobin (13.0-17.5) gm/dL POC Glucose (mg/dL) (75-99) mg/dL Arterial Blood Potassium (3.4-4.5) mmol/L Arterial Blood Glucose (75-99) mg/dL Crossmatch Assessment and Plan Assessment: Assessment: #1 Severe triple-vessel coronary artery disease status post coronary artery bypass grafting utilizing a GARRIDO to the LAD, saphenous vein grafts to the RCA, diagonal and OM 1. Postoperative day #0. #2 Ventilator dependence as an expected outcome of thoracotomy. Plan for early extubation protocol. #3 History of remote nicotine dependence, in remission #4 Hypothyroidism, both chemical and clinical and the patient improved, numbers improved and remains on IV Synthroid. #5 Hyperlipidemia. #6 COPD, mild with an FEV1 value 75% of predicted. #7 Degenerative arthritis. #8 Obstructive sleep apnea Plan: The patient was seen and evaluated by Dr. Valentine. Chest x-ray, ABGs and labs are all reviewed. Ventilator adjustments were made accordingly. DuoNeb inhalations every 4 hours. We will plan for the early extubation protocol. Continue to titrate IV medications as needed. Currently on Kefzol 2 g IVP every 8 hours. Subcutaneous heparin for DVT prophylaxis. Protonix for GI prophylaxis. Continue IV levothyroxine. Repeat the chest x-ray in the a.m. We will continue to follow and make further recommendations based on his clinical status. Critical care time 38 minutes. I, the cosigning physician, performed a history & physical examination of the patient. Lungs sounds are clear anteriorly with crackles in the posterior bases. Maintaining good O2 saturations in the 90s on 100% currently on the mechanical ventilator. I discussed the assessment and plan of care with my nurse practitioner, Corrie Walters. I attest to the above note as dictated by her. Time with Patient: Greater than 30 <Kirsten Valentine - Last Filed: 02/08/18 17:59> Objective - Vital Signs Vital signs: Vital Signs Temp 98.4 F 02/08/18 06:21 Pulse 71 02/08/18 17:00 Resp 16 02/08/18 06:21 BP 121/67 02/08/18 06:21 Pulse Ox 100 02/08/18 17:00 Intake & Output 02/07/18 02/08/18 02/08/18 18:59 06:59 18:59 Intake Total 424 703 5039.2 Output Total 1980 Balance 480 300 -457.8 Weight 86.5 kg 85.7 kg Intake: IV 33 Intake, IV Titration 559.2 Amount Albumin Human 5% 500 ml 500 In Empty Bag 1 bag @ 250 mls/hr IVPB ONCE ONE Rx#: [id number] Lactated Ringers 1,000 ml 50 @ 50 mls/hr IV .Q20H [facility] Rx#:[id number] Nitroglycerin-D5w Pmx 50 1.5 mg In Dextrose/Water 1 250ml.bag @ 5 MCG/MIN 1.5 mls/hr IV .Q24H [facility] Rx#: [id number] Propofol 1,000 mg In 7.7 Empty Bag 1 bag @ Titrate IV .Q0M [facility] Rx#: [id number] Oral 480 300 Blood Product 930 Rc As-1 Unit 310 [id number] Rc As-1 Unit 310 [id number] Rc Pheresis 2 As3 Unit 310 [id number] Output: Chest Tube Drainage 90 Left Pleural Chest Tube 20 Mediastinal 70 Urine 1190 Estimated Blood Loss 700 Other: Voiding Method Urinal # Voids 2 1 ABP, PAP, CO, CI - Last Documented Arterial Blood Pressure 94/58 Pulmonary Artery Pressure 24/15 Cardiac Output 3.6 Cardiac Index 1.8 - Labs CBC & Chem 7: 02/08/18 16:50 02/08/18 16:50 Labs: Abnormal Lab Results - Last 24 Hours (Table) 02/07/18 02/07/18 02/08/18 Range/Units 05:43 20:44 08:52 RBC (4.30-5.90) m/uL Hgb (13.0-17.5) gm/dL Hct (39.0-53.0) % Plt Count (150-450) k/uL Lymphocytes # (1.0-4.8) k/uL INR (<1.2) ABG pH (7.35-7.45) ABG pO2 125 H (83-108) mmHg ABG HCO3 27 H (21-25) mmol/L ABG Total CO2 28 H (19-24) mmol/L ABG O2 Saturation 97.4 H (94-97) % ABG Hematocrit 30 L (34.0-46.0) % ABG Potassium (3.4-4.5) mmol/L ABG Ionized Calcium (4.5-5.3) mg/dL ABG Glucose (75-99) mg/dL ABG Lactic Acid (0.5-1.6) mmol/L Hemoglobin 9.6 L (13.0-17.5) gm/dL Glucose (74-99) mg/dL POC Glucose (mg/dL) 147 H (75-99) mg/dL Magnesium (1.6-2.3) mg/dL Alkaline Phosphatase (38-126) U/L Total Protein (6.3-8.2) g/dL Arterial Blood Potassium (3.4-4.5) mmol/L Arterial Blood Glucose (75-99) mg/dL Crossmatch See Detail 02/08/18 02/08/18 02/08/18 Range/Units 11:01 11:37 12:44 RBC (4.30-5.90) m/uL Hgb (13.0-17.5) gm/dL Hct (39.0-53.0) % Plt Count (150-450) k/uL Lymphocytes # (1.0-4.8) k/uL INR (<1.2) ABG pH (7.35-7.45) ABG pO2 192 H >420 H 317 H (83-108) mmHg ABG HCO3 26 H (21-25) mmol/L ABG Total CO2 27 H 26 H 27 H (19-24) mmol/L ABG O2 Saturation 99.6 H 100.0 H 100.0 H (94-97) % ABG Hematocrit 24 L 22 L 25 L (34.0-46.0) % ABG Potassium 4.8 H (3.4-4.5) mmol/L ABG Ionized Calcium 4.2 L 4.3 L (4.5-5.3) mg/dL ABG Glucose 102 H 112 H 182 H (75-99) mg/dL ABG Lactic Acid (0.5-1.6) mmol/L Hemoglobin 7.8 L 7.2 L 8.2 L (13.0-17.5) gm/dL Glucose (74-99) mg/dL POC Glucose (mg/dL) (75-99) mg/dL Magnesium (1.6-2.3) mg/dL Alkaline Phosphatase (38-126) U/L Total Protein (6.3-8.2) g/dL Arterial Blood Potassium 4.8 H (3.4-4.5) mmol/L Arterial Blood Glucose 102 H 112 H 182 H (75-99) mg/dL Crossmatch 02/08/18 02/08/18 02/08/18 Range/Units 13:17 14:50 15:48 RBC (4.30-5.90) m/uL Hgb (13.0-17.5) gm/dL Hct (39.0-53.0) % Plt Count (150-450) k/uL Lymphocytes # (1.0-4.8) k/uL INR (<1.2) ABG pH 7.34 L (7.35-7.45) ABG pO2 350 H 197 H (83-108) mmHg ABG HCO3 (21-25) mmol/L ABG Total CO2 26 H (19-24) mmol/L ABG O2 Saturation 99.9 H 99.4 H 97.7 H (94-97) % ABG Hematocrit 25 L 24 L 26 L (34.0-46.0) % ABG Potassium 5.1 H (3.4-4.5) mmol/L ABG Ionized Calcium 4.4 L (4.5-5.3) mg/dL ABG Glucose 225 H 169 H 165 H (75-99) mg/dL ABG Lactic Acid 1.9 H 2.4 H* 2.4 H* (0.5-1.6) mmol/L Hemoglobin 8.1 L 8.0 L 8.6 L (13.0-17.5) gm/dL Glucose (74-99) mg/dL POC Glucose (mg/dL) (75-99) mg/dL Magnesium (1.6-2.3) mg/dL Alkaline Phosphatase (38-126) U/L Total Protein (6.3-8.2) g/dL Arterial Blood Potassium 5.1 H (3.4-4.5) mmol/L Arterial Blood Glucose 225 H 169 H 165 H (75-99) mg/dL Crossmatch 02/08/18 02/08/18 02/08/18 Range/Units 16:50 16:50 16:50 RBC 2.82 L (4.30-5.90) m/uL Hgb 8.9 L (13.0-17.5) gm/dL Hct 26.4 L (39.0-53.0) % Plt Count 93 L (150-450) k/uL Lymphocytes # 0.7 L (1.0-4.8) k/uL INR 1.3 H (<1.2) ABG pH (7.35-7.45) ABG pO2 (83-108) mmHg ABG HCO3 (21-25) mmol/L ABG Total CO2 (19-24) mmol/L ABG O2 Saturation (94-97) % ABG Hematocrit (34.0-46.0) % ABG Potassium (3.4-4.5) mmol/L ABG Ionized Calcium (4.5-5.3) mg/dL ABG Glucose (75-99) mg/dL ABG Lactic Acid (0.5-1.6) mmol/L Hemoglobin (13.0-17.5) gm/dL Glucose 142 H (74-99) mg/dL POC Glucose (mg/dL) (75-99) mg/dL Magnesium 2.5 H (1.6-2.3) mg/dL Alkaline Phosphatase 27 L (38-126) U/L Total Protein 5.2 L (6.3-8.2) g/dL Arterial Blood Potassium (3.4-4.5) mmol/L Arterial Blood Glucose (75-99) mg/dL Crossmatch 02/08/18 02/08/18 Range/Units 16:53 17:15 RBC (4.30-5.90) m/uL Hgb (13.0-17.5) gm/dL Hct (39.0-53.0) % Plt Count (150-450) k/uL Lymphocytes # (1.0-4.8) k/uL INR (<1.2) ABG pH (7.35-7.45) ABG pO2 295 H (83-108) mmHg ABG HCO3 (21-25) mmol/L ABG Total CO2 (19-24) mmol/L ABG O2 Saturation 100.0 H (94-97) % ABG Hematocrit (34.0-46.0) % ABG Potassium (3.4-4.5) mmol/L ABG Ionized Calcium (4.5-5.3) mg/dL ABG Glucose (75-99) mg/dL ABG Lactic Acid (0.5-1.6) mmol/L Hemoglobin (13.0-17.5) gm/dL Glucose (74-99) mg/dL POC Glucose (mg/dL) 152 H (75-99) mg/dL Magnesium (1.6-2.3) mg/dL Alkaline Phosphatase (38-126) U/L Total Protein (6.3-8.2) g/dL Arterial Blood Potassium (3.4-4.5) mmol/L Arterial Blood Glucose (75-99) mg/dL Crossmatch Assessment and Plan Assessment: Joint evaluations was done along with a nurse practitioner. The patient is stable. The patient has adequate oxygenation and FiO2 is being gradually weaned down. Chest x-ray was reviewed. Hemodynamically the patient a few mics of norepinephrine infusion. Nitroglycerin drip is also running. Chest tube output is minimal. Adequate urine output. Continue monitoring the hemodynamics. Anticipate extubation within the next 6-8 hours. We'll continue to follow. Currently the patient on Diprivan.
[2018-02-08] MEDS: MILRINONE-D5W PMX 20 MG in DEXTROSE/WATER 1 100ML.BAG IV SCH (17:55)
[2018-02-08] MEDS: NITROGLYCERIN-D5W PMX 50 MG in DEXTROSE/WATER 1 250ML.BAG IV SCH (17:56)
[2018-02-08] MEDS: CLEVIDIPINE BUTYRATE 25 MG in EMPTY BAG 1 BAG IV SCH (17:57)
[2018-02-08] MEDS ORDERED: CALCIUM GLUCONATE 2,000 MG in SODIUM CHLORIDE 0.9% 100 ML IVPB PRN (18:00)
[2018-02-08 18:05] LABS: Glucose,Whole Blood 150 mg/dL (75-99)
[2018-02-08] MEDS: INSULIN REGULAR 100 UNIT in SODIUM CHLORIDE 0.9% 100 ML IV SCH (18:05)
[2018-02-08] MEDS: ACETAMINOPHEN IV (For NPO) 1,000 MG in EMPTY BAG 1 BAG IVPB SCH ×2 (18:48→23:06)
[2018-02-08 19:07] LABS: Glucose,Whole Blood 147 mg/dL (75-99)
[2018-02-08 19:18] LABS: Basophils % (A) 0 %; Eosinophils # (A) 0.1 k/uL (0-0.7); Eosinophils % (A) 1 %; HCT 23.4 % (39.0-53.0); Lymphocytes # (A) 0.6 k/uL (1.0-4.8); Lymphocytes % (A) 11 %; MCHC 34.2 g/dL (31.0-37.0); MCV 93.7 fL (80.0-100.0); Mean Platelet Volume 9.9; Monocytes # (A) 0.3 k/uL (0-1.0); Monocytes % (A) 6 %; Neutrophils # (A) 4.2 k/uL (1.3-7.7); Neutrophils % (A) 80 %; RDW 15.7 % (11.5-15.5); WBC 5.2 k/uL (3.8-10.6)
[2018-02-08 19:20] LABS: Platelet Count 94 k/uL (150-450)
[2018-02-08 20:04] LABS: Glucose,Whole Blood 142 mg/dL (75-99)
[2018-02-08 20:58] LABS: Glucose,Whole Blood 157 mg/dL (75-99)
[2018-02-08 21:26] LABS: Basophils % (A) 0 %; Eosinophils # (A) 0.1 k/uL (0-0.7); Eosinophils % (A) 1 %; HCT 22.7 % (39.0-53.0); HGB 7.7 gm/dL (13.0-17.5); Lymphocytes # (A) 0.4 k/uL (1.0-4.8); Lymphocytes % (A) 8 %; MCH 31.9 pg (25.0-35.0); MCV 93.8 fL (80.0-100.0); Mean Platelet Volume 10.2; Monocytes # (A) 0.4 k/uL (0-1.0); Monocytes % (A) 7 %; Neutrophils # (A) 4.4 k/uL (1.3-7.7); Neutrophils % (A) 83 %; RBC 2.43 m/uL (4.30-5.90); RDW 15.8 % (11.5-15.5); WBC 5.4 k/uL (3.8-10.6)
[2018-02-08 21:33] LABS: Platelet Count 99 k/uL (150-450)
[2018-02-08 22:12] LABS: Glucose,Whole Blood 157 mg/dL (75-99)
--- NOTE | 2018-02-08 22:15 | PN ---
PROGRESS NOTE DATE OF SERVICE: 02/08/2018 SUBJECTIVE: This is a white male, status post CABG surgery, resting comfortably. Vital signs are stable, afebrile. CARDIOVASCULAR: S1, S2. LUNGS: Clear. GI: Soft. HEMATOLOGY: Negative Shanice's. ASSESSMENT: 1. Profound hypothyroidism. 2. Coronary artery disease, CABG. IV Synthroid will be given. Continue standard postop cardiac care will be done. ICU time 20 minutes. MMODL / IJN: [id number] /
[2018-02-08 23:01] LABS: Glucose,Whole Blood 167 mg/dL (75-99)
[2018-02-08 23:21] LABS: ABG Base Excess -1.3 mmol/L; ABG HCO3 24 mmol/L (21-25); ABG Oxygen Saturation 97.5 % (94-97); ABG PCO2 42 mmHg (35-45); ABG PH 7.37 (7.35-7.45); ABG PO2 97 mmHg (83-108); ABG TCO2 25 mmol/L (19-24)
[2018-02-08 23:54] LABS: Glucose,Whole Blood 153 mg/dL (75-99)
[2018-02-09 00:58] LABS: Glucose,Whole Blood 132 mg/dL (75-99)
[2018-02-09] MEDS: ALBUMIN HUMAN 5% 250 ML in EMPTY BAG 1 BAG IVPB PRN ×5 (01:40→09:10)
[2018-02-09 01:59] LABS: Glucose,Whole Blood 112 mg/dL (75-99)
[2018-02-09 02:58] LABS: Glucose,Whole Blood 91 mg/dL (75-99)
[2018-02-09 03:58] LABS: Glucose,Whole Blood 86 mg/dL (75-99)
[2018-02-09 04:19] LABS: Anisocytosis Slight; Basophils % (A) 0 %; Eosinophils % (A) 0 %; HCT 20.1 % (39.0-53.0); INR 1.3 (<1.2); Lymphocytes # (A) 0.3 k/uL (1.0-4.8); Lymphocytes % (A) 8 %; MCH 31.7 pg (25.0-35.0); MCHC 33.7 g/dL (31.0-37.0); MCV 93.9 fL (80.0-100.0); Mean Platelet Volume 9.7; Monocytes # (A) 0.3 k/uL (0-1.0); Monocytes % (A) 8 %; Neutrophils # (A) 3.3 k/uL (1.3-7.7); Neutrophils % (A) 82 %; Partial Thromboplastin Time 40.7 sec (22.0-30.0); Prothrombin Time 12.6 sec (9.0-12.0); RBC 2.14 m/uL (4.30-5.90)
[2018-02-09 04:21] LABS: HGB 6.8 gm/dL (13.0-17.5); Platelet Count 83 k/uL (150-450)
[2018-02-09 04:25] LABS: Ionized Calcium 4.4 mg/dL (4.5-5.3)
[2018-02-09 04:35] LABS: ALT 15 U/L (21-72); AST 30 U/L (17-59); Albumin 2.5 g/dL (3.5-5.0); Alkaline Phosphatase <20 U/L (38-126); Anion Gap 8 mmol/L; Blood Urea Nitrogen 14 mg/dL (9-20); Calcium 6.8 mg/dL (8.4-10.2); Carbon Dioxide 20 mmol/L (22-30); Chloride 113 mmol/L (98-107); Glucose 60 mg/dL (74-99); Magnesium 1.9 mg/dL (1.6-2.3); Potassium 3.4 mmol/L (3.5-5.1); Sodium 141 mmol/L (137-145); Total Bilirubin 0.2 mg/dL (0.2-1.3); Total Protein 3.9 g/dL (6.3-8.2)
[2018-02-09] MEDS ORDERED: Magnesium Replacement Protocol 1 EACH MISC MISCELLANE PRN (04:42)
[2018-02-09] MEDS ORDERED: POTASSIUM CHLORIDE 20 MEQ in WATER FOR INJECTION 1 100ML.BAG IVPB ONE (04:42)
[2018-02-09] MEDS ORDERED: Potassium Replacement Protocol 1 EACH MISC MISCELLANE PRN (04:42)
[2018-02-09 04:48] LABS: Glucose,Whole Blood 103 mg/dL (75-99)
[2018-02-09] MEDS: ACETAMINOPHEN IV (For NPO) 1,000 MG in EMPTY BAG 1 BAG IVPB SCH ×3 (06:07→18:01)
[2018-02-09 06:21] LABS: Glucose,Whole Blood 124 mg/dL (75-99)
[2018-02-09 06:56] LABS: Glucose,Whole Blood 123 mg/dL (75-99)
[2018-02-09 07:13] LABS: HCT 24.2 % (39.0-53.0); MCH 31.1 pg (25.0-35.0); MCHC 33.1 g/dL (31.0-37.0); MCV 94.1 fL (80.0-100.0); Mean Platelet Volume 9.9; RBC 2.57 m/uL (4.30-5.90); RDW 15.9 % (11.5-15.5); WBC 4.7 k/uL (3.8-10.6)
[2018-02-09 07:14] LABS: Platelet Count 98 k/uL (150-450)
--- NOTE | 2018-02-09 07:27 | XR ---
EXAMINATION TYPE: XR chest 1V portable DATE OF EXAM: 02/09/2018 COMPARISON: 02/08/2018 HISTORY: Post cardiac surgery. Shortness of breath. TECHNIQUE: Single frontal view of the chest is obtained. FINDINGS: Mediastinal drain, left-sided thoracostomy tube, right [place] catheter, mediastinal cli ps, and median sternotomy wires are unchanged from the prior. Endotracheal tube and enteric tube have been removed in the interim. Strand-like bibasilar opacities are again seen with slight worsening in the interim. No residual pneu mothorax is identified. No significant pulmonary vascular congestion. Cardiomediastinal silhouette is enlarged. Osseous structures are grossly intact. IMPRESSION: 1. Slight worsening of the overall minimal bibasilar airspace disease. This is strand-like and favore d to represent postoperative bibasilar atelectasis. 2. Interval removal of the endotracheal and enteric tubes. Otherwise stable lines and tubes.
[2018-02-09 08:05] LABS: Glucose,Whole Blood 124 mg/dL (75-99)
[2018-02-09 08:06] LABS: ALT 25 U/L (21-72); AST 42 U/L (17-59); Albumin 3.8 g/dL (3.5-5.0); Alkaline Phosphatase 26 U/L (38-126); Anion Gap 11 mmol/L; Blood Urea Nitrogen 18 mg/dL (9-20); Carbon Dioxide 25 mmol/L (22-30); Chloride 103 mmol/L (98-107); Glucose 107 mg/dL (74-99); Potassium 4.6 mmol/L (3.5-5.1); Sodium 139 mmol/L (137-145); Total Bilirubin 0.4 mg/dL (0.2-1.3); Total Protein 5.3 g/dL (6.3-8.2)
[2018-02-09] MEDS: ceFAZolin IN SWFI 2 GM/20 ML SYRINGE IVP SCH (08:11)
[2018-02-09] MEDS: PANTOPRAZOLE 40 MG/10 ML VIAL IVP SCH (08:12)
[2018-02-09] MEDS: LEVOTHYROXINE IVP 100 MCG/5 ML VIAL IV SCH (08:12)
[2018-02-09] MEDS: MILRINONE-D5W PMX 20 MG in DEXTROSE/WATER 1 100ML.BAG IV SCH (08:26)
[2018-02-09] MEDS: HEPARIN SODIUM,PORCINE 5,000 UNIT/ML 1 ML VIAL SQ SCH ×2 (08:38→16:17)
[2018-02-09] MEDS: ASPIRIN 325 MG TAB PO SCH (08:39)
[2018-02-09] MEDS: MUPIROCIN 2% OINT 22 GM TUBE NASAL SCH ×2 (08:39→20:18)
[2018-02-09] MEDS: CLOPIDOGREL 75 MG TAB PO STA ×2 (08:40→09:14)
--- NOTE | 2018-02-09 08:52 | P.PN ---
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 POD #1 urgent coronary artery bypass grafting 4 with placement of his left internal mammary artery to his left anterior descending coronary artery with endarterectomy to his left anterior descending coronary artery, a reverse greater saphenous vein placed to his diagonal coronary artery, a reverse saphenous vein graft placed to his obtuse marginal coronary artery, and a reverse greater saphenous vein graft placed to his right coronary artery. Endoscopic vein harvesting of his right greater saphenous vein, intraoperative transesophageal echocardiogram, epi-aortic scanning, and graft flow measurement using the Frazr system. The patient is sitting up to the bedside chair. He is in no acute distress. He is complaining of pain to his chest tube insertion sites and rating his pain 8 out of 10 on the pain scale. He denies any complaints of nausea or shortness of breath. He was extubated last evening 02/08/2018 at 11:28 PM. Is currently on 2 L nasal cannula with oxygen saturations 96%. He is achieving 1000 mL on his incentive spirometry with encouragement. Objective - Vital Signs Vital signs: Vital Signs Temp 98.4 F 02/08/18 06:21 Pulse 75 02/09/18 07:30 Resp 12 02/09/18 04:00 BP 94/50 02/09/18 07:30 Pulse Ox 95 02/09/18 07:30 Intake & Output 02/08/18 02/09/18 02/09/18 18:59 06:59 18:59 Intake Total 1717.3 1664.114 118.375 Output Total 2140 944 118 Balance -422.7 720.114 0.375 Weight 106 kg Intake: IV 33 1450 100 ACETAMINOPHEN IV (For NPO 800 ) 1,000 mg In Empty Bag 1 bag @ 400 mls/hr IVPB Q6HR [facility] Rx#:[id number] CI/CO 100 Lactated Ringers 1,000 ml 550 100 @ 50 mls/hr IV .Q20H [facility] Rx#:[id number] Intake, IV Titration 754.3 214.114 18.375 Amount ACETAMINOPHEN IV (For NPO 100 ) 1,000 mg In Empty Bag 1 bag @ 400 mls/hr IVPB Q6HR [facility] Rx#:[id number] Albumin Human 5% 500 ml 500 In Empty Bag 1 bag @ 250 mls/hr IVPB ONCE ONE Rx#: [id number] Insulin Regular 100 unit 1.5 31.744 In Sodium Chloride 0.9% 100 ml @ Per Protocol IV .Q0M [facility] Rx#:[id number] Lactated Ringers 1,000 ml 100 50 @ 50 mls/hr IV .Q20H [facility] Rx#:[id number] Milrinone-D5w Pmx 20 mg 7.7 107.7 In Dextrose/Water 1 100ml .bag @ Per Protocol IV . Q0M [facility] Rx#:[id number] Nitroglycerin-D5w Pmx 50 3.1 0 18.375 mg In Dextrose/Water 1 250ml.bag @ 5 MCG/MIN 1.5 mls/hr IV .Q24H [facility] Rx#: [id number] Norepinephrine 16 mg In 18.8 24.670 Sodium Chloride 0.9% 250 ml @ Titrate IV .Q0M [facility] Rx#:[id number] Propofol 1,000 mg In 23.2 0 Empty Bag 1 bag @ Titrate IV .Q0M [facility] Rx#: [id number] Blood Product 930 Rc As-1 Unit 310 [id number] Rc As-1 Unit 310 [id number] Rc Pheresis 2 As3 Unit 310 [id number] Output: Chest Tube Drainage 135 409 68 Left Pleural Chest Tube 35 113 18 Mediastinal 100 296 50 Drainage 80 Right Calf 80 Urine 1305 455 50 Estimated Blood Loss 700 Other: Voiding Method Indwelling Catheter Indwelling Catheter ABP, PAP, CO, CI - Last Documented Arterial Blood Pressure 94/57 Pulmonary Artery Pressure 28/16 Cardiac Output 4.5 Cardiac Index 2.2 - Constitutional General appearance: Present: cooperative, no acute distress, obese - Respiratory Details: Lungs sounds are essentially clear throughout, diminished to his bilateral bases. Respirations are symmetrical and nonlabored. Oxygen saturation are 96% on 2 L nasal cannula. He is achieving 1000 mm on his incentive spirometry. Left pleural and mediastinal chest tubes in place and to low continuous wall suction -20 cm H2O. No air leak present. Draining thin serosanguineous drainage. Left pleural chest tube drained 80 mL output in the last 8 hours, 140 mL output since surgery. Mediastinal chest tube drained 210 mL output the last 8 hours, 430 mL output since surgery. - Cardiovascular Details: Regular rhythm and rate. S1 and S2 present, negative for S3, gallop or murmur. Sternum is stable. Bedside telemetry showing normal sinus rhythm heart rate 77. Heart hugger is in place and is demonstrating appropriate use. Atrial and ventricular epicardial pacemaker wires in place and to backup pacemaker generator. Backup pacemaker generator on VVI mode of 50. Knee-high JACLYN hose and sequential compression devices in place to his bilateral lower extremities. +1 edema to his bilateral lower extremities. Right IJ Cordis and [place] in place and functioning. Current cardiac output 4.5, cardiac index 2.2, PA pressures 28/15, CVP 8. - Gastrointestinal Gastrointestinal Comment(s): Abdomen is soft, nontender nondistended. Hypoactive bowel sounds all 4 abdominal quadrants. Tolerating clear liquid diet. - Genitourinary Genitourinary Comment(s): Pan catheter for accurate I&O. Draining clear oscar urine. Adequate urine output, 290 mL output in the last 8 hours. - Integumentary Integumentary Comment(s): Skin is warm and dry. No clubbing or cyanosis present. Midline sternal incision clean dry and approximated. No drainage or redness present. Dermabond dressing clean and dry. Right leg EVH site clean dry and approximated. No drainage or redness present. Right lower leg REBEKA drain in place draining thin serosanguineous drainage. 80 mL output since surgery. - Neurologic Neurologic: Present: CNII-XII intact - Musculoskeletal Musculoskeletal: Present: gait normal, strength equal bilaterally - Psychiatric Psychiatric: Present: A&O x's 3, appropriate affect, intact judgment & insight - Allied health notes Allied health notes reviewed: nursing - Labs CBC & Chem 7: 02/09/18 06:50 02/09/18 07:40 Labs: Abnormal Lab Results - Last 24 Hours (Table) 02/07/18 02/08/18 02/08/18 Range/Units 05:43 08:52 11:01 RBC (4.30-5.90) m/uL Hgb (13.0-17.5) gm/dL Hct (39.0-53.0) % RDW (11.5-15.5) % Plt Count (150-450) k/uL Lymphocytes # (1.0-4.8) k/uL PT (9.0-12.0) sec INR (<1.2) APTT (22.0-30.0) sec ABG pH (7.35-7.45) ABG pO2 125 H 192 H (83-108) mmHg ABG HCO3 27 H 26 H (21-25) mmol/L ABG Total CO2 28 H 27 H (19-24) mmol/L ABG O2 Saturation 97.4 H 99.6 H (94-97) % ABG Hematocrit 30 L 24 L (34.0-46.0) % ABG Potassium (3.4-4.5) mmol/L ABG Ionized Calcium (4.5-5.3) mg/dL ABG Glucose 102 H (75-99) mg/dL ABG Lactic Acid (0.5-1.6) mmol/L Hemoglobin 9.6 L 7.8 L (13.0-17.5) gm/dL Potassium (3.5-5.1) mmol/L Chloride (98-107) mmol/L Carbon Dioxide (22-30) mmol/L Glucose (74-99) mg/dL POC Glucose (mg/dL) (75-99) mg/dL Calcium (8.4-10.2) mg/dL Ionized Calcium Isabelle (4.5-5.3) mg/dL Magnesium (1.6-2.3) mg/dL ALT (21-72) U/L Alkaline Phosphatase (38-126) U/L Total Protein (6.3-8.2) g/dL Albumin (3.5-5.0) g/dL Arterial Blood Potassium (3.4-4.5) mmol/L Arterial Blood Glucose 102 H (75-99) mg/dL Crossmatch See Detail 02/08/18 02/08/18 02/08/18 Range/Units 11:37 12:44 13:17 RBC (4.30-5.90) m/uL Hgb (13.0-17.5) gm/dL Hct (39.0-53.0) % RDW (11.5-15.5) % Plt Count (150-450) k/uL Lymphocytes # (1.0-4.8) k/uL PT (9.0-12.0) sec INR (<1.2) APTT (22.0-30.0) sec ABG pH (7.35-7.45) ABG pO2 >420 H 317 H 350 H (83-108) mmHg ABG HCO3 (21-25) mmol/L ABG Total CO2 26 H 27 H 26 H (19-24) mmol/L ABG O2 Saturation 100.0 H 100.0 H 99.9 H (94-97) % ABG Hematocrit 22 L 25 L 25 L (34.0-46.0) % ABG Potassium 4.8 H 5.1 H (3.4-4.5) mmol/L ABG Ionized Calcium 4.2 L 4.3 L 4.4 L (4.5-5.3) mg/dL ABG Glucose 112 H 182 H 225 H (75-99) mg/dL ABG Lactic Acid 1.9 H (0.5-1.6) mmol/L Hemoglobin 7.2 L 8.2 L 8.1 L (13.0-17.5) gm/dL Potassium (3.5-5.1) mmol/L Chloride (98-107) mmol/L Carbon Dioxide (22-30) mmol/L Glucose (74-99) mg/dL POC Glucose (mg/dL) (75-99) mg/dL Calcium (8.4-10.2) mg/dL Ionized Calcium Isabelle (4.5-5.3) mg/dL Magnesium (1.6-2.3) mg/dL ALT (21-72) U/L Alkaline Phosphatase (38-126) U/L Total Protein (6.3-8.2) g/dL Albumin (3.5-5.0) g/dL Arterial Blood Potassium 4.8 H 5.1 H (3.4-4.5) mmol/L Arterial Blood Glucose 112 H 182 H 225 H (75-99) mg/dL Crossmatch 02/08/18 02/08/18 02/08/18 Range/Units 14:50 15:48 16:50 RBC 2.82 L (4.30-5.90) m/uL Hgb 8.9 L (13.0-17.5) gm/dL Hct 26.4 L (39.0-53.0) % RDW (11.5-15.5) % Plt Count 93 L (150-450) k/uL Lymphocytes # 0.7 L (1.0-4.8) k/uL PT (9.0-12.0) sec INR (<1.2) APTT (22.0-30.0) sec ABG pH 7.34 L (7.35-7.45) ABG pO2 197 H (83-108) mmHg ABG HCO3 (21-25) mmol/L ABG Total CO2 (19-24) mmol/L ABG O2 Saturation 99.4 H 97.7 H (94-97) % ABG Hematocrit 24 L 26 L (34.0-46.0) % ABG Potassium (3.4-4.5) mmol/L ABG Ionized Calcium (4.5-5.3) mg/dL ABG Glucose 169 H 165 H (75-99) mg/dL ABG Lactic Acid 2.4 H* 2.4 H* (0.5-1.6) mmol/L Hemoglobin 8.0 L 8.6 L (13.0-17.5) gm/dL Potassium (3.5-5.1) mmol/L Chloride (98-107) mmol/L Carbon Dioxide (22-30) mmol/L Glucose (74-99) mg/dL POC Glucose (mg/dL) (75-99) mg/dL Calcium (8.4-10.2) mg/dL Ionized Calcium Isabelle (4.5-5.3) mg/dL Magnesium (1.6-2.3) mg/dL ALT (21-72) U/L Alkaline Phosphatase (38-126) U/L Total Protein (6.3-8.2) g/dL Albumin (3.5-5.0) g/dL Arterial Blood Potassium (3.4-4.5) mmol/L Arterial Blood Glucose 169 H 165 H (75-99) mg/dL Crossmatch 02/08/18 02/08/18 02/08/18 Range/Units 16:50 16:50 16:53 RBC (4.30-5.90) m/uL Hgb (13.0-17.5) gm/dL Hct (39.0-53.0) % RDW (11.5-15.5) % Plt Count (150-450) k/uL Lymphocytes # (1.0-4.8) k/uL PT (9.0-12.0) sec INR 1.3 H (<1.2) APTT (22.0-30.0) sec ABG pH (7.35-7.45) ABG pO2 (83-108) mmHg ABG HCO3 (21-25) mmol/L ABG Total CO2 (19-24) mmol/L ABG O2 Saturation (94-97) % ABG Hematocrit (34.0-46.0) % ABG Potassium (3.4-4.5) mmol/L ABG Ionized Calcium (4.5-5.3) mg/dL ABG Glucose (75-99) mg/dL ABG Lactic Acid (0.5-1.6) mmol/L Hemoglobin (13.0-17.5) gm/dL Potassium (3.5-5.1) mmol/L Chloride (98-107) mmol/L Carbon Dioxide (22-30) mmol/L Glucose 142 H (74-99) mg/dL POC Glucose (mg/dL) 152 H (75-99) mg/dL Calcium (8.4-10.2) mg/dL Ionized Calcium Isabelle (4.5-5.3) mg/dL Magnesium 2.5 H (1.6-2.3) mg/dL ALT (21-72) U/L Alkaline Phosphatase 27 L (38-126) U/L Total Protein 5.2 L (6.3-8.2) g/dL Albumin (3.5-5.0) g/dL Arterial Blood Potassium (3.4-4.5) mmol/L Arterial Blood Glucose (75-99) mg/dL Crossmatch 02/08/18 02/08/18 02/08/18 Range/Units 17:15 18:04 18:45 RBC 2.50 L (4.30-5.90) m/uL Hgb 8.0 L (13.0-17.5) gm/dL Hct 23.4 L (39.0-53.0) % RDW 15.7 H (11.5-15.5) % Plt Count 94 L (150-450) k/uL Lymphocytes # 0.6 L (1.0-4.8) k/uL PT (9.0-12.0) sec INR (<1.2) APTT (22.0-30.0) sec ABG pH (7.35-7.45) ABG pO2 295 H (83-108) mmHg ABG HCO3 (21-25) mmol/L ABG Total CO2 (19-24) mmol/L ABG O2 Saturation 100.0 H (94-97) % ABG Hematocrit (34.0-46.0) % ABG Potassium (3.4-4.5) mmol/L ABG Ionized Calcium (4.5-5.3) mg/dL ABG Glucose (75-99) mg/dL ABG Lactic Acid (0.5-1.6) mmol/L Hemoglobin (13.0-17.5) gm/dL Potassium (3.5-5.1) mmol/L Chloride (98-107) mmol/L Carbon Dioxide (22-30) mmol/L Glucose (74-99) mg/dL POC Glucose (mg/dL) 150 H (75-99) mg/dL Calcium (8.4-10.2) mg/dL Ionized Calcium Isabelle (4.5-5.3) mg/dL Magnesium (1.6-2.3) mg/dL ALT (21-72) U/L Alkaline Phosphatase (38-126) U/L Total Protein (6.3-8.2) g/dL Albumin (3.5-5.0) g/dL Arterial Blood Potassium (3.4-4.5) mmol/L Arterial Blood Glucose (75-99) mg/dL Crossmatch 02/08/18 02/08/18 02/08/18 Range/Units 19:05 20:02 20:56 RBC (4.30-5.90) m/uL Hgb (13.0-17.5) gm/dL Hct (39.0-53.0) % RDW (11.5-15.5) % Plt Count (150-450) k/uL Lymphocytes # (1.0-4.8) k/uL PT (9.0-12.0) sec INR (<1.2) APTT (22.0-30.0) sec ABG pH (7.35-7.45) ABG pO2 (83-108) mmHg ABG HCO3 (21-25) mmol/L ABG Total CO2 (19-24) mmol/L ABG O2 Saturation (94-97) % ABG Hematocrit (34.0-46.0) % ABG Potassium (3.4-4.5) mmol/L ABG Ionized Calcium (4.5-5.3) mg/dL ABG Glucose (75-99) mg/dL ABG Lactic Acid (0.5-1.6) mmol/L Hemoglobin (13.0-17.5) gm/dL Potassium (3.5-5.1) mmol/L Chloride (98-107) mmol/L Carbon Dioxide (22-30) mmol/L Glucose (74-99) mg/dL POC Glucose (mg/dL) 147 H 142 H 157 H (75-99) mg/dL Calcium (8.4-10.2) mg/dL Ionized Calcium Isabelle (4.5-5.3) mg/dL Magnesium (1.6-2.3) mg/dL ALT (21-72) U/L Alkaline Phosphatase (38-126) U/L Total Protein (6.3-8.2) g/dL Albumin (3.5-5.0) g/dL Arterial Blood Potassium (3.4-4.5) mmol/L Arterial Blood Glucose (75-99) mg/dL Crossmatch 02/08/18 02/08/18 02/08/18 Range/Units 21:18 22:11 22:59 RBC 2.43 L (4.30-5.90) m/uL Hgb 7.7 L (13.0-17.5) gm/dL Hct 22.7 L (39.0-53.0) % RDW 15.8 H (11.5-15.5) % Plt Count 99 L (150-450) k/uL Lymphocytes # 0.4 L (1.0-4.8) k/uL PT (9.0-12.0) sec INR (<1.2) APTT (22.0-30.0) sec ABG pH (7.35-7.45) ABG pO2 (83-108) mmHg ABG HCO3 (21-25) mmol/L ABG Total CO2 (19-24) mmol/L ABG O2 Saturation (94-97) % ABG Hematocrit (34.0-46.0) % ABG Potassium (3.4-4.5) mmol/L ABG Ionized Calcium (4.5-5.3) mg/dL ABG Glucose (75-99) mg/dL ABG Lactic Acid (0.5-1.6) mmol/L Hemoglobin (13.0-17.5) gm/dL Potassium (3.5-5.1) mmol/L Chloride (98-107) mmol/L Carbon Dioxide (22-30) mmol/L Glucose (74-99) mg/dL POC Glucose (mg/dL) 157 H 167 H (75-99) mg/dL Calcium (8.4-10.2) mg/dL Ionized Calcium Isabelle (4.5-5.3) mg/dL Magnesium (1.6-2.3) mg/dL ALT (21-72) U/L Alkaline Phosphatase (38-126) U/L Total Protein (6.3-8.2) g/dL Albumin (3.5-5.0) g/dL Arterial Blood Potassium (3.4-4.5) mmol/L Arterial Blood Glucose (75-99) mg/dL Crossmatch 02/08/18 02/08/18 02/09/18 Range/Units 23:18 23:53 00:56 RBC (4.30-5.90) m/uL Hgb (13.0-17.5) gm/dL Hct (39.0-53.0) % RDW (11.5-15.5) % Plt Count (150-450) k/uL Lymphocytes # (1.0-4.8) k/uL PT (9.0-12.0) sec INR (<1.2) APTT (22.0-30.0) sec ABG pH (7.35-7.45) ABG pO2 (83-108) mmHg ABG HCO3 (21-25) mmol/L ABG Total CO2 25 H (19-24) mmol/L ABG O2 Saturation 97.5 H (94-97) % ABG Hematocrit (34.0-46.0) % ABG Potassium (3.4-4.5) mmol/L ABG Ionized Calcium (4.5-5.3) mg/dL ABG Glucose (75-99) mg/dL ABG Lactic Acid (0.5-1.6) mmol/L Hemoglobin (13.0-17.5) gm/dL Potassium (3.5-5.1) mmol/L Chloride (98-107) mmol/L Carbon Dioxide (22-30) mmol/L Glucose (74-99) mg/dL POC Glucose (mg/dL) 153 H 132 H (75-99) mg/dL Calcium (8.4-10.2) mg/dL Ionized Calcium Isabelle (4.5-5.3) mg/dL Magnesium (1.6-2.3) mg/dL ALT (21-72) U/L Alkaline Phosphatase (38-126) U/L Total Protein (6.3-8.2) g/dL Albumin (3.5-5.0) g/dL Arterial Blood Potassium (3.4-4.5) mmol/L Arterial Blood Glucose (75-99) mg/dL Crossmatch 02/09/18 02/09/18 02/09/18 Range/Units 01:57 03:58 03:58 RBC 2.14 L (4.30-5.90) m/uL Hgb 6.8 L* (13.0-17.5) gm/dL Hct 20.1 L (39.0-53.0) % RDW 16.0 H (11.5-15.5) % Plt Count 83 L (150-450) k/uL Lymphocytes # 0.3 L (1.0-4.8) k/uL PT 12.6 H (9.0-12.0) sec INR 1.3 H (<1.2) APTT 40.7 H (22.0-30.0) sec ABG pH (7.35-7.45) ABG pO2 (83-108) mmHg ABG HCO3 (21-25) mmol/L ABG Total CO2 (19-24) mmol/L ABG O2 Saturation (94-97) % ABG Hematocrit (34.0-46.0) % ABG Potassium (3.4-4.5) mmol/L ABG Ionized Calcium (4.5-5.3) mg/dL ABG Glucose (75-99) mg/dL ABG Lactic Acid (0.5-1.6) mmol/L Hemoglobin (13.0-17.5) gm/dL Potassium (3.5-5.1) mmol/L Chloride (98-107) mmol/L Carbon Dioxide (22-30) mmol/L Glucose (74-99) mg/dL POC Glucose (mg/dL) 112 H (75-99) mg/dL Calcium (8.4-10.2) mg/dL Ionized Calcium Isabelle (4.5-5.3) mg/dL Magnesium (1.6-2.3) mg/dL ALT (21-72) U/L Alkaline Phosphatase (38-126) U/L Total Protein (6.3-8.2) g/dL Albumin (3.5-5.0) g/dL Arterial Blood Potassium (3.4-4.5) mmol/L Arterial Blood Glucose (75-99) mg/dL Crossmatch 02/09/18 02/09/18 02/09/18 Range/Units 03:58 04:47 06:19 RBC (4.30-5.90) m/uL Hgb (13.0-17.5) gm/dL Hct (39.0-53.0) % RDW (11.5-15.5) % Plt Count (150-450) k/uL Lymphocytes # (1.0-4.8) k/uL PT (9.0-12.0) sec INR (<1.2) APTT (22.0-30.0) sec ABG pH (7.35-7.45) ABG pO2 (83-108) mmHg ABG HCO3 (21-25) mmol/L ABG Total CO2 (19-24) mmol/L ABG O2 Saturation (94-97) % ABG Hematocrit (34.0-46.0) % ABG Potassium (3.4-4.5) mmol/L ABG Ionized Calcium (4.5-5.3) mg/dL ABG Glucose (75-99) mg/dL ABG Lactic Acid (0.5-1.6) mmol/L Hemoglobin (13.0-17.5) gm/dL Potassium 3.4 L (3.5-5.1) mmol/L Chloride 113 H (98-107) mmol/L Carbon Dioxide 20 L (22-30) mmol/L Glucose 60 L (74-99) mg/dL POC Glucose (mg/dL) 103 H 124 H (75-99) mg/dL Calcium 6.8 L (8.4-10.2) mg/dL Ionized Calcium Isabelle 4.4 L (4.5-5.3) mg/dL Magnesium (1.6-2.3) mg/dL ALT 15 L (21-72) U/L Alkaline Phosphatase <20 L (38-126) U/L Total Protein 3.9 L (6.3-8.2) g/dL Albumin 2.5 L (3.5-5.0) g/dL Arterial Blood Potassium (3.4-4.5) mmol/L Arterial Blood Glucose (75-99) mg/dL Crossmatch 02/09/18 02/09/18 02/09/18 Range/Units 06:50 06:55 07:40 RBC 2.57 L (4.30-5.90) m/uL Hgb 8.0 L (13.0-17.5) gm/dL Hct 24.2 L (39.0-53.0) % RDW 15.9 H (11.5-15.5) % Plt Count 98 L (150-450) k/uL Lymphocytes # (1.0-4.8) k/uL PT (9.0-12.0) sec INR (<1.2) APTT (22.0-30.0) sec ABG pH (7.35-7.45) ABG pO2 (83-108) mmHg ABG HCO3 (21-25) mmol/L ABG Total CO2 (19-24) mmol/L ABG O2 Saturation (94-97) % ABG Hematocrit (34.0-46.0) % ABG Potassium (3.4-4.5) mmol/L ABG Ionized Calcium (4.5-5.3) mg/dL ABG Glucose (75-99) mg/dL ABG Lactic Acid (0.5-1.6) mmol/L Hemoglobin (13.0-17.5) gm/dL Potassium (3.5-5.1) mmol/L Chloride (98-107) mmol/L Carbon Dioxide (22-30) mmol/L Glucose 107 H (74-99) mg/dL POC Glucose (mg/dL) 123 H (75-99) mg/dL Calcium (8.4-10.2) mg/dL Ionized Calcium Isabelle (4.5-5.3) mg/dL Magnesium (1.6-2.3) mg/dL ALT (21-72) U/L Alkaline Phosphatase 26 L (38-126) U/L Total Protein 5.3 L (6.3-8.2) g/dL Albumin (3.5-5.0) g/dL Arterial Blood Potassium (3.4-4.5) mmol/L Arterial Blood Glucose (75-99) mg/dL Crossmatch 02/09/18 Range/Units 08:03 RBC (4.30-5.90) m/uL Hgb (13.0-17.5) gm/dL Hct (39.0-53.0) % RDW (11.5-15.5) % Plt Count (150-450) k/uL Lymphocytes # (1.0-4.8) k/uL PT (9.0-12.0) sec INR (<1.2) APTT (22.0-30.0) sec ABG pH (7.35-7.45) ABG pO2 (83-108) mmHg ABG HCO3 (21-25) mmol/L ABG Total CO2 (19-24) mmol/L ABG O2 Saturation (94-97) % ABG Hematocrit (34.0-46.0) % ABG Potassium (3.4-4.5) mmol/L ABG Ionized Calcium (4.5-5.3) mg/dL ABG Glucose (75-99) mg/dL ABG Lactic Acid (0.5-1.6) mmol/L Hemoglobin (13.0-17.5) gm/dL Potassium (3.5-5.1) mmol/L Chloride (98-107) mmol/L Carbon Dioxide (22-30) mmol/L Glucose (74-99) mg/dL POC Glucose (mg/dL) 124 H (75-99) mg/dL Calcium (8.4-10.2) mg/dL Ionized Calcium Isabelle (4.5-5.3) mg/dL Magnesium (1.6-2.3) mg/dL ALT (21-72) U/L Alkaline Phosphatase (38-126) U/L Total Protein (6.3-8.2) g/dL Albumin (3.5-5.0) g/dL Arterial Blood Potassium (3.4-4.5) mmol/L Arterial Blood Glucose (75-99) mg/dL Crossmatch - Imaging and Cardiology Chest x-ray: report reviewed, image reviewed Assessment and Plan (1) Triple vessel coronary artery disease Current Visit: Yes Status: Acute Code(s): I25.10 - ATHSCL HEART DISEASE OF [place] CORONARY ARTERY W/O ANG PCTRS SNOMED Code(s): 285864799 (2) Non-STEMI (non-ST elevated myocardial infarction) Current Visit: Yes Status: Acute Code(s): I21.4 - NON-ST ELEVATION (NSTEMI) MYOCARDIAL INFARCTION SNOMED Code(s): 323943635 (3) Hyperlipidemia Current Visit: Yes Status: Chronic Code(s): E78.5 - HYPERLIPIDEMIA, UNSPECIFIED SNOMED Code(s): 04678692 (4) Obstructive sleep apnea Current Visit: Yes Status: Chronic Code(s): G47.33 - OBSTRUCTIVE SLEEP APNEA (ADULT) (PEDIATRIC) SNOMED Code(s): 12192704 (5) Tobacco dependence in remission Current Visit: No Status: Resolved Code(s): F17.201 - NICOTINE DEPENDENCE, UNSPECIFIED, IN REMISSION SNOMED Code(s): 075152570 Plan: 1. Continue aspirin, statin, and metoprolol. Continue Plavix 75 mg by mouth daily today. We will give an extra dose of Plavix 150 mg by mouth today. 2. Encourage use of his incentive spirometry every hour while awake. 3. Pulmonary recommendations per Dr. Valentine. 4. Continue levothyroxine 100 g IV daily. Repeat preoperative free T4 results showed 0.29 ng/dL. 5. Continue left pleural and mediastinal chest tubes to low continuous wall suction -20 cm H2O. 6. Continue epicardial pacemaker wires to backup generator with a backup of VVI 50. 7. GI and DVT prophylaxis. 8. No diuresis today. 9. Continue [place] catheter. 10. Continue Primacor drip at 0.3 mcg/kg/m. 11. Discontinue nitroglycerin drip. 12. More recommendations to follow based on the patient's clinical course. Time with Patient: Greater than 30
[2018-02-09] MEDS ORDERED: CRESTOR 40 MG PO SCH (09:00)
[2018-02-09] MEDS ORDERED: CRESTOR 20 MG PO SCH (09:00)
[2018-02-09] MEDS: ROSUVASTATIN 20MG TAB PO SCH (09:14)
[2018-02-09 09:24] LABS: Glucose,Whole Blood 150 mg/dL (75-99)
[2018-02-09 09:48] LABS: Magnesium 2.3 mg/dL (1.6-2.3)
[2018-02-09 10:19] LABS: Glucose,Whole Blood 165 mg/dL (75-99)
[2018-02-09] MEDS: MAGNESIUM SULFATE-D5W PMX 1 GM in DEXTROSE/WATER 1 100ML.BAG IVPB SCH ×2 (10:39→10:40)
[2018-02-09 11:10] LABS: Glucose,Whole Blood 132 mg/dL (75-99)
[2018-02-09 11:17] LABS: Basophils % (A) 0 %; Eosinophils # (A) 0.1 k/uL (0-0.7); Eosinophils % (A) 2 %; HCT 21.6 % (39.0-53.0); HGB 7.4 gm/dL (13.0-17.5); Lymphocytes # (A) 0.6 k/uL (1.0-4.8); Lymphocytes % (A) 12 %; MCH 31.8 pg (25.0-35.0); MCHC 34.1 g/dL (31.0-37.0); MCV 93.2 fL (80.0-100.0); Mean Platelet Volume 9.5; Monocytes # (A) 0.3 k/uL (0-1.0); Monocytes % (A) 6 %; Neutrophils # (A) 3.7 k/uL (1.3-7.7); Neutrophils % (A) 79 %; Platelet Count 105 k/uL (150-450); RBC 2.32 m/uL (4.30-5.90); RDW 15.9 % (11.5-15.5); WBC 4.7 k/uL (3.8-10.6)
[2018-02-09] MEDS: METOPROLOL TARTRATE 12.5 MG TAB PO SCH ×2 (11:57→20:18)
[2018-02-09 12:06] LABS: Glucose,Whole Blood 97 mg/dL (75-99)
[2018-02-09 13:13] LABS: Glucose,Whole Blood 156 mg/dL (75-99)
--- NOTE | 2018-02-09 13:40 | PN ---
PROGRESS NOTE This patient underwent coronary artery bypass surgery yesterday. The patient has a severe triple-vessel disease. The patient had a GARRIDO graft to the LAD with an endarterectomy of the LAD as well as vein graft to the diagonal branch and obtuse marginal branch and a reverse saphenous vein graft to the right coronary artery. Patient at present is sitting comfortably in the bedside chair. No respiratory distress is noted. He is complaining of some pain at the site of the surgery. His oxygen saturation is 96%. Patient is afebrile. Patient has a borderline low blood pressure and currently patient is on a Levophed drip. Heart: First and second heart sounds are normal. Lungs examination reveals bilateral few scattered wheezes. The patient's lab tests are reviewed. Hemoglobin is 7.4. Chest x-ray does not show any significant failure. We will continue the current medications. DARIN / DELMYN: [id number] /
--- NOTE | 2018-02-09 13:52 | P.PN ---
Subjective Progress Note Date: 02/09/18 This is a very pleasant 72-year-old gentleman who was admitted here on 2017 from [facility] with complaints of chest discomfort. The EKG had some nonspecific changes. His troponins were found to be elevated and he ruled in for a non-ST segment elevation myocardial infarction. He also had significant clinical and chemical hypothyroidism and was initiated on Synthroid. His numbers have improved. CT angiogram ruled out pulmonary embolism and aortic dissection. He had subsequently undergone cardiac catheterization that same day that revealed severe triple-vessel disease with 70 % left main stenosis, 60% diffuse proximal LAD stenosis, 90% mid LAD stenosis and 50% ostial circumflex stenosis. The right coronary artery was diffusely diseased with a distal RCA of 60% stenosis, PDA branch 80% stenosis in the midportion of the PDA branch another 80% stenosis. Echocardiogram revealed preserved left ventricular systolic function with an ejection fraction 55-60%. He was recommended coronary artery bypass grafting. He is seen and evaluated today 02/08/2018 in the immediate postoperative period in the intensive care unit. He is currently intubated and on the mechanical ventilator in the SIMV mode at a rate of 12, tidal volume 500, pressure support of 5 and a PEEP of 5. Arterial blood gases reveal a P O2 of 295, pCO2 38, pH 7.38. This is on FiO2 of 100% and will be titrated accordingly. Chest x-ray reveals good position of the endotracheal tube. There is a mediastinal and left chest tube in place. Right jugular catheter with its tip in the right pulmonary artery. Nasogastric tube in place. No evidence of pneumothorax. There there are minor infiltrates more so on the left. He is sedated on propofol at 50 mcg/kg/m. He is on nitroglycerin drip at 5 mcg/m. Primacor at 0.3 mcg/kg/m and lactated Ringer's at 50 MLS per hour. He has received 2 units of albumin and 3 units of packed red blood cells. PA pressure 24/14 with a mean of 18. CVP 11. Cardiac index 1.8. Backup pacer is in place. Currently in sinus rhythm at a rate of 70. White count 6.0. Hemoglobin 8.9. INR 1.3. On 02/09/2018 I'm seeing this patient for a follow-up. The patient is postop day #1. The patient was weaned off the mechanical ventilated and the patient was extubated yesterday at around midnight without any major difficulties. This morning the patient is awake and alert and following commands and answering questions. The patient has a cardiac index of 2.4. Pulmonary artery pressure 24/12. The patient was noted to be hypotensive earlier and the patient was given a total of 3 A of 5% albumin. The fourth dose is being given right done and suggested to put some low-dose norepinephrine infusion for blood pressure control. The patient is currently off nitroglycerin drip. The patient is also off milrinone. The patient is resting comfortably on a chair. He is slightly hypothermic with a temperature of 95. Heart rate is around mid 70s sinus. The patient is producing adequate amount of urine output. The patient has a mediastinal and a left pleural chest tube and the total amount of output from the left chest tube is 80 disease over the past 8 hours and 140 mL since surgery. The mediastinal chest tube was put up to 110 mL over the past 8 hours and follow 30 mL since surgery. The patient has a AV epicardial pacemaker wire in place and the pacemaker generator is at the backup at the rate of 50, VVI mode. The patient has a right IJ [place] catheter which is also in place. The patient denies having any significant pain. He is using incentive spirometer. Chest x-ray was reviewed and shows adequate expansion of both lungs with some atelectatic changes small effusion the lung base bilaterally. No pneumothorax. No other significant events overnight. The REBEKA drain in the right lower extremities in place and has put out approximately 80 mL of output since surgery. Objective - Vital Signs Vital signs: Vital Signs Temp 98.4 F 02/08/18 06:21 Pulse 75 02/09/18 13:00 Resp 16 02/09/18 13:00 BP 102/56 02/09/18 13:00 Pulse Ox 97 02/09/18 13:00 Intake & Output 02/08/18 02/09/18 02/09/18 18:59 06:59 18:59 Intake Total 1717.3 7542.029 5857.620 Output Total 2140 944 488 Balance -422.7 720.114 548.620 Weight 106 kg Intake: IV 33 1450 430 ACETAMINOPHEN IV (For NPO 800 ) 1,000 mg In Empty Bag 1 bag @ 400 mls/hr IVPB Q6HR JC Rx#:[id number] CI/CO 100 80 Lactated Ringers 1,000 ml 550 350 @ 50 mls/hr IV .Q20H JC Rx#:[id number] Intake, IV Titration 754.3 214.114 606.620 Amount ACETAMINOPHEN IV (For NPO 100 ) 1,000 mg In Empty Bag 1 bag @ 400 mls/hr IVPB Q6HR JC Rx#:[id number] Albumin Human 5% 250 ml 250 In Empty Bag 1 bag @ 250 mls/hr IVPB Q1HR PRN Rx#: [id number] Albumin Human 5% 500 ml 500 250 In Empty Bag 1 bag @ 250 mls/hr IVPB ONCE ONE Rx#: [id number] Insulin Regular 100 unit 1.5 31.744 53.842 In Sodium Chloride 0.9% 100 ml @ Per Protocol IV .Q0M JC Rx#:[id number] Lactated Ringers 1,000 ml 100 50 @ 50 mls/hr IV .Q20H JC Rx#:[id number] Milrinone-D5w Pmx 20 mg 7.7 107.7 In Dextrose/Water 1 100ml .bag @ Per Protocol IV . Q0M JC Rx#:[id number] Nitroglycerin-D5w Pmx 50 3.1 0 18.375 mg In Dextrose/Water 1 250ml.bag @ 5 MCG/MIN 1.5 mls/hr IV .Q24H JC Rx#: [id number] Norepinephrine 16 mg In 18.8 24.670 34.403 Sodium Chloride 0.9% 250 ml @ Titrate IV .Q0M JC Rx#:[id number] Propofol 1,000 mg In 23.2 0 Empty Bag 1 bag @ Titrate IV .Q0M JC Rx#: [id number] Blood Product 930 Rc As-1 Unit 310 [id number] Rc As-1 Unit 310 [id number] Rc Pheresis 2 As3 Unit 310 [id number] Output: Chest Tube Drainage 135 409 258 Left Pleural Chest Tube 35 113 118 Mediastinal 100 296 140 Drainage 80 10 Right Calf 80 10 Urine 1305 455 220 Estimated Blood Loss 700 Other: Voiding Method Indwelling Catheter Indwelling Catheter ABP, PAP, CO, CI - Last Documented Arterial Blood Pressure 95/48 Pulmonary Artery Pressure 19/7 Cardiac Output 4 Cardiac Index 2.0 - Exam Gen. appearance the patient is calm and comfortable likely distress. Head exam was generally normal. There was no scleral icterus or corneal arcus. Mucous membranes were moist. Neck was supple and without jugular venous distension, thyromegaly, or carotid bruits. Carotids were easily palpable bilaterally. There was no adenopathy. The patient has a right IJ [place] and the [place] catheter in place. Lungs sounds are diminished bilaterally especially lung bases. The patient is stable sternum and there is a left pleural and mediastinal chest tube in place. Cardiac exam revealed the PMI to be normally situated and sized. The rhythm was regular and no extrasystoles were noted during several minutes of auscultation. The first and second heart sounds were normal and physiologic splitting of the second heart sound was noted. There were no murmurs, rubs, clicks, or gallops. Abdominal exam revealed normal bowel sounds. The abdomen was soft, non-tender, and without masses, organomegaly, or appreciable enlargement of the abdominal aorta. Examination of the extremities revealed easily palpable radial, femoral and pedal pulses. There was no cyanosis, clubbing or edema. Skin is cold and dry. No cyanosis or clubbing. No drainage from the right lower extremity wounds or any other location. REBEKA drain is in place. Chest tubes are all in place. No erythema. No cellulitis. Neurologically the patient is awake and alert and there is no focal neurological deficits. Psychiatrically the patient is appropriate insight and judgment and molds. - Labs CBC & Chem 7: 02/09/18 10:47 02/09/18 07:40 Labs: Abnormal Lab Results - Last 24 Hours (Table) 02/07/18 02/08/18 02/08/18 Range/Units 05:43 08:52 11:01 RBC (4.30-5.90) m/uL Hgb (13.0-17.5) gm/dL Hct (39.0-53.0) % RDW (11.5-15.5) % Plt Count (150-450) k/uL Lymphocytes # (1.0-4.8) k/uL PT (9.0-12.0) sec INR (<1.2) APTT (22.0-30.0) sec ABG pH (7.35-7.45) ABG pO2 125 H 192 H (83-108) mmHg ABG HCO3 27 H 26 H (21-25) mmol/L ABG Total CO2 28 H 27 H (19-24) mmol/L ABG O2 Saturation 97.4 H 99.6 H (94-97) % ABG Hematocrit 30 L 24 L (34.0-46.0) % ABG Potassium (3.4-4.5) mmol/L ABG Ionized Calcium (4.5-5.3) mg/dL ABG Glucose 102 H (75-99) mg/dL ABG Lactic Acid (0.5-1.6) mmol/L Hemoglobin 9.6 L 7.8 L (13.0-17.5) gm/dL Potassium (3.5-5.1) mmol/L Chloride (98-107) mmol/L Carbon Dioxide (22-30) mmol/L Glucose (74-99) mg/dL POC Glucose (mg/dL) (75-99) mg/dL Calcium (8.4-10.2) mg/dL Ionized Calcium Isabelle (4.5-5.3) mg/dL Magnesium (1.6-2.3) mg/dL ALT (21-72) U/L Alkaline Phosphatase (38-126) U/L Total Protein (6.3-8.2) g/dL Albumin (3.5-5.0) g/dL Arterial Blood Potassium (3.4-4.5) mmol/L Arterial Blood Glucose 102 H (75-99) mg/dL Crossmatch See Detail 02/08/18 02/08/18 02/08/18 Range/Units 11:37 12:44 13:17 RBC (4.30-5.90) m/uL Hgb (13.0-17.5) gm/dL Hct (39.0-53.0) % RDW (11.5-15.5) % Plt Count (150-450) k/uL Lymphocytes # (1.0-4.8) k/uL PT (9.0-12.0) sec INR (<1.2) APTT (22.0-30.0) sec ABG pH (7.35-7.45) ABG pO2 >420 H 317 H 350 H (83-108) mmHg ABG HCO3 (21-25) mmol/L ABG Total CO2 26 H 27 H 26 H (19-24) mmol/L ABG O2 Saturation 100.0 H 100.0 H 99.9 H (94-97) % ABG Hematocrit 22 L 25 L 25 L (34.0-46.0) % ABG Potassium 4.8 H 5.1 H (3.4-4.5) mmol/L ABG Ionized Calcium 4.2 L 4.3 L 4.4 L (4.5-5.3) mg/dL ABG Glucose 112 H 182 H 225 H (75-99) mg/dL ABG Lactic Acid 1.9 H (0.5-1.6) mmol/L Hemoglobin 7.2 L 8.2 L 8.1 L (13.0-17.5) gm/dL Potassium (3.5-5.1) mmol/L Chloride (98-107) mmol/L Carbon Dioxide (22-30) mmol/L Glucose (74-99) mg/dL POC Glucose (mg/dL) (75-99) mg/dL Calcium (8.4-10.2) mg/dL Ionized Calcium Isabelle (4.5-5.3) mg/dL Magnesium (1.6-2.3) mg/dL ALT (21-72) U/L Alkaline Phosphatase (38-126) U/L Total Protein (6.3-8.2) g/dL Albumin (3.5-5.0) g/dL Arterial Blood Potassium 4.8 H 5.1 H (3.4-4.5) mmol/L Arterial Blood Glucose 112 H 182 H 225 H (75-99) mg/dL Crossmatch 02/08/18 02/08/18 02/08/18 Range/Units 14:50 15:48 16:50 RBC 2.82 L (4.30-5.90) m/uL Hgb 8.9 L (13.0-17.5) gm/dL Hct 26.4 L (39.0-53.0) % RDW (11.5-15.5) % Plt Count 93 L (150-450) k/uL Lymphocytes # 0.7 L (1.0-4.8) k/uL PT (9.0-12.0) sec INR (<1.2) APTT (22.0-30.0) sec ABG pH 7.34 L (7.35-7.45) ABG pO2 197 H (83-108) mmHg ABG HCO3 (21-25) mmol/L ABG Total CO2 (19-24) mmol/L ABG O2 Saturation 99.4 H 97.7 H (94-97) % ABG Hematocrit 24 L 26 L (34.0-46.0) % ABG Potassium (3.4-4.5) mmol/L ABG Ionized Calcium (4.5-5.3) mg/dL ABG Glucose 169 H 165 H (75-99) mg/dL ABG Lactic Acid 2.4 H* 2.4 H* (0.5-1.6) mmol/L Hemoglobin 8.0 L 8.6 L (13.0-17.5) gm/dL Potassium (3.5-5.1) mmol/L Chloride (98-107) mmol/L Carbon Dioxide (22-30) mmol/L Glucose (74-99) mg/dL POC Glucose (mg/dL) (75-99) mg/dL Calcium (8.4-10.2) mg/dL Ionized Calcium Isabelle (4.5-5.3) mg/dL Magnesium (1.6-2.3) mg/dL ALT (21-72) U/L Alkaline Phosphatase (38-126) U/L Total Protein (6.3-8.2) g/dL Albumin (3.5-5.0) g/dL Arterial Blood Potassium (3.4-4.5) mmol/L Arterial Blood Glucose 169 H 165 H (75-99) mg/dL Crossmatch 02/08/18 02/08/18 02/08/18 Range/Units 16:50 16:50 16:53 RBC (4.30-5.90) m/uL Hgb (13.0-17.5) gm/dL Hct (39.0-53.0) % RDW (11.5-15.5) % Plt Count (150-450) k/uL Lymphocytes # (1.0-4.8) k/uL PT (9.0-12.0) sec INR 1.3 H (<1.2) APTT (22.0-30.0) sec ABG pH (7.35-7.45) ABG pO2 (83-108) mmHg ABG HCO3 (21-25) mmol/L ABG Total CO2 (19-24) mmol/L ABG O2 Saturation (94-97) % ABG Hematocrit (34.0-46.0) % ABG Potassium (3.4-4.5) mmol/L ABG Ionized Calcium (4.5-5.3) mg/dL ABG Glucose (75-99) mg/dL ABG Lactic Acid (0.5-1.6) mmol/L Hemoglobin (13.0-17.5) gm/dL Potassium (3.5-5.1) mmol/L Chloride (98-107) mmol/L Carbon Dioxide (22-30) mmol/L Glucose 142 H (74-99) mg/dL POC Glucose (mg/dL) 152 H (75-99) mg/dL Calcium (8.4-10.2) mg/dL Ionized Calcium Isabelle (4.5-5.3) mg/dL Magnesium 2.5 H (1.6-2.3) mg/dL ALT (21-72) U/L Alkaline Phosphatase 27 L (38-126) U/L Total Protein 5.2 L (6.3-8.2) g/dL Albumin (3.5-5.0) g/dL Arterial Blood Potassium (3.4-4.5) mmol/L Arterial Blood Glucose (75-99) mg/dL Crossmatch 02/08/18 02/08/18 02/08/18 Range/Units 17:15 18:04 18:45 RBC 2.50 L (4.30-5.90) m/uL Hgb 8.0 L (13.0-17.5) gm/dL Hct 23.4 L (39.0-53.0) % RDW 15.7 H (11.5-15.5) % Plt Count 94 L (150-450) k/uL Lymphocytes # 0.6 L (1.0-4.8) k/uL PT (9.0-12.0) sec INR (<1.2) APTT (22.0-30.0) sec ABG pH (7.35-7.45) ABG pO2 295 H (83-108) mmHg ABG HCO3 (21-25) mmol/L ABG Total CO2 (19-24) mmol/L ABG O2 Saturation 100.0 H (94-97) % ABG Hematocrit (34.0-46.0) % ABG Potassium (3.4-4.5) mmol/L ABG Ionized Calcium (4.5-5.3) mg/dL ABG Glucose (75-99) mg/dL ABG Lactic Acid (0.5-1.6) mmol/L Hemoglobin (13.0-17.5) gm/dL Potassium (3.5-5.1) mmol/L Chloride (98-107) mmol/L Carbon Dioxide (22-30) mmol/L Glucose (74-99) mg/dL POC Glucose (mg/dL) 150 H (75-99) mg/dL Calcium (8.4-10.2) mg/dL Ionized Calcium Isabelle (4.5-5.3) mg/dL Magnesium (1.6-2.3) mg/dL ALT (21-72) U/L Alkaline Phosphatase (38-126) U/L Total Protein (6.3-8.2) g/dL Albumin (3.5-5.0) g/dL Arterial Blood Potassium (3.4-4.5) mmol/L Arterial Blood Glucose (75-99) mg/dL Crossmatch 02/08/18 02/08/18 02/08/18 Range/Units 19:05 20:02 20:56 RBC (4.30-5.90) m/uL Hgb (13.0-17.5) gm/dL Hct (39.0-53.0) % RDW (11.5-15.5) % Plt Count (150-450) k/uL Lymphocytes # (1.0-4.8) k/uL PT (9.0-12.0) sec INR (<1.2) APTT (22.0-30.0) sec ABG pH (7.35-7.45) ABG pO2 (83-108) mmHg ABG HCO3 (21-25) mmol/L ABG Total CO2 (19-24) mmol/L ABG O2 Saturation (94-97) % ABG Hematocrit (34.0-46.0) % ABG Potassium (3.4-4.5) mmol/L ABG Ionized Calcium (4.5-5.3) mg/dL ABG Glucose (75-99) mg/dL ABG Lactic Acid (0.5-1.6) mmol/L Hemoglobin (13.0-17.5) gm/dL Potassium (3.5-5.1) mmol/L Chloride (98-107) mmol/L Carbon Dioxide (22-30) mmol/L Glucose (74-99) mg/dL POC Glucose (mg/dL) 147 H 142 H 157 H (75-99) mg/dL Calcium (8.4-10.2) mg/dL Ionized Calcium Isabelle (4.5-5.3) mg/dL Magnesium (1.6-2.3) mg/dL ALT (21-72) U/L Alkaline Phosphatase (38-126) U/L Total Protein (6.3-8.2) g/dL Albumin (3.5-5.0) g/dL Arterial Blood Potassium (3.4-4.5) mmol/L Arterial Blood Glucose (75-99) mg/dL Crossmatch 02/08/18 02/08/18 02/08/18 Range/Units 21:18 22:11 22:59 RBC 2.43 L (4.30-5.90) m/uL Hgb 7.7 L (13.0-17.5) gm/dL Hct 22.7 L (39.0-53.0) % RDW 15.8 H (11.5-15.5) % Plt Count 99 L (150-450) k/uL Lymphocytes # 0.4 L (1.0-4.8) k/uL PT (9.0-12.0) sec INR (<1.2) APTT (22.0-30.0) sec ABG pH (7.35-7.45) ABG pO2 (83-108) mmHg ABG HCO3 (21-25) mmol/L ABG Total CO2 (19-24) mmol/L ABG O2 Saturation (94-97) % ABG Hematocrit (34.0-46.0) % ABG Potassium (3.4-4.5) mmol/L ABG Ionized Calcium (4.5-5.3) mg/dL ABG Glucose (75-99) mg/dL ABG Lactic Acid (0.5-1.6) mmol/L Hemoglobin (13.0-17.5) gm/dL Potassium (3.5-5.1) mmol/L Chloride (98-107) mmol/L Carbon Dioxide (22-30) mmol/L Glucose (74-99) mg/dL POC Glucose (mg/dL) 157 H 167 H (75-99) mg/dL Calcium (8.4-10.2) mg/dL Ionized Calcium Isabelle (4.5-5.3) mg/dL Magnesium (1.6-2.3) mg/dL ALT (21-72) U/L Alkaline Phosphatase (38-126) U/L Total Protein (6.3-8.2) g/dL Albumin (3.5-5.0) g/dL Arterial Blood Potassium (3.4-4.5) mmol/L Arterial Blood Glucose (75-99) mg/dL Crossmatch 02/08/18 02/08/18 02/09/18 Range/Units 23:18 23:53 00:56 RBC (4.30-5.90) m/uL Hgb (13.0-17.5) gm/dL Hct (39.0-53.0) % RDW (11.5-15.5) % Plt Count (150-450) k/uL Lymphocytes # (1.0-4.8) k/uL PT (9.0-12.0) sec INR (<1.2) APTT (22.0-30.0) sec ABG pH (7.35-7.45) ABG pO2 (83-108) mmHg ABG HCO3 (21-25) mmol/L ABG Total CO2 25 H (19-24) mmol/L ABG O2 Saturation 97.5 H (94-97) % ABG Hematocrit (34.0-46.0) % ABG Potassium (3.4-4.5) mmol/L ABG Ionized Calcium (4.5-5.3) mg/dL ABG Glucose (75-99) mg/dL ABG Lactic Acid (0.5-1.6) mmol/L Hemoglobin (13.0-17.5) gm/dL Potassium (3.5-5.1) mmol/L Chloride (98-107) mmol/L Carbon Dioxide (22-30) mmol/L Glucose (74-99) mg/dL POC Glucose (mg/dL) 153 H 132 H (75-99) mg/dL Calcium (8.4-10.2) mg/dL Ionized Calcium Isabelle (4.5-5.3) mg/dL Magnesium (1.6-2.3) mg/dL ALT (21-72) U/L Alkaline Phosphatase (38-126) U/L Total Protein (6.3-8.2) g/dL Albumin (3.5-5.0) g/dL Arterial Blood Potassium (3.4-4.5) mmol/L Arterial Blood Glucose (75-99) mg/dL Crossmatch 02/09/18 02/09/18 02/09/18 Range/Units 01:57 03:58 03:58 RBC 2.14 L (4.30-5.90) m/uL Hgb 6.8 L* (13.0-17.5) gm/dL Hct 20.1 L (39.0-53.0) % RDW 16.0 H (11.5-15.5) % Plt Count 83 L (150-450) k/uL Lymphocytes # 0.3 L (1.0-4.8) k/uL PT 12.6 H (9.0-12.0) sec INR 1.3 H (<1.2) APTT 40.7 H (22.0-30.0) sec ABG pH (7.35-7.45) ABG pO2 (83-108) mmHg ABG HCO3 (21-25) mmol/L ABG Total CO2 (19-24) mmol/L ABG O2 Saturation (94-97) % ABG Hematocrit (34.0-46.0) % ABG Potassium (3.4-4.5) mmol/L ABG Ionized Calcium (4.5-5.3) mg/dL ABG Glucose (75-99) mg/dL ABG Lactic Acid (0.5-1.6) mmol/L Hemoglobin (13.0-17.5) gm/dL Potassium (3.5-5.1) mmol/L Chloride (98-107) mmol/L Carbon Dioxide (22-30) mmol/L Glucose (74-99) mg/dL POC Glucose (mg/dL) 112 H (75-99) mg/dL Calcium (8.4-10.2) mg/dL Ionized Calcium Isabelle (4.5-5.3) mg/dL Magnesium (1.6-2.3) mg/dL ALT (21-72) U/L Alkaline Phosphatase (38-126) U/L Total Protein (6.3-8.2) g/dL Albumin (3.5-5.0) g/dL Arterial Blood Potassium (3.4-4.5) mmol/L Arterial Blood Glucose (75-99) mg/dL Crossmatch 02/09/18 02/09/18 02/09/18 Range/Units 03:58 04:47 06:19 RBC (4.30-5.90) m/uL Hgb (13.0-17.5) gm/dL Hct (39.0-53.0) % RDW (11.5-15.5) % Plt Count (150-450) k/uL Lymphocytes # (1.0-4.8) k/uL PT (9.0-12.0) sec INR (<1.2) APTT (22.0-30.0) sec ABG pH (7.35-7.45) ABG pO2 (83-108) mmHg ABG HCO3 (21-25) mmol/L ABG Total CO2 (19-24) mmol/L ABG O2 Saturation (94-97) % ABG Hematocrit (34.0-46.0) % ABG Potassium (3.4-4.5) mmol/L ABG Ionized Calcium (4.5-5.3) mg/dL ABG Glucose (75-99) mg/dL ABG Lactic Acid (0.5-1.6) mmol/L Hemoglobin (13.0-17.5) gm/dL Potassium 3.4 L (3.5-5.1) mmol/L Chloride 113 H (98-107) mmol/L Carbon Dioxide 20 L (22-30) mmol/L Glucose 60 L (74-99) mg/dL POC Glucose (mg/dL) 103 H 124 H (75-99) mg/dL Calcium 6.8 L (8.4-10.2) mg/dL Ionized Calcium Isabelle 4.4 L (4.5-5.3) mg/dL Magnesium (1.6-2.3) mg/dL ALT 15 L (21-72) U/L Alkaline Phosphatase <20 L (38-126) U/L Total Protein 3.9 L (6.3-8.2) g/dL Albumin 2.5 L (3.5-5.0) g/dL Arterial Blood Potassium (3.4-4.5) mmol/L Arterial Blood Glucose (75-99) mg/dL Crossmatch 02/09/18 02/09/18 02/09/18 Range/Units 06:50 06:55 07:40 RBC 2.57 L (4.30-5.90) m/uL Hgb 8.0 L (13.0-17.5) gm/dL Hct 24.2 L (39.0-53.0) % RDW 15.9 H (11.5-15.5) % Plt Count 98 L (150-450) k/uL Lymphocytes # (1.0-4.8) k/uL PT (9.0-12.0) sec INR (<1.2) APTT (22.0-30.0) sec ABG pH (7.35-7.45) ABG pO2 (83-108) mmHg ABG HCO3 (21-25) mmol/L ABG Total CO2 (19-24) mmol/L ABG O2 Saturation (94-97) % ABG Hematocrit (34.0-46.0) % ABG Potassium (3.4-4.5) mmol/L ABG Ionized Calcium (4.5-5.3) mg/dL ABG Glucose (75-99) mg/dL ABG Lactic Acid (0.5-1.6) mmol/L Hemoglobin (13.0-17.5) gm/dL Potassium (3.5-5.1) mmol/L Chloride (98-107) mmol/L Carbon Dioxide (22-30) mmol/L Glucose 107 H (74-99) mg/dL POC Glucose (mg/dL) 123 H (75-99) mg/dL Calcium (8.4-10.2) mg/dL Ionized Calcium Isabelle (4.5-5.3) mg/dL Magnesium (1.6-2.3) mg/dL ALT (21-72) U/L Alkaline Phosphatase 26 L (38-126) U/L Total Protein 5.3 L (6.3-8.2) g/dL Albumin (3.5-5.0) g/dL Arterial Blood Potassium (3.4-4.5) mmol/L Arterial Blood Glucose (75-99) mg/dL Crossmatch 02/09/18 02/09/18 02/09/18 Range/Units 08:03 09:21 10:17 RBC (4.30-5.90) m/uL Hgb (13.0-17.5) gm/dL Hct (39.0-53.0) % RDW (11.5-15.5) % Plt Count (150-450) k/uL Lymphocytes # (1.0-4.8) k/uL PT (9.0-12.0) sec INR (<1.2) APTT (22.0-30.0) sec ABG pH (7.35-7.45) ABG pO2 (83-108) mmHg ABG HCO3 (21-25) mmol/L ABG Total CO2 (19-24) mmol/L ABG O2 Saturation (94-97) % ABG Hematocrit (34.0-46.0) % ABG Potassium (3.4-4.5) mmol/L ABG Ionized Calcium (4.5-5.3) mg/dL ABG Glucose (75-99) mg/dL ABG Lactic Acid (0.5-1.6) mmol/L Hemoglobin (13.0-17.5) gm/dL Potassium (3.5-5.1) mmol/L Chloride (98-107) mmol/L Carbon Dioxide (22-30) mmol/L Glucose (74-99) mg/dL POC Glucose (mg/dL) 124 H 150 H 165 H (75-99) mg/dL Calcium (8.4-10.2) mg/dL Ionized Calcium Isabelle (4.5-5.3) mg/dL Magnesium (1.6-2.3) mg/dL ALT (21-72) U/L Alkaline Phosphatase (38-126) U/L Total Protein (6.3-8.2) g/dL Albumin (3.5-5.0) g/dL Arterial Blood Potassium (3.4-4.5) mmol/L Arterial Blood Glucose (75-99) mg/dL Crossmatch 02/09/18 02/09/18 02/09/18 Range/Units 10:47 11:06 13:09 RBC 2.32 L (4.30-5.90) m/uL Hgb 7.4 L (13.0-17.5) gm/dL Hct 21.6 L (39.0-53.0) % RDW 15.9 H (11.5-15.5) % Plt Count 105 L (150-450) k/uL Lymphocytes # 0.6 L (1.0-4.8) k/uL PT (9.0-12.0) sec INR (<1.2) APTT (22.0-30.0) sec ABG pH (7.35-7.45) ABG pO2 (83-108) mmHg ABG HCO3 (21-25) mmol/L ABG Total CO2 (19-24) mmol/L ABG O2 Saturation (94-97) % ABG Hematocrit (34.0-46.0) % ABG Potassium (3.4-4.5) mmol/L ABG Ionized Calcium (4.5-5.3) mg/dL ABG Glucose (75-99) mg/dL ABG Lactic Acid (0.5-1.6) mmol/L Hemoglobin (13.0-17.5) gm/dL Potassium (3.5-5.1) mmol/L Chloride (98-107) mmol/L Carbon Dioxide (22-30) mmol/L Glucose (74-99) mg/dL POC Glucose (mg/dL) 132 H 156 H (75-99) mg/dL Calcium (8.4-10.2) mg/dL Ionized Calcium Isabelle (4.5-5.3) mg/dL Magnesium (1.6-2.3) mg/dL ALT (21-72) U/L Alkaline Phosphatase (38-126) U/L Total Protein (6.3-8.2) g/dL Albumin (3.5-5.0) g/dL Arterial Blood Potassium (3.4-4.5) mmol/L Arterial Blood Glucose (75-99) mg/dL Crossmatch Assessment and Plan Plan: 1 multivessel coronary artery disease status post four-vessel bypass surgery. The patient is postop day #1 2 post non-ST segment elevation myocardial infarction 3 acute hypoxic respiratory failure, expected outcome of surgery. The patient was weaned off the mechanical ventilator and the patient is currently on few liters of oxygen nasal cannula and the patient is utilizing the incentive spirometer and the chest tubes are all in place. 4 hypothyroidism currently on IV Synthroid 5 smoker 6 obstructive sleep apnea 7 hyperlipidemia 8 COPD, mild with an FEV1 of 75% of predicted 9 thrombocytopenia, expected outcome of surgery and there is no evidence of any bleeding 10 anemia, expected outcome of surgery, no evidence of any bleeding. WING External warming regarding the hypothermia. Continued IV levothyroxine 100 g on a daily basis. Agree on fluid resuscitation with albumin and the patient was given a total of 4, 5% albumin doses. May need pressors to augment the blood pressure. This hypo-tension could be partly related to underlying hypothyroidism. There may be also a component of low preload as the patient's wedge pressure and the CVP was quite low this morning. Patient is being given IV fluids. Continue pain control. Incentive spirometer. Chest x-ray was reviewed and output of the chest tube was noted. We'll keep the chest tube in place. We'll continue to follow make further recommendations based on his progress.
[2018-02-09 14:04] LABS: Glucose,Whole Blood 160 mg/dL (75-99)
[2018-02-09] MEDS: LACTATED RINGERS 1,000 ML IV SCH (14:12)
[2018-02-09 14:30] VITALS: BMI 34.4
[2018-02-09 15:02] LABS: Glucose,Whole Blood 166 mg/dL (75-99)
[2018-02-09] MEDS: IPRATROPIUM-ALBUTEROL 3 ML NEB INHALATION SCH ×2 (15:15→19:27)
[2018-02-09] MEDS ORDERED: ATORVASTATIN 40 MG TAB PO SCH (15:45)
[2018-02-09] MEDS ORDERED: BISACODYL 10 MG SUPP RECTAL PRN (15:45)
[2018-02-09] MEDS ORDERED: MAGNESIUM HYDROXIDE 2,400 MG/10 ML CUP PO PRN (15:45)
[2018-02-09] MEDS ORDERED: IPRATROPIUM-ALBUTEROL 3 ML NEB INHALATION PRN (15:46)
[2018-02-09 16:09] LABS: Glucose,Whole Blood 114 mg/dL (75-99)
[2018-02-09] MEDS: CLEVIDIPINE BUTYRATE 25 MG in EMPTY BAG 1 BAG IV SCH (16:15)
[2018-02-09] MEDS: NITROGLYCERIN-D5W PMX 50 MG in DEXTROSE/WATER 1 250ML.BAG IV SCH (16:15)
[2018-02-09] MEDS: HYDROcodone/APAP 5-325MG 1 EACH TAB PO PRN ×2 (16:16→20:26)
[2018-02-09 17:08] LABS: Glucose,Whole Blood 91 mg/dL (75-99)
[2018-02-09 18:07] LABS: Glucose,Whole Blood 148 mg/dL (75-99)
[2018-02-09] MEDS: INSULIN REGULAR 100 UNIT in SODIUM CHLORIDE 0.9% 100 ML IV SCH (18:07)
[2018-02-09 19:01] LABS: Glucose,Whole Blood 146 mg/dL (75-99)
[2018-02-09 19:11] LABS: Anisocytosis Slight; Basophils % (A) 0 %; Eosinophils # (A) 0.1 k/uL (0-0.7); Eosinophils % (A) 2 %; HCT 23.5 % (39.0-53.0); HGB 8.3 gm/dL (13.0-17.5); Lymphocytes # (A) 0.6 k/uL (1.0-4.8); Lymphocytes % (A) 10 %; MCH 31.7 pg (25.0-35.0); MCHC 35.2 g/dL (31.0-37.0); MCV 90.1 fL (80.0-100.0); Mean Platelet Volume 10.2; Monocytes # (A) 0.4 k/uL (0-1.0); Monocytes % (A) 8 %; Neutrophils # (A) 4.3 k/uL (1.3-7.7); Neutrophils % (A) 78 %; RBC 2.61 m/uL (4.30-5.90); RDW 16.6 % (11.5-15.5); WBC 5.5 k/uL (3.8-10.6)
[2018-02-09 19:47] LABS: Ovalocytes Present; Platelet Count 99 k/uL (150-450)
[2018-02-09 19:49] LABS: Glucose,Whole Blood 107 mg/dL (75-99)
[2018-02-09] MEDS: SENNOSIDES-DOCUSATE SODIUM 1 EACH TAB PO SCH (20:18)
[2018-02-09 22:04] LABS: Glucose,Whole Blood 65 mg/dL (75-99)
--- NOTE | 2018-02-09 22:31 | PN ---
PROGRESS NOTE SUBJECTIVE: A 72-year-old white male seen in the ICU for 30 minutes. He started on amiodarone drip, albuterol. Norepinephrine is being weaned to 750 mcg at this time. Sitting up in the chair. He is getting his Synthroid through the IV at this time. Hemoglobin is 8.3, white count is 5.3. Sugars are mid 100s. CARDIOVASCULAR: S1, S2. LUNGS: Transmitted upper airway sounds. PSYCH: Sleepy, lethargic, giving appropriate answer. HEMATOLOGY: Negative Homans'. ASSESSMENT: 1. Profound hypothyroidism. 2. Coronary artery bypass graft surgeries. 3. History of coronary artery disease. 4. Dyslipidemia. Continue with current treatment, IV Synthroid. MMODL / IJN: [id number] /
[2018-02-09 23:08] LABS: Glucose,Whole Blood 127 mg/dL (75-99)
[2018-02-10] MEDS: HYDROcodone/APAP 5-325MG 1 EACH TAB PO PRN ×5 (00:11→20:11)
[2018-02-10] MEDS: HEPARIN SODIUM,PORCINE 5,000 UNIT/ML 1 ML VIAL SQ SCH ×3 (00:11→17:54)
[2018-02-10 00:23] LABS: Glucose,Whole Blood 155 mg/dL (75-99)
[2018-02-10 02:13] LABS: Glucose,Whole Blood 106 mg/dL (75-99)
[2018-02-10 04:21] LABS: Glucose,Whole Blood 109 mg/dL (75-99)
[2018-02-10 04:40] LABS: Anisocytosis Slight; Basophils # (A) 0.1 k/uL (0-0.2); Basophils % (A) 1 %; Eosinophils # (A) 0.2 k/uL (0-0.7); Eosinophils % (A) 3 %; HCT 25.1 % (39.0-53.0); HGB 8.8 gm/dL (13.0-17.5); Lymphocytes # (A) 0.8 k/uL (1.0-4.8); Lymphocytes % (A) 13 %; MCH 31.5 pg (25.0-35.0); MCHC 35.1 g/dL (31.0-37.0); MCV 89.8 fL (80.0-100.0); Mean Platelet Volume 8.8; Monocytes # (A) 0.5 k/uL (0-1.0); Monocytes % (A) 7 %; Neutrophils # (A) 4.9 k/uL (1.3-7.7); Neutrophils % (A) 73 %; Platelet Count 109 k/uL (150-450); RBC 2.79 m/uL (4.30-5.90); WBC 6.6 k/uL (3.8-10.6)
[2018-02-10 04:49] LABS: Ionized Calcium 4.9 mg/dL (4.5-5.3)
[2018-02-10 04:51] LABS: INR 1.2 (<1.2); Partial Thromboplastin Time 33.5 sec (22.0-30.0); Prothrombin Time 11.2 sec (9.0-12.0)
[2018-02-10 04:58] LABS: ALT 25 U/L (21-72); AST 50 U/L (17-59); Albumin 3.7 g/dL (3.5-5.0); Alkaline Phosphatase 42 U/L (38-126); Anion Gap 9 mmol/L; Blood Urea Nitrogen 15 mg/dL (9-20); Calcium 8.9 mg/dL (8.4-10.2); Carbon Dioxide 25 mmol/L (22-30); Chloride 104 mmol/L (98-107); Glucose 96 mg/dL (74-99); Magnesium 2.3 mg/dL (1.6-2.3); Potassium 4.1 mmol/L (3.5-5.1); Sodium 138 mmol/L (137-145); Total Bilirubin 0.3 mg/dL (0.2-1.3); Total Protein 5.2 g/dL (6.3-8.2)
[2018-02-10] MEDS: MILRINONE-D5W PMX 20 MG in DEXTROSE/WATER 1 100ML.BAG IV SCH (06:07)
[2018-02-10 06:14] LABS: Glucose,Whole Blood 108 mg/dL (75-99)
--- NOTE | 2018-02-10 07:23 | XR ---
EXAMINATION TYPE: XR chest 1V portable DATE OF EXAM: 02/10/2018 CLINICAL HISTORY: Postoperative cardiac surgery progress study. TECHNIQUE: Single AP portable upright view of the chest is obtained. COMPARISON: Chest x-ray from one day earlier and older studies. FINDINGS: A right internal jugular Dyess-Amanda catheter, left-sided chest tube, and mediastinal draina ge catheter are all stable in appearance. Post CABG changes with mediastinal clips and sternal wires is redemonstrated. There is persistent cardiomegaly with atherosclerotic thoracic aorta. There are persistent small bila teral pleural effusions with associated bibasilar atelectasis and/or infiltrate. No sizable pneumotho rax is seen bilaterally. Osseous structures are intact. IMPRESSION: Overall stable findings, cardiomegaly with small bilateral pleural effusions and associ ated bibasilar atelectasis and/or infiltrate all redemonstrated.
[2018-02-10] MEDS: IPRATROPIUM-ALBUTEROL 3 ML NEB INHALATION SCH ×4 (07:37→19:42)
[2018-02-10 08:00] LABS: Glucose,Whole Blood 134 mg/dL (75-99)
[2018-02-10] MEDS ORDERED: FUROSEMIDE 10 MG/ML 2 ML VIAL IV ONE (08:04)
[2018-02-10] MEDS: ASPIRIN 325 MG TAB PO SCH (08:07)
[2018-02-10] MEDS: LEVOTHYROXINE IVP 100 MCG/5 ML VIAL IV SCH (08:07)
[2018-02-10] MEDS: MUPIROCIN 2% OINT 22 GM TUBE NASAL SCH ×2 (08:07→20:13)
[2018-02-10] MEDS: METOPROLOL TARTRATE 12.5 MG TAB PO SCH ×2 (08:10→20:12)
[2018-02-10] MEDS: ROSUVASTATIN 20MG TAB PO SCH (08:23)
[2018-02-10] MEDS: CLOPIDOGREL 75 MG TAB PO SCH (08:23)
[2018-02-10] MEDS: PANTOPRAZOLE 40 MG/10 ML VIAL IVP SCH (08:29)
[2018-02-10] MEDS: LACTATED RINGERS 1,000 ML IV SCH (08:30)
[2018-02-10 11:02] LABS: Glucose,Whole Blood 145 mg/dL (75-99)
--- NOTE | 2018-02-10 11:07 | P.PN ---
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 POD #1 urgent coronary artery bypass grafting 4 with placement of his left internal mammary artery to his left anterior descending coronary artery with endarterectomy to his left anterior descending coronary artery, a reverse greater saphenous vein placed to his diagonal coronary artery, a reverse saphenous vein graft placed to his obtuse marginal coronary artery, and a reverse greater saphenous vein graft placed to his right coronary artery. Endoscopic vein harvesting of his right greater saphenous vein, intraoperative transesophageal echocardiogram, epi-aortic scanning, and graft flow measurement using the [employer] system. Postoperative acute blood loss anemia, an expected outcome of surgery The patient is sitting up to the bedside chair. He is in no acute distress. He is complaining of pain to his chest tube insertion sites and rating his pain 3 out of 10 on the pain scale. He denies any complaints of nausea or shortness of breath. His is at his bedside, questions answered to the best of my ability. Objective - Vital Signs Vital signs: Vital Signs Temp 97.2 F L 02/10/18 04:00 Pulse 78 02/10/18 10:00 Resp 18 02/10/18 10:00 BP 111/60 02/10/18 07:00 Pulse Ox 92 L 02/10/18 10:00 Intake & Output 02/09/18 02/10/18 02/10/18 18:59 06:59 18:59 Intake Total 1672.964 832.607 218.283 Output Total 948 1950 700 Balance 724.964 -1117.393 -481.717 Weight 106 kg 102.3 kg 106 kg Intake: IV 720 660 200 CI/CO 140 60 Lactated Ringers 1,000 ml 580 600 200 @ 50 mls/hr IV .Q20H [facility] Rx#:[id number] Intake, IV Titration 642.964 172.607 18.283 Amount Albumin Human 5% 250 ml 250 In Empty Bag 1 bag @ 250 mls/hr IVPB Q1HR PRN Rx#: [id number] Albumin Human 5% 500 ml 250 In Empty Bag 1 bag @ 250 mls/hr IVPB ONCE ONE Rx#: [id number] Insulin Regular 100 unit 69.256 12.355 In Sodium Chloride 0.9% 100 ml @ Per Protocol IV .Q0M [facility] Rx#:[id number] Milrinone-D5w Pmx 20 mg 96.516 16.293 In Dextrose/Water 1 100ml .bag @ Per Protocol IV . Q0M [facility] Rx#:[id number] Nitroglycerin-D5w Pmx 50 18.375 10.83 1.99 mg In Dextrose/Water 1 250ml.bag @ 5 MCG/MIN 1.5 mls/hr IV .Q24H [facility] Rx#: [id number] Norepinephrine 16 mg In 55.333 52.906 0 Sodium Chloride 0.9% 250 ml @ Titrate IV .Q0M [facility] Rx#:[id number] Blood Product 310 Rc As-1 Unit 310 [id number] Output: Chest Tube Drainage 338 220 50 Left Pleural Chest Tube 138 80 40 Mediastinal 200 140 10 Drainage 10 50 Right Calf 10 50 Urine 600 1680 650 Other: Voiding Method Indwelling Catheter Indwelling Catheter ABP, PAP, CO, CI - Last Documented Arterial Blood Pressure 119/58 Pulmonary Artery Pressure 25/11 Cardiac Output 4.5 Cardiac Index 2.2 - Constitutional General appearance: Present: cooperative, no acute distress, obese - Respiratory Details: Lung sounds essentially clear throughout, diminished to his bilateral bases. Respirations are symmetrical and nonlabored. Oxygen saturation are 93% on room air. He is achieving on thousand milliliters on his incentive spirometry. Left pleural and mediastinal chest tubes remained to low continuous wall suction -20 cm H2O. No air leak present. Draining thin serosanguineous drainage. Mediastinal chest tube with 70 mL output in the last 8 hours, 250 mL output in the last 24 hours. Left pleural chest tube with 50 mL drainage in the last 8 hours, 240 mL output in the last 24 hours. - Cardiovascular Details: Regular rhythm and rate. S1 and S2 present, negative for S3, gallop or murmur. Sternum is stable. Bedside telemetry showing normal sinus rhythm heart rate 77. Heart hugger is in place and he is demonstrating appropriate use. Atrial and ventricular epicardial pacemaker wires intact grounded. Knee-high JACLYN hose and sequential compression devices in place to his bilateral lower extremities. No edema present. - Gastrointestinal Gastrointestinal Comment(s): Abdomen is soft, nontender nondistended. Hypoactive bowel sounds all 4 abdominal quadrants. Tolerating oral intake. Passing flatus. - Genitourinary Genitourinary Comment(s): Pan catheter for accurate I&O. Draining clear yellow urine. 1055 mL output in the last 8 hours. - Integumentary Integumentary Comment(s): Skin is warm and dry. No clubbing or cyanosis present. Midline sternal incision clean dry and approximated. No drainage or redness present. Dermabond dressing clean and dry. Right leg EVH site clean dry and approximated. No drainage or redness present. Right leg REBEKA drain in place draining thin serosanguineous drainage. 50 mL output in the last 8 hours, 60 mL output in the last 24 hours. - Neurologic Neurologic: Present: CNII-XII intact - Musculoskeletal Musculoskeletal: Present: gait normal, strength equal bilaterally - Psychiatric Psychiatric: Present: A&O x's 3, appropriate affect, intact judgment & insight - Allied health notes Allied health notes reviewed: nursing - Labs CBC & Chem 7: 02/10/18 04:31 02/10/18 04:31 Labs: Abnormal Lab Results - Last 24 Hours (Table) 02/07/18 02/09/18 02/09/18 Range/Units 05:43 10:47 11:06 RBC 2.32 L (4.30-5.90) m/uL Hgb 7.4 L (13.0-17.5) gm/dL Hct 21.6 L (39.0-53.0) % RDW 15.9 H (11.5-15.5) % Plt Count 105 L (150-450) k/uL Lymphocytes # 0.6 L (1.0-4.8) k/uL INR (<1.2) APTT (22.0-30.0) sec POC Glucose (mg/dL) 132 H (75-99) mg/dL Total Protein (6.3-8.2) g/dL Crossmatch See Detail 02/09/18 02/09/18 02/09/18 Range/Units 13:09 14:03 14:59 RBC (4.30-5.90) m/uL Hgb (13.0-17.5) gm/dL Hct (39.0-53.0) % RDW (11.5-15.5) % Plt Count (150-450) k/uL Lymphocytes # (1.0-4.8) k/uL INR (<1.2) APTT (22.0-30.0) sec POC Glucose (mg/dL) 156 H 160 H 166 H (75-99) mg/dL Total Protein (6.3-8.2) g/dL Crossmatch 02/09/18 02/09/18 02/09/18 Range/Units 16:07 18:05 18:57 RBC 2.61 L (4.30-5.90) m/uL Hgb 8.3 L (13.0-17.5) gm/dL Hct 23.5 L (39.0-53.0) % RDW 16.6 H (11.5-15.5) % Plt Count 99 L (150-450) k/uL Lymphocytes # 0.6 L (1.0-4.8) k/uL INR (<1.2) APTT (22.0-30.0) sec POC Glucose (mg/dL) 114 H 148 H (75-99) mg/dL Total Protein (6.3-8.2) g/dL Crossmatch 02/09/18 02/09/18 02/09/18 Range/Units 18:58 19:48 22:02 RBC (4.30-5.90) m/uL Hgb (13.0-17.5) gm/dL Hct (39.0-53.0) % RDW (11.5-15.5) % Plt Count (150-450) k/uL Lymphocytes # (1.0-4.8) k/uL INR (<1.2) APTT (22.0-30.0) sec POC Glucose (mg/dL) 146 H 107 H 65 L (75-99) mg/dL Total Protein (6.3-8.2) g/dL Crossmatch 02/09/18 02/10/18 02/10/18 Range/Units 23:05 00:16 02:11 RBC (4.30-5.90) m/uL Hgb (13.0-17.5) gm/dL Hct (39.0-53.0) % RDW (11.5-15.5) % Plt Count (150-450) k/uL Lymphocytes # (1.0-4.8) k/uL INR (<1.2) APTT (22.0-30.0) sec POC Glucose (mg/dL) 127 H 155 H 106 H (75-99) mg/dL Total Protein (6.3-8.2) g/dL Crossmatch 02/10/18 02/10/18 02/10/18 Range/Units 04:18 04:31 04:31 RBC 2.79 L (4.30-5.90) m/uL Hgb 8.8 L (13.0-17.5) gm/dL Hct 25.1 L (39.0-53.0) % RDW 17.0 H (11.5-15.5) % Plt Count 109 L (150-450) k/uL Lymphocytes # 0.8 L (1.0-4.8) k/uL INR (<1.2) APTT (22.0-30.0) sec POC Glucose (mg/dL) 109 H (75-99) mg/dL Total Protein 5.2 L (6.3-8.2) g/dL Crossmatch 02/10/18 02/10/18 02/10/18 Range/Units 04:31 06:13 07:57 RBC (4.30-5.90) m/uL Hgb (13.0-17.5) gm/dL Hct (39.0-53.0) % RDW (11.5-15.5) % Plt Count (150-450) k/uL Lymphocytes # (1.0-4.8) k/uL INR 1.2 H (<1.2) APTT 33.5 H (22.0-30.0) sec POC Glucose (mg/dL) 108 H 134 H (75-99) mg/dL Total Protein (6.3-8.2) g/dL Crossmatch - Imaging and Cardiology Chest x-ray: report reviewed, image reviewed Assessment and Plan (1) Triple vessel coronary artery disease Current Visit: Yes Status: Acute Code(s): I25.10 - ATHSCL HEART DISEASE OF [place] CORONARY ARTERY W/O ANG PCTRS SNOMED Code(s): 315774659 (2) Non-STEMI (non-ST elevated myocardial infarction) Current Visit: Yes Status: Acute Code(s): I21.4 - NON-ST ELEVATION (NSTEMI) MYOCARDIAL INFARCTION SNOMED Code(s): 496815277 (3) Hyperlipidemia Current Visit: Yes Status: Chronic Code(s): E78.5 - HYPERLIPIDEMIA, UNSPECIFIED SNOMED Code(s): 14044632 (4) Obstructive sleep apnea Current Visit: Yes Status: Chronic Code(s): G47.33 - OBSTRUCTIVE SLEEP APNEA (ADULT) (PEDIATRIC) SNOMED Code(s): 28358354 (5) Tobacco dependence in remission Current Visit: No Status: Resolved Code(s): F17.201 - NICOTINE DEPENDENCE, UNSPECIFIED, IN REMISSION SNOMED Code(s): 670425776 Plan: 1. Continue aspirin, statin, Plavix and metoprolol. We will increase his beta konrad as tolerated. 2. Encourage use of his incentive spirometry every hour while awake. 3. Pulmonary recommendations per Dr. Valentine. 4. Continue levothyroxine 100 g IV daily. Repeat preoperative free T4 results showed 0.29 ng/dL. 5. Continue left pleural chest tube to low continuous wall suction -20 cm H2O. We will remove his mediastinal chest tube today. 6. Ground epicardial pacemaker wires. 7. GI and DVT prophylaxis. 8. Lasix 20 mg IV 1 today. 9. Discontinue Steptoe-Amanda catheter, keep right IJ Cordis in place to continuous CVP monitoring. 10. Wean Primacor drip to off. 11. More recommendations to follow based on the patient's clinical course. Time with Patient: Greater than 30
[2018-02-10 11:43] LABS: Glucose,Whole Blood 116 mg/dL (75-99)
[2018-02-10] MEDS: INSULIN ASPART 100 UNIT/ML 1 ML 10 ML VIAL SQ SCH ×3 (12:05→21:37)
--- NOTE | 2018-02-10 13:35 | P.PN ---
Subjective This patient is status post coronary artery bypass surgery patient's electronic medical records reviewed patient is sitting in the bed side chair comfortably respiratory distress is noted no dysrhythmias are noted on the monitor. Objective - Vital Signs Vital signs: Vital Signs Temp 97.2 F L 02/10/18 04:00 Pulse 77 02/10/18 13:00 Resp 22 02/10/18 13:00 BP 110/67 02/10/18 13:00 Pulse Ox 93 L 02/10/18 13:00 Intake & Output 02/09/18 02/10/18 02/10/18 18:59 06:59 18:59 Intake Total 1672.964 832.607 268.283 Output Total 948 1950 1090 Balance 724.964 -1117.393 -821.717 Weight 106 kg 102.3 kg 106 kg Intake: IV 720 660 250 CI/CO 140 60 Lactated Ringers 1,000 ml 580 600 250 @ 50 mls/hr IV .Q20H [facility] Rx#:[id number] Intake, IV Titration 642.964 172.607 18.283 Amount Albumin Human 5% 250 ml 250 In Empty Bag 1 bag @ 250 mls/hr IVPB Q1HR PRN Rx#: [id number] Albumin Human 5% 500 ml 250 In Empty Bag 1 bag @ 250 mls/hr IVPB ONCE ONE Rx#: [id number] Insulin Regular 100 unit 69.256 12.355 In Sodium Chloride 0.9% 100 ml @ Per Protocol IV .Q0M [facility] Rx#:[id number] Milrinone-D5w Pmx 20 mg 96.516 16.293 In Dextrose/Water 1 100ml .bag @ Per Protocol IV . Q0M [facility] Rx#:[id number] Nitroglycerin-D5w Pmx 50 18.375 10.83 1.99 mg In Dextrose/Water 1 250ml.bag @ 5 MCG/MIN 1.5 mls/hr IV .Q24H [facility] Rx#: [id number] Norepinephrine 16 mg In 55.333 52.906 0 Sodium Chloride 0.9% 250 ml @ Titrate IV .Q0M [facility] Rx#:[id number] Blood Product 310 Rc As-1 Unit 310 [id number] Output: Chest Tube Drainage 338 220 90 Left Pleural Chest Tube 138 80 60 Mediastinal 200 140 30 Drainage 10 50 Right Calf 10 50 Urine 600 1680 1000 Other: Voiding Method Indwelling Catheter Indwelling Catheter Indwelling Catheter ABP, PAP, CO, CI - Last Documented Arterial Blood Pressure 114/64 Pulmonary Artery Pressure 28/15 Cardiac Output 4.8 Cardiac Index 2.4 - Exam Patient's vital signs are reviewed. The patient is alert awake and in no acute distress. HEENT negative. Neck-supple no increase in JVP noted no carotid bruits noted. Chest-symmetrical. Heart-first and second heart sounds are normal. No S3 or S4 is noted. No significant murmurs are noted. Lungs bilateral good at entry is noted. Bilateral diminished air entry Abdomen-soft. Liver and spleen are not enlarged. The bowel sounds are normal. No tenderness noted Extremities-peripheral pulses since are 2+. No significant leg edema noted. Neuro-no significant gross abnormality noted. - Labs CBC & Chem 7: 02/10/18 04:31 02/10/18 04:31 Labs: Abnormal Lab Results - Last 24 Hours (Table) 02/07/18 02/09/18 02/09/18 Range/Units 05:43 14:03 14:59 RBC (4.30-5.90) m/uL Hgb (13.0-17.5) gm/dL Hct (39.0-53.0) % RDW (11.5-15.5) % Plt Count (150-450) k/uL Lymphocytes # (1.0-4.8) k/uL INR (<1.2) APTT (22.0-30.0) sec POC Glucose (mg/dL) 160 H 166 H (75-99) mg/dL Total Protein (6.3-8.2) g/dL Crossmatch See Detail 02/09/18 02/09/18 02/09/18 Range/Units 16:07 18:05 18:57 RBC 2.61 L (4.30-5.90) m/uL Hgb 8.3 L (13.0-17.5) gm/dL Hct 23.5 L (39.0-53.0) % RDW 16.6 H (11.5-15.5) % Plt Count 99 L (150-450) k/uL Lymphocytes # 0.6 L (1.0-4.8) k/uL INR (<1.2) APTT (22.0-30.0) sec POC Glucose (mg/dL) 114 H 148 H (75-99) mg/dL Total Protein (6.3-8.2) g/dL Crossmatch 02/09/18 02/09/18 02/09/18 Range/Units 18:58 19:48 22:02 RBC (4.30-5.90) m/uL Hgb (13.0-17.5) gm/dL Hct (39.0-53.0) % RDW (11.5-15.5) % Plt Count (150-450) k/uL Lymphocytes # (1.0-4.8) k/uL INR (<1.2) APTT (22.0-30.0) sec POC Glucose (mg/dL) 146 H 107 H 65 L (75-99) mg/dL Total Protein (6.3-8.2) g/dL Crossmatch 02/09/18 02/10/18 02/10/18 Range/Units 23:05 00:16 02:11 RBC (4.30-5.90) m/uL Hgb (13.0-17.5) gm/dL Hct (39.0-53.0) % RDW (11.5-15.5) % Plt Count (150-450) k/uL Lymphocytes # (1.0-4.8) k/uL INR (<1.2) APTT (22.0-30.0) sec POC Glucose (mg/dL) 127 H 155 H 106 H (75-99) mg/dL Total Protein (6.3-8.2) g/dL Crossmatch 02/10/18 02/10/18 02/10/18 Range/Units 04:18 04:31 04:31 RBC 2.79 L (4.30-5.90) m/uL Hgb 8.8 L (13.0-17.5) gm/dL Hct 25.1 L (39.0-53.0) % RDW 17.0 H (11.5-15.5) % Plt Count 109 L (150-450) k/uL Lymphocytes # 0.8 L (1.0-4.8) k/uL INR (<1.2) APTT (22.0-30.0) sec POC Glucose (mg/dL) 109 H (75-99) mg/dL Total Protein 5.2 L (6.3-8.2) g/dL Crossmatch 02/10/18 02/10/18 02/10/18 Range/Units 04:31 06:13 07:57 RBC (4.30-5.90) m/uL Hgb (13.0-17.5) gm/dL Hct (39.0-53.0) % RDW (11.5-15.5) % Plt Count (150-450) k/uL Lymphocytes # (1.0-4.8) k/uL INR 1.2 H (<1.2) APTT 33.5 H (22.0-30.0) sec POC Glucose (mg/dL) 108 H 134 H (75-99) mg/dL Total Protein (6.3-8.2) g/dL Crossmatch 02/10/18 02/10/18 Range/Units 10:59 11:41 RBC (4.30-5.90) m/uL Hgb (13.0-17.5) gm/dL Hct (39.0-53.0) % RDW (11.5-15.5) % Plt Count (150-450) k/uL Lymphocytes # (1.0-4.8) k/uL INR (<1.2) APTT (22.0-30.0) sec POC Glucose (mg/dL) 145 H 116 H (75-99) mg/dL Total Protein (6.3-8.2) g/dL Crossmatch Assessment and Plan Assessment: Patient is stable status post coronary artery bypass surgery. Continue the current medications.
--- NOTE | 2018-02-10 14:57 | P.PN ---
Subjective Progress Note Date: 02/10/18 This is a very pleasant 72-year-old gentleman who was admitted here on 2017 from [facility] with complaints of chest discomfort. The EKG had some nonspecific changes. His troponins were found to be elevated and he ruled in for a non-ST segment elevation myocardial infarction. He also had significant clinical and chemical hypothyroidism and was initiated on Synthroid. His numbers have improved. CT angiogram ruled out pulmonary embolism and aortic dissection. He had subsequently undergone cardiac catheterization that same day that revealed severe triple-vessel disease with 70 % left main stenosis, 60% diffuse proximal LAD stenosis, 90% mid LAD stenosis and 50% ostial circumflex stenosis. The right coronary artery was diffusely diseased with a distal RCA of 60% stenosis, PDA branch 80% stenosis in the midportion of the PDA branch another 80% stenosis. Echocardiogram revealed preserved left ventricular systolic function with an ejection fraction 55-60%. He was recommended coronary artery bypass grafting. He is seen and evaluated today 02/08/2018 in the immediate postoperative period in the intensive care unit. He is currently intubated and on the mechanical ventilator in the SIMV mode at a rate of 12, tidal volume 500, pressure support of 5 and a PEEP of 5. Arterial blood gases reveal a P O2 of 295, pCO2 38, pH 7.38. This is on FiO2 of 100% and will be titrated accordingly. Chest x-ray reveals good position of the endotracheal tube. There is a mediastinal and left chest tube in place. Right jugular catheter with its tip in the right pulmonary artery. Nasogastric tube in place. No evidence of pneumothorax. There there are minor infiltrates more so on the left. He is sedated on propofol at 50 mcg/kg/m. He is on nitroglycerin drip at 5 mcg/m. Primacor at 0.3 mcg/kg/m and lactated Ringer's at 50 MLS per hour. He has received 2 units of albumin and 3 units of packed red blood cells. PA pressure 24/14 with a mean of 18. CVP 11. Cardiac index 1.8. Backup pacer is in place. Currently in sinus rhythm at a rate of 70. White count 6.0. Hemoglobin 8.9. INR 1.3. On 02/09/2018 I'm seeing this patient for a follow-up. The patient is postop day #1. The patient was weaned off the mechanical ventilated and the patient was extubated yesterday at around midnight without any major difficulties. This morning the patient is awake and alert and following commands and answering questions. The patient has a cardiac index of 2.4. Pulmonary artery pressure 24/12. The patient was noted to be hypotensive earlier and the patient was given a total of 3 A of 5% albumin. The fourth dose is being given right done and suggested to put some low-dose norepinephrine infusion for blood pressure control. The patient is currently off nitroglycerin drip. The patient is also off milrinone. The patient is resting comfortably on a chair. He is slightly hypothermic with a temperature of 95. Heart rate is around mid 70s sinus. The patient is producing adequate amount of urine output. The patient has a mediastinal and a left pleural chest tube and the total amount of output from the left chest tube is 80 disease over the past 8 hours and 140 mL since surgery. The mediastinal chest tube was put up to 110 mL over the past 8 hours and follow 30 mL since surgery. The patient has a AV epicardial pacemaker wire in place and the pacemaker generator is at the backup at the rate of 50, VVI mode. The patient has a right IJ Cordis and Centrah[place]-Amanda catheter which is also in place. The patient denies having any significant pain. He is using incentive spirometer. Chest x-ray was reviewed and shows adequate expansion of both lungs with some atelectatic changes small effusion the lung base bilaterally. No pneumothorax. No other significant events overnight. The REBEKA drain in the right lower extremities in place and has put out approximately 80 mL of output since surgery. On 02/10/2018 I'm seeing this patient for a follow-up. The patient is post triple-vessel bypass surgery. The patient is postop day #2. The patient doing well. The Centrah[place]-Amanda catheter is still in place.. The patient is on Primacor at low-dose to augment the cardiac output. No pressors for now. Producing adequate amount of urine output. Chest tube site is clean and there is some pain at the sternum and the chest tube insertion site. The patient is around 3 out of 10 in severity. Chest x-ray shows adequate expansion of both lungs, no pneumothorax and the chest tube is in good location. Note that the output from the mediastinal chest tube has been 70 mL over the past 8 hours to 50 mL since 24 hours. Output from the left pleural chest tube has been 50 mL over the past 8 hours and to 40 mL over the past 24 hours. Pulse oximetry 93% on room air. Cardiac rhythm is sinus. The patient is not hypothermic at this point. There is a REBEKA drain in the right lower extremity wound which has drained 50 mL over the past 8 hours and 60 mL over the past 24 hours. The patient has no other complaints otherwise for now. Earlier, the cardiac output was at 4.5 with an index of 2.2. Objective - Vital Signs Vital signs: Vital Signs Temp 97.2 F L 02/10/18 04:00 Pulse 77 02/10/18 13:00 Resp 22 02/10/18 13:00 BP 110/67 02/10/18 13:00 Pulse Ox 93 L 02/10/18 13:00 Intake & Output 02/09/18 02/10/18 02/10/18 18:59 06:59 18:59 Intake Total 1672.964 832.607 288.283 Output Total 948 1950 1170 Balance 724.964 -1117.393 -881.717 Weight 106 kg 102.3 kg 106 kg Intake: IV 720 660 270 CI/CO 140 60 Lactated Ringers 1,000 ml 580 600 270 @ 50 mls/hr IV .Q20H JC Rx#:[id number] Intake, IV Titration 642.964 172.607 18.283 Amount Albumin Human 5% 250 ml 250 In Empty Bag 1 bag @ 250 mls/hr IVPB Q1HR PRN Rx#: [id number] Albumin Human 5% 500 ml 250 In Empty Bag 1 bag @ 250 mls/hr IVPB ONCE ONE Rx#: [id number] Insulin Regular 100 unit 69.256 12.355 In Sodium Chloride 0.9% 100 ml @ Per Protocol IV .Q0M JC Rx#:[id number] Milrinone-D5w Pmx 20 mg 96.516 16.293 In Dextrose/Water 1 100ml .bag @ Per Protocol IV . Q0M JC Rx#:[id number] Nitroglycerin-D5w Pmx 50 18.375 10.83 1.99 mg In Dextrose/Water 1 250ml.bag @ 5 MCG/MIN 1.5 mls/hr IV .Q24H JC Rx#: [id number] Norepinephrine 16 mg In 55.333 52.906 0 Sodium Chloride 0.9% 250 ml @ Titrate IV .Q0M JC Rx#:[id number] Blood Product 310 Rc As-1 Unit 310 [id number] Output: Chest Tube Drainage 338 220 90 Left Pleural Chest Tube 138 80 60 Mediastinal 200 140 30 Drainage 10 50 Right Calf 10 50 Urine 600 1680 1080 Other: Voiding Method Indwelling Catheter Indwelling Catheter Indwelling Catheter ABP, PAP, CO, CI - Last Documented Arterial Blood Pressure 114/64 Pulmonary Artery Pressure 28/15 Cardiac Output 4.8 Cardiac Index 2.4 - Exam Gen. appearance the patient is calm and comfortable likely distress. Head exam was generally normal. There was no scleral icterus or corneal arcus. Mucous membranes were moist. Neck was supple and without jugular venous distension, thyromegaly, or carotid bruits. Carotids were easily palpable bilaterally. There was no adenopathy. The patient has a right IJ Cordis and the Cent[place]-Amanda catheter in place. Lungs sounds are diminished bilaterally especially lung bases. The patient is stable sternum and there is a left pleural and mediastinal chest tube in place. Cardiac exam revealed the PMI to be normally situated and sized. The rhythm was regular and no extrasystoles were noted during several minutes of auscultation. The first and second heart sounds were normal and physiologic splitting of the second heart sound was noted. There were no murmurs, rubs, clicks, or gallops. Abdominal exam revealed normal bowel sounds. The abdomen was soft, non-tender, and without masses, organomegaly, or appreciable enlargement of the abdominal aorta. Examination of the extremities revealed easily palpable radial, femoral and pedal pulses. There was no cyanosis, clubbing or edema. Skin is cold and dry. No cyanosis or clubbing. No drainage from the right lower extremity wounds or any other location. REBEKA drain is in place. Chest tubes are all in place. No erythema. No cellulitis. Neurologically the patient is awake and alert and there is no focal neurological deficits. Psychiatrically the patient is appropriate insight and judgment and molds. - Labs CBC & Chem 7: 02/10/18 04:31 02/10/18 04:31 Labs: Abnormal Lab Results - Last 24 Hours (Table) 02/07/18 02/09/18 02/09/18 Range/Units 05:43 14:59 16:07 RBC (4.30-5.90) m/uL Hgb (13.0-17.5) gm/dL Hct (39.0-53.0) % RDW (11.5-15.5) % Plt Count (150-450) k/uL Lymphocytes # (1.0-4.8) k/uL INR (<1.2) APTT (22.0-30.0) sec POC Glucose (mg/dL) 166 H 114 H (75-99) mg/dL Total Protein (6.3-8.2) g/dL Crossmatch See Detail 02/09/18 02/09/18 02/09/18 Range/Units 18:05 18:57 18:58 RBC 2.61 L (4.30-5.90) m/uL Hgb 8.3 L (13.0-17.5) gm/dL Hct 23.5 L (39.0-53.0) % RDW 16.6 H (11.5-15.5) % Plt Count 99 L (150-450) k/uL Lymphocytes # 0.6 L (1.0-4.8) k/uL INR (<1.2) APTT (22.0-30.0) sec POC Glucose (mg/dL) 148 H 146 H (75-99) mg/dL Total Protein (6.3-8.2) g/dL Crossmatch 02/09/18 02/09/18 02/09/18 Range/Units 19:48 22:02 23:05 RBC (4.30-5.90) m/uL Hgb (13.0-17.5) gm/dL Hct (39.0-53.0) % RDW (11.5-15.5) % Plt Count (150-450) k/uL Lymphocytes # (1.0-4.8) k/uL INR (<1.2) APTT (22.0-30.0) sec POC Glucose (mg/dL) 107 H 65 L 127 H (75-99) mg/dL Total Protein (6.3-8.2) g/dL Crossmatch 02/10/18 02/10/18 02/10/18 Range/Units 00:16 02:11 04:18 RBC (4.30-5.90) m/uL Hgb (13.0-17.5) gm/dL Hct (39.0-53.0) % RDW (11.5-15.5) % Plt Count (150-450) k/uL Lymphocytes # (1.0-4.8) k/uL INR (<1.2) APTT (22.0-30.0) sec POC Glucose (mg/dL) 155 H 106 H 109 H (75-99) mg/dL Total Protein (6.3-8.2) g/dL Crossmatch 02/10/18 02/10/18 02/10/18 Range/Units 04:31 04:31 04:31 RBC 2.79 L (4.30-5.90) m/uL Hgb 8.8 L (13.0-17.5) gm/dL Hct 25.1 L (39.0-53.0) % RDW 17.0 H (11.5-15.5) % Plt Count 109 L (150-450) k/uL Lymphocytes # 0.8 L (1.0-4.8) k/uL INR 1.2 H (<1.2) APTT 33.5 H (22.0-30.0) sec POC Glucose (mg/dL) (75-99) mg/dL Total Protein 5.2 L (6.3-8.2) g/dL Crossmatch 02/10/18 02/10/18 02/10/18 Range/Units 06:13 07:57 10:59 RBC (4.30-5.90) m/uL Hgb (13.0-17.5) gm/dL Hct (39.0-53.0) % RDW (11.5-15.5) % Plt Count (150-450) k/uL Lymphocytes # (1.0-4.8) k/uL INR (<1.2) APTT (22.0-30.0) sec POC Glucose (mg/dL) 108 H 134 H 145 H (75-99) mg/dL Total Protein (6.3-8.2) g/dL Crossmatch 02/10/18 Range/Units 11:41 RBC (4.30-5.90) m/uL Hgb (13.0-17.5) gm/dL Hct (39.0-53.0) % RDW (11.5-15.5) % Plt Count (150-450) k/uL Lymphocytes # (1.0-4.8) k/uL INR (<1.2) APTT (22.0-30.0) sec POC Glucose (mg/dL) 116 H (75-99) mg/dL Total Protein (6.3-8.2) g/dL Crossmatch Assessment and Plan Plan: 1 multivessel coronary artery disease status post four-vessel bypass surgery. The patient is postop day #2 2 post non-ST segment elevation myocardial infarction 3 acute hypoxic respiratory failure, expected outcome of surgery. The patient was weaned off the mechanical ventilator and the patient is currently on few liters of oxygen nasal cannula and the patient is utilizing the incentive spirometer and the chest tubes are all in place. 4 hypothyroidism currently on IV Synthroid 5 smoker 6 obstructive sleep apnea 7 hyperlipidemia 8 COPD, mild with an FEV1 of 75% of predicted 9 thrombocytopenia, expected outcome of surgery and there is no evidence of any bleeding 10 anemia, expected outcome of surgery, no evidence of any bleeding. PLAN Continue monitoring the output from the chest tube. The medius on chest tube will be removed today. Continue aspirin and Plavix. Continue metoprolol and the dose will be increased according to the blood pressure. Continue IV Synthroid. Lasix 20 mg IV push. Chest x-ray was reviewed. Wean off the Primacor and discontinue. Discontinue the Centrahoma-Amanda once the Primacor is discontinued. We'll continue to follow. The patient be kept in ICU for now.
[2018-02-10 17:54] LABS: Glucose,Whole Blood 111 mg/dL (75-99)
[2018-02-10] MEDS: SENNOSIDES-DOCUSATE SODIUM 1 EACH TAB PO SCH (20:11)
[2018-02-10 20:35] LABS: Glucose,Whole Blood 112 mg/dL (75-99)
--- NOTE | 2018-02-10 20:59 | PN ---
PROGRESS NOTE SUBJECTIVE: This is a 72-year-old white male status post CABG surgery, severe profound hypothyroidism, status post CABG. He is sitting up. Still trying to wean off the ventilator. He is doing much better. Remains on IV levothyroxine. Pulse ox is 93% on room air. CARDIOVASCULAR: S1, S2. LUNGS: Clear. GI: Soft. HEMATOLOGY: Negative Homans. Sodium 138, potassium 4.1, BUN 15, creatinine 0.79, hemoglobin is 8.3. ASSESSMENT: 1. Multilevel coronary artery disease. 2. Post non ST-segment myocardial infarction. 3. Acute hypoxemic respiratory failure. 4. Hypothyroidism. 5. Nicotine addiction. 6. Obstructive sleep apnea. 7. Dyslipidemia. 8. Chronic obstructive pulmonary disease. 9. Thrombocytopenia. 10.Anemia. EEG, continue on aspirin, Plavix, IV Synthroid. Lasix is given. Wean off norepinephrine. Continue with steroids, CABG surgery recovery. ICU time 20 minutes. MMBRENDANL / DELMYN: [id number] /
[2018-02-11] MEDS: HYDROcodone/APAP 5-325MG 1 EACH TAB PO PRN ×4 (00:41→21:12)
[2018-02-11] MEDS: HEPARIN SODIUM,PORCINE 5,000 UNIT/ML 1 ML VIAL SQ SCH ×4 (00:41→23:26)
[2018-02-11] MEDS: LACTATED RINGERS 1,000 ML IV SCH (00:42)
[2018-02-11 05:28] LABS: Anisocytosis Slight; Basophils % (A) 0 %; Eosinophils # (A) 0.2 k/uL (0-0.7); Eosinophils % (A) 4 %; HCT 25.3 % (39.0-53.0); HGB 8.5 gm/dL (13.0-17.5); Lymphocytes # (A) 0.7 k/uL (1.0-4.8); Lymphocytes % (A) 14 %; MCH 31.3 pg (25.0-35.0); MCHC 33.7 g/dL (31.0-37.0); MCV 92.9 fL (80.0-100.0); Mean Platelet Volume 8.6; Monocytes # (A) 0.4 k/uL (0-1.0); Monocytes % (A) 7 %; Neutrophils # (A) 3.8 k/uL (1.3-7.7); Neutrophils % (A) 73 %; Platelet Count 116 k/uL (150-450); RBC 2.72 m/uL (4.30-5.90); RDW 16.6 % (11.5-15.5); WBC 5.3 k/uL (3.8-10.6)
[2018-02-11 05:37] LABS: ALT 34 U/L (21-72); AST 32 U/L (17-59); Albumin 3.5 g/dL (3.5-5.0); Alkaline Phosphatase 47 U/L (38-126); Anion Gap 11 mmol/L; Blood Urea Nitrogen 17 mg/dL (9-20); Calcium 8.9 mg/dL (8.4-10.2); Carbon Dioxide 26 mmol/L (22-30); Chloride 102 mmol/L (98-107); Glucose 97 mg/dL (74-99); Potassium 4.2 mmol/L (3.5-5.1); Sodium 139 mmol/L (137-145); Total Bilirubin 0.2 mg/dL (0.2-1.3); Total Protein 5.2 g/dL (6.3-8.2)
[2018-02-11 07:22] LABS: Glucose,Whole Blood 88 mg/dL (75-99)
[2018-02-11] MEDS: INSULIN ASPART 100 UNIT/ML 1 ML 10 ML VIAL SQ SCH ×4 (07:46→21:02)
--- NOTE | 2018-02-11 08:14 | XR ---
EXAMINATION TYPE: XR chest 1V portable DATE OF EXAM: 02/11/2018 HISTORY: Shortness of breath. COMPARISON: 02/10/2018 TECHNIQUE: Single view of the chest is submitted. FINDINGS: [place]-Amanda catheter has been removed. Mediastinal drain is also been removed. Left-sided chest tube re rosales in place without pneumothorax. Pleural-parenchymal opacities the lung bases persist. Mild cardiomegaly with pulmonary venous congest ion. IMPRESSION: 1. Postoperative changes as noted.
[2018-02-11] MEDS: MUPIROCIN 2% OINT 22 GM TUBE NASAL SCH ×2 (08:22→21:09)
[2018-02-11] MEDS: ASPIRIN 325 MG TAB PO SCH (08:22)
[2018-02-11] MEDS: CLOPIDOGREL 75 MG TAB PO SCH (08:22)
[2018-02-11] MEDS: LEVOTHYROXINE IVP 100 MCG/5 ML VIAL IV SCH (08:22)
[2018-02-11] MEDS: PANTOPRAZOLE 40 MG TABLET PO SCH (08:24)
[2018-02-11] MEDS: ROSUVASTATIN 20MG TAB PO SCH (08:43)
[2018-02-11] MEDS: METOPROLOL TARTRATE 25 MG TAB PO SCH ×2 (09:11→21:08)
[2018-02-11] MEDS: IPRATROPIUM-ALBUTEROL 3 ML NEB INHALATION SCH ×4 (10:01→20:15)
[2018-02-11 11:42] LABS: Glucose,Whole Blood 129 mg/dL (75-99)
--- NOTE | 2018-02-11 12:51 | P.PN ---
Subjective Progress Note Date: 02/11/18 Principal diagnosis: Severe triple vessel coronary artery disease with left main disease, hyperlipidemia, non-ST segment elevation myocardial infarction this admission, remote history of tobacco dependence, obstructive sleep apnea without CPAP use, hypothyroid with an admission TSH level of 46.000 and a free T4 of less than 0.07 and family history of coronary artery disease. POD #3 urgent coronary artery bypass grafting 4 with placement of his left internal mammary artery to his left anterior descending coronary artery with endarterectomy to his left anterior descending coronary artery, a reverse greater saphenous vein placed to his diagonal coronary artery, a reverse saphenous vein graft placed to his obtuse marginal coronary artery, and a reverse greater saphenous vein graft placed to his right coronary artery. Endoscopic vein harvesting of his right greater saphenous vein, intraoperative transesophageal echocardiogram, epi-aortic scanning, and graft flow measurement using the [employer] system. Postoperative acute blood loss anemia, an expected outcome of surgery The patient is sitting up to the bedside chair. He is in no acute distress. He is complaining of feeling tired this morning, he reports he did not sleep well throughout the night. He denies any complaints of pain or shortness of breath at this time. Oxygen saturations are 92% on room air. Objective - Vital Signs Vital signs: Vital Signs Temp 98.9 F 02/11/18 00:00 Pulse 83 02/11/18 07:00 Resp 11 L 02/11/18 07:00 BP 85/57 02/11/18 07:00 Pulse Ox 91 L 02/11/18 07:00 Intake & Output 02/10/18 02/11/18 02/11/18 18:59 06:59 18:59 Intake Total 288.283 Output Total 1270 535 Balance -981.717 -535 Weight 106 kg 95.1 kg Intake: IV 270 Lactated Ringers 1,000 ml 270 @ 50 mls/hr IV .Q20H JC Rx#:[id number] Intake, IV Titration 18.283 Amount Milrinone-D5w Pmx 20 mg 16.293 In Dextrose/Water 1 100ml .bag @ Per Protocol IV . Q0M JC Rx#:[id number] Nitroglycerin-D5w Pmx 50 1.99 mg In Dextrose/Water 1 250ml.bag @ 5 MCG/MIN 1.5 mls/hr IV .Q24H JC Rx#: [id number] Norepinephrine 16 mg In 0 Sodium Chloride 0.9% 250 ml @ Titrate IV .Q0M JC Rx#:[id number] Output: Chest Tube Drainage 190 140 Left Pleural Chest Tube 160 140 Mediastinal 30 Drainage 20 Right Calf 20 Urine 1080 375 Other: Voiding Method Indwelling Catheter Toilet # Voids 0 1 0 ABP, PAP, CO, CI - Last Documented Arterial Blood Pressure 114/64 Pulmonary Artery Pressure 28/15 Cardiac Output 4.8 Cardiac Index 2.4 - Constitutional General appearance: Present: cooperative, no acute distress, obese - Respiratory Details: Lung sounds are essentially clear to his bilateral upper lobes, diminished to his bilateral bases. Respirations are symmetrical and nonlabored. Oxygen saturation are 92% on room air. He is achieving 1000 mm on his incentive spirometry. Left pleural chest tube in place to low continuous wall suction - 20 cm H2O. No air leak present. Draining thin serosanguineous drainage. 140 mL output in the last 8 hours, 230 mL output in the last 24 hours. - Cardiovascular Details: Regular rhythm and rate. S1 and S2 present, negative for S3, gallop or murmur. Sternum is stable. Bedside telemetry showing normal sinus rhythm heart rate 81. Heart hugger is in place and these demonstrating appropriate use. Atrial and ventricular epicardial pacemaker wires intact and grounded. Knee-high JACLYN hose and sequential compression devices in place to his bilateral lower extremities. No edema present. - Gastrointestinal Gastrointestinal Comment(s): Abdomen is soft, nontender and nondistended. Hypoactive bowel sounds to all 4 abdominal quadrants. Tolerating oral intake. Passing flatus. - Genitourinary Genitourinary Comment(s): Voiding clear yellow urine. 375 mL output in the last 8 hours. - Integumentary Integumentary Comment(s): Skin is warm and dry. No clubbing or cyanosis present. Midline sternal incision clean dry and approximated. No drainage or redness present. Right leg EVH sites clean dry and approximated. Scant serosanguineous drainage. REBEKA drain in place to his right lower leg. Draining thin serosanguineous drainage, 10 mL output in the last 8 hours, 60 mL output in the last 24 hours. - Neurologic Neurologic: Present: CNII-XII intact - Musculoskeletal Musculoskeletal: Present: gait normal, strength equal bilaterally - Psychiatric Psychiatric: Present: A&O x's 3, appropriate affect, intact judgment & insight - Allied health notes Allied health notes reviewed: nursing - Labs CBC & Chem 7: 02/11/18 05:01 02/11/18 05:01 Labs: Abnormal Lab Results - Last 24 Hours (Table) 02/10/18 02/10/18 02/10/18 Range/Units 07:57 10:59 11:41 RBC (4.30-5.90) m/uL Hgb (13.0-17.5) gm/dL Hct (39.0-53.0) % RDW (11.5-15.5) % Plt Count (150-450) k/uL Lymphocytes # (1.0-4.8) k/uL POC Glucose (mg/dL) 134 H 145 H 116 H (75-99) mg/dL Total Protein (6.3-8.2) g/dL 02/10/18 02/10/18 02/11/18 Range/Units 17:53 20:34 05:01 RBC (4.30-5.90) m/uL Hgb (13.0-17.5) gm/dL Hct (39.0-53.0) % RDW (11.5-15.5) % Plt Count (150-450) k/uL Lymphocytes # (1.0-4.8) k/uL POC Glucose (mg/dL) 111 H 112 H (75-99) mg/dL Total Protein 5.2 L (6.3-8.2) g/dL 02/11/18 Range/Units 05:01 RBC 2.72 L (4.30-5.90) m/uL Hgb 8.5 L (13.0-17.5) gm/dL Hct 25.3 L (39.0-53.0) % RDW 16.6 H (11.5-15.5) % Plt Count 116 L (150-450) k/uL Lymphocytes # 0.7 L (1.0-4.8) k/uL POC Glucose (mg/dL) (75-99) mg/dL Total Protein (6.3-8.2) g/dL - Imaging and Cardiology Chest x-ray: report reviewed, image reviewed Assessment and Plan (1) Triple vessel coronary artery disease Current Visit: Yes Status: Acute Code(s): I25.10 - ATHSCL HEART DISEASE OF [place] CORONARY ARTERY W/O ANG PCTRS SNOMED Code(s): 596359378 (2) Non-STEMI (non-ST elevated myocardial infarction) Current Visit: Yes Status: Acute Code(s): I21.4 - NON-ST ELEVATION (NSTEMI) MYOCARDIAL INFARCTION SNOMED Code(s): 022222300 (3) Hyperlipidemia Current Visit: Yes Status: Chronic Code(s): E78.5 - HYPERLIPIDEMIA, UNSPECIFIED SNOMED Code(s): 75547097 (4) Obstructive sleep apnea Current Visit: Yes Status: Chronic Code(s): G47.33 - OBSTRUCTIVE SLEEP APNEA (ADULT) (PEDIATRIC) SNOMED Code(s): 62697845 (5) Tobacco dependence in remission Current Visit: No Status: Resolved Code(s): F17.201 - NICOTINE DEPENDENCE, UNSPECIFIED, IN REMISSION SNOMED Code(s): 402657452 Plan: 1. Continue aspirin, statin, Plavix and metoprolol. We will increase his metoprolol tartrate 25 mg by mouth twice a day. 2. Encourage use of his incentive spirometry every hour while awake. 3. Pulmonary recommendations per Dr. Valentine. 4. Discontinue levothyroxine 100 g IV daily. Start levothyroxine 150 mcg by mouth daily. 5. Discontinue left pleural chest tube. 6. Keep epicardial pacemaker wires grounded. 7. GI and DVT prophylaxis. 8. Pull epicardial pacemaker wires today. Bedrest for 1 hour post pacemaker wire removal. 9. Transferred to [address] [place] [address] when bed available. 10. More recommendations to follow based on the patient's clinical course. Time with Patient: Greater than 30
--- NOTE | 2018-02-11 15:09 | PN ---
PROGRESS NOTE SUBJECTIVE: This is a white male who remains on IV Synthroid for hypothyroidism recovering from bypass surgery. He is off insulin drip. He is weaning off norepinephrine. He will be discharged to the medical floor today as he is greatly improving. He is ambulating with a walker, a little bit in the hallway, a few steps before he gets winded. Vital signs stable, afebrile. CARDIOVASCULAR: S1, S2. LUNGS: Clear. GI: Soft. Mood is good effect. PLAN: CABG surgery, coronary artery disease, status post non-STEMI, profound hypothyroidism. Continue current treatment. Possible discharge home over the next few days as he gradually improves. MMODL / IJN: [id number] /
--- NOTE | 2018-02-11 15:28 | P.PN ---
Subjective Progress Note Date: 02/11/18 Principal diagnosis: Non-ST segment elevation myocardial infarction, severe triple-vessel coronary disease. This is a very pleasant 72-year-old gentleman who was admitted here on 2017 from [facility] with complaints of chest discomfort. The EKG had some nonspecific changes. His troponins were found to be elevated and he ruled in for a non-ST segment elevation myocardial infarction. He also had significant clinical and chemical hypothyroidism and was initiated on Synthroid. His numbers have improved. CT angiogram ruled out pulmonary embolism and aortic dissection. He had subsequently undergone cardiac catheterization that same day that revealed severe triple-vessel disease with 70 % left main stenosis, 60% diffuse proximal LAD stenosis, 90% mid LAD stenosis and 50% ostial circumflex stenosis. The right coronary artery was diffusely diseased with a distal RCA of 60% stenosis, PDA branch 80% stenosis in the midportion of the PDA branch another 80% stenosis. Echocardiogram revealed preserved left ventricular systolic function with an ejection fraction 55-60%. He was recommended coronary artery bypass grafting. He is seen and evaluated today 02/08/2018 in the immediate postoperative period in the intensive care unit. He is currently intubated and on the mechanical ventilator in the SIMV mode at a rate of 12, tidal volume 500, pressure support of 5 and a PEEP of 5. Arterial blood gases reveal a P O2 of 295, pCO2 38, pH 7.38. This is on FiO2 of 100% and will be titrated accordingly. Chest x-ray reveals good position of the endotracheal tube. There is a mediastinal and left chest tube in place. Right jugular catheter with its tip in the right pulmonary artery. Nasogastric tube in place. No evidence of pneumothorax. There there are minor infiltrates more so on the left. He is sedated on propofol at 50 mcg/kg/m. He is on nitroglycerin drip at 5 mcg/m. Primacor at 0.3 mcg/kg/m and lactated Ringer's at 50 MLS per hour. He has received 2 units of albumin and 3 units of packed red blood cells. PA pressure 24/14 with a mean of 18. CVP 11. Cardiac index 1.8. Backup pacer is in place. Currently in sinus rhythm at a rate of 70. White count 6.0. Hemoglobin 8.9. INR 1.3. On 02/09/2018 I'm seeing this patient for a follow-up. The patient is postop day #1. The patient was weaned off the mechanical ventilated and the patient was extubated yesterday at around midnight without any major difficulties. This morning the patient is awake and alert and following commands and answering questions. The patient has a cardiac index of 2.4. Pulmonary artery pressure 24/12. The patient was noted to be hypotensive earlier and the patient was given a total of 3 A of 5% albumin. The fourth dose is being given right done and suggested to put some low-dose norepinephrine infusion for blood pressure control. The patient is currently off nitroglycerin drip. The patient is also off milrinone. The patient is resting comfortably on a chair. He is slightly hypothermic with a temperature of 95. Heart rate is around mid 70s sinus. The patient is producing adequate amount of urine output. The patient has a mediastinal and a left pleural chest tube and the total amount of output from the left chest tube is 80 disease over the past 8 hours and 140 mL since surgery. The mediastinal chest tube was put up to 110 mL over the past 8 hours and follow 30 mL since surgery. The patient has a AV epicardial pacemaker wire in place and the pacemaker generator is at the backup at the rate of 50, VVI mode. The patient has a right IJ Cordis and Dougherty-Amanda catheter which is also in place. The patient denies having any significant pain. He is using incentive spirometer. Chest x-ray was reviewed and shows adequate expansion of both lungs with some atelectatic changes small effusion the lung base bilaterally. No pneumothorax. No other significant events overnight. The REBEKA drain in the right lower extremities in place and has put out approximately 80 mL of output since surgery. On 02/10/2018 I'm seeing this patient for a follow-up. The patient is post triple-vessel bypass surgery. The patient is postop day #2. The patient doing well. The Dougherty-Amanda catheter is still in place.. The patient is on Primacor at low-dose to augment the cardiac output. No pressors for now. Producing adequate amount of urine output. Chest tube site is clean and there is some pain at the sternum and the chest tube insertion site. The patient is around 3 out of 10 in severity. Chest x-ray shows adequate expansion of both lungs, no pneumothorax and the chest tube is in good location. Note that the output from the mediastinal chest tube has been 70 mL over the past 8 hours to 50 mL since 24 hours. Output from the left pleural chest tube has been 50 mL over the past 8 hours and to 40 mL over the past 24 hours. Pulse oximetry 93% on room air. Cardiac rhythm is sinus. The patient is not hypothermic at this point. There is a REBEKA drain in the right lower extremity wound which has drained 50 mL over the past 8 hours and 60 mL over the past 24 hours. The patient has no other complaints otherwise for now. Earlier, the cardiac output was at 4.5 with an index of 2.2. The patient is seen again today 02/11/2018 in follow-up on the selective care unit. He is currently sitting up in a chair at the bedside. He is awake and alert in no acute distress. He denies any worsening shortness of breath, cough or congestion. He's working well with the incentive spirometer. Sided chest tube has been removed. Pacemaker wires are removed as well. His chest x-ray reveals some mild cardiomegaly and pulmonary venous congestion with some pleural parenchymal opacities in the lung bases. He is maintaining good O2 saturations in the upper 90s on room air. His been afebrile. Since sinus rhythm. Pain is well controlled. Count 5.3, hemoglobin 8.5, creatinine 0.90. He remains in a negative balance. Objective - Vital Signs Vital signs: Vital Signs Temp 96.9 F L 02/11/18 11:15 Pulse 88 02/11/18 11:46 Resp 16 02/11/18 11:15 BP 88/55 02/11/18 11:15 Pulse Ox 97 02/11/18 11:15 Intake & Output 02/10/18 02/11/18 02/11/18 18:59 06:59 18:59 Intake Total 288.283 430 Output Total 1270 535 75 Balance -981.717 -535 355 Weight 106 kg 95.1 kg 95.5 kg Intake: IV 270 Lactated Ringers 1,000 ml 270 @ 50 mls/hr IV .Q20H JC Rx#:[id number] Intake, IV Titration 18.283 Amount Milrinone-D5w Pmx 20 mg 16.293 In Dextrose/Water 1 100ml .bag @ Per Protocol IV . Q0M JC Rx#:[id number] Nitroglycerin-D5w Pmx 50 1.99 mg In Dextrose/Water 1 250ml.bag @ 5 MCG/MIN 1.5 mls/hr IV .Q24H JC Rx#: [id number] Norepinephrine 16 mg In 0 Sodium Chloride 0.9% 250 ml @ Titrate IV .Q0M JC Rx#:[id number] Oral 430 Output: Chest Tube Drainage 190 140 50 Left Pleural Chest Tube 160 140 50 Mediastinal 30 Drainage 20 25 Right Calf 20 25 Urine 1080 375 Other: Voiding Method Indwelling Catheter Toilet Toilet # Voids 0 1 0 ABP, PAP, CO, CI - Last Documented Arterial Blood Pressure 114/64 Pulmonary Artery Pressure 28/15 Cardiac Output 4.8 Cardiac Index 2.4 - Exam Gen. appearance the patient is calm and comfortable likely distress. Head exam was generally normal. There was no scleral icterus or corneal arcus. Mucous membranes were moist. Neck was supple and without jugular venous distension, thyromegaly, or carotid bruits. Carotids were easily palpable bilaterally. There was no adenopathy. Lungs sounds are diminished bilaterally especially lung bases. The patient is stable sternum. Cardiac exam revealed the PMI to be normally situated and sized. The rhythm was regular and no extrasystoles were noted during several minutes of auscultation. The first and second heart sounds were normal and physiologic splitting of the second heart sound was noted. There were no murmurs, rubs, clicks, or gallops. Abdominal exam revealed normal bowel sounds. The abdomen was soft, non-tender, and without masses, organomegaly, or appreciable enlargement of the abdominal aorta. Examination of the extremities revealed easily palpable radial, femoral and pedal pulses. There was no cyanosis, clubbing or edema. Skin is cold and dry. No cyanosis or clubbing. No drainage from the right lower extremity wounds or any other location. REBEKA drain is in place. No erythema. No cellulitis. Neurologically the patient is awake and alert and there is no focal neurological deficits. Psychiatrically the patient is appropriate insight and judgment and molds. - Labs CBC & Chem 7: 02/11/18 05:01 02/11/18 05:01 Labs: Abnormal Lab Results - Last 24 Hours (Table) 02/10/18 02/10/18 02/11/18 Range/Units 17:53 20:34 05:01 RBC (4.30-5.90) m/uL Hgb (13.0-17.5) gm/dL Hct (39.0-53.0) % RDW (11.5-15.5) % Plt Count (150-450) k/uL Lymphocytes # (1.0-4.8) k/uL POC Glucose (mg/dL) 111 H 112 H (75-99) mg/dL Total Protein 5.2 L (6.3-8.2) g/dL 02/11/18 02/11/18 Range/Units 05:01 11:37 RBC 2.72 L (4.30-5.90) m/uL Hgb 8.5 L (13.0-17.5) gm/dL Hct 25.3 L (39.0-53.0) % RDW 16.6 H (11.5-15.5) % Plt Count 116 L (150-450) k/uL Lymphocytes # 0.7 L (1.0-4.8) k/uL POC Glucose (mg/dL) 129 H (75-99) mg/dL Total Protein (6.3-8.2) g/dL Assessment and Plan Assessment: Assessment: #1 Severe triple-vessel coronary artery disease status post coronary artery bypass grafting utilizing a GARRIDO to the LAD, saphenous vein grafts to the RCA, diagonal and OM 1. Postoperative day #3. #2 Status post non-ST segment elevation myocardial infarction. #3 History of remote nicotine dependence, in remission #4 Hypothyroidism, both chemical and clinical and the patient improved, numbers improved and remains on IV Synthroid. #5 Hyperlipidemia. #6 COPD, mild with an FEV1 value 75% of predicted. #7 Degenerative arthritis. #8 Obstructive sleep apnea Plan: The patient was seen and evaluated by Dr. Valentine. Chest x-ray, labs are all reviewed. DuoNeb inhalations every 4 hours. Tissue to work well with the incentive spirometer. Subcutaneous heparin for DVT prophylaxis. Protonix for GI prophylaxis. Convert IV levothyroxine to by mouth.. Repeat the chest x-ray in the a.m. We will continue to follow and make further recommendations based on his clinical status. I, the cosigning physician, performed a history & physical examination of the patient. Lungs sounds are clear anteriorly with crackles in the posterior bases. Maintaining good O2 saturations in the 90s on room air. I discussed the assessment and plan of care with my nurse practitioner, Corrie Walters. I attest to the above note as dictated by her.
[2018-02-11 16:54] LABS: Glucose,Whole Blood 110 mg/dL (75-99)
[2018-02-11 20:46] LABS: Glucose,Whole Blood 115 mg/dL (75-99)
[2018-02-11] MEDS: SENNOSIDES-DOCUSATE SODIUM 1 EACH TAB PO SCH (21:08)
[2018-02-12 02:06] LABS: Glucose,Whole Blood 115 mg/dL (75-99)
[2018-02-12 05:41] LABS: Anisocytosis Slight; Basophils % (A) 1 %; Eosinophils # (A) 0.3 k/uL (0-0.7); Eosinophils % (A) 5 %; HCT 24.1 % (39.0-53.0); HGB 8.1 gm/dL (13.0-17.5); Lymphocytes # (A) 0.9 k/uL (1.0-4.8); Lymphocytes % (A) 17 %; MCH 31.2 pg (25.0-35.0); MCHC 33.6 g/dL (31.0-37.0); MCV 92.9 fL (80.0-100.0); Mean Platelet Volume 8.7; Monocytes # (A) 0.4 k/uL (0-1.0); Monocytes % (A) 7 %; Neutrophils # (A) 3.6 k/uL (1.3-7.7); Neutrophils % (A) 68 %; Platelet Count 155 k/uL (150-450); RBC 2.59 m/uL (4.30-5.90); RDW 16.3 % (11.5-15.5); WBC 5.3 k/uL (3.8-10.6)
[2018-02-12] MEDS: HYDROcodone/APAP 5-325MG 1 EACH TAB PO PRN ×4 (05:41→20:11)
[2018-02-12 06:00] LABS: Glucose,Whole Blood 98 mg/dL (75-99)
[2018-02-12] MEDS: INSULIN ASPART 100 UNIT/ML 1 ML 10 ML VIAL SQ SCH ×4 (06:07→21:06)
[2018-02-12] MEDS: LEVOTHYROXINE 75 MCG TAB PO SCH (06:08)
--- NOTE | 2018-02-12 06:55 | XR ---
EXAMINATION TYPE: XR chest 2V DATE OF EXAM: 02/12/2018 HISTORY: Post op cardiac surgery. REFERENCE: Previous study dated 02/11/2018. FINDINGS: There has been a midline sternotomy. The heart is mildly enlarged. There is platelike atele ctasis of both lung bases. There are small, bilateral effusions. IMPRESSION: CONTINUING POSTOPERATIVE CHANGE.
[2018-02-12] MEDS: IPRATROPIUM-ALBUTEROL 3 ML NEB INHALATION SCH ×4 (07:54→20:20)
[2018-02-12 08:51] LABS: Calcium 8.7 mg/dL (8.4-10.2); Potassium 4.4 mmol/L (3.5-5.1)
--- NOTE | 2018-02-12 09:42 | P.PN ---
Subjective Progress Note Date: 02/12/18 Principal diagnosis: Severe triple vessel coronary artery disease with left main disease, hyperlipidemia, non-ST segment elevation myocardial infarction this admission, remote history of tobacco dependence, obstructive sleep apnea without CPAP use, hypothyroid with an admission TSH level of 46.000 and a free T4 of less than 0.07 and family history of coronary artery disease. POD #4 urgent coronary artery bypass grafting 4 with placement of his left internal mammary artery to his left anterior descending coronary artery with endarterectomy to his left anterior descending coronary artery, a reverse greater saphenous vein placed to his diagonal coronary artery, a reverse saphenous vein graft placed to his obtuse marginal coronary artery, and a reverse greater saphenous vein graft placed to his right coronary artery. Endoscopic vein harvesting of his right greater saphenous vein, intraoperative transesophageal echocardiogram, epi-aortic scanning, and graft flow measurement using the EQALim system. Postoperative acute blood loss anemia, an expected outcome of surgery The patient is sitting up to the bedside chair. He is in no acute distress. He denies any complaints of pain or shortness of breath at this time. He reports that he ambulated in the [facility] hallways this morning 450 feet with minimal assistance. He is achieving 1250 mL on his incentive spirometry. Oxygen saturations are 97% on room air. Objective - Vital Signs Vital signs: Vital Signs Temp 97.0 F L 02/12/18 04:00 Pulse 85 02/12/18 08:10 Resp 20 02/12/18 04:00 BP 86/54 02/12/18 04:00 Pulse Ox 98 02/12/18 07:54 Intake & Output 02/11/18 02/12/18 02/12/18 18:59 06:59 18:59 Intake Total 430 Output Total 200 30 Balance 230 -30 Weight 95.5 kg 90.5 kg Intake: Oral 430 Output: Chest Tube Drainage 50 Left Pleural Chest Tube 50 Drainage 50 30 Right Calf 50 30 Urine 100 Other: Voiding Method Toilet Toilet # Voids 1 # Bowel Movements 0 ABP, PAP, CO, CI - Last Documented Arterial Blood Pressure 114/64 Pulmonary Artery Pressure 28/15 Cardiac Output 4.8 Cardiac Index 2.4 - Constitutional General appearance: Present: cooperative, no acute distress, obese - Respiratory Details: Lungs sounds essentially clear to his bilateral upper lobes, few scattered crackles was bilateral bases. Respirations are symmetrical and nonlabored. Oxygen saturation are 97% on room air. He is achieving 1250 mL on his incentive spirometry. - Cardiovascular Details: Regular rhythm and rate. S1 and S2 present, negative for S3, gallop or murmur. Sternum is stable. Remote telemetry showing normal sinus rhythm 83. Heart hugger is in place and is demonstrating appropriate use. No edema present. Knee-high JACLYN hose and sequential compression devices in place to his bilateral lower extremities. Atrial and ventricular epicardial pacemaker wires were discontinued yesterday 02/11/2018. - Gastrointestinal Gastrointestinal Comment(s): Abdomen is soft, nontender and nondistended. Active bowel sounds all 4 abdominal quadrants. Tolerating oral intake. No bowel movement since surgery. - Genitourinary Genitourinary Comment(s): Voiding clear yellow urine. - Integumentary Integumentary Comment(s): Skin is warm and dry. No clubbing or cyanosis present. Midline sternal incision clean and dry and approximated. No drainage or redness present. Right leg EVH sites clean dry and approximated. No drainage or redness present. Right leg REBEKA drain and intact draining thin serosanguineous drainage. 30 mL output in the last 8 hours. - Neurologic Neurologic: Present: CNII-XII intact - Musculoskeletal Musculoskeletal: Present: gait normal, strength equal bilaterally - Psychiatric Psychiatric: Present: A&O x's 3, appropriate affect, intact judgment & insight - Allied health notes Allied health notes reviewed: nursing - Labs CBC & Chem 7: 02/12/18 05:16 02/12/18 08:21 Labs: Abnormal Lab Results - Last 24 Hours (Table) 02/11/18 02/11/18 02/11/18 Range/Units 11:37 16:53 20:45 RBC (4.30-5.90) m/uL Hgb (13.0-17.5) gm/dL Hct (39.0-53.0) % RDW (11.5-15.5) % Lymphocytes # (1.0-4.8) k/uL BUN (9-20) mg/dL POC Glucose (mg/dL) 129 H 110 H 115 H (75-99) mg/dL Free T4 (0.78-2.19) ng/dL 05/12/18 05/12/18 05/12/18 Range/Units 02:05 05:16 05:16 RBC 2.59 L (4.30-5.90) m/uL Hgb 8.1 L (13.0-17.5) gm/dL Hct 24.1 L (39.0-53.0) % RDW 16.3 H (11.5-15.5) % Lymphocytes # 0.9 L (1.0-4.8) k/uL BUN (9-20) mg/dL POC Glucose (mg/dL) 115 H (75-99) mg/dL Free T4 0.52 L (0.78-2.19) ng/dL 02/12/18 Range/Units 08:21 RBC (4.30-5.90) m/uL Hgb (13.0-17.5) gm/dL Hct (39.0-53.0) % RDW (11.5-15.5) % Lymphocytes # (1.0-4.8) k/uL BUN 25 H (9-20) mg/dL POC Glucose (mg/dL) (75-99) mg/dL Free T4 (0.78-2.19) ng/dL - Imaging and Cardiology Chest x-ray: report reviewed, image reviewed Assessment and Plan (1) Triple vessel coronary artery disease Current Visit: Yes Status: Acute Code(s): I25.10 - ATHSCL HEART DISEASE OF [place] CORONARY ARTERY W/O ANG PCTRS SNOMED Code(s): 482960929 (2) Non-STEMI (non-ST elevated myocardial infarction) Current Visit: Yes Status: Acute Code(s): I21.4 - NON-ST ELEVATION (NSTEMI) MYOCARDIAL INFARCTION SNOMED Code(s): 908883650 (3) Hyperlipidemia Current Visit: Yes Status: Chronic Code(s): E78.5 - HYPERLIPIDEMIA, UNSPECIFIED SNOMED Code(s): 94144544 (4) Obstructive sleep apnea Current Visit: Yes Status: Chronic Code(s): G47.33 - OBSTRUCTIVE SLEEP APNEA (ADULT) (PEDIATRIC) SNOMED Code(s): 56866518 (5) Tobacco dependence in remission Current Visit: No Status: Resolved Code(s): F17.201 - NICOTINE DEPENDENCE, UNSPECIFIED, IN REMISSION SNOMED Code(s): 919856842 Plan: 1. Continue aspirin, statin, Plavix and metoprolol. We will increase his metoprolol tartrate 25 mg by mouth 3 times a day. 2. Encourage use of his incentive spirometry every hour while awake. 3. Pulmonary recommendations per Dr. Valentine. 4. Continue levothyroxine 150 mcg by mouth daily. 5. No diuretics today. 6. Increase activity as tolerated, PT/OT/cardiac rehab following. 7. GI and DVT prophylaxis. 8. More recommendations to follow based on the patient's clinical course. Anticipate discharge home or to inpatient rehab on 02/14/2018. Time with Patient: Greater than 30
[2018-02-12] MEDS: ASPIRIN 325 MG TAB PO SCH (10:19)
[2018-02-12] MEDS: HEPARIN SODIUM,PORCINE 5,000 UNIT/ML 1 ML VIAL SQ SCH ×3 (10:19→23:33)
[2018-02-12] MEDS: METOPROLOL TARTRATE 25 MG TAB PO SCH ×2 (10:20→20:08)
[2018-02-12] MEDS: CLOPIDOGREL 75 MG TAB PO SCH (10:20)
[2018-02-12] MEDS: PANTOPRAZOLE 40 MG TABLET PO SCH (10:21)
[2018-02-12] MEDS: ROSUVASTATIN 20MG TAB PO SCH (10:21)
--- NOTE | 2018-02-12 12:14 | P.PN ---
Subjective Progress Note Date: 02/12/18 This is a 72-year-old gentleman was transferred here originally from [facility] with a non-Q-wave myocardial infarction. Underwent cardiac catheterization which revealed severe triple-vessel coronary artery disease. Patient is awaiting coronary artery bypass grafting surgery but because of elevated thyroid levels as is currently been placed on hold. Patient had taken Lipitor in the past, he apparently had significant muscle aching from this and was changed to Crestor as an outpatient which she is able to tolerate. I did speak with pharmacy today, we will initiate Crestor on this patient. We will also put him on a baby aspirin daily. Blood pressure today 104/60 with a heart rate in the 60s, 94% on room air. Hemoglobin 10.5, potassium 4.7, BUN 23, creatinine 1.1. TSH 45, free T4 0.16. Patient was seen and examined this morning, has no complaints, feeling well overall. Denies any episodes of chest discomfort. 02/04/2018 Patient seen and examined today, denies any chest pain or difficulty in breathing. TSH level XLV.8, T4 0.16. Blood pressure 98/60. Denies any chest pain or difficulty in breathing. 02/07/2018 Patient was seen and examined this morning, breathing is overall stable, he's been up ambulating without any difficulty. White blood cell count 5.2, hemoglobin 10.0, platelet count 160. Sodium 140, potassium 4.4, BUN 22, creatinine 1.2. Patient is scheduled to undergo coronary artery bypass grafting surgery tomorrow. 02/12/2018 Patient was seen and examined this morning, progressing well overall. Reaching 1250 on his incentive spirometry. Blood pressure 92/50 with a heart rate in the 90s. Hemoglobin 8.1, platelet count 155. Sodium 138, potassium 4.4, BUN 25 , creatinine 1.1. Objective - Vital Signs Vital signs: Vital Signs Temp 96.8 F L 02/12/18 09:25 Pulse 91 02/12/18 09:25 Resp 16 02/12/18 09:25 BP 92/55 02/12/18 09:25 Pulse Ox 95 02/12/18 09:25 Intake & Output 02/11/18 02/12/18 02/12/18 18:59 06:59 18:59 Intake Total 430 Output Total 200 30 Balance 230 -30 Weight 95.5 kg 90.5 kg Intake: Oral 430 Output: Chest Tube Drainage 50 Left Pleural Chest Tube 50 Drainage 50 30 Right Calf 50 30 Urine 100 Other: Voiding Method Toilet Toilet Toilet # Voids 1 # Bowel Movements 0 ABP, PAP, CO, CI - Last Documented Arterial Blood Pressure 114/64 Pulmonary Artery Pressure 28/15 Cardiac Output 4.8 Cardiac Index 2.4 - Exam PHYSICAL EXAMINATION: HEENT: Head is atraumatic, normocephalic. Pupils equal, round. Neck is supple. There is no elevated jugular venous pressure. HEART EXAMINATION: Heart S1, S2 normal. No murmur or gallop heard. Sternum is stable. Heart hugger in place. CHEST EXAMINATION: Lungs reveal crackles to bilateral bases. ABDOMEN: Soft, nontender. Bowel sounds are heard. No organomegaly noted. EXTREMITIES: 2+ peripheral pulses with no evidence of peripheral edema and no calf tenderness noted. NEUROLOGIC patient is awake, alert and oriented -3. . - Labs CBC & Chem 7: 02/12/18 05:16 02/12/18 08:21 Labs: Abnormal Lab Results - Last 24 Hours (Table) 02/11/18 02/11/18 02/12/18 Range/Units 16:53 20:45 02:05 RBC (4.30-5.90) m/uL Hgb (13.0-17.5) gm/dL Hct (39.0-53.0) % RDW (11.5-15.5) % Lymphocytes # (1.0-4.8) k/uL BUN (9-20) mg/dL POC Glucose (mg/dL) 110 H 115 H 115 H (75-99) mg/dL Free T4 (0.78-2.19) ng/dL 02/12/18 02/12/18 02/12/18 Range/Units 05:16 05:16 08:21 RBC 2.59 L (4.30-5.90) m/uL Hgb 8.1 L (13.0-17.5) gm/dL Hct 24.1 L (39.0-53.0) % RDW 16.3 H (11.5-15.5) % Lymphocytes # 0.9 L (1.0-4.8) k/uL BUN 25 H (9-20) mg/dL POC Glucose (mg/dL) (75-99) mg/dL Free T4 0.52 L (0.78-2.19) ng/dL Assessment and Plan Plan: Assessment and plan #1 non-ST elevation myocardial infarction, s/p coronary artery bypass grafting surgery #2 hyperlipidemia #3 nicotine dependence #4 obstructive sleep apnea Plan From cardiology's perspective, we will recommend the patient continue on current medications. Arrangements are being made for the patient to go to in patient rehab on Wednesday however the does wish to discuss this further with social work. DNP note has been reviewed, I agree with a documented findings and plan of care. Patient was seen and examined.
[2018-02-12 12:21] LABS: Glucose,Whole Blood 108 mg/dL (75-99)
--- NOTE | 2018-02-12 12:43 | P.PN ---
Subjective Progress Note Date: 02/12/18 This is a very pleasant 72-year-old gentleman who was admitted here on 2017 from [facility] with complaints of chest discomfort. The EKG had some nonspecific changes. His troponins were found to be elevated and he ruled in for a non-ST segment elevation myocardial infarction. He also had significant clinical and chemical hypothyroidism and was initiated on Synthroid. His numbers have improved. CT angiogram ruled out pulmonary embolism and aortic dissection. He had subsequently undergone cardiac catheterization that same day that revealed severe triple-vessel disease with 70 % left main stenosis, 60% diffuse proximal LAD stenosis, 90% mid LAD stenosis and 50% ostial circumflex stenosis. The right coronary artery was diffusely diseased with a distal RCA of 60% stenosis, PDA branch 80% stenosis in the midportion of the PDA branch another 80% stenosis. Echocardiogram revealed preserved left ventricular systolic function with an ejection fraction 55-60%. He was recommended coronary artery bypass grafting. He is seen and evaluated today 02/08/2018 in the immediate postoperative period in the intensive care unit. He is currently intubated and on the mechanical ventilator in the SIMV mode at a rate of 12, tidal volume 500, pressure support of 5 and a PEEP of 5. Arterial blood gases reveal a P O2 of 295, pCO2 38, pH 7.38. This is on FiO2 of 100% and will be titrated accordingly. Chest x-ray reveals good position of the endotracheal tube. There is a mediastinal and left chest tube in place. Right jugular catheter with its tip in the right pulmonary artery. Nasogastric tube in place. No evidence of pneumothorax. There there are minor infiltrates more so on the left. He is sedated on propofol at 50 mcg/kg/m. He is on nitroglycerin drip at 5 mcg/m. Primacor at 0.3 mcg/kg/m and lactated Ringer's at 50 MLS per hour. He has received 2 units of albumin and 3 units of packed red blood cells. PA pressure 24/14 with a mean of 18. CVP 11. Cardiac index 1.8. Backup pacer is in place. Currently in sinus rhythm at a rate of 70. White count 6.0. Hemoglobin 8.9. INR 1.3. On 02/09/2018 I'm seeing this patient for a follow-up. The patient is postop day #1. The patient was weaned off the mechanical ventilated and the patient was extubated yesterday at around midnight without any major difficulties. This morning the patient is awake and alert and following commands and answering questions. The patient has a cardiac index of 2.4. Pulmonary artery pressure 24/12. The patient was noted to be hypotensive earlier and the patient was given a total of 3 A of 5% albumin. The fourth dose is being given right done and suggested to put some low-dose norepinephrine infusion for blood pressure control. The patient is currently off nitroglycerin drip. The patient is also off milrinone. The patient is resting comfortably on a chair. He is slightly hypothermic with a temperature of 95. Heart rate is around mid 70s sinus. The patient is producing adequate amount of urine output. The patient has a mediastinal and a left pleural chest tube and the total amount of output from the left chest tube is 80 disease over the past 8 hours and 140 mL since surgery. The mediastinal chest tube was put up to 110 mL over the past 8 hours and follow 30 mL since surgery. The patient has a AV epicardial pacemaker wire in place and the pacemaker generator is at the backup at the rate of 50, VVI mode. The patient has a right IJ Cordis and [place]a catheter which is also in place. The patient denies having any significant pain. He is using incentive spirometer. Chest x-ray was reviewed and shows adequate expansion of both lungs with some atelectatic changes small effusion the lung base bilaterally. No pneumothorax. No other significant events overnight. The REBEKA drain in the right lower extremities in place and has put out approximately 80 mL of output since surgery. On 02/10/2018 I'm seeing this patient for a follow-up. The patient is post triple-vessel bypass surgery. The patient is postop day #2. The patient doing well. The [place]Amanda catheter is still in place.. The patient is on Primacor at low-dose to augment the cardiac output. No pressors for now. Producing adequate amount of urine output. Chest tube site is clean and there is some pain at the sternum and the chest tube insertion site. The patient is around 3 out of 10 in severity. Chest x-ray shows adequate expansion of both lungs, no pneumothorax and the chest tube is in good location. Note that the output from the mediastinal chest tube has been 70 mL over the past 8 hours to 50 mL since 24 hours. Output from the left pleural chest tube has been 50 mL over the past 8 hours and to 40 mL over the past 24 hours. Pulse oximetry 93% on room air. Cardiac rhythm is sinus. The patient is not hypothermic at this point. There is a REBEKA drain in the right lower extremity wound which has drained 50 mL over the past 8 hours and 60 mL over the past 24 hours. The patient has no other complaints otherwise for now. Earlier, the cardiac output was at 4.5 with an index of 2.2. The patient is seen again today 02/11/2018 in follow-up on the selective care unit. He is currently sitting up in a chair at the bedside. He is awake and alert in no acute distress. He denies any worsening shortness of breath, cough or congestion. He's working well with the incentive spirometer. Sided chest tube has been removed. Pacemaker wires are removed as well. His chest x-ray reveals some mild cardiomegaly and pulmonary venous congestion with some pleural parenchymal opacities in the lung bases. He is maintaining good O2 saturations in the upper 90s on room air. His been afebrile. Since sinus rhythm. Pain is well controlled. Count 5.3, hemoglobin 8.5, creatinine 0.90. He remains in a negative balance. On 02/12/2018 I'm seeing this patient for a follow-up. The patient is looking well. The patient sitting up on a chair. No specific complaints. All of the chest is a been removed. No cough sputum production chest that is so wheezing. Chest x-ray shows atelectatic changes in lung bases and small pleural effusions. The thyroid hormone levels are improving. The patient has been switched to oral levothyroxine 150 g by mouth daily. Using incentive spirometer. No other significant events overnight. Objective - Vital Signs Vital signs: Vital Signs Temp 96.8 F L 02/12/18 09:25 Pulse 91 02/12/18 09:25 Resp 16 02/12/18 09:25 BP 92/55 02/12/18 09:25 Pulse Ox 95 02/12/18 09:25 Intake & Output 02/11/18 02/12/18 02/12/18 18:59 06:59 18:59 Intake Total 430 Output Total 200 30 Balance 230 -30 Weight 95.5 kg 90.5 kg Intake: Oral 430 Output: Chest Tube Drainage 50 Left Pleural Chest Tube 50 Drainage 50 30 Right Calf 50 30 Urine 100 Other: Voiding Method Toilet Toilet Toilet # Voids 1 # Bowel Movements 0 ABP, PAP, CO, CI - Last Documented Arterial Blood Pressure 114/64 Pulmonary Artery Pressure 28/15 Cardiac Output 4.8 Cardiac Index 2.4 - Exam - Constitutional General appearance: Present: cooperative, no acute distress, obese - Respiratory Details: Lungs sounds essentially clear to his bilateral upper lobes, few scattered crackles was bilateral bases. Respirations are symmetrical and nonlabored. Oxygen saturation are 97% on room air. He is achieving 1250 mL on his incentive spirometry. - Cardiovascular Details: Regular rhythm and rate. S1 and S2 present, negative for S3, gallop or murmur. Sternum is stable. - Gastrointestinal Gastrointestinal Comment(s): Abdomen is soft, nontender and nondistended. Active bowel sounds all 4 abdominal quadrants. Tolerating oral intake. No bowel movement since surgery. - Genitourinary Genitourinary Comment(s): Voiding clear yellow urine. - Integumentary Integumentary Comment(s): Skin is warm and dry. No clubbing or cyanosis present. Midline sternal incision clean and dry and approximated. No drainage or redness present. Right leg EVH sites clean dry and approximated. No drainage or redness present. Right leg REBEKA drain and intact draining thin serosanguineous drainage. 30 mL output in the last 8 hours. - Neurologic Neurologic: Present: CNII-XII intact - Musculoskeletal Musculoskeletal: Present: gait normal, strength equal bilaterally - Psychiatric Psychiatric: Present: A&O x's 3, appropriate affect, intact judgment & insight - Labs CBC & Chem 7: 02/12/18 05:16 02/12/18 08:21 Labs: Abnormal Lab Results - Last 24 Hours (Table) 02/11/18 02/11/18 02/12/18 Range/Units 16:53 20:45 02:05 RBC (4.30-5.90) m/uL Hgb (13.0-17.5) gm/dL Hct (39.0-53.0) % RDW (11.5-15.5) % Lymphocytes # (1.0-4.8) k/uL BUN (9-20) mg/dL POC Glucose (mg/dL) 110 H 115 H 115 H (75-99) mg/dL Free T4 (0.78-2.19) ng/dL 02/12/18 02/12/18 02/12/18 Range/Units 05:16 05:16 08:21 RBC 2.59 L (4.30-5.90) m/uL Hgb 8.1 L (13.0-17.5) gm/dL Hct 24.1 L (39.0-53.0) % RDW 16.3 H (11.5-15.5) % Lymphocytes # 0.9 L (1.0-4.8) k/uL BUN 25 H (9-20) mg/dL POC Glucose (mg/dL) (75-99) mg/dL Free T4 0.52 L (0.78-2.19) ng/dL 02/12/18 Range/Units 11:55 RBC (4.30-5.90) m/uL Hgb (13.0-17.5) gm/dL Hct (39.0-53.0) % RDW (11.5-15.5) % Lymphocytes # (1.0-4.8) k/uL BUN (9-20) mg/dL POC Glucose (mg/dL) 108 H (75-99) mg/dL Free T4 (0.78-2.19) ng/dL Assessment and Plan Plan: Assessment: #1 Severe triple-vessel coronary artery disease status post coronary artery bypass grafting utilizing a GARRIDO to the LAD, saphenous vein grafts to the RCA, diagonal and OM 1. Postoperative day #4 . The patient is recovering very nicely and the patient has some limited atelectatic changes in lung bases bilaterally on today's chest x-ray. All of the chest is a been removed and the patient is hemodynamically stable. Sternum stable clean and intact. No other significant events over the past 24 hours. #2 Status post non-ST segment elevation myocardial infarction. #3 History of remote nicotine dependence, in remission #4 Hypothyroidism, both chemical and clinical and the patient improved, numbers improved and remains on oral Synthroid at a dose of 150 g daily basis. #5 Hyperlipidemia. #6 COPD, mild with an FEV1 value 75% of predicted. #7 Degenerative arthritis. #8 Obstructive sleep apnea Plan: Monitor hemoglobin. Continue using incentive spirometer. Continue Synthroid. Encourage use of incentive spirometer and ambulate in the hallway. The patient on aspirin, statin, and agree on including the metoprolol to 25 mg by mouth 3 times a day. We'll continue to follow.
--- NOTE | 2018-02-12 19:43 | PN ---
PROGRESS NOTE SUBJECTIVE: A 72-year-old white male, sitting up in bed. He is up ambulating 400 feet today. He will need to go home on Synthroid and have his thyroid checked as an outpatient. CARDIOVASCULAR: S1, S2. LUNGS: Clear. GI: Soft. HEMATOLOGY: Negative Homans'. ASSESSMENT: 1. Profound hypothyroidism. 2. Status post coronary artery bypass graft. 3. Coronary artery disease. 4. Non ST-elevation myocardial infarction. Current treatment, follow up in next 24-48 hours, remain on IV Synthroid. MMODL / IJN: [id number] /
[2018-02-12] MEDS: SENNOSIDES-DOCUSATE SODIUM 1 EACH TAB PO SCH (20:09)
[2018-02-12 20:47] LABS: Glucose,Whole Blood 134 mg/dL (75-99)
[2018-02-13 05:48] LABS: Glucose,Whole Blood 122 mg/dL (75-99)
[2018-02-13 05:56] LABS: Anisocytosis Slight; HCT 23.2 % (39.0-53.0); HGB 7.9 gm/dL (13.0-17.5); MCH 31.6 pg (25.0-35.0); MCV 93.1 fL (80.0-100.0); Mean Platelet Volume 7.7; Platelet Count 204 k/uL (150-450); RBC 2.49 m/uL (4.30-5.90); RDW 16.1 % (11.5-15.5); WBC 5.7 k/uL (3.8-10.6)
[2018-02-13] MEDS: INSULIN ASPART 100 UNIT/ML 1 ML 10 ML VIAL SQ SCH ×5 (06:24→21:07)
[2018-02-13] MEDS: LEVOTHYROXINE 75 MCG TAB PO SCH (06:25)
[2018-02-13 07:36] LABS: Albumin 3.5 g/dL (3.5-5.0); Calcium 8.9 mg/dL (8.4-10.2); Potassium 4.5 mmol/L (3.5-5.1); Total Bilirubin 0.3 mg/dL (0.2-1.3); Total Protein 5.4 g/dL (6.3-8.2)
[2018-02-13] MEDS: IPRATROPIUM-ALBUTEROL 3 ML NEB INHALATION SCH ×4 (08:33→20:04)
[2018-02-13] MEDS ORDERED: METOPROLOL TARTRATE 25 MG TAB PO SCH (09:00)
[2018-02-13] MEDS: HYDROcodone/APAP 5-325MG 1 EACH TAB PO PRN ×3 (09:06→21:08)
[2018-02-13] MEDS: HEPARIN SODIUM,PORCINE 5,000 UNIT/ML 1 ML VIAL SQ SCH ×2 (09:07→16:10)
[2018-02-13] MEDS: CLOPIDOGREL 75 MG TAB PO SCH (09:08)
[2018-02-13] MEDS: PANTOPRAZOLE 40 MG TABLET PO SCH (09:09)
[2018-02-13] MEDS: ASPIRIN 325 MG TAB PO SCH (09:10)
[2018-02-13] MEDS: ASCORBIC ACID 500 MG TAB PO SCH (09:10)
--- NOTE | 2018-02-13 10:17 | P.PN ---
Subjective Progress Note Date: 02/13/18 Principal diagnosis: Severe triple vessel coronary artery disease with left main disease, hyperlipidemia, non-ST segment elevation myocardial infarction this admission, remote history of tobacco dependence, obstructive sleep apnea without CPAP use, hypothyroid with an admission TSH level of 46.000 and a free T4 of less than 0.07 and family history of coronary artery disease. POD #5 urgent coronary artery bypass grafting 4 with placement of his left internal mammary artery to his left anterior descending coronary artery with endarterectomy to his left anterior descending coronary artery, a reverse greater saphenous vein placed to his diagonal coronary artery, a reverse saphenous vein graft placed to his obtuse marginal coronary artery, and a reverse greater saphenous vein graft placed to his right coronary artery. Endoscopic vein harvesting of his right greater saphenous vein, intraoperative transesophageal echocardiogram, epi-aortic scanning, and graft flow measurement using the WeYAPim system. Postoperative acute blood loss anemia, an expected outcome of surgery The patient is sitting up to the bedside chair. He is in no acute distress. He denies any complaints of pain or shortness of breath at this time. He reports that he ambulated in the [facility] hallways yesterday 4 walking 450 feet each time with minimal assistance. He is achieving 1250 mL on his incentive spirometry. Oxygen saturations are 98% on room air. Objective - Vital Signs Vital signs: Vital Signs Temp 97.3 F L 02/13/18 04:00 Pulse 88 02/13/18 08:43 Resp 19 02/13/18 04:00 BP 100/56 02/13/18 04:00 Pulse Ox 98 02/13/18 04:00 Intake & Output 02/12/18 02/13/18 02/13/18 18:59 06:59 18:59 Intake Total 100 Output Total 915 Balance -915 100 Weight 89 kg Intake: Oral 100 Output: Drainage 15 Right Calf 15 Urine 900 Other: Voiding Method Toilet Toilet ABP, PAP, CO, CI - Last Documented Arterial Blood Pressure 114/64 Pulmonary Artery Pressure 28/15 Cardiac Output 4.8 Cardiac Index 2.4 - Constitutional General appearance: Present: cooperative, no acute distress, obese - Respiratory Details: Lung sounds essentially clear throughout, crackles to his left lower lobe. Respirations are symmetrical and nonlabored. Oxygen saturation are 98% on room air. He is achieving 1250 mL on his incentive spirometry. - Cardiovascular Details: Regular rhythm and rate. S1 and S2 present, negative for S3, gallop or murmur. Remote telemetry showing normal sinus rhythm heart rate 95. Sternum is stable. Heart hugger is in place and he is demonstrating appropriate use. Knee -high JACLYN hose and sequential compression devices in place to his bilateral lower extremities. No edema present. - Gastrointestinal Gastrointestinal Comment(s): Abdomen is soft, nontender and nondistended. Active bowel sounds to all 4 abdominal quadrants. Tolerating oral intake. No guarding or rigidity. - Genitourinary Genitourinary Comment(s): Voiding clear yellow urine. - Integumentary Integumentary Comment(s): Skin is warm and dry. No clubbing or cyanosis present. Midline sternal incision clean dry and approximated. No redness or drainage present. Right leg EVH site clean dry and approximated. No drainage or redness present. - Neurologic Neurologic: Present: CNII-XII intact - Musculoskeletal Musculoskeletal: Present: gait normal, strength equal bilaterally - Psychiatric Psychiatric: Present: A&O x's 3, appropriate affect, intact judgment & insight - Allied health notes Allied health notes reviewed: nursing - Labs CBC & Chem 7: 02/13/18 05:09 02/13/18 05:09 Labs: Abnormal Lab Results - Last 24 Hours (Table) 02/12/18 02/12/18 02/13/18 Range/Units 11:55 20:45 05:09 RBC 2.49 L (4.30-5.90) m/uL Hgb 7.9 L (13.0-17.5) gm/dL Hct 23.2 L (39.0-53.0) % RDW 16.1 H (11.5-15.5) % BUN (9-20) mg/dL Glucose (74-99) mg/dL POC Glucose (mg/dL) 108 H 134 H (75-99) mg/dL Total Protein (6.3-8.2) g/dL 02/13/18 02/13/18 Range/Units 05:09 05:46 RBC (4.30-5.90) m/uL Hgb (13.0-17.5) gm/dL Hct (39.0-53.0) % RDW (11.5-15.5) % BUN 28 H (9-20) mg/dL Glucose 100 H (74-99) mg/dL POC Glucose (mg/dL) 122 H (75-99) mg/dL Total Protein 5.4 L (6.3-8.2) g/dL Assessment and Plan (1) Triple vessel coronary artery disease Current Visit: Yes Status: Acute Code(s): I25.10 - ATHSCL HEART DISEASE OF [place] CORONARY ARTERY W/O ANG PCTRS SNOMED Code(s): 125122987 (2) Non-STEMI (non-ST elevated myocardial infarction) Current Visit: Yes Status: Acute Code(s): I21.4 - NON-ST ELEVATION (NSTEMI) MYOCARDIAL INFARCTION SNOMED Code(s): 362299534 (3) Hyperlipidemia Current Visit: Yes Status: Chronic Code(s): E78.5 - HYPERLIPIDEMIA, UNSPECIFIED SNOMED Code(s): 34776959 (4) Obstructive sleep apnea Current Visit: Yes Status: Chronic Code(s): G47.33 - OBSTRUCTIVE SLEEP APNEA (ADULT) (PEDIATRIC) SNOMED Code(s): 55525309 (5) Tobacco dependence in remission Current Visit: No Status: Resolved Code(s): F17.201 - NICOTINE DEPENDENCE, UNSPECIFIED, IN REMISSION SNOMED Code(s): 602458569 Plan: 1. Continue aspirin, statin, Plavix, subcu heparin and metoprolol. We will increase his metoprolol tartrate 25 mg by mouth 3 times a day. 2. Encourage use of his incentive spirometry every hour while awake. 3. Pulmonary recommendations per Dr. Valentine. 4. Continue levothyroxine 150 mcg by mouth daily. 5. No diuretics today. 6. Increase activity as tolerated, PT/OT/cardiac rehab following. 7. GI and DVT prophylaxis. 8. More recommendations to follow based on the patient's clinical course. Anticipate discharge home or to inpatient rehab on 02/14/2018. Time with Patient: Greater than 30
[2018-02-13 10:58] VITALS: RESP 18
[2018-02-13] MEDS: FERROUS SULFATE 325 MG TAB PO SCH (11:45)
[2018-02-13] MEDS: ROSUVASTATIN 20MG TAB PO SCH (11:45)
[2018-02-13 11:57] LABS: Glucose,Whole Blood 142 mg/dL (75-99)
--- NOTE | 2018-02-13 11:57 | P.PN ---
Subjective Progress Note Date: 02/13/18 This is 72-year-old male patient was transferred from [facility] secondary to non-Q wave myocardial infarction. Patient underwent cardiac catheterization which revealed triple vessel CAD. Patient underwent [place] artery bypass grafting and is doing well this morning. He denies any chest discomfort. He's been up ambulating without any difficulties. He's using his incentive spirometry. His pain is under good control. He is hemodynamically stable. Objective - Vital Signs Vital signs: Vital Signs Temp 98.7 F 02/13/18 08:45 Pulse 90 02/13/18 11:28 Resp 18 02/13/18 08:45 BP 107/55 02/13/18 08:45 Pulse Ox 100 02/13/18 08:45 Intake & Output 02/12/18 02/13/18 02/13/18 18:59 06:59 18:59 Intake Total 100 Output Total 915 Balance -915 100 Weight 89 kg Intake: Oral 100 Output: Drainage 15 Right Calf 15 Urine 900 Other: Voiding Method Toilet Toilet Toilet ABP, PAP, CO, CI - Last Documented Arterial Blood Pressure 114/64 Pulmonary Artery Pressure 28/15 Cardiac Output 4.8 Cardiac Index 2.4 - Constitutional General appearance: Present: average body habitus - EENT Eyes: Present: normal appearance ENT: Present: normal oropharynx Ears: bilateral: normal - Neck Carotids: bilateral: upstroke normal - Respiratory Respiratory: bilateral: CTA - Cardiovascular Details: No JVD sternal incision is covered with dry dressing. Rhythm: regular - Gastrointestinal General gastrointestinal: Present: soft - Integumentary Integumentary: Present: normal - Neurologic Neurologic: Present: CNII-XII intact - Musculoskeletal Musculoskeletal: Present: gait normal - Psychiatric Psychiatric: Present: A&O x's 3 - Labs CBC & Chem 7: 02/13/18 05:09 02/13/18 05:09 Labs: Abnormal Lab Results - Last 24 Hours (Table) 02/12/18 02/12/18 02/13/18 Range/Units 11:55 20:45 05:09 RBC 2.49 L (4.30-5.90) m/uL Hgb 7.9 L (13.0-17.5) gm/dL Hct 23.2 L (39.0-53.0) % RDW 16.1 H (11.5-15.5) % BUN (9-20) mg/dL Glucose (74-99) mg/dL POC Glucose (mg/dL) 108 H 134 H (75-99) mg/dL Total Protein (6.3-8.2) g/dL 02/13/18 02/13/18 Range/Units 05:09 05:46 RBC (4.30-5.90) m/uL Hgb (13.0-17.5) gm/dL Hct (39.0-53.0) % RDW (11.5-15.5) % BUN 28 H (9-20) mg/dL Glucose 100 H (74-99) mg/dL POC Glucose (mg/dL) 122 H (75-99) mg/dL Total Protein 5.4 L (6.3-8.2) g/dL Assessment and Plan Assessment: Non-ST elevation myocardial infarction status post CABG Hyperlipidemia Tobacco abuse Obstructive sleep apnea Plan: Continue with current medication regimen. Continue to increase activity as tolerated. Possible discharge to a rehab center versus home tomorrow.
--- NOTE | 2018-02-13 12:16 | P.PN ---
Subjective Progress Note Date: 02/13/18 This is a very pleasant 72-year-old gentleman who was admitted here on 2017 from [facility] with complaints of chest discomfort. The EKG had some nonspecific changes. His troponins were found to be elevated and he ruled in for a non-ST segment elevation myocardial infarction. He also had significant clinical and chemical hypothyroidism and was initiated on Synthroid. His numbers have improved. CT angiogram ruled out pulmonary embolism and aortic dissection. He had subsequently undergone cardiac catheterization that same day that revealed severe triple-vessel disease with 70 % left main stenosis, 60% diffuse proximal LAD stenosis, 90% mid LAD stenosis and 50% ostial circumflex stenosis. The right coronary artery was diffusely diseased with a distal RCA of 60% stenosis, PDA branch 80% stenosis in the midportion of the PDA branch another 80% stenosis. Echocardiogram revealed preserved left ventricular systolic function with an ejection fraction 55-60%. He was recommended coronary artery bypass grafting. He is seen and evaluated today 02/08/2018 in the immediate postoperative period in the intensive care unit. He is currently intubated and on the mechanical ventilator in the SIMV mode at a rate of 12, tidal volume 500, pressure support of 5 and a PEEP of 5. Arterial blood gases reveal a P O2 of 295, pCO2 38, pH 7.38. This is on FiO2 of 100% and will be titrated accordingly. Chest x-ray reveals good position of the endotracheal tube. There is a mediastinal and left chest tube in place. Right jugular catheter with its tip in the right pulmonary artery. Nasogastric tube in place. No evidence of pneumothorax. There there are minor infiltrates more so on the left. He is sedated on propofol at 50 mcg/kg/m. He is on nitroglycerin drip at 5 mcg/m. Primacor at 0.3 mcg/kg/m and lactated Ringer's at 50 MLS per hour. He has received 2 units of albumin and 3 units of packed red blood cells. PA pressure 24/14 with a mean of 18. CVP 11. Cardiac index 1.8. Backup pacer is in place. Currently in sinus rhythm at a rate of 70. White count 6.0. Hemoglobin 8.9. INR 1.3. On 02/09/2018 I'm seeing this patient for a follow-up. The patient is postop day #1. The patient was weaned off the mechanical ventilated and the patient was extubated yesterday at around midnight without any major difficulties. This morning the patient is awake and alert and following commands and answering questions. The patient has a cardiac index of 2.4. Pulmonary artery pressure 24/12. The patient was noted to be hypotensive earlier and the patient was given a total of 3 A of 5% albumin. The fourth dose is being given right done and suggested to put some low-dose norepinephrine infusion for blood pressure control. The patient is currently off nitroglycerin drip. The patient is also off milrinone. The patient is resting comfortably on a chair. He is slightly hypothermic with a temperature of 95. Heart rate is around mid 70s sinus. The patient is producing adequate amount of urine output. The patient has a mediastinal and a left pleural chest tube and the total amount of output from the left chest tube is 80 disease over the past 8 hours and 140 mL since surgery. The mediastinal chest tube was put up to 110 mL over the past 8 hours and follow 30 mL since surgery. The patient has a AV epicardial pacemaker wire in place and the pacemaker generator is at the backup at the rate of 50, VVI mode. The patient has a right IJ Cordis and Repton-Amanda catheter which is also in place. The patient denies having any significant pain. He is using incentive spirometer. Chest x-ray was reviewed and shows adequate expansion of both lungs with some atelectatic changes small effusion the lung base bilaterally. No pneumothorax. No other significant events overnight. The REBEKA drain in the right lower extremities in place and has put out approximately 80 mL of output since surgery. On 02/10/2018 I'm seeing this patient for a follow-up. The patient is post triple-vessel bypass surgery. The patient is postop day #2. The patient doing well. The Repton-Amanda catheter is still in place.. The patient is on Primacor at low-dose to augment the cardiac output. No pressors for now. Producing adequate amount of urine output. Chest tube site is clean and there is some pain at the sternum and the chest tube insertion site. The patient is around 3 out of 10 in severity. Chest x-ray shows adequate expansion of both lungs, no pneumothorax and the chest tube is in good location. Note that the output from the mediastinal chest tube has been 70 mL over the past 8 hours to 50 mL since 24 hours. Output from the left pleural chest tube has been 50 mL over the past 8 hours and to 40 mL over the past 24 hours. Pulse oximetry 93% on room air. Cardiac rhythm is sinus. The patient is not hypothermic at this point. There is a REBEKA drain in the right lower extremity wound which has drained 50 mL over the past 8 hours and 60 mL over the past 24 hours. The patient has no other complaints otherwise for now. Earlier, the cardiac output was at 4.5 with an index of 2.2. The patient is seen again today 02/11/2018 in follow-up on the selective care unit. He is currently sitting up in a chair at the bedside. He is awake and alert in no acute distress. He denies any worsening shortness of breath, cough or congestion. He's working well with the incentive spirometer. Sided chest tube has been removed. Pacemaker wires are removed as well. His chest x-ray reveals some mild cardiomegaly and pulmonary venous congestion with some pleural parenchymal opacities in the lung bases. He is maintaining good O2 saturations in the upper 90s on room air. His been afebrile. Since sinus rhythm. Pain is well controlled. Count 5.3, hemoglobin 8.5, creatinine 0.90. He remains in a negative balance. On 02/12/2018 I'm seeing this patient for a follow-up. The patient is looking well. The patient sitting up on a chair. No specific complaints. All of the chest is a been removed. No cough sputum production chest that is so wheezing. Chest x-ray shows atelectatic changes in lung bases and small pleural effusions. The thyroid hormone levels are improving. The patient has been switched to oral levothyroxine 150 g by mouth daily. Using incentive spirometer. No other significant events overnight. On 02/13/2018, the patient is ambulating. No respiratory difficulties. More than thousand is being pulled on the incentive spirometer. Hemoglobin is stable at 7.9. The area function is stable with a creatinine of 1.14. No recent chest x-ray. The last one from yesterday showed some atelectatic changes small effusions bilaterally. Objective - Vital Signs Vital signs: Vital Signs Temp 98.7 F 02/13/18 08:45 Pulse 90 02/13/18 11:28 Resp 18 02/13/18 08:45 BP 107/55 02/13/18 08:45 Pulse Ox 100 02/13/18 08:45 Intake & Output 02/12/18 02/13/18 02/13/18 18:59 06:59 18:59 Intake Total 100 Output Total 915 Balance -915 100 Weight 89 kg Intake: Oral 100 Output: Drainage 15 Right Calf 15 Urine 900 Other: Voiding Method Toilet Toilet Toilet ABP, PAP, CO, CI - Last Documented Arterial Blood Pressure 114/64 Pulmonary Artery Pressure 28/15 Cardiac Output 4.8 Cardiac Index 2.4 - Exam - Constitutional General appearance: Present: cooperative, no acute distress, obese - Respiratory Details: Lungs sounds essentially clear to his bilateral upper lobes, few scattered crackles was bilateral bases. Respirations are symmetrical and nonlabored. Oxygen saturation are 97% on room air. He is achieving 1250 mL on his incentive spirometry. - Cardiovascular Details: Regular rhythm and rate. S1 and S2 present, negative for S3, gallop or murmur. Sternum is stable. - Gastrointestinal Gastrointestinal Comment(s): Abdomen is soft, nontender and nondistended. Active bowel sounds all 4 abdominal quadrants. Tolerating oral intake. No bowel movement since surgery. - Genitourinary Genitourinary Comment(s): Voiding clear yellow urine. - Integumentary Integumentary Comment(s): Skin is warm and dry. No clubbing or cyanosis present. Midline sternal incision clean and dry and approximated. No drainage or redness present. Right leg EVH sites clean dry and approximated. No drainage or redness present. The REBEKA drain from the right lower extremity has been removed. - Neurologic Neurologic: Present: CNII-XII intact - Musculoskeletal Musculoskeletal: Present: gait normal, strength equal bilaterally - Psychiatric Psychiatric: Present: A&O x's 3, appropriate affect, intact judgment & insight - Labs CBC & Chem 7: 02/13/18 05:09 02/13/18 05:09 Labs: Abnormal Lab Results - Last 24 Hours (Table) 02/12/18 02/12/18 02/13/18 Range/Units 11:55 20:45 05:09 RBC 2.49 L (4.30-5.90) m/uL Hgb 7.9 L (13.0-17.5) gm/dL Hct 23.2 L (39.0-53.0) % RDW 16.1 H (11.5-15.5) % BUN (9-20) mg/dL Glucose (74-99) mg/dL POC Glucose (mg/dL) 108 H 134 H (75-99) mg/dL Total Protein (6.3-8.2) g/dL 02/13/18 02/13/18 02/13/18 Range/Units 05:09 05:46 11:55 RBC (4.30-5.90) m/uL Hgb (13.0-17.5) gm/dL Hct (39.0-53.0) % RDW (11.5-15.5) % BUN 28 H (9-20) mg/dL Glucose 100 H (74-99) mg/dL POC Glucose (mg/dL) 122 H 142 H (75-99) mg/dL Total Protein 5.4 L (6.3-8.2) g/dL Assessment and Plan Plan: Assessment: #1 Severe triple-vessel coronary artery disease status post coronary artery bypass grafting utilizing a GARRIDO to the LAD, saphenous vein grafts to the RCA, diagonal and OM 1. Postoperative day #5 . The patient is recovering very nicely and the patient has some limited atelectatic changes in lung bases bilaterally on today's chest x-ray. All of the chest is a been removed and the patient is hemodynamically stable. Sternum stable clean and intact. No other significant events over the past 24 hours. In addition, the REBEKA drain from the lower extremity has also been removed. #2 Status post non-ST segment elevation myocardial infarction. #3 History of remote nicotine dependence, in remission #4 Hypothyroidism, both chemical and clinical and the patient improved, numbers improved and remains on oral Synthroid at a dose of 150 g daily basis. #5 Hyperlipidemia. #6 COPD, mild with an FEV1 value 75% of predicted. #7 Degenerative arthritis. #8 Obstructive sleep apnea Plan: Monitor hemoglobin. Continue using incentive spirometer. Continue Synthroid. Encourage use of incentive spirometer and ambulate in the hallway. The patient on aspirin, statin, and metoprolol. No need for oxygen therapy. May possibly go home tomorrow without being in rehabilitation.
[2018-02-13 16:54] LABS: Glucose,Whole Blood 106 mg/dL (75-99)
[2018-02-13 20:53] LABS: Glucose,Whole Blood 146 mg/dL (75-99)
[2018-02-13] MEDS ORDERED: METOPROLOL TARTRATE 12.5 MG TAB PO SCH (21:00)
[2018-02-13] MEDS: SENNOSIDES-DOCUSATE SODIUM 1 EACH TAB PO SCH (21:08)
[2018-02-14] MEDS: HEPARIN SODIUM,PORCINE 5,000 UNIT/ML 1 ML VIAL SQ SCH ×2 (00:39→08:19)
[2018-02-14] MEDS: HYDROcodone/APAP 5-325MG 1 EACH TAB PO PRN ×2 (04:12→08:20)
--- NOTE | 2018-02-14 05:56 | PN ---
PROGRESS NOTE SUBJECTIVE: 72-year-old white male with myocardial infarction, severe profound hypothyroidism, is on Synthroid 150 mcg daily, statins, CABG bypass surgery is being done postop. He is up ambulating 400 feet today. Cardiovascular S1-S2. Lungs clear. GI soft. Hematology negative Homans. Psych: Fair mood and affect. ASSESSMENT: 1. Non ST elevation myocardial infarction. 2. Coronary artery disease. 3. Profound hypothyroidism. Continue on Synthroid 150 mg daily. Standard CABG and coronary artery disease treatment. Discharged home in the morning. MMODL / IJN: [id number] /
[2018-02-14 05:57] LABS: Glucose,Whole Blood 104 mg/dL (75-99)
[2018-02-14 06:02] LABS: Anisocytosis Slight; Basophils % (A) 1 %; Eosinophils # (A) 0.2 k/uL (0-0.7); Eosinophils % (A) 4 %; HCT 23.4 % (39.0-53.0); HGB 7.8 gm/dL (13.0-17.5); Lymphocytes # (A) 0.7 k/uL (1.0-4.8); Lymphocytes % (A) 12 %; MCH 31.1 pg (25.0-35.0); MCHC 33.5 g/dL (31.0-37.0); MCV 92.7 fL (80.0-100.0); Monocytes # (A) 0.6 k/uL (0-1.0); Monocytes % (A) 10 %; Neutrophils # (A) 4.3 k/uL (1.3-7.7); Neutrophils % (A) 71 %; Platelet Count 246 k/uL (150-450); RBC 2.52 m/uL (4.30-5.90); RDW 16.2 % (11.5-15.5); WBC 6.1 k/uL (3.8-10.6)
[2018-02-14 06:17] LABS: Calcium 8.8 mg/dL (8.4-10.2); Potassium 4.8 mmol/L (3.5-5.1)
[2018-02-14] MEDS: INSULIN ASPART 100 UNIT/ML 1 ML 10 ML VIAL SQ SCH ×2 (06:59→11:46)
[2018-02-14] MEDS: LEVOTHYROXINE 75 MCG TAB PO SCH (06:59)
[2018-02-14] MEDS: ASPIRIN 325 MG TAB PO SCH (08:19)
[2018-02-14] MEDS: PANTOPRAZOLE 40 MG TABLET PO SCH (08:20)
[2018-02-14] MEDS: ASCORBIC ACID 500 MG TAB PO SCH (08:20)
[2018-02-14] MEDS: CLOPIDOGREL 75 MG TAB PO SCH (08:20)
[2018-02-14] MEDS: IPRATROPIUM-ALBUTEROL 3 ML NEB INHALATION SCH ×2 (08:22→11:36)
[2018-02-14] MEDS: ROSUVASTATIN 20MG TAB PO SCH (08:33)
[2018-02-14] MEDS ORDERED: FUROSEMIDE 20 MG TAB PO SCH (09:00)
[2018-02-14] MEDS ORDERED: METOPROLOL TARTRATE 25 MG TAB PO SCH (09:00)
--- NOTE | 2018-02-14 09:32 | P.PN ---
Subjective Progress Note Date: 02/14/18 Principal diagnosis: Severe diffuse triple vessel coronary artery disease with left main disease. Non-ST segment elevation myocardial infarction this admission. Severe hypothyroidism with preoperative TSH 46, free T4 0.07. Anemia. Hyperlipidemia. Obstructive sleep apnea without CPAP use. Previous tobacco dependence with preoperative FEV1 75% of predicted. Family history of coronary artery disease. Obesity. POD #6 quadruple coronary artery bypass grafting using the left internal mammary artery to the left anterior descending artery after endarterectomy. Reverse saphenous vein graft from the aorta to the right coronary artery. Reverse saphenous vein graft from the aorta to the first diagonal artery. Reverse saphenous vein graft from the aorta to the obtuse marginal artery. Endoscopic harvesting of the right greater saphenous vein. Intraoperative transesophageal echocardiogram and epi-aortic scanning. Intraoperative graft flow measurements using the Spins.FM system. Postoperative acute blood loss anemia, an expected outcome of surgery. The patient's currently sitting up in the chair in no acute distress. Denies pain, shortness of breath. Has ambulated in the hallway. States he does not want to go to rehab upon discharge, wants to go home with home care. Objective - Vital Signs Vital signs: Vital Signs Temp 98.3 F 02/13/18 20:00 Pulse 92 02/14/18 08:35 Resp 18 02/14/18 04:00 BP 104/65 02/14/18 04:00 Pulse Ox 95 02/14/18 04:00 Intake & Output 02/13/18 02/14/18 02/14/18 18:59 06:59 18:59 Intake Total 100 Balance 100 Weight 95.9 kg Intake: Oral 100 Other: Voiding Method Toilet Toilet # Voids 2 2 ABP, PAP, CO, CI - Last Documented Arterial Blood Pressure 114/64 Pulmonary Artery Pressure 28/15 Cardiac Output 4.8 Cardiac Index 2.4 - Constitutional General appearance: Present: cooperative, no acute distress, obese - Respiratory Details: Lungs sounds diminished bilaterally. Respirations even, nonlabored. Currently on room air with oxygen saturation 95%. Able to achieve 2988-9783 mL on his incentive spirometry. Effective cough. - Cardiovascular Details: S1, S2 present. Regular rate and rhythm, sinus rhythm on telemetry. Sternum stable. Palpable peripheral pulses bilaterally. Trace bilateral lower extremity edema present. No calf pain or tenderness noted. Heart hugger in place with patient demonstrating appropriate use. Antiembolism stockings, SCDs present. - Gastrointestinal Gastrointestinal Comment(s): Abdomen soft, nontender, nondistended. Active bowel sounds present 4 quadrants. Tolerating diet. Positive flatus, negative bowel movement since surgery. - Genitourinary Genitourinary Comment(s): Continues to void clear, yellow urine. - Integumentary Integumentary Comment(s): Skin is warm and dry with evidence of good perfusion. Anterior chest incision well approximated and covered with dry intact dressing. Right lower extremity EVH site well approximated. - Neurologic Neurologic: Present: CNII-XII intact - Musculoskeletal Musculoskeletal: Present: gait normal, strength equal bilaterally - Psychiatric Psychiatric: Present: A&O x's 3, appropriate affect, intact judgment & insight - Allied health notes Allied health notes reviewed: nursing - Labs CBC & Chem 7: 02/14/18 05:32 02/14/18 05:32 Labs: Abnormal Lab Results - Last 24 Hours (Table) 02/13/18 02/13/18 02/13/18 Range/Units 11:55 16:52 20:52 RBC (4.30-5.90) m/uL Hgb (13.0-17.5) gm/dL Hct (39.0-53.0) % RDW (11.5-15.5) % Lymphocytes # (1.0-4.8) k/uL BUN (9-20) mg/dL Glucose (74-99) mg/dL POC Glucose (mg/dL) 142 H 106 H 146 H (75-99) mg/dL 02/14/18 02/14/18 02/14/18 Range/Units 05:32 05:32 05:55 RBC 2.52 L (4.30-5.90) m/uL Hgb 7.8 L (13.0-17.5) gm/dL Hct 23.4 L (39.0-53.0) % RDW 16.2 H (11.5-15.5) % Lymphocytes # 0.7 L (1.0-4.8) k/uL BUN 24 H (9-20) mg/dL Glucose 105 H (74-99) mg/dL POC Glucose (mg/dL) 104 H (75-99) mg/dL Assessment and Plan (1) Non-STEMI (non-ST elevated myocardial infarction) Current Visit: Yes Status: Acute Code(s): I21.4 - NON-ST ELEVATION (NSTEMI) MYOCARDIAL INFARCTION SNOMED Code(s): 897122055 (2) Hyperlipidemia Current Visit: Yes Status: Chronic Code(s): E78.5 - HYPERLIPIDEMIA, UNSPECIFIED SNOMED Code(s): 52738102 (3) Obstructive sleep apnea Current Visit: Yes Status: Chronic Code(s): G47.33 - OBSTRUCTIVE SLEEP APNEA (ADULT) (PEDIATRIC) SNOMED Code(s): 19522107 (4) Tobacco dependence in remission Current Visit: No Status: Resolved Code(s): F17.201 - NICOTINE DEPENDENCE, UNSPECIFIED, IN REMISSION SNOMED Code(s): 077844460 (5) Chronic low back pain Current Visit: Yes Status: Chronic Code(s): M54.5 - LOW BACK PAIN; G89.29 - OTHER CHRONIC PAIN SNOMED Code(s): 735538312 (6) Hypothyroid Current Visit: Yes Status: Chronic Code(s): E03.9 - HYPOTHYROIDISM, UNSPECIFIED SNOMED Code(s): 76228441 (7) Family history of coronary artery disease Current Visit: Yes Status: Chronic Code(s): Z82.49 - FAMILY HX OF ISCHEM HEART DIS AND OTH DIS OF THE CIRC SYS SNOMED Code(s): 412558973 (8) Obesity (BMI 30.0-34.9) Current Visit: Yes Status: Chronic Code(s): E66.9 - OBESITY, UNSPECIFIED SNOMED Code(s): 518046010 (9) Triple vessel coronary artery disease Current Visit: Yes Status: Acute Code(s): I25.10 - ATHSCL HEART DISEASE OF [place] CORONARY ARTERY W/O ANG PCTRS SNOMED Code(s): 086663974 Plan: 1. Continue aspirin, Plavix, statin, heparin subcu, beta konrad. Will increase beta konrad therapy as tolerated. 2. Will add Lasix 20 mg oral daily. 3. Encourage incentive spirometry use 10 times every hour. 4. Encourage continued smoking cessation. 5. Continue Synthroid. 6. Increase activity, ambulate in hallway. PT/OT/cardiac rehab following. 7. Give milk of magnesia and prune juice today. 8. GI/DVT prophylaxis. 9. Discharge planning in progress. Anticipate discharge to home with home care this afternoon. Time with Patient: Greater than 30
--- NOTE | 2018-02-14 11:01 | P.PN ---
Subjective Progress Note Date: 02/14/18 Principal diagnosis: Non-ST segment elevation myocardial infarction, severe triple-vessel coronary disease. Status post coronary artery bypass grafting utilizing the GARRIDO to the LAD, saphenous vein grafts to the RCA, diagonal and OM1. This is a very pleasant 72-year-old gentleman who was admitted here on 2017 from [facility] with complaints of chest discomfort. The EKG had some nonspecific changes. His troponins were found to be elevated and he ruled in for a non-ST segment elevation myocardial infarction. He also had significant clinical and chemical hypothyroidism and was initiated on Synthroid. His numbers have improved. CT angiogram ruled out pulmonary embolism and aortic dissection. He had subsequently undergone cardiac catheterization that same day that revealed severe triple-vessel disease with 70 % left main stenosis, 60% diffuse proximal LAD stenosis, 90% mid LAD stenosis and 50% ostial circumflex stenosis. The right coronary artery was diffusely diseased with a distal RCA of 60% stenosis, PDA branch 80% stenosis in the midportion of the PDA branch another 80% stenosis. Echocardiogram revealed preserved left ventricular systolic function with an ejection fraction 55-60%. He was recommended coronary artery bypass grafting. He is seen and evaluated today 02/08/2018 in the immediate postoperative period in the intensive care unit. He is currently intubated and on the mechanical ventilator in the SIMV mode at a rate of 12, tidal volume 500, pressure support of 5 and a PEEP of 5. Arterial blood gases reveal a P O2 of 295, pCO2 38, pH 7.38. This is on FiO2 of 100% and will be titrated accordingly. Chest x-ray reveals good position of the endotracheal tube. There is a mediastinal and left chest tube in place. Right jugular catheter with its tip in the right pulmonary artery. Nasogastric tube in place. No evidence of pneumothorax. There there are minor infiltrates more so on the left. He is sedated on propofol at 50 mcg/kg/m. He is on nitroglycerin drip at 5 mcg/m. Primacor at 0.3 mcg/kg/m and lactated Ringer's at 50 MLS per hour. He has received 2 units of albumin and 3 units of packed red blood cells. PA pressure 24/14 with a mean of 18. CVP 11. Cardiac index 1.8. Backup pacer is in place. Currently in sinus rhythm at a rate of 70. White count 6.0. Hemoglobin 8.9. INR 1.3. On 02/09/2018 I'm seeing this patient for a follow-up. The patient is postop day #1. The patient was weaned off the mechanical ventilated and the patient was extubated yesterday at around midnight without any major difficulties. This morning the patient is awake and alert and following commands and answering questions. The patient has a cardiac index of 2.4. Pulmonary artery pressure 24/12. The patient was noted to be hypotensive earlier and the patient was given a total of 3 A of 5% albumin. The fourth dose is being given right done and suggested to put some low-dose norepinephrine infusion for blood pressure control. The patient is currently off nitroglycerin drip. The patient is also off milrinone. The patient is resting comfortably on a chair. He is slightly hypothermic with a temperature of 95. Heart rate is around mid 70s sinus. The patient is producing adequate amount of urine output. The patient has a mediastinal and a left pleural chest tube and the total amount of output from the left chest tube is 80 disease over the past 8 hours and 140 mL since surgery. The mediastinal chest tube was put up to 110 mL over the past 8 hours and follow 30 mL since surgery. The patient has a AV epicardial pacemaker wire in place and the pacemaker generator is at the backup at the rate of 50, VVI mode. The patient has a right IJ Cordis and [place]manda catheter which is also in place. The patient denies having any significant pain. He is using incentive spirometer. Chest x-ray was reviewed and shows adequate expansion of both lungs with some atelectatic changes small effusion the lung base bilaterally. No pneumothorax. No other significant events overnight. The REBEKA drain in the right lower extremities in place and has put out approximately 80 mL of output since surgery. On 02/10/2018 I'm seeing this patient for a follow-up. The patient is post triple-vessel bypass surgery. The patient is postop day #2. The patient doing well. The [place]Amanda catheter is still in place.. The patient is on Primacor at low-dose to augment the cardiac output. No pressors for now. Producing adequate amount of urine output. Chest tube site is clean and there is some pain at the sternum and the chest tube insertion site. The patient is around 3 out of 10 in severity. Chest x-ray shows adequate expansion of both lungs, no pneumothorax and the chest tube is in good location. Note that the output from the mediastinal chest tube has been 70 mL over the past 8 hours to 50 mL since 24 hours. Output from the left pleural chest tube has been 50 mL over the past 8 hours and to 40 mL over the past 24 hours. Pulse oximetry 93% on room air. Cardiac rhythm is sinus. The patient is not hypothermic at this point. There is a REBEKA drain in the right lower extremity wound which has drained 50 mL over the past 8 hours and 60 mL over the past 24 hours. The patient has no other complaints otherwise for now. Earlier, the cardiac output was at 4.5 with an index of 2.2. The patient is seen again today 02/11/2018 in follow-up on the selective care unit. He is currently sitting up in a chair at the bedside. He is awake and alert in no acute distress. He denies any worsening shortness of breath, cough or congestion. He's working well with the incentive spirometer. Sided chest tube has been removed. Pacemaker wires are removed as well. His chest x-ray reveals some mild cardiomegaly and pulmonary venous congestion with some pleural parenchymal opacities in the lung bases. He is maintaining good O2 saturations in the upper 90s on room air. His been afebrile. Since sinus rhythm. Pain is well controlled. Count 5.3, hemoglobin 8.5, creatinine 0.90. He remains in a negative balance. On 02/12/2018 I'm seeing this patient for a follow-up. The patient is looking well. The patient sitting up on a chair. No specific complaints. All of the chest is a been removed. No cough sputum production chest that is so wheezing. Chest x-ray shows atelectatic changes in lung bases and small pleural effusions. The thyroid hormone levels are improving. The patient has been switched to oral levothyroxine 150 g by mouth daily. Using incentive spirometer. No other significant events overnight. On 02/13/2018, the patient is ambulating. No respiratory difficulties. More than thousand is being pulled on the incentive spirometer. Hemoglobin is stable at 7.9. The area function is stable with a creatinine of 1.14. No recent chest x-ray. The last one from yesterday showed some atelectatic changes small effusions bilaterally. The patient is seen again today 02/14/2018 in follow-up on the selective care unit. He is currently sitting up in a chair at the bedside. He is awake and alert in no acute distress. He denies any shortness of breath, cough or congestion. Maintaining good O2 saturations in the 90s on room air. Working well with the incentive spirometer. No pulmonary complaints. White count 6.1. Hemoglobin 7.8. Creatinine 1.20. Objective - Vital Signs Vital signs: Vital Signs Temp 97.5 F L 02/14/18 08:19 Pulse 92 02/14/18 08:35 Resp 18 02/14/18 08:19 BP 102/59 02/14/18 09:52 Pulse Ox 98 02/14/18 08:19 Intake & Output 02/13/18 02/14/18 02/14/18 18:59 06:59 18:59 Intake Total 100 Balance 100 Weight 95.9 kg Intake: Oral 100 Other: Voiding Method Toilet Toilet Toilet # Voids 2 2 ABP, PAP, CO, CI - Last Documented Arterial Blood Pressure 114/64 Pulmonary Artery Pressure 28/15 Cardiac Output 4.8 Cardiac Index 2.4 - Exam Gen. appearance the patient is calm and comfortable likely distress. Head exam was generally normal. There was no scleral icterus or corneal arcus. Mucous membranes were moist. Neck was supple and without jugular venous distension, thyromegaly, or carotid bruits. Carotids were easily palpable bilaterally. There was no adenopathy. Lungs sounds are diminished bilaterally especially lung bases. Stable sternum. Cardiac exam revealed the PMI to be normally situated and sized. The rhythm was regular and no extrasystoles were noted during several minutes of auscultation. The first and second heart sounds were normal and physiologic splitting of the second heart sound was noted. There were no murmurs, rubs, clicks, or gallops. Abdominal exam revealed normal bowel sounds. The abdomen was soft, non-tender, and without masses, organomegaly, or appreciable enlargement of the abdominal aorta. Examination of the extremities revealed easily palpable radial, femoral and pedal pulses. There was no cyanosis, clubbing or edema. Skin is cold and dry. No cyanosis or clubbing. No drainage from the right lower extremity wounds or any other location. No erythema. No cellulitis. Neurologically the patient is awake and alert and there is no focal neurological deficits. Psychiatrically the patient is appropriate insight and judgment and molds. - Labs CBC & Chem 7: 02/14/18 05:32 02/14/18 05:32 Labs: Abnormal Lab Results - Last 24 Hours (Table) 02/13/18 02/13/18 02/13/18 Range/Units 11:55 16:52 20:52 RBC (4.30-5.90) m/uL Hgb (13.0-17.5) gm/dL Hct (39.0-53.0) % RDW (11.5-15.5) % Lymphocytes # (1.0-4.8) k/uL BUN (9-20) mg/dL Glucose (74-99) mg/dL POC Glucose (mg/dL) 142 H 106 H 146 H (75-99) mg/dL 02/14/18 02/14/18 02/14/18 Range/Units 05:32 05:32 05:55 RBC 2.52 L (4.30-5.90) m/uL Hgb 7.8 L (13.0-17.5) gm/dL Hct 23.4 L (39.0-53.0) % RDW 16.2 H (11.5-15.5) % Lymphocytes # 0.7 L (1.0-4.8) k/uL BUN 24 H (9-20) mg/dL Glucose 105 H (74-99) mg/dL POC Glucose (mg/dL) 104 H (75-99) mg/dL Assessment and Plan Assessment: Assessment: #1 Severe triple-vessel coronary artery disease status post coronary artery bypass grafting utilizing a GARRIDO to the LAD, saphenous vein grafts to the RCA, diagonal and OM 1. Postoperative day #3. #2 Status post non-ST segment elevation myocardial infarction. #3 History of remote nicotine dependence, in remission #4 Hypothyroidism, both chemical and clinical and the patient improved, numbers improved and remains on IV Synthroid. #5 Hyperlipidemia. #6 COPD, mild with an FEV1 value 75% of predicted. #7 Degenerative arthritis. #8 Obstructive sleep apnea Plan: The patient was seen and evaluated by Dr. Oh. The patient is cleared for discharge from the pulmonary standpoint. He'll continue to work well with the incentive spirometer at home. He should follow-up in our office in 1-2 weeks' time. We could repeat a chest x-ray then. He and his however both encouraged to call sooner with any questions or concerns. I, the cosigning physician, performed a history & physical examination of the patient. Lungs sounds are clear anteriorly with crackles in the posterior bases. Maintaining good O2 saturations in the 90s on room air. I discussed the assessment and plan of care with my nurse practitioner, Corrie Walters. I attest to the above note as dictated by her.
[2018-02-14 11:26] VITALS: BP 81/52; TEMP 97.1
[2018-02-14 11:40] LABS: Glucose,Whole Blood 98 mg/dL (75-99)
[2018-02-14 11:50] VITALS: PULSE 86
[2018-02-14] MEDS: FERROUS SULFATE 325 MG TAB PO SCH (11:56)
--- NOTE | 2018-02-14 12:18 | PN ---
PROGRESS NOTE DATE OF SERVICE: 02/11/2018 This patient is status post coronary artery bypass surgery. Patient is feeling well. He is comfortable, resting comfortably. Denies any respiratory distress. The patient's blood pressure is 90/54 mmHg. First and second heart sounds are normal. The lungs are clinically clear to auscultation and percussion. Patient's hemoglobin is 8.1, electrolytes are normal. Creatinine is normal. Patient will continue the current medications and patient would be ambulated. MMODL / IJN: [id number] /
--- NOTE | 2018-02-14 12:25 | P.DS ---
<Martina Dailey - Last Filed: 02/14/18 12:24> Providers Date of admission: 01/31/18 03:43 Expected date of discharge: 02/14/18 Attending physician: Genoveva Meraz Consults: 01/31/18 03:43 Consult Physician Urgent Consulting Provider: Jayden Tirado Consult Reason/Comments: Chest pain Do you want consulting provider notified?: Yes 01/31/18 13:26 Consult Physician Routine Consulting Provider: Umer Mack Consult Reason/Comments: pre-op open heart Do you want consulting provider notified?: Yes 01/31/18 16:01 Consult to Anesthesia Routine Consulting Provider: Anesthesia,Services Consult Reason/Comments: Cardiac Surgery Pre-Op 02/01/18 14:50 Consult Physician Routine Consulting Provider: Genoveva Meraz Consult Reason/Comments: open heart Do you want consulting provider notified?: Already Contacted 02/08/18 16:02 Consult Physician Routine Consulting Provider: Oliver Shannon Consult Reason/Comments: Medical management Do you want consulting provider notified?: Already Contacted Primary care physician: Stated None - Discharge Diagnosis(es) (1) Non-STEMI (non-ST elevated myocardial infarction) Status: Acute (2) Hyperlipidemia Status: Chronic (3) Obstructive sleep apnea Status: Chronic (4) Tobacco dependence in remission Status: Resolved (5) Chronic low back pain Status: Chronic (6) Hypothyroid Status: Chronic (7) Family history of coronary artery disease Status: Chronic (8) Obesity (BMI 30.0-34.9) Status: Chronic (9) Triple vessel coronary artery disease Status: Acute Hospital Course: FINAL DIAGNOSIS: 1. Severe diffuse triple-vessel coronary artery disease with left main disease 2. Non-ST segment elevation myocardial infarction 3. Severe hypothyroidism 4. History of anemia 5. Hyperlipidemia 6. Obstructive sleep apnea without CPAP use 7. Previous tobacco dependence with preoperative FEV1 75% predicted 8. Family history of coronary artery disease 9. Obesity 10. Postoperative acute blood loss anemia PRINCIPAL PROCEDURE: 1. Quadruple coronary artery bypass grafting using the left internal mammary artery to the left anterior descending artery after endarterectomy. Reverse saphenous vein graft from the aorta to the right coronary artery. Reverse saphenous vein graft from the aorta to the first diagonal artery. Reverse saphenous vein graft from the aorta to the obtuse marginal artery. 2. Endoscopic harvesting of the right greater saphenous vein 3. Intraoperative transesophageal echocardiogram 4. Epi-aortic scanning 5. Intraoperative graft flow measurements using the Medistim system HISTORY OF PRESENT ILLNESS: This is a 72-year-old gentleman who had not seen a primary care physician in over a year. He presented to [facility] with complaints of chest pain/pressure with radiation to his back, both arms, and his jaw. It was relieved with movement, and aggravated by laying still. He denied any other correlating symptoms. EKG performed at [facility] demonstrated sinus rhythm with no ischemic changes and his initial troponin was negative. He was transported to [facility] for further workup and evaluation. His second troponin was positive and he was ruled in for non-ST elevation myocardial infarction. He was taken to cardiac catheterization lab which demonstrated distal left main stenosis 70%, mid LAD stenosis 90%, RCA stenosis 50-60%, ostial circumflex stenosis 50%, and PDA 80% stenosis. Left ventriculogram was completed demonstrating normal LV function. He had an echocardiogram completed demonstrating an ejection fraction of 55-60% , trace mitral regurgitation, and trace tricuspid regurgitation. Dr. Singh from cardiothoracic surgery was consulted for the possibility of surgical revascularization. An extensive discussion was had with the patient and his family, risks and benefits were explained, and consent was obtained to proceed with surgery. Preoperative testing was completed, and the patient was incidentally found to have severe hypothyroidism which was treated with initiation of Synthroid. HOSPITAL COURSE: On 02/08/2018 the patient was taken to the preoperative area, prepared in the usual fashion, and subsequently taken to the operating room where Dr. Meraz performed an urgent quadruple coronary artery bypass grafting using the left internal mammary artery to the left anterior descending artery after endarterectomy, reverse saphenous vein graft from the aorta to the right coronary artery, reverse saphenous vein graft from the aorta to the first diagonal artery, reverse saphenous vein graft from the aorta to the obtuse marginal artery, endoscopic harvesting of the right greater saphenous vein, intraoperative transesophageal echocardiogram, epi-aortic scanning, and intraoperative graft flow measurements using the Medistim system. Upon completion of surgery the patient was transferred to the cardiovascular intensive care unit where he was recovered, monitored hemodynamically, and where he progressed to cardiac rehabilitation phase 1. He was extubated, all lines, tubes, and drips were discontinued when appropriate, and he was transferred to 6 E. selective care for further monitoring and rehabilitation. He did have an episode of postoperative acute blood loss anemia which was treated with transfusion. His oxygen was titrated down, he continued to work with physical therapy, and was ready to be discharged home on postoperative day #6 with [facility] to follow. He received written and verbal instruction regarding his medications, activity restrictions, signs and symptoms requiring physician notification, and follow-up appointments. COMPLICATIONS: The patient experienced postoperative acute blood loss anemia which was treated accordingly. Patient Condition at Discharge: Good Plan - Discharge Summary Discharge Rx Participant: Yes New Discharge Prescriptions: New Aspirin 325 mg PO DAILY #30 tab Clopidogrel [Plavix] 75 mg PO DAILY #30 tab Furosemide [Lasix] 20 mg PO DAILY #7 tab HYDROcodone/APAP 5-325MG [Heron 5-325] 1 each PO Q4HR PRN #60 tab PRN Reason: Moderate Pain Levothyroxine Sodium [Synthroid] 150 mcg PO DAILY@0630 #60 tab Metoprolol Tartrate [Lopressor] 12.5 mg PO BID #30 tab Pantoprazole [Protonix] 40 mg PO DAILY #30 tablet.dr Patel-Docusate Sodium [Senokot-S] 2 each PO HS #30 tab Discharge Medication List Aspirin 325 mg PO DAILY #30 tab 02/14/18 [Rx] Clopidogrel [Plavix] 75 mg PO DAILY #30 tab 02/14/18 [Rx] Furosemide [Lasix] 20 mg PO DAILY #7 tab 02/14/18 [Rx] HYDROcodone/APAP 5-325MG [Heron 5-325] 1 each PO Q4HR PRN #60 tab 02/14/18 [Rx] Levothyroxine Sodium [Synthroid] 150 mcg PO DAILY@0630 #60 tab 02/14/18 [Rx] Metoprolol Tartrate [Lopressor] 12.5 mg PO BID #30 tab 02/14/18 [Rx] Pantoprazole [Protonix] 40 mg PO DAILY #30 tablet. 02/14/18 [Rx] Katyas-Docusate Sodium [Senokot-S] 2 each PO HS #30 tab 02/14/18 [Rx] Follow up Appointment(s)/Referral(s): Genoveva Meraz MD [STAFF PHYSICIAN] - 03/18/18 11:00 am (Wednesday) Oliver Shannon MD [STAFF PHYSICIAN] - 03/01/18 10:30 am (Wednesday.) Umer Mack DO [Doctor of Osteopathic Medicine] - 03/01/18 1:00 pm (Wednesday) [facility], [NON-STAFF] - Megan Justice MD [STAFF PHYSICIAN] - 03/01/18 2:00 pm (At [place] [address] [facility] Ambulatory/Diagnostic Orders: Complete Blood Count w/diff [LAB.AMB] Time Frame: 3 Days, Location: Determined By Patient Comprehensive Metabolic Panel [LAB.AMB] Time Frame: 3 Days, Location: Determined By Patient Patient Instructions/Handouts: Sternal Precautions (GEN), Coronary Artery Bypass Graft (DC) Activity/Diet/Wound Care/Special Instructions: DISCHARGE INSTRUCTIONS: 1. No driving for 4 weeks, or until physician gives their ok. 2. The patient should sleep in their own bed, no medical bed needed. 3. Stairs are not an issue. If the bedroom is upstairs, it is advised that the patient go up at night and down in the morning for the first week. Go slowly, using handrail and take 1 step at a time. 4. JACLYN hose are to be worn for 30 days or until physician discontinues. 5. Heart hugger is to be worn 100% of the time until physician discontinues.( except when showering) 6. No lifting, pushing, or pulling more than 10 pounds for 12 weeks. The physician will advise of any restriction changes. 7. The patient is expected to continue the prescribed walking program. 8. Continue pain control per as needed orders. 9. Continue with incentive spirometry and splinting/heart hugger until otherwise directed by the physician. 10. Must shower daily using liquid antibacterial soap and a separate white washcloth for each individual incision. 11. Routine sternal incision care. No powders, lotions, ointments on incisions. 12. Please call surgeon/AUTO RADIATOR MECHANIC for temp greater than 101 F or purulent drainage from incisions. 13. All prescriptions given by surgeon for 30 days. Refills need to be filled through entry level java developer/primary care physician. HOME HEALTH SERVICES TO PROVIDE: RN SKILLED HOME CARE SERVICES FOR POST-OP SURGICAL PATIENTS WITH THE FOLLOWING: Coronary Artery Bypass Surgery (CABG), Mitral Valve Replacement/ Repair ( MVR), Aortic Valve Replacement/Repair (AVR) RN TO CONTINUE EDUCATION FROM ``ROAD TO A HEALTH HEART PATIENT EDUCATION MANUAL (GIVEN TO PATIENT IN THE HOSPITAL) MEDICATION RECONCILIATION WITH EDUCATION NEEDED ON FIRST HOME VISIT EMPHASIZE IMPORTANCE OF WEARING BREAST SUPPORT/HEART HUGGER ENCOURAGE USE OF INCENTIVE SPIROMETER 10 X EVERY HOUR WHILE AWAKE ENCOURAGE UTILIZATION OF LOWER EXTREMITY COMPRESSION STOCKINGS/JACLYN HOSE and ELEVATE LEGS ABOVE LEVEL OF HEART WHILE AT REST. ENCOURAGE AMBULATION 3-5x/day INCREASING TOLERATES, WHILE AVOID EXTREMES IN TEMPERATURE FREQUENCY: RN TO OPEN THE PATIENT WITHIN 24 HOURS OF DISCHARGE FROM THE HOSPITAL WITH TELEHEALTH INSTALLED AT [facility] [place], RN TO VISIT 2-3 X A WEEK FOR 4 WEEKS ESTABLISHED BY PATIENT NEEDS. LABORATORY: CBC, CMP TO BE DRAWN ON THE THIRD DAY HOME, 02/17/2018 (RAN STAT ) FAX RESULTS TO [phone]. TELEHEALTH PARAMETERS: WEIGHT: NOTIFY MD OF WEIGHT GAIN OF 2 LBS IN 24 HOURS OR 5 LBS IN ONE WEEK HR: NOTIFY MD OF HR <55 BPM OR HR>100 BPM BP: NOTIFY MD IF BP <90/55 OR BP>140/100 O2 SAT: NOTIFY MD IF PO2<93% ON ROOM AIR SEND TELEHEALTH REPORT TO POWER HAIR CLIPPER AND CARDIOVASCULAR SURGEON THE FIRST WEEK OF CARE AND THEN BI-WEEKLY. PLEASE ADDITIONALLY COMMUNICATE ANY ABNORMALS AND NEW FINDINGS TO THE SURGEONS OFFICE. A Red armband has been placed on the patient. It should be worn for 30 days post surgery and will be removed by the cardiac surgeons. If an ER visit is necessary, please make sure the number on the Red armband is called. Discharge Disposition: HOME WITH HOME HEALTH SERVICES <Genoveva Meraz - Last Filed: 02/14/18 16:22> Hospital Course: IV Thyroid hormones were administered for a week and the FreeT4 had started climbing before we proceeded with surgery that was post-poned for that reason
--- NOTE | 2018-02-14 14:09 | P.PN ---
Subjective Progress Note Date: 02/14/18 This is a 72-year-old gentleman was transferred here originally from [facility] with a non-Q-wave myocardial infarction. Underwent cardiac catheterization which revealed severe triple-vessel coronary artery disease. Patient is awaiting coronary artery bypass grafting surgery but because of elevated thyroid levels as is currently been placed on hold. Patient had taken Lipitor in the past, he apparently had significant muscle aching from this and was changed to Crestor as an outpatient which she is able to tolerate. I did speak with pharmacy today, we will initiate Crestor on this patient. We will also put him on a baby aspirin daily. Blood pressure today 104/60 with a heart rate in the 60s, 94% on room air. Hemoglobin 10.5, potassium 4.7, BUN 23, creatinine 1.1. TSH 45, free T4 0.16. Patient was seen and examined this morning, has no complaints, feeling well overall. Denies any episodes of chest discomfort. 02/04/2018 Patient seen and examined today, denies any chest pain or difficulty in breathing. TSH level XLV.8, T4 0.16. Blood pressure 98/60. Denies any chest pain or difficulty in breathing. 02/07/2018 Patient was seen and examined this morning, breathing is overall stable, he's been up ambulating without any difficulty. White blood cell count 5.2, hemoglobin 10.0, platelet count 160. Sodium 140, potassium 4.4, BUN 22, creatinine 1.2. Patient is scheduled to undergo coronary artery bypass grafting surgery tomorrow. 02/12/2018 Patient was seen and examined this morning, progressing well overall. Reaching 1250 on his incentive spirometry. Blood pressure 92/50 with a heart rate in the 90s. Hemoglobin 8.1, platelet count 155. Sodium 138, potassium 4.4, BUN 25 , creatinine 1.1. 02/14/2018 Patient seen and examined this morning, doing well overall. Plan is to discharge home today. Blood pressure 102/60, heart rate in the 80s. White blood cell count 6.1, hemoglobin 7.8, platelet count 246. Sodium 139, potassium 4.8, BUN 24, creatinine 1.2. Objective - Vital Signs Vital signs: Vital Signs Temp 97.1 F L 02/14/18 11:15 Pulse 86 02/14/18 11:46 Resp 18 02/14/18 11:15 BP 81/52 02/14/18 11:15 Pulse Ox 96 02/14/18 11:15 Intake & Output 02/13/18 02/14/18 02/14/18 18:59 06:59 18:59 Intake Total 100 237 Balance 100 237 Weight 95.9 kg Intake: Oral 100 237 Other: Voiding Method Toilet Toilet Toilet # Voids 2 2 ABP, PAP, CO, CI - Last Documented Arterial Blood Pressure 114/64 Pulmonary Artery Pressure 28/15 Cardiac Output 4.8 Cardiac Index 2.4 - Exam PHYSICAL EXAMINATION: HEENT: Head is atraumatic, normocephalic. Pupils equal, round. Neck is supple. There is no elevated jugular venous pressure. HEART EXAMINATION: Heart S1, S2 normal. No murmur or gallop heard. Sternum is stable. Heart hugger in place. CHEST EXAMINATION: Lungs reveal crackles to bilateral bases. ABDOMEN: Soft, nontender. Bowel sounds are heard. No organomegaly noted. EXTREMITIES: 2+ peripheral pulses with no evidence of peripheral edema and no calf tenderness noted. NEUROLOGIC patient is awake, alert and oriented -3. . - Labs CBC & Chem 7: 02/14/18 05:32 02/14/18 05:32 Labs: Abnormal Lab Results - Last 24 Hours (Table) 02/13/18 02/13/18 02/14/18 Range/Units 16:52 20:52 05:32 RBC 2.52 L (4.30-5.90) m/uL Hgb 7.8 L (13.0-17.5) gm/dL Hct 23.4 L (39.0-53.0) % RDW 16.2 H (11.5-15.5) % Lymphocytes # 0.7 L (1.0-4.8) k/uL BUN (9-20) mg/dL Glucose (74-99) mg/dL POC Glucose (mg/dL) 106 H 146 H (75-99) mg/dL 02/14/18 02/14/18 Range/Units 05:32 05:55 RBC (4.30-5.90) m/uL Hgb (13.0-17.5) gm/dL Hct (39.0-53.0) % RDW (11.5-15.5) % Lymphocytes # (1.0-4.8) k/uL BUN 24 H (9-20) mg/dL Glucose 105 H (74-99) mg/dL POC Glucose (mg/dL) 104 H (75-99) mg/dL Assessment and Plan Plan: Assessment and plan #1 non-ST elevation myocardial infarction, s/p coronary artery bypass grafting surgery #2 hyperlipidemia #3 nicotine dependence #4 obstructive sleep apnea Plan From cardiology's perspective, we will recommend the patient continue on current medications. Patient is to be discharged home later today, we will make him a follow-up appointment in the office post discharge. DNP note has been reviewed, I agree with a documented findings and plan of care. Patient was seen and examined.
--- NOTE | 2018-02-14 15:00 | PN ---
PROGRESS NOTE CHIEF COMPLAINT: A 72-year-old white male with a myocardial infarction, CABG surgery profound hypothyroidism. He is going to go home on Synthroid 150 mcg today p.o. daily. Check a thyroid level in couple weeks. Vital signs stable, afebrile. CARDIOVASCULAR: S1, S2. LUNGS: Clear. GI: Soft. HEMATOLOGY: Negative Homans. ASSESSMENT: As above. Discharge home today, clinically stable. MMODL / IJN: [id number] /
== END 2018-02-14 13:39 | disposition home health service (06) | DRG 229 ==
LOC: EC 02:03 → 6ICU 03:43 → 6SEL 02-02 11:29 → UNDODISIN 02-08 09:17 → 6ICU 02-08 09:57 → 6SEL 02-11 10:27
PROVIDERS: ADMIT Family Medicine; ATTEND Surgery
PROC: B2151ZZ Fluoroscopy of Left Heart using Low Osmolar Contrast (ICD-10-PCS; principal; 2018-01-31 11:00)
PROC: 4A023N7 Measurement of Cardiac Sampling and Pressure, Left Heart, Percutaneous Approach (ICD-10-PCS; principal; 2018-01-31 11:00)
PROC: B2111ZZ Fluoroscopy of Multiple Coronary Arteries using Low Osmolar Contrast (ICD-10-PCS; principal; 2018-01-31 11:00)
PROC: 02100Z9 Bypass Coronary Artery, One Artery from Left Internal Mammary, Open Approach (ICD-10-PCS; 2018-02-08 08:00)
PROC: 06BP4ZZ Excision of Right Saphenous Vein, Percutaneous Endoscopic Approach (ICD-10-PCS; 2018-02-08 08:00)
PROC: 4A0305C Measurement of Arterial Flow, Coronary, Open Approach (ICD-10-PCS; 2018-02-08 08:00)
PROC: 5A1221Z Performance of Cardiac Output, Continuous (ICD-10-PCS; 2018-02-08 08:00)
PROC: 021209W Bypass Coronary Artery, Three Arteries from Aorta with Autologous Venous Tissue, Open Approach (ICD-10-PCS; 2018-02-08 08:00)
PROC: B246ZZ4 Ultrasonography of Right and Left Heart, Transesophageal (ICD-10-PCS; 2018-02-08 08:00)
PROC: 02C00ZZ Extirpation of Matter from Coronary Artery, One Artery, Open Approach (ICD-10-PCS; 2018-02-08 08:00)
DX: I21.4 Non-ST elevation (NSTEMI) myocardial infarction (principal); D62 Acute posthemorrhagic anemia; D69.6 Thrombocytopenia, unspecified; E03.9 Hypothyroidism, unspecified; E66.9 Obesity, unspecified; Z68.31 Body mass index [BMI] 31.0-31.9, adult; E78.00 Pure hypercholesterolemia, unspecified; E78.5 Hyperlipidemia, unspecified; E86.0 Dehydration; F17.201 Nicotine dependence, unspecified, in remission; G47.33 Obstructive sleep apnea (adult) (pediatric); G89.29 Other chronic pain; M54.5 Low back pain; I25.119 Atherosclerotic heart disease of native coronary artery with unspecified angina pectoris; J44.9 Chronic obstructive pulmonary disease, unspecified; M19.90 Unspecified osteoarthritis, unspecified site; Z79.899 Other long term (current) drug therapy; Z82.49 Family history of ischemic heart disease and other diseases of the circulatory system; Z90.49 Acquired absence of other specified parts of digestive tract; I95.9 Hypotension, unspecified; Z88.5 Allergy status to narcotic agent
CPT/HCPCS: 36415; 36430; 71045; 71046; 80048; 80053; 80061; 80074; 81003; 82330; 82550; 82553; 82805; 83036; 83735; 84439; 84443; 84484; 85025; 85027; 85520; 85610; 85730; 86850; 86891; 86900; 86901; 86920; 87070; 87086; 88304; 93005; 93306; 93458; 93880; 93923; 93930; 93970; 94002; 94150; 94640; 94760; 96365; 96376; 99291

== ENCOUNTER 2023-04-07 07:20 | Inpatient (IN) | payer MEDICARE ==
[2023-04-07] MEDS ORDERED: NALOXONE 0.4 MG/ML 1 ML VIAL IV PRN (07:39)
--- NOTE | 2023-04-07 07:39 | ED ---
General Adult HPI - General Chief complaint: Chest Pain Stated complaint: Chest Pain Time Seen by Provider: 04/07/23 07:21 Source: patient, EMS, RN notes reviewed, old records reviewed Mode of arrival: EMS Limitations: no limitations - History of Present Illness Initial comments: 77-year-old male who presented from [place] as a transfer for evaluation of chest pain. Patient had workup including EKG, laboratory testing, CT of the chest [place]. His troponin was negative. Patient had a upper chest pain with radiation to the left arm and jaw. No diaphoresis. No vomiting. He has history of previous coronary artery bypass grafting - Related Data Previous Rx's Medication Instructions Recorded Aspirin 325 mg PO DAILY #30 tab 02/14/18 Clopidogrel [Plavix] 75 mg PO DAILY #30 tab 02/14/18 Furosemide [Lasix] 20 mg PO DAILY #7 tab 02/14/18 HYDROcodone/APAP 5-325MG [[place] 1 each PO Q4HR PRN #60 tab 02/14/18 5-325] Levothyroxine Sodium [Synthroid] 150 mcg PO DAILY@0630 #60 tab 02/14/18 Metoprolol Tartrate [Lopressor] 12.5 mg PO BID #30 tab 02/14/18 Pantoprazole [Protonix] 40 mg PO DAILY #30 tablet. 02/14/18 Sennosides-Docusate Sodium 2 each PO HS #30 tab 02/14/18 [Senokot-S] Non Formulary Drug 1 tab PO HS #30 misc 02/16/18 Allergies Allergy/AdvReac Type Severity Reaction Status Date / Time atorvastatin [From Lipitor] AdvReac Chest Pain Verified 04/07/23 07:31 morphine AdvReac Hallucinati Verified 04/07/23 07:31 ons Review of Systems ROS Statement: Those systems with pertinent positive or pertinent negative responses have been documented in the HPI. ROS Other: All systems not noted in ROS Statement are negative. Past Medical History Past Medical History: Coronary Artery Disease (CAD), Hyperlipidemia, Sleep Apnea/CPAP/BIPAP History of Any Multi-Drug Resistant Organisms: None Reported Past Surgical History: Cholecystectomy, Orthopedic Surgery Additional Past Surgical History / Comment(s): right shoulder rotator cuff Past Psychological History: No Psychological Hx Reported Past Alcohol Use History: None Reported Past Drug Use History: None Reported General Exam General appearance: alert, in no apparent distress Head exam: Present: atraumatic, normocephalic Eye exam: Present: normal appearance, PERRL ENT exam: Present: normal exam Neck exam: Present: normal inspection Respiratory exam: Present: normal lung sounds bilaterally. Absent: respiratory distress, wheezes Cardiovascular Exam: Present: normal rhythm, bradycardia GI/Abdominal exam: Present: soft. Absent: distended, tenderness, guarding Extremities exam: Present: normal inspection, normal capillary refill Neurological exam: Present: alert, oriented X3, CN II-XII intact. Absent: motor sensory deficit Psychiatric exam: Present: normal affect, normal mood Skin exam: Present: warm, dry, intact. Absent: cyanosis, diaphoretic Course Vital Signs 04/07/23 07:23 Temperature 97.9 F Pulse Rate 52 L Respiratory 18 Rate Blood Pressure 134/72 O2 Sat by Pulse 96 Oximetry Medical Decision Making - Medical Decision Making Was pt. sent in by a medical professional or institution (, PA, ASSEMBLER SHOW MOTOR, urgent care, hospital, or skilled nursing...) When possible be specific @ -[Patient sent from [facility] Did you speak to anyone other than the patient for history (EMS, parent, family, police, friend...)? What history was obtained from this source @ -No Did you review nursing and triage notes (agree or disagree)? Why? @ -I reviewed and agree with nursing and triage notes Were old charts reviewed (outside hosp., previous admission, EMS record, old EKG, old radiological studies, urgent care reports/EKG's, skilled nursing records)? Report findings @ -No old charts were reviewed Differential Diagnosis (chest pain, altered mental status, abdominal pain women, abdominal pain men, vaginal bleeding, weakness, fever, dyspnea, syncope, headache, dizziness, GI bleed, back pain, seizure, CVA, palpatations, mental health, musculoskeletal)? @ -Differential Chest Pain: Stable Angina, Unstable Angina, STEMI, NSTEMI Aortic Dissection, Pneumothorax, Musculoskeletal, Esophageal Spasm GERD, Cholecystitis, Pancreatitis, Zoster, this is not meant to be an all-inclusive list. EKG interpreted by me (3pts min.). @ First EKG Sinus bradycardia rate of 52, OK interval 173, QRS duration 88, QTC [address] segment elevation Repeat EKG at 0809, sinus bradycardia, rate 51, OK interval 144, QRS duration 83, QTC 426, no ST segment elevation. X-rays interpreted by me (1pt min.). @ -None done CT interpreted by me (1pt min.). @ -[CT report from [place] indicating no pulmonary embolism, no acute findings U/S interpreted by me (1pt. min.). @ -None done What testing was considered but not performed or refused? (CT, X-rays, U/S, labs)? Why? @ -None What meds were considered but not given or refused? Why? @ -None Did you discuss the management of the patient with other professionals (professionals i.e. , PA, ASSEMBLER SHOW MOTOR, lab, RT, psych nurse, hospice social worker, wellness instructor, teacher, staff air tactical officer, pillowcase maker)? Give summary @ -[Sound Was smoking cessation discussed for >3mins.? @ -No Was critical care preformed (if so, how long)? @ -yes 35 Were there social determinants of health that impacted care today? How? (Homelessness, low income, unemployed, alcoholism, drug addiction, transportati on, low edu. Level, literacy, decrease access to med. care, senior living, rehab)? @ -No Was there de-escalation of care discussed even if they declined (Discuss DNR or withdrawal of care, Hospice)? DNR status @ -No What co-morbidities impacted this encounter? (DM, HTN, Smoking, COPD, CAD, Cancer, CVA, ARF, Chemo, Hep., AIDS, mental health diagnosis, sleep apnea, morbid obesity)? @ -[Diabetes, coronary artery disease Was patient admitted / discharged? Hospital course, mention meds given and route, prescriptions, significant lab abnormalities, going to OR and other pertinent info. @ -77 yo male presents for chest pain. Patient was transferred from [place]. He had a CBC, negative initial troponin. EKG in the emergency department here is sinus bradycardia without definitive signs of ischemia. He does have chest pain with some typical features. Patient has a repeat troponin emergency Department is 0.094. He is started on heparin and nitroglycerin. Undiagnosed new problem with uncertain prognosis? @ -No Drug Therapy requiring intensive monitoring for toxicity (Heparin, Nitro, Insulin, Cardizem)? @ -No Were any procedures done? @ -No Diagnosis/symptom? @ -NSTEMI Acute, or Chronic, or Acute on Chronic? @ -Acute Uncomplicated (without systemic symptoms) or Complicated (systemic symptoms)? @ -[Complicated Side effects of treatment? @ -No Exacerbation, Progression, or Severe Exacerbation? @ -No Poses a threat to life or bodily function? How? (Chest pain, USA, CA, pneumonia, PE, COPD, DKA, ARF, appy, cholecystitis, CVA, Diverticulitis, Homicidal, Suicidal, threat to staff... and all critical care pts) @ -[Yes, NSTEMI - Lab Data Result diagrams: 04/07/23 07:37 04/07/23 07:37 Lab Results 04/07/23 04/07/23 04/07/23 Range/Units 07:37 07:37 07:37 WBC 7.6 (3.8-10.6) k/uL RBC 4.40 (4.30-5.90) m/uL Hgb 13.8 (13.0-17.5) gm/dL Hct 40.0 (39.0-53.0) % MCV 91.0 (80.0-100.0) fL MCH 31.3 (25.0-35.0) pg MCHC 34.4 (31.0-37.0) g/dL RDW 13.1 (11.5-15.5) % Plt Count 169 (150-450) k/uL MPV 9.5 Neutrophils % 59 % Lymphocytes % 29 % Monocytes % 6 % Eosinophils % 4 % Basophils % 0 % Neutrophils # 4.5 (1.3-7.7) k/uL Lymphocytes # 2.2 (1.0-4.8) k/uL Monocytes # 0.5 (0-1.0) k/uL Eosinophils # 0.3 (0-0.7) k/uL Basophils # 0.0 (0-0.2) k/uL Sodium 136 L (137-145) mmol/L Potassium 4.2 (3.5-5.1) mmol/L Chloride 106 (98-107) mmol/L Carbon Dioxide 22 (22-30) mmol/L Anion Gap 8 mmol/L BUN 21 H (9-20) mg/dL Creatinine 0.81 (0.66-1.25) mg/dL Est GFR (CKD-EPI)AfAm >90 (>60 ml/min/1.73 sqM) Est GFR (CKD-EPI)NonAf 86 (>60 ml/min/1.73 sqM) Glucose 268 H (74-99) mg/dL Calcium 9.0 (8.4-10.2) mg/dL Total Bilirubin 0.4 (0.2-1.3) mg/dL AST 25 (17-59) U/L ALT 25 (4-49) U/L Alkaline Phosphatase 81 (38-126) U/L Troponin I 0.094 H* (0.000-0.034) ng/mL Total Protein 5.7 L (6.3-8.2) g/dL Albumin 3.6 (3.5-5.0) g/dL Critical Care Time Critical Care Time: Yes Total Critical Care Time: 35 Disposition Clinical Impression: Non-STEMI (non-ST elevated myocardial infarction) Disposition: ADMITTED IP TO THIS HOSP Condition: Stable Is patient prescribed a controlled substance at d/c from ED?: No Time of Disposition: 07:39
[2023-04-07 07:48] LABS: Basophils % (A) 0 %; Eosinophils # (A) 0.3 k/uL (0-0.7); Eosinophils % (A) 4 %; HGB 13.8 gm/dL (13.0-17.5); Lymphocytes # (A) 2.2 k/uL (1.0-4.8); Lymphocytes % (A) 29 %; MCH 31.3 pg (25.0-35.0); MCHC 34.4 g/dL (31.0-37.0); Mean Platelet Volume 9.5; Monocytes # (A) 0.5 k/uL (0-1.0); Monocytes % (A) 6 %; Neutrophils # (A) 4.5 k/uL (1.3-7.7); Neutrophils % (A) 59 %; Platelet Count 169 k/uL (150-450); RDW 13.1 % (11.5-15.5); WBC 7.6 k/uL (3.8-10.6)
[2023-04-07 08:08] LABS: ALT 25 U/L (4-49); AST 25 U/L (17-59); African American GFR (CKD) >90 (>60 ml/min/1.73 sqM); Albumin 3.6 g/dL (3.5-5.0); Alkaline Phosphatase 81 U/L (38-126); Anion Gap 8 mmol/L; Blood Urea Nitrogen 21 mg/dL (9-20); Carbon Dioxide 22 mmol/L (22-30); Chloride 106 mmol/L (98-107); Glucose 268 mg/dL (74-99); Non-African American GFR(CKD) 86 (>60 ml/min/1.73 sqM); Potassium 4.2 mmol/L (3.5-5.1); Sodium 136 mmol/L (137-145); Total Bilirubin 0.4 mg/dL (0.2-1.3); Total Protein 5.7 g/dL (6.3-8.2)
[2023-04-07] MEDS ORDERED: NITROGLYCERIN-D5W PMX 50 MG in DEXTROSE/WATER 1 250ML.BAG IV ONE (08:13)
[2023-04-07] MEDS ORDERED: HEPARIN SODIUM 1,000 UN/ML (10ML VL) IV ONE (08:23)
[2023-04-07] MEDS ORDERED: HEPARIN SODIUM 1,000 UN/ML (10ML VL) IV PRN (08:23)
[2023-04-07 08:30] LABS: Partial Thromboplastin Time 22.8 sec (22.0-30.0); Prothrombin Time 10.2 sec (9.0-12.0)
[2023-04-07] MEDS: HEPARIN SOD,PORK IN 0.45% NACL 25,000 UNIT in 0.45% NACL 1 250ML.BAG IV SCH (08:41)
--- NOTE | 2023-04-07 08:58 | P.HPIM ---
History of Present Illness H&P Date: 04/07/23 History of Presenting Illness: Patient is a very pleasant 77-year-old male with a past medical history of CAD status post quadruple bypass 02/08/18, hypertension, hyperlipidemia, hypothyroidism, hih-mtquouw-owovghint diabetes mellitus and obstructive sleep ap tiara/does not use CPAP. He presented to the emergency department as a transfer from [place] for evaluation of chest pain. Patient reports experiencing pain to left shoulder radiating down left arm across his back and into his lower jaw. Patient states this pain came on suddenly yesterday evening when he laid down to go to sleep. Patient denies having any increased activity or being out in the heat yesterday, reports feeling great all day until it was time to go to bed. Patient states, "I didn't really have any chest pain, it stayed in my left arm, across my back, and into jaw." Patient describes this pain as a squeezing sensation. He denies having any headache, lightheadedness, dizziness, diaphoresis, chills, palpitations, shortness of breath, cough or congestion, nausea, vomiting, or experiencing any swelling or weakness in his extremities. Discussed in detail with ED physician, troponin and EKG at [place] were negative and patient also underwent a CTA chest which was negative for pulmonary emboli or other acute cardiopulmonary process. Upon arrival to our facility vital signs stable with blood pressure 134/72, heart rate 52, respiratory rate 18, temp 97.9F and SpO2 of 96% on room air. Initial EKG completed showing sinus bradycardia at 52 bpm with T-wave inversions in leads 1, aVL and V2 with no noted ST abnormalities upon personal review and interpretation. Labs completed and reviewed. CBC unremarkable. Coags normal findings. BMP revealing elevated glucose of 268, elevated BUN of 21, and sodium of 136. Repeat Troponin was elevated at 0.094 and a repeat EKG was then taken and again showing sinus bradycardia at 51 bpm with T-wave inversion in leads 1, aVL, and V2 and no noted ST abnormalities upon personal review and interpretation. Patient continued to report pain and left arm but is reporting improvement of jaw pain and back pain at this current time. Patient has been started on heparin infusion at 12 units/kg/hr as well as nitroglycerin infusion at 5 mcg/min or 1.5 mL/hr secondary to NSTEMI. Patient admitted under our services to cardiac stepdown unit with telemetry. Cardiology has been consulted. Review of systems: Pertinent positives and negatives as discussed in HPI, a complete review of systems was performed and all other systems are negative. Physical exam: Vital signs reviewed and stable. General: Nontoxic, no distress and appears stated age. Derm: Skin warm and dry, normal coloration for ethnicity. Head: Atraumatic, normocephalic and symmetric. Eyes: EOMs intact, no lid lag, and anicteric sclera Mouth: no lip lesions, mucus membranes moist Cardiovascular: regular rate and rhythm with normal S1S2, no murmur, positive posterior tibial pulses bilaterally, and cap refill < 2 seconds. Lungs: Respirations even, regular, and unlabored on room air. Lungs CTA bilaterally, no rhonchi, no rales, no wheezing, and no accessory muscle usage. Abdominal: soft, nontender to palpation, no guarding, no appreciable organomegaly Ext: ROM intact. No gross muscle atrophy, no edema, no contractures Neuro: Speech clear, face symmetrical and CN II-XII grossly intact with no noted focal neuro deficits Psych: Alert and oriented to person, place, time, and situation. Appropriate and pleasant affect. Assessment and Plan of Care: NSTEMI History of CAD status post quadruple bypass Hypertension Hyperlipidemia Hypothyroidism Ttk-hztwzio-crpocpmfo diabetes mellitus with hyperglycemia -Vital signs upon arrival: blood pressure 134/72, heart rate 52, respiratory rate 18, temp 97.9F and SpO2 of 96% on room air. -Initial EKG completed showing sinus bradycardia at 52 bpm with T-wave inversions in leads 1, aVL and V2 with no noted ST abnormalities upon personal review and interpretation. -Labs completed and reviewed. CBC unremarkable. Coags normal findings. BMP revealing elevated glucose of 268, elevated BUN of 21, and sodium of 136. -Repeat Troponin was elevated at 0.094 and a repeat EKG was then taken and again showing sinus bradycardia at 51 bpm with T-wave inversion in leads 1, aVL, and V2 and no noted ST abnormalities upon personal review and interpretation. -Patient has been started on heparin infusion at 12 units/kg/hr as well as nitroglycerin infusion at 5 mcg/min or 1.5 mL/hr secondary to NSTEMI. -Patient to be admitted under our services to cardiac stepdown unit with telemetry. -Cardiology consulted, appreciate further recommendations -Telemetry monitoring -Trend troponins -Cardiac diet, NPO at midnight -Patient to resume daily cardiac medications including rosuvastatin 40 mg daily, aspirin 81 mg daily, and metoprolol 25 mg daily. -TSH with reflex T4 ordered secondary to bradycardia. Patient to continue with level thyroxine 150 g daily. -Glipizide held at this time and patient placed on glycemic protocol with NovoLog sliding scale to obtain tight glycemic control throughout hospitalization. The patient is admitted with an anticipated greater than 2 midnight stay for evaluation of NSTEMI CODE STATUS: Full Code DVT prophylaxis: Heparin infusion Discussed with: Patient, patient's , patient's daughter, RN, and ED physici an Anticipated discharge date: Clinical course to determine Anticipated discharge place: Home Patient was seen independently by Nurse Practitioner. This document was prepared using [employer] dictation software. Please allow for errors in programs director while rare they do occur. Francis Eli NP rendered care for this patient independently, reviewed the findings and plan as documented in the note above. I did not physically speak with or examine the patient on this date. Past Medical History Past Medical History: Coronary Artery Disease (CAD), Hyperlipidemia, Sleep Apnea/CPAP/BIPAP History of Any Multi-Drug Resistant Organisms: None Reported Past Surgical History: Cholecystectomy, Orthopedic Surgery Additional Past Surgical History / Comment(s): right shoulder rotator cuff Past Psychological History: No Psychological Hx Reported Past Alcohol Use History: None Reported Past Drug Use History: None Reported Medications and Allergies Home Medications Medication Instructions Recorded Confirmed Type Aspirin EC [Ecotrin Low Dose] 81 mg PO DAILY 04/07/23 04/07/23 History Levothyroxine Sodium [Synthroid] 150 mcg PO DAILY 04/07/23 04/07/23 History Metoprolol Succinate [Metoprolol 25 mg PO DAILY 04/07/23 04/07/23 History Succinate ER] Rosuvastatin Calcium [Crestor] 40 mg PO DAILY 04/07/23 04/07/23 History glipiZIDE [glipiZIDE ER] 2.5 mg PO DIRECTED 04/07/23 04/07/23 History Clopidogrel [Plavix] 75 mg PO DAILY 30 Days #30 tablet 04/10/23 Rx lisinopriL [Zestril] 2.5 mg PO DAILY 30 Days #30 tab 04/10/23 Rx metFORMIN HCL [Glucophage] 500 mg PO BID 30 Days #60 tab 04/10/23 Rx Allergies Allergy/AdvReac Type Severity Reaction Status Date / Time atorvastatin [From Lipitor] AdvReac Chest Pain Verified 04/07/23 08:41 morphine AdvReac Hallucinati Verified 04/07/23 08:41 ons Physical Exam Vitals: Vital Signs Temp Pulse Resp BP Pulse Ox 04/07/23 07:23 97.9 F 52 L 18 134/72 96 Intake and Output 04/06/23 04/07/23 04/07/23 22:59 06:59 14:59 Other: Weight 79.379 kg Results CBC & Chem 7: 04/09/23 08:02 04/09/23 08:02 Labs: Abnormal Lab Results - Last 24 Hours (Table) 04/07/23 04/07/23 Range/Units 07:37 07:37 Sodium 136 L (137-145) mmol/L BUN 21 H (9-20) mg/dL Glucose 268 H (74-99) mg/dL Troponin I 0.094 H* (0.000-0.034) ng/mL Total Protein 5.7 L (6.3-8.2) g/dL
[2023-04-07] MEDS: ATORVASTATIN 80 MG TAB PO SCH (09:04)
[2023-04-07] MEDS: ASPIRIN 81 MG PO SCH (09:05)
[2023-04-07] MEDS ORDERED: DEXTROSE 50% SYRINGE 50 ML IVP PRN ×2 (10:03)
--- NOTE | 2023-04-07 10:41 | P.CRDCN ---
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 Meraz left internal mammary artery to the left anterior descending artery, reverse saphenous vein graft to the right coronary artery, reverse saphenous vein graft to the first diagonal artery, reverse saphenous vein graft to the obtuse marginal artery, history of diabetes mellitus type 2, hypo thyroidism, hyperlipidemia. Patient presented to [facility] initially with chest pain. Patient gives history that he went to bed at midnight about hour later he developed left arm aching pain he thought initially that his arm and fall asleep but the pain continued to worsen and then he had pain up into the shoulder and across his back and in his jaw. He denies any shortness of breath, no palpitations, no lightheadedness or dizziness, no loss of consciousness. Patient currently has pain in the left shoulder and arm rated as 4/10. Patient is seen today in the emergency center waiting for bed on the cardiac stepdown unit. He has been started on nitroglycerin drip at this time. At [facility], patient underwent a CT of the chest was negative for pulmonary embolism EKG sinus rhythm with T-wave inversions in V1 and V2, new finding compared to EKG performed at [facility]. CBC unremarkable. INR 1. Sodium 136, potassium 4.2, BUN 21 creatinine 0.8, blood sugar 268. Troponin 0.094. Liver function tests normal. Home cardiac medications: Aspirin 81 mg daily, levothyroxine 150 mg daily, Toprol-XL twice 5 mg daily, Crestor 40 mg daily Review Of Systems: At the time of my evaluation: Constitutional: No fever, no chills. No weakness, fatigue or lethargy. EENT: No headache. No dizziness. Lungs: No shortness of breath, cough, no sputum production. No wheezing. Cardiovascular: Reports chest pain/shoulder/arm pain, no lower extremity edema. No palpitations. No paroxysmal nocturnal dyspnea. No orthopnea. No lightheadedness or dizziness. No syncopal episodes. Abdominal: No abdominal pain. No nausea, vomiting. No diarrhea. No bloody or tarry stools. Musculoskeletal: No myalgias. No muscle weakness, no frequent falls. Neurologic: No aphasia. No facial droop. No change in mentation. Physical examination: Gen: This is a 77-year-old male. He is resting on ER stretcher and appears to be in no acute distress. VS: reviewed HEENT: Head is atraumatic, normocephalic. Pupils equal, round. Sclerae is anicteric. NECK: Supple. No JVD. . LUNGS: Clear to auscultation. No wheezes or rhonchi. No intercostal retractions. HEART: Regular rate and rhythm. No murmur. ABDOMEN: Soft No tenderness. EXTREMITIES: No pedal edema. No calf tenderness. NEUROLOGICAL: Patient is awake, alert and oriented x3. Assessment: Non-ST elevated myocardial infarction History of coronary artery disease status post CABG 4 vessel in 2018 Diabetes mellitus type 2 Hypothyroidism Hyperlipidemia Plan: Continue patient on nitroglycerin drip Start patient on heparin drip Start patient on aspirin 81 mg daily, atorvastatin 80 mg daily, hold beta konrad due to bradycardia Obtain 2-D echocardiogram and Doppler study to assess cardiac structure and function Discussed option of cardiac catheterization with the patient and family which will be determined after further investigative studies are available and patient's clinical condition. Further recommendations to follow based upon clinical course Thank you kindly for this consultation. Nurse practitioner note has been reviewed, I agree with documented findings and plan of care. Patient was seen and examined. Past Medical History Past Medical History: Coronary Artery Disease (CAD), Hyperlipidemia, Sleep Apnea/CPAP/BIPAP History of Any Multi-Drug Resistant Organisms: None Reported Past Surgical History: Cholecystectomy, Orthopedic Surgery Additional Past Surgical History / Comment(s): right shoulder rotator cuff Past Psychological History: No Psychological Hx Reported Past Alcohol Use History: None Reported Past Drug Use History: None Reported Medications and Allergies Home Medications Medication Instructions Recorded Confirmed Type Aspirin EC [Ecotrin Low Dose] 81 mg PO DAILY 04/07/23 04/07/23 History Levothyroxine Sodium [Synthroid] 150 mcg PO DAILY 04/07/23 04/07/23 History Metoprolol Succinate [Metoprolol 25 mg PO DAILY 04/07/23 04/07/23 History Succinate ER] Rosuvastatin Calcium [Crestor] 40 mg PO DAILY 04/07/23 04/07/23 History glipiZIDE [glipiZIDE ER] 2.5 mg PO DIRECTED 04/07/23 04/07/23 History Allergies Allergy/AdvReac Type Severity Reaction Status Date / Time atorvastatin [From Lipitor] AdvReac Chest Pain Verified 04/07/23 08:41 morphine AdvReac Hallucinati Verified 04/07/23 08:41 ons Physical Exam Vitals: Vital Signs Temp Pulse Resp BP Pulse Ox 04/07/23 07:23 97.9 F 52 L 18 134/72 96 Intake and Output 04/06/23 04/07/23 04/07/23 22:59 06:59 14:59 Other: Weight 79.379 kg Results 04/07/23 07:37 04/07/23 07:37 Cardiac Enzymes 04/07/23 04/07/23 Range/Units 07:37 07:37 AST 25 (17-59) U/L Troponin I 0.094 H* (0.000-0.034) ng/mL CBC 04/07/23 Range/Units 07:37 WBC 7.6 (3.8-10.6) k/uL RBC 4.40 (4.30-5.90) m/uL Hgb 13.8 (13.0-17.5) gm/dL Hct 40.0 (39.0-53.0) % Plt Count 169 (150-450) k/uL Comprehensive Metabolic Panel 04/07/23 Range/Units 07:37 Sodium 136 L (137-145) mmol/L Potassium 4.2 (3.5-5.1) mmol/L Chloride 106 (98-107) mmol/L Carbon Dioxide 22 (22-30) mmol/L BUN 21 H (9-20) mg/dL Creatinine 0.81 (0.66-1.25) mg/dL Glucose 268 H (74-99) mg/dL Calcium 9.0 (8.4-10.2) mg/dL AST 25 (17-59) U/L ALT 25 (4-49) U/L Alkaline Phosphatase 81 (38-126) U/L Total Protein 5.7 L (6.3-8.2) g/dL Albumin 3.6 (3.5-5.0) g/dL Current Medications Generic Name Dose Route Start Last Admin Trade Name Freq PRN Reason Stop Dose Admin Heparin Sodium (Porcine) 0 unit 04/07/23 08:23 Heparin Sodium 1,000 Un/Ml (10ml Vl) IV PER PROTOCOL PRN Low PTT Protocol Nitroglycerin/Dextrose 50 mg/ 250 mls @ 1.5 mls/hr 04/07/23 08:13 IV Solution IV 04/08/23 08:12 .Q24H ONE Protocol 5 MCG/MIN Heparin Sodium/Sodium Chloride 250 mls @ 9.525 mls/hr 04/07/23 08:30 25,000 unit/ Sodium Chloride IV .Q24H JC Protocol 12 UNITS/KG/HR Naloxone HCl 0.2 mg 04/07/23 07:39 Naloxone 0.4 Mg/Ml 1 Ml Vial IV Q2M PRN Opioid Reversal Intake and Output 04/06/23 04/07/23 04/07/23 22:59 06:59 14:59 Other: Weight 79.379 kg Patient Weight 04/08/23 06:59 Weight 79.379 kg 04/07/23 07:37 04/07/23 07:37
--- NOTE | 2023-04-07 12:24 | CA ---
Transthoracic Echo Report Name: Jacob Roper Age: 77 Gender: M : 1945 Exam Date: 04/07/2023 10:23 Exam Location: [place] [facility] Ht (in): 66 Wt (lb): 175 Ordering Physician: Delfina Lua Attending/Referring Phys: [id number], Chanell Sales Support Advisor Isabel Short [facility] [[email or web address]] Procedure CPT: Indications: LVF Cardiac Hx: Technical Quality: Fair Contrast 1: Total Dose (mL): Contrast 2: Total Dose (mL): MEASUREMENTS (Male / Female) Normal Values 2D ECHO LV Diastolic Diameter PLAX 5.0 cm 4.2 - 5.9 / 3.9 - 5.3 cm LV Systolic Diameter PLAX 4.2 cm IVS Diastolic Thickness 1.0 cm 0.6 - 1.0 / 0.6 - 0.9 cm LVPW Diastolic Thickness 1.0 cm 0.6 - 1.0 / 0.6 - 0.9 cm LV Relative Wall Thickness 0.4 LVOT Diameter 2.0 cm Aortic Root Diameter 3.9 cm Ascending Aorta Diameter 3.6 cm M-MODE Aortic Root Diameter MM 3.7 cm LA Systolic Diameter MM 3.0 cm LA Ao Ratio MM 0.8 AV Cusp Separation MM 2.1 cm DOPPLER AV Peak Velocity 109.4 cm/s AV Peak Gradient 4.8 mmHg AV Mean Velocity 83.5 cm/s AV Mean Gradient 3.0 mmHg AV Velocity Time Integral 25.4 cm LVOT Peak Velocity 91.9 cm/s LVOT Peak Gradient 3.4 mmHg LVOT Velocity Time Integral 21.1 cm LVOT Stroke Volume 63.9 cm??? LVOT Stroke Volume Index 33.8 ml/m??? LVOT Cardiac Index 1676.5 cm???/min???m??? AV Area Cont Eq vti 2.5 cm??? AV Area Cont Eq pk 2.5 cm??? Mitral E Point Velocity 57.4 cm/s Mitral A Point Velocity 84.5 cm/s Mitral E to A Ratio 0.7 MV Deceleration Time 240.3 ms LV E' Lateral Velocity 6.6 cm/s Mitral E to LV E' Lateral Ratio 8.7 LV E' Septal Velocity 4.6 cm/s Mitral E to LV E' Septal Ratio 12.4 TR Peak Velocity 246.8 cm/s TR Peak Gradient 24.4 mmHg Right Atrial Pressure 3.0 mmHg Pulmonary Artery Systolic Pressu 27.4 mmHg Right Ventricular Systolic Press 29.4 mmHg FINDINGS Left Ventricle Mildly increased left ventricular wall thickness. Left ventricular cavity size at the upper limits of normal. No obvious regional wall motion abnormalities. Left ventricular ejection fraction is estimated at 55%. Right Ventricle Normal right ventricular size and function. Right Atrium Normal right atrial size. Left Atrium Normal left atrial size. Mitral Valve Structurally normal mitral valve. Mild mitral regurgitation. Aortic Valve Trileaflet aortic valve. No aortic valve stenosis or regurgitation. Tricuspid Valve Structurally normal tricuspid valve. Mild tricuspid regurgitation. Pulmonic Valve Structurally normal pulmonic valve. Mild pulmonic regurgitation. Pericardium No pericardial effusion. Aorta Mild aortic dilatation at the level of the sinuses of valsalva (root). CONCLUSIONS Normal LV size and systolic function ejection fraction greater than 55% Previewed by: Dr. Lenny Bond MD (Electronically Signed) Final Date: 07 April 2023 12:23
[2023-04-07 12:41] LABS: Glucose,Whole Blood 274 mg/dL (70-110)
[2023-04-07] MEDS: INSULIN ASPART (NovoLOG) 100 UNIT/ML VIAL SQ SCH ×3 (12:48→21:38)
[2023-04-07] MEDS ORDERED: ALPRAZolam 0.25 MG TAB PO PRN (13:32)
[2023-04-07] MEDS ORDERED: ASPIRIN 325 MG TAB PO STA (13:32)
[2023-04-07] MEDS ORDERED: NITROGLYCERIN SL TABS 0.4 MG TAB SUBLINGUAL PRN (13:32)
[2023-04-07] MEDS ORDERED: ATORVASTATIN 80 MG TAB PO STA (13:32)
[2023-04-07 13:43] LABS: T4, Free (Free Thyroxine) 1.93 ng/dL (0.78-2.19)
[2023-04-07 18:06] LABS: Glucose,Whole Blood 309 mg/dL (70-110)
[2023-04-07] MEDS: ALPRAZolam 0.5 MG TAB PO PRN (19:48)
[2023-04-07 21:26] LABS: Glucose,Whole Blood 237 mg/dL (70-110)
[2023-04-08] MEDS ORDERED: traMADol 50 MG TAB PO STA (04:01)
[2023-04-08] MEDS: ALPRAZolam 0.5 MG TAB PO PRN ×2 (04:22→11:19)
[2023-04-08 06:05] LABS: Glucose,Whole Blood 222 mg/dL (70-110)
--- NOTE | 2023-04-08 06:23 | P.PN ---
Subjective Progress Note Date: 04/08/23 Principal diagnosis: Acute non-ST elevation myocardial infarction The patient is a 71-year-old gentleman with CAD and status post CABG as well as hypertension and dyslipidemia and diabetes who was admitted to the hospital with discomfort in the chest and jaw pain and he was diagnosed with non-STEMI. The echo revealed normal LV systolic function. He continues to be on nitro drip at this point. April [id number] The patient was seen and evaluated this morning. He still having some jaw pain and left shoulder pain. Currently he is on nitro IV and he is experiencing headache. Otherwise he is hemodynamically stable. The echo as described above showed preserved LV systolic function with no significant wall motion abnormalities. Beside that he is on aspirin and statin and beta konrad. The plan is to pursue a heart catheterization later on today. Examination is remarkable for regular rhythm with clear breathing sounds bilaterally and no lower extremity edema noted Assessment Acute non-ST elevation myocardial infarction CAD and status post CABG Multiple comorbid conditions including diabetes and hypertension and dyslipidemia Plan Continue the current medical regimen Continue heparin IV Wean the patient from nitroglycerin IV Proceed was coronary angiogram Objective - Vital Signs Vital signs: Vital Signs Temp 97.6 F 04/08/23 04:00 Pulse 69 04/08/23 04:00 Resp 16 04/08/23 04:00 BP 116/67 04/08/23 04:00 Pulse Ox 94 L 04/08/23 04:00 FiO2 Intake & Output 04/07/23 04/07/23 04/08/23 06:59 18:59 06:59 Intake Total 71.12 Balance 71.12 Weight 79.379 kg 79.379 kg Intake: Intake, IV Titration 71.12 Amount Heparin Sod,Pork in 0.45% 71.12 NaCl 25,000 unit In 0.45 % NaCl 1 250ml.bag @ 12 UNITS/KG/HR 9.525 mls/hr IV .Q24H [facility] Rx#: [id number] Other: Voiding Method Urinal - Labs CBC & Chem 7: 04/07/23 07:37 04/07/23 07:37 Labs: Abnormal Lab Results - Last 24 Hours (Table) 04/07/23 04/07/23 04/07/23 Range/Units 07:37 07:37 07:37 APTT (22.0-30.0) sec Sodium 136 L (137-145) mmol/L BUN 21 H (9-20) mg/dL Glucose 268 H (74-99) mg/dL POC Glucose (mg/dL) (70-110) mg/dL Troponin I 0.094 H* (0.000-0.034) ng/mL Total Protein 5.7 L (6.3-8.2) g/dL TSH 0.364 L (0.465-4.680) mIU/L 04/07/23 04/07/23 04/07/23 Range/Units 11:10 12:39 14:09 APTT (22.0-30.0) sec Sodium (137-145) mmol/L BUN (9-20) mg/dL Glucose (74-99) mg/dL POC Glucose (mg/dL) 274 H (70-110) mg/dL Troponin I 0.616 H* 0.930 H* (0.000-0.034) ng/mL Total Protein (6.3-8.2) g/dL TSH (0.465-4.680) mIU/L 04/07/23 04/07/23 04/07/23 Range/Units 14:19 18:04 21:24 APTT 35.3 H (22.0-30.0) sec Sodium (137-145) mmol/L BUN (9-20) mg/dL Glucose (74-99) mg/dL POC Glucose (mg/dL) 309 H 237 H (70-110) mg/dL Troponin I (0.000-0.034) ng/mL Total Protein (6.3-8.2) g/dL TSH (0.465-4.680) mIU/L 04/07/23 04/08/23 Range/Units 22:04 06:03 APTT 47.0 H (22.0-30.0) sec Sodium (137-145) mmol/L BUN (9-20) mg/dL Glucose (74-99) mg/dL POC Glucose (mg/dL) 222 H (70-110) mg/dL Troponin I (0.000-0.034) ng/mL Total Protein (6.3-8.2) g/dL TSH (0.465-4.680) mIU/L
[2023-04-08] MEDS: ACETAMINOPHEN TAB 325 MG TAB PO PRN ×3 (06:44→23:50)
[2023-04-08] MEDS: HEPARIN SOD,PORK IN 0.45% NACL 25,000 UNIT in 0.45% NACL 1 250ML.BAG IV SCH (06:45)
[2023-04-08] MEDS: LEVOTHYROXINE 75 MCG TAB PO SCH (06:45)
[2023-04-08] MEDS: INSULIN ASPART (NovoLOG) 100 UNIT/ML VIAL SQ SCH ×4 (06:50→19:58)
[2023-04-08] MEDS ORDERED: HEPARIN SODIUM,PORCINE 10,000 UNIT in SODIUM CHLORIDE 0.9% 1,000 ML IRRIGATION PRN (07:00)
[2023-04-08] MEDS ORDERED: HEPARIN SODIUM,PORCINE 2,500 UNIT in SODIUM CHLORIDE 0.9% 250 ML IRRIGATION PRN (07:00)
[2023-04-08] MEDS: METOPROLOL SUCCINATE (ER) 25 MG TAB.ER.24H PO SCH (07:57)
[2023-04-08] MEDS: ASPIRIN 81 MG PO SCH (07:57)
[2023-04-08] MEDS: ATORVASTATIN 80 MG TAB PO SCH (07:57)
[2023-04-08] MEDS ORDERED: NON FORMULARY DRUG (Rosuvastatin Calcium [Crestor] 40 MG Tablet) PO SCH (09:00)
[2023-04-08] MEDS ORDERED: IV FLUID CONTINUATION 900 ML IV ONE (09:37)
[2023-04-08 09:39] LABS: Basophils % (A) 1 %; Eosinophils # (A) 0.2 k/uL (0-0.7); Eosinophils % (A) 3 %; HCT 42.6 % (39.0-53.0); HGB 14.3 gm/dL (13.0-17.5); Lymphocytes # (A) 1.7 k/uL (1.0-4.8); Lymphocytes % (A) 22 %; MCH 31.3 pg (25.0-35.0); MCHC 33.6 g/dL (31.0-37.0); MCV 93.1 fL (80.0-100.0); Mean Platelet Volume 10.9; Monocytes # (A) 0.6 k/uL (0-1.0); Monocytes % (A) 7 %; Neutrophils # (A) 5.3 k/uL (1.3-7.7); Neutrophils % (A) 66 %; Platelet Count 155 k/uL (150-450); RBC 4.57 m/uL (4.30-5.90); RDW 13.2 % (11.5-15.5); WBC 8.1 k/uL (3.8-10.6)
[2023-04-08 09:46] LABS: INR 0.9 (<1.2)
[2023-04-08] MEDS ORDERED: HEPARIN SODIUM 1,000 UN/ML (10ML VL) ONE (09:46)
[2023-04-08] MEDS ORDERED: MIDAZOLAM 2 MG/2 ML VIAL IV ONE (09:51)
[2023-04-08] MEDS ORDERED: LIDOCAINE 1% INJ 10MG/ML (20 ML MDV) SQ ONE (09:52)
[2023-04-08] MEDS ORDERED: fentaNYL (PF) 50 MCG/ML 2 ML AMP ONE (10:10)
[2023-04-08] MEDS: fentaNYL (PF) 50 MCG/ML 2 ML AMP IV ONE ×2 (10:11→10:48)
[2023-04-08] MEDS: MIDAZOLAM 2 MG/2 ML VIAL IV ONE ×2 (10:19→10:48)
[2023-04-08] MEDS ORDERED: HEPARIN SODIUM 1,000 UN/ML (10ML VL) IV ONE (10:19)
[2023-04-08] MEDS ORDERED: IOPAMIDOL-370 100ML BTL INJ ONE ×3 (10:21→10:49)
[2023-04-08] MEDS ORDERED: NALOXONE 0.4 MG/ML 1 ML VIAL IV ONE (10:24)
[2023-04-08] MEDS ORDERED: NALOXONE 0.4 MG/ML 1 ML VIAL ONE (10:26)
[2023-04-08] MEDS ORDERED: FLUMAZENIL 0.1 MG/ML 5 ML VIAL IVP ONE ×2 (10:28→10:30)
[2023-04-08] MEDS ORDERED: niCARdipine 25 MG/10 ML VIAL ONE (10:42)
[2023-04-08] MEDS ORDERED: niCARdipine Syringe (1,000 mcg/10 mL) INTRACORON ONE (10:45)
[2023-04-08] MEDS ORDERED: CLOPIDOGREL 75 MG TAB ONE (10:53)
[2023-04-08] MEDS ORDERED: CLOPIDOGREL 75 MG TAB PO ONE (10:55)
[2023-04-08] MEDS ORDERED: RX INFO: IV CONTRAST WAS GIVEN 1 EACH MISC MISCELLANE PRN (10:58)
[2023-04-08] MEDS ORDERED: ATROPINE SULFATE 0.1 MG/ML 10ML SYRINGE IV PRN (10:58)
[2023-04-08] MEDS ORDERED: ZOLPIDEM 5 MG TAB PO PRN (10:58)
[2023-04-08] MEDS ORDERED: MAG HYDROX/AL HYDROX/SIMETH 30 ML CUP PO PRN (10:58)
[2023-04-08] MEDS ORDERED: SODIUM CHLORIDE 0.9% 1,000 ML in EMPTY BAG 1 BAG IV SCH (11:00)
[2023-04-08 11:48] LABS: Glucose,Whole Blood 209 mg/dL (70-110)
[2023-04-08] MEDS ORDERED: LORazepam 2 MG/ML INJ IV STA (12:00)
[2023-04-08 14:52] VITALS: BMI 26.6
[2023-04-08] MEDS ORDERED: ONDANSETRON 4 MG/2 ML VIAL IVP PRN (15:08)
--- NOTE | 2023-04-08 15:14 | P.PN ---
Subjective Progress Note Date: 04/08/23 Hospital Course: Patient is a very pleasant 77-year-old male with a past medical history of CAD status post quadruple bypass 02/08/18, hypertension, hyperlipidemia, hypothyroidism, eku-[id number] diabetes mellitus and obstructive sleep apnea/does not use CPAP. He presented to the emergency department as a transfer from [place] for evaluation of chest pain. Patient reports experiencing pain to left shoulder radiating down left arm across his back and into his lower jaw. Patient states this pain came on suddenly yesterday evening when he laid down to go to sleep. Patient denies having any increased activity or being out in the heat yesterday, reports feeling great all day until it was time to go to bed. Patient states, "I didn't really have any chest pain, it stayed in my left arm, across my back, and into jaw." Patient describes this pain as a squeezing sensation. He denies having any headache, lightheadedness, dizziness, diaphoresis, chills, palpitations, shortness of breath, cough or congestion, nausea, vomiting, or experiencing any swelling or weakness in his extremities. Discussed in detail with ED physician, troponin and EKG at [facility] were negative and patient also underwent a CTA chest which was negative for pulmonary emboli or other acute cardiopulmonary process. Upon arrival to our facility vital signs stable with blood pressure 134/72, heart rate 52, respiratory rate 18, temp 97.9F and SpO2 of 96% on room air. Initial EKG completed showing sinus bradycardia at 52 bpm with T-wave inversions in leads 1, aVL and V2 with no noted ST abnormalities upon personal review and interpretation. Labs completed and reviewed. CBC unremarkable. Coags normal findings. BMP revealing elevated glucose of 268, elevated BUN of 21, and sodium of 136. Repeat Troponin was elevated at 0.094 and a repeat EKG was then taken and again showing sinus bradycardia at 51 bpm with T-wave inversion in leads 1, aVL, and V2 and no noted ST abnormalities upon personal review and interpretation. Patient continued to report pain and left arm but is reporting improvement of jaw pain and back pain at this current time. Patient has been started on heparin infusion at 12 units/kg/hr as well as nitroglycerin infusion at 5 mcg/min or 1.5 mL/hr secondary to NSTEMI. Patient admitted under our services to cardiac stepdown unit with telemetry. Troponins trended overnight showing further elevation from 0.094, 0.616, and 0.930. Cardiology has been consulted and the patient for cardiac cath this morning. Physical exam: Patient seen and fully evaluated upon return from cardiac cath. Cardiac cath access site right groin currently no signs of active bleeding or hematoma. Patient very anxious requesting something for anxiety. Reports sedative medications administered during cardiac cath were not sufficient and patient states he was anxious throughout entire procedure. Vital signs reviewed and stable. General: Nontoxic, no distress and appears stated age. Derm: Skin warm and dry, normal coloration for ethnicity. Head: Atraumatic, normocephalic and symmetric. Eyes: EOMs intact, no lid lag, and anicteric sclera Mouth: no lip lesions, mucus membranes moist Cardiovascular: regular rate and rhythm with normal S1S2, no murmur, positive posterior tibial pulses bilaterally, and cap refill < 2 seconds. Lungs: Respirations even, regular, and unlabored on room air. Lungs CTA bilaterally, no rhonchi, no rales, no wheezing, and no accessory muscle usage. Abdominal: soft, nontender to palpation, no guarding, no appreciable organomegaly Ext: ROM intact. No gross muscle atrophy, no edema, no contractures Neuro: Speech clear, face symmetrical and CN II-XII grossly intact with no noted focal neuro deficits Psych: Alert and oriented to person, place, time, and situation. Patient appears very anxious and agitated. Assessment and Plan of Care: NSTEMI History of CAD status post quadruple bypass Hypertension Hyperlipidemia Hypothyroidism Eue-oirhoci-mdexgzyvm diabetes mellitus with hyperglycemia -Vital signs reviewed. Blood pressure upon return from cardiac cath is 173/90, heart rate 62, respiratory rate 20, and SpO2 of 92% on room air. -Troponins trended overnight and showing persistent elevation of 0.094, 0.616, and 0.930. -Morning labs reviewed. CBC unremarkable 14.3. Hemoglobin A1c significantly elevated at 11.4. -Cardiology evaluated and took patient for cardiac cath this morning resulting in successful stenting per RN and greenskeeper laborer report. Interventional cardiology report not available at this time. -Continue Telemetry monitoring -Cardiac diet -Patient started on Plavix 75 mg daily and to continue daily cardiac medications including rosuvastatin 40 mg daily, aspirin 81 mg daily, and metoprolol 25 mg daily. -TSH was low at 0.364 with reflex T4 normal findings at 1.93. Patient to c ontinue with level thyroxine 150 g daily. -Glipizide held at this time and patient placed on glycemic protocol with NovoLog sliding scale to obtain tight glycemic control throughout hospitalization. Discussed with: Patient, patient's family at bedside, RN, and lead radiation therapist Anticipated discharge date: Tomorrow Anticipated discharge place: Home Patient was seen independently by Nurse Pracitioner. This document was prepared using [employer] dictation software. Please allow for errors in tank driver, while rare they do occur. Francis Eli NP rendered care for this patient independently, reviewed the findings and plan as documented in the note above. I did not physically speak with or examine the patient on this date. Objective - Vital Signs Vital signs: Vital Signs Temp 97.6 F 04/08/23 04:00 Pulse 69 04/08/23 04:00 Resp 16 04/08/23 04:00 BP 116/67 04/08/23 04:00 Pulse Ox 94 L 04/08/23 04:00 FiO2 Intake & Output 04/07/23 04/08/23 04/08/23 18:59 06:59 18:59 Intake Total 71.12 168.265 Balance 71.12 168.265 Weight 79.379 kg 79.379 kg Intake: Intake, IV Titration 71.12 168.265 Amount Heparin Sod,Pork in 0.45% 71.12 168.265 NaCl 25,000 unit In 0.45 % NaCl 1 250ml.bag @ 12 UNITS/KG/HR 9.525 mls/hr IV .Q24H [facility] Rx#: [id number] Other: Voiding Method Urinal # Voids 1 - Labs CBC & Chem 7: 04/09/23 08:02 04/09/23 08:02 Labs: Abnormal Lab Results - Last 24 Hours (Table) 04/07/23 04/07/23 04/07/23 Range/Units 07:37 07:37 07:37 APTT (22.0-30.0) sec Sodium 136 L (137-145) mmol/L BUN 21 H (9-20) mg/dL Glucose 268 H (74-99) mg/dL POC Glucose (mg/dL) (70-110) mg/dL Troponin I 0.094 H* (0.000-0.034) ng/mL Total Protein 5.7 L (6.3-8.2) g/dL TSH 0.364 L (0.465-4.680) mIU/L 04/07/23 04/07/23 04/07/23 Range/Units 11:10 12:39 14:09 APTT (22.0-30.0) sec Sodium (137-145) mmol/L BUN (9-20) mg/dL Glucose (74-99) mg/dL POC Glucose (mg/dL) 274 H (70-110) mg/dL Troponin I 0.616 H* 0.930 H* (0.000-0.034) ng/mL Total Protein (6.3-8.2) g/dL TSH (0.465-4.680) mIU/L 04/07/23 04/07/23 04/07/23 Range/Units 14:19 18:04 21:24 APTT 35.3 H (22.0-30.0) sec Sodium (137-145) mmol/L BUN (9-20) mg/dL Glucose (74-99) mg/dL POC Glucose (mg/dL) 309 H 237 H (70-110) mg/dL Troponin I (0.000-0.034) ng/mL Total Protein (6.3-8.2) g/dL TSH (0.465-4.680) mIU/L 04/07/23 04/08/23 Range/Units 22:04 06:03 APTT 47.0 H (22.0-30.0) sec Sodium (137-145) mmol/L BUN (9-20) mg/dL Glucose (74-99) mg/dL POC Glucose (mg/dL) 222 H (70-110) mg/dL Troponin I (0.000-0.034) ng/mL Total Protein (6.3-8.2) g/dL TSH (0.465-4.680) mIU/L
[2023-04-08 17:06] LABS: Glucose,Whole Blood 247 mg/dL (70-110)
--- NOTE | 2023-04-08 19:50 | P.PCN ---
Date of Procedure: 04/08/23 Operative Findings: CARDIAC CATHETERIZATION PERFORMING PHYSICIAN: Julito King MD, RPVI PROCEDURE PERFORMED: 1. Selective right and left coronary angiogram 2. Left heart catheterization 3. GARRIDO into LAD angiogram, SVG to diagonal angiogram, SVG to LCx angiogram, and SVG to RCA angiogram 4. Successful stenting of the SVG to LCx using 3.0 x 23 mm Xience YVES 5. Selective right common femoral artery angiogram 6. Ultrasound-guided access of the right common femoral artery INDICATION: Acute non-ST elevation myocardial infarction in this 77-year-old gentleman who is known to have CAD and in 2018 he underwent CABG 4 with GARRIDO into LAD and SVG to diagonal and SVG to OM as well as SVG to RCA. He presented to the hospital with a chest discomfort and the troponin was elevated and he continues to have ongoing chest discomfort. COMPLICATION: None APPROACH: Right common femoral artery LEVEL OF SEDATION: Moderate with sedation in length of 50 minutes PROCEDURE DESCRIPTION: After obtaining an informed consent, the patient was brought to cardiac computer lab assistant. Local anesthesia was performed using lidocaine subcutaneously. The right common femoral artery was cannulated using Seldinger technique, the guidewire passed easily, following that we advanced a 6 Pakistani sheath dilator assembly, the wire and dilator were removed and sheath was flushed. Selective right and left coronary angiogram using a 6-Pakistani JR4 and JL catheters. The GARRIDO to LAD angiogram and SVG to diagonal angiogram and SVG to LCx angiogram and SVG to RCA angiogram performed using the JR4 catheter. Following that we did left heart catheterization using 6-Pakistani pigtail catheter. The procedure was completed there was no complication. SELECTIVE CORONARY ANGIOGRAM: The right coronary artery: Large caliber vessel and a dominant vessel and appeared to be subtotally occluded in the midportion. Its calcified Left main: The distal left main has a critical lesion appeared to be in the range of 80-90% The left circumflex: Is occluded in the proximal portion The left anterior descending artery: Is occluded in the proximal portion as well Coronary bypasses angiogram: The GARRIDO to LAD is patent The SVG to diagonal is patent The SVG to LCx is occluded in the proximal portion with contrast staining The SVG to RCA is patent HEMODYNAMICS: LVEDP appeared to be in the range of 14 mmHg was no significant gradient across aortic valve PCI OF THE SVG TO LCX: Anticoagulation was initiated using heparin with continuous ACT monitoring. Subsequently I did engage initially the SVG to LCx using an AL-1 catheter but the catheter was not seated well in the ostial SVG. After that I was able to engage the SVG using an LCB guiding catheter. I did the wire the SVG to LCx and cross the acute/subacute total occlusion using a whisper wire and subsequently I used a saritha wire with a run through wire just to anchor the guide better. The guide was not seated well in the ostial SVG to LCx. After that balloon angioplasty was performed using 2.5 mm balloon. Subsequently I deployed 30 by 23 mm stent where the stent was positioned under fluoroscopy guidance and deployed under fluoroscopy guidance. Please note that the patient was extremely anxious and moving all over the place is and requested to terminate the procedure at the end of the case but also throughout the case. The procedure was completed was no complication CONCLUSION: 1. Severe triple-vessel CAD 2. Patent GARRIDO to LAD, patent SVG to diagonal, occluded SVG to LCx, and patent SVG to RCA 3. Successful stenting of the SVG to LCx using 3.0 x 23 mm Xience YVES a good an giographic results 4. Selective right common femoral artery angiogram POSTPROCEDURE MANAGEMENT: Dual antiplatelet therapy using aspirin and Plavix for 12 months
[2023-04-08 19:56] LABS: Glucose,Whole Blood 230 mg/dL (70-110)
[2023-04-09] MEDS ORDERED: traMADol 50 MG TAB PO STA (05:08)
[2023-04-09 06:06] LABS: Glucose,Whole Blood 167 mg/dL (70-110)
--- NOTE | 2023-04-09 06:17 | P.PN ---
Subjective Progress Note Date: 04/09/23 Principal diagnosis: Acute non-ST elevation myocardial infarction The patient is a 71-year-old gentleman with CAD and status post CABG as well as hypertension and dyslipidemia and diabetes who was admitted to the hospital with discomfort in the chest and jaw pain and he was diagnosed with non-STEMI. The echo revealed normal LV systolic function. He continues to be on nitro drip at this point. April 082022 The patient was seen and evaluated this morning. He still having some jaw pain and left shoulder pain. Currently he is on nitro IV and he is experiencing headache. Otherwise he is hemodynamically stable. The echo as described above showed preserved LV systolic function with no significant wall motion abnormalities. Beside that he is on aspirin and statin and beta konrad. The plan is to pursue a heart catheterization later on today. 04/09/2023 The patient was seen and evaluated morning. He is asymptomatic and is hemodynamically stable. He is on dual antiplatelet therapy. He underwent a heart catheterization yesterday and that revealed severe triple-vessel coronary artery disease with patent GARRIDO to LAD and patent SVG to diagonal and occluded SVG to LCx which was stented yesterday as well as patent SVG to RCA. The echo showed preserved LV systolic function. From a perivascular standpoint overview, I would continue the current medical regimen. He potentially can be discharged home in the next 24 hours. The right groin is soft and nontender was no bruises. Examination is remarkable for regular rhythm with clear breathing sounds bilater ally and no lower extremity edema noted Assessment Acute non-ST elevation myocardial infarction CAD and status post CABG as described above CAD status post PCI of the SVG to LCx Multiple comorbid conditions including diabetes and hypertension and dyslipidemia Plan Continue the current medical regimen including dual antiplatelet therapy and statin Possible discharge home in the next 12-24 hours Objective - Vital Signs Vital signs: Vital Signs Temp 98.5 F 04/09/23 03:26 Pulse 57 L 04/08/23 08:00 Resp 16 04/09/23 03:26 BP 145/78 04/09/23 03:26 Pulse Ox 94 L 04/09/23 03:26 FiO2 Intake & Output 04/08/23 04/08/23 04/09/23 06:59 18:59 06:59 Intake Total 168.265 801.664 Output Total 500 Balance 168.265 801.664 -500 Weight 79.379 kg 79.379 kg Intake: IV 500 Intake, IV Titration 168.265 61.664 Amount Heparin Sod,Pork in 0.45% 168.265 61.664 NaCl 25,000 unit In 0.45 % NaCl 1 250ml.bag @ 12 UNITS/KG/HR 9.525 mls/hr IV .Q24H [facility] Rx#: [id number] Oral 240 Output: Urine 500 Other: Voiding Method Urinal Toilet Toilet Urinal Urinal # Voids 1 1 1 - Labs CBC & Chem 7: 04/08/23 08:21 04/07/23 07:37 Labs: Abnormal Lab Results - Last 24 Hours (Table) 04/08/23 04/08/23 04/08/23 Range/Units 08:21 08:21 11:47 APTT 42.9 H (22.0-30.0) sec POC Glucose (mg/dL) 209 H (70-110) mg/dL Hemoglobin A1c 11.4 H (<=6.0) % 04/08/23 04/08/23 04/09/23 Range/Units 17:04 19:55 06:05 APTT (22.0-30.0) sec POC Glucose (mg/dL) 247 H 230 H 167 H (70-110) mg/dL Hemoglobin A1c (<=6.0) %
[2023-04-09] MEDS: LEVOTHYROXINE 75 MCG TAB PO SCH (06:24)
[2023-04-09] MEDS: INSULIN ASPART (NovoLOG) 100 UNIT/ML VIAL SQ SCH ×4 (06:24→21:23)
[2023-04-09 08:16] LABS: Basophils % (A) 0 %; Eosinophils # (A) 0.1 k/uL (0-0.7); Eosinophils % (A) 1 %; HCT 43.4 % (39.0-53.0); HGB 14.4 gm/dL (13.0-17.5); Lymphocytes # (A) 1.2 k/uL (1.0-4.8); Lymphocytes % (A) 12 %; MCH 30.9 pg (25.0-35.0); MCHC 33.2 g/dL (31.0-37.0); MCV 93.1 fL (80.0-100.0); Mean Platelet Volume 9.5; Monocytes # (A) 0.9 k/uL (0-1.0); Monocytes % (A) 9 %; Neutrophils # (A) 7.5 k/uL (1.3-7.7); Neutrophils % (A) 76 %; Platelet Count 168 k/uL (150-450); RBC 4.66 m/uL (4.30-5.90); RDW 12.9 % (11.5-15.5); WBC 9.9 k/uL (3.8-10.6)
[2023-04-09 08:30] LABS: African American GFR (CKD) >90 (>60 ml/min/1.73 sqM); Anion Gap 7 mmol/L; Blood Urea Nitrogen 9 mg/dL (9-20); Calcium 9.1 mg/dL (8.4-10.2); Carbon Dioxide 26 mmol/L (22-30); Chloride 101 mmol/L (98-107); Glucose 187 mg/dL (74-99); Non-African American GFR(CKD) >90 (>60 ml/min/1.73 sqM); Potassium 4.1 mmol/L (3.5-5.1); Sodium 134 mmol/L (137-145)
--- NOTE | 2023-04-09 08:41 | P.PN ---
Subjective Progress Note Date: 04/09/23 Hospital Course: Patient is a very pleasant 77-year-old male with a past medical history of CAD status post quadruple bypass 02/08/18, hypertension, hyperlipidemia, hypothyroidism, kxr-[id number] diabetes mellitus and obstructive sleep apnea/does not use CPAP. He presented to the emergency department as a transfer from [place] for evaluation of chest pain. Patient reports experiencing pain to left shoulder radiating down left arm across his back and into his lower jaw. Patient states this pain came on suddenly yesterday evening when he laid down to go to sleep. Patient denies having any increased activity or being out in the heat yesterday, reports feeling great all day until it was time to go to bed. Patient states, "I didn't really have any chest pain, it stayed in my left arm, across my back, and into jaw." Patient describes this pain as a squeezing sensation. He denies having any headache, lightheadedness, dizziness, diaphoresis, chills, palpitations, shortness of breath, cough or congestion, nausea, vomiting, or experiencing any swelling or weakness in his extremities. Discussed in detail with ED physician, troponin and EKG at [facility] were negative and patient also underwent a CTA chest which was negative for pulmonary emboli or other acute cardiopulmonary process. Upon arrival to our facility vital signs stable with blood pressure 134/72, heart rate 52, respiratory rate 18, temp 97.9F and SpO2 of 96% on room air. Initial EKG completed showing sinus bradycardia at 52 bpm with T-wave inversions in leads 1, aVL and V2 with no noted ST abnormalities upon personal review and interpretation. Labs completed and reviewed. CBC unremarkable. Coags normal findings. BMP revealing elevated glucose of 268, elevated BUN of 21, and sodium of 136. Repeat Troponin was elevated at 0.094 and a repeat EKG was then taken and again showing sinus bradycardia at 51 bpm with T-wave inversion in leads 1, aVL, and V2 and no noted ST abnormalities upon personal review and interpretation. Patient continued to report pain and left arm but is reporting improvement of jaw pain and back pain at this current time. Patient has been started on heparin infusion at 12 units/kg/hr as well as nitroglycerin infusion at 5 mcg/min or 1.5 mL/hr secondary to NSTEMI. Patient admitted under our services to cardiac stepdown unit with telemetry. Troponins trended overnight showing further elevation from 0.094, 0.616, and 0.930. Cardiology has been consulted and the patient for cardiac cath this morning. Physical exam: Patient seen and fully evaluated at bedside this morning, patient reports having a significant headache this morning. States he has had a headache all night. Denies having any dizziness, lightheadedness, changes in vision or hearing, chest pain, palpitations, shortness of breath, or dispensing any numbness/tingling/weakness in his extremities. Patient has been agreeable to receiving insulin ordered for uncontrolled hyperglycemia during hospitalization but is very adamant that he will not go home on insulin. Vital signs reviewed and stable. General: Nontoxic, no distress and appears stated age. Derm: Skin warm and dry, normal coloration for ethnicity. Head: Atraumatic, normocephalic and symmetric. Eyes: EOMs intact, no lid lag, and anicteric sclera Mouth: no lip lesions, mucus membranes moist Cardiovascular: regular rate and rhythm with normal S1S2, no murmur, positive posterior tibial pulses bilaterally, and cap refill < 2 seconds. Lungs: Respirations even, regular, and unlabored on room air. Lungs CTA bilaterally, no rhonchi, no rales, no wheezing, and no accessory muscle usage. Abdominal: soft, nontender to palpation, no guarding, no appreciable organomegaly, cardiac cath access site right groin showing no signs of hematoma or active bleeding. Ext: ROM intact. No gross muscle atrophy, no edema, no contractures Neuro: Speech clear, face symmetrical and CN II-XII grossly intact with no noted focal neuro deficits Psych: Alert and oriented to person, place, time, and situation. Patient appears very anxious and agitated. Assessment and Plan of Care: NSTEMI History of CAD status post quadruple bypass followed by stenting Hypertension Hyperlipidemia Hypothyroidism Ywt-[id number] diabetes mellitus with hyperglycemia -Vital signs reviewed. Blood pressure improved this morning with morning blood pressure 121/73, -Troponins trended overnight and showing persistent elevation of 0.094, 0.616, and 0.930. -Morning labs reviewed. CBC unremarkable 14.3. Hemoglobin A1c significantly elevated at 11.4. Patient reports being absolutely opposed to going home on insulin. Discussed importance of controlling blood glucose levels and risks of continued elevated glucose levels including increased workload on heart and damage to organs which may ultimately lead to if left uncontrolled. Patient reports he was just started on glipizide and has not started using yet but did receive his medication shipment to his home. -Cardiology evaluated and took patient for cardiac cath this morning resulting in successful stenting per RN and microbiology lab analyst report. Interventional cardiology report not available at this time. -Continue Telemetry monitoring -Cardiac diet -Patient started on Plavix 75 mg daily and to continue daily cardiac medications including rosuvastatin 40 mg daily, aspirin 81 mg daily, and metoprolol 25 mg daily. -TSH was low at 0.364 with reflex T4 normal findings at 1.93. Patient to continue with level thyroxine 150 g daily. -Glipizide held at this time and patient placed on glycemic protocol with NovoLog sliding scale to obtain tight glycemic control throughout hospitalization. Headache -Patient reports pounding migraine headaches this morning. Patient given migraine cocktail consisting of Toradol, Benadryl, and Compazine resulting in resolution of headache. Discussed with: Patient, RN, and director of institutional research Anticipated discharge date: Tomorrow morning Anticipated discharge place: Home Patient was seen independently by Nurse Pracitioner. This document was prepared using [employer]ix dictation software. Please allow for errors in optical systems engineer, while rare they do occur. Francis Eli NP rendered care for this patient independently, reviewed the findings and plan as documented in the note above. I did not physically speak with or examine the patient on this date. Objective - Vital Signs Vital signs: Vital Signs Temp 98.5 F 04/09/23 03:26 Pulse 57 L 04/08/23 08:00 Resp 16 04/09/23 03:26 BP 145/78 04/09/23 03:26 Pulse Ox 94 L 04/09/23 03:26 FiO2 Intake & Output 04/08/23 04/09/23 04/09/23 18:59 06:59 18:59 Intake Total 801.664 Output Total 500 Balance 801.664 -500 Weight 79.379 kg Intake: IV 500 Intake, IV Titration 61.664 Amount Heparin Sod,Pork in 0.45% 61.664 NaCl 25,000 unit In 0.45 % NaCl 1 250ml.bag @ 12 UNITS/KG/HR 9.525 mls/hr IV .Q24H [facility] Rx#: [id number] Oral 240 Output: Urine 500 Other: Voiding Method Toilet Toilet Urinal Urinal # Voids 1 1 - Labs CBC & Chem 7: 04/09/23 08:02 04/09/23 08:02 Labs: Abnormal Lab Results - Last 24 Hours (Table) 04/08/23 04/08/23 04/08/23 Range/Units 08:21 08:21 11:47 APTT 42.9 H (22.0-30.0) sec Sodium (137-145) mmol/L Glucose (74-99) mg/dL POC Glucose (mg/dL) 209 H (70-110) mg/dL Hemoglobin A1c 11.4 H (<=6.0) % 04/08/23 04/08/23 04/09/23 Range/Units 17:04 19:55 06:05 APTT (22.0-30.0) sec Sodium (137-145) mmol/L Glucose (74-99) mg/dL POC Glucose (mg/dL) 247 H 230 H 167 H (70-110) mg/dL Hemoglobin A1c (<=6.0) % 04/09/23 Range/Units 08:02 APTT (22.0-30.0) sec Sodium 134 L (137-145) mmol/L Glucose 187 H (74-99) mg/dL POC Glucose (mg/dL) (70-110) mg/dL Hemoglobin A1c (<=6.0) %
[2023-04-09] MEDS ORDERED: DEXTROSE 5%-0.45% NACL 1,000 ML IV SCH (09:15)
[2023-04-09] MEDS: HEPARIN SOD,PORK IN 0.45% NACL 25,000 UNIT in 0.45% NACL 1 250ML.BAG IV SCH (09:19)
[2023-04-09] MEDS ORDERED: KETOROLAC 15 MG/ML 1 ML VIAL IVP STA (09:21)
[2023-04-09] MEDS ORDERED: PROCHLORPERAZINE INJ 10 MG/2 ML VIAL IVP STA (09:21)
[2023-04-09] MEDS ORDERED: diphenhydrAMINE 50 MG/ML 1 ML VIAL IVP STA (09:21)
[2023-04-09] MEDS: METOPROLOL SUCCINATE (ER) 25 MG TAB.ER.24H PO SCH (09:26)
[2023-04-09] MEDS: CLOPIDOGREL 75 MG TAB PO SCH (09:26)
[2023-04-09] MEDS: ATORVASTATIN 80 MG TAB PO SCH ×2 (09:26→09:29)
[2023-04-09] MEDS: ASPIRIN 81 MG PO SCH (09:26)
[2023-04-09 11:23] LABS: Glucose,Whole Blood 204 mg/dL (70-110)
[2023-04-09 16:17] LABS: Glucose,Whole Blood 251 mg/dL (70-110)
[2023-04-09 17:31] VITALS: RESP 16
[2023-04-09 20:00] LABS: Glucose,Whole Blood 219 mg/dL (70-110)
[2023-04-10 06:07] LABS: Glucose,Whole Blood 161 mg/dL (70-110)
--- NOTE | 2023-04-10 06:40 | P.PN ---
Subjective Progress Note Date: 04/10/23 Principal diagnosis: Acute non-ST elevation myocardial infarction The patient is a 71-year-old gentleman with CAD and status post CABG as well as hypertension and dyslipidemia and diabetes who was admitted to the hospital with discomfort in the chest and jaw pain and he was diagnosed with non-STEMI. The echo revealed normal LV systolic function. He continues to be on nitro drip at this point. April 082022 The patient was seen and evaluated this morning. He still having some jaw pain and left shoulder pain. Currently he is on nitro IV and he is experiencing headache. Otherwise he is hemodynamically stable. The echo as described above showed preserved LV systolic function with no significant wall motion abnormalities. Beside that he is on aspirin and statin and beta konrad. The plan is to pursue a heart catheterization later on today. 04/09/2023 The patient was seen and evaluated morning. He is asymptomatic and is hemodynamically stable. He is on dual antiplatelet therapy. He underwent a heart catheterization yesterday and that revealed severe triple-vessel coronary artery disease with patent GARRIDO to LAD and patent SVG to diagonal and occluded SVG to LCx which was stented yesterday as well as patent SVG to RCA. The echo showed preserved LV systolic function. From a perivascular standpoint overview, I would continue the current medical regimen. He potentially can be discharged home in the next 24 hours. The right groin is soft and nontender was no bruises. April 102022 The patient was seen and evaluated this morning. He is asymptomatic. He is hemodynamically stable. The right groin is soft and nontender as was no bruises. From a cardiovascular standpoint of view, the patient potentially can be discharged home. He'll need to be discharged on dual antiplatelet therapy as well as a statin as well as anti-ischemic medications. He can be seen as a follow-up by myself at [facility]. Examination is remarkable for regular rhythm with clear breathing sounds bilaterally and no lower extremity edema noted Assessment Acute non-ST elevation myocardial infarction CAD and status post CABG as described above CAD status post PCI of the SVG to LCx Multiple comorbid conditions including diabetes and hypertension and dysli pidemia Plan Continue the current medical regimen including dual antiplatelet therapy and statin Possible discharge home in the next 12-24 hours Objective - Vital Signs Vital signs: Vital Signs Temp 99.4 F 04/10/23 04:00 Pulse 97 04/10/23 04:00 Resp 16 04/10/23 04:00 BP 114/75 04/10/23 04:00 Pulse Ox 96 04/10/23 04:00 FiO2 Intake & Output 04/09/23 04/09/23 04/10/23 06:59 18:59 06:59 Intake Total 236 Output Total 500 300 550 Balance -500 -64 -550 Intake: Oral 236 Output: Urine 500 300 550 Other: Voiding Method Toilet Toilet Urinal Urinal # Voids 1 1 # Bowel Movements 0 - Labs CBC & Chem 7: 04/09/23 08:02 04/09/23 08:02 Labs: Abnormal Lab Results - Last 24 Hours (Table) 04/09/23 04/09/23 04/09/23 Range/Units 08:02 11:21 16:11 Sodium 134 L (137-145) mmol/L Glucose 187 H (74-99) mg/dL POC Glucose (mg/dL) 204 H 251 H (70-110) mg/dL 04/09/23 04/10/23 Range/Units 19:57 06:05 Sodium (137-145) mmol/L Glucose (74-99) mg/dL POC Glucose (mg/dL) 219 H 161 H (70-110) mg/dL
[2023-04-10] MEDS: INSULIN ASPART (NovoLOG) 100 UNIT/ML VIAL SQ SCH (07:01)
[2023-04-10] MEDS: LEVOTHYROXINE 75 MCG TAB PO SCH (07:01)
[2023-04-10 10:39] VITALS: BP 116/69; PULSE 94; TEMP 98.4
[2023-04-10] MEDS: ASPIRIN 81 MG PO SCH (11:44)
[2023-04-10] MEDS: CLOPIDOGREL 75 MG TAB PO SCH (11:45)
[2023-04-10] MEDS: METOPROLOL SUCCINATE (ER) 25 MG TAB.ER.24H PO SCH (11:45)
[2023-04-10] MEDS: ATORVASTATIN 80 MG TAB PO SCH (11:46)
--- NOTE | 2023-04-10 14:32 | P.DS ---
Providers Date of admission: 04/08/23 13:23 Expected date of discharge: 04/10/23 Attending physician: Magaly Jordan DO Consults: 04/07/23 07:39 Consult Physician Routine Consulting Provider: Julito King Consult Reason/Comments: CP Do you want consulting provider notified?: Yes 04/08/23 10:58 Consult Physician Routine Consulting Provider: [facility] Consult Reason/Comments: Post Interventional Patient Do you want consulting provider notified?: Already Contacted Primary care physician: Stated None Hospital Course: Discharge Diagnosis: NSTEMI, patient underwent cardiac cath resulting in successful stenting of the SVG to LCx. History of CAD status post quadruple bypass followed by stenting Hypertension Hyperlipidemia Hypothyroidism Dha-owthbip-qzshmlsrb diabetes mellitus with hyperglycemia with significantly elevated hemoglobin A1c of 11.4%. Headache, resolved. Hospital Course: Patient is a very pleasant 77-year-old male with a past medical history of CAD status post quadruple bypass 02/08/18, hypertension, hyperlipidemia, hypothyroidism, qzr-mjsvjxm-stkpszwbw diabetes mellitus and obstructive sleep apnea/does not use CPAP. He presented to the emergency department as a transfer from [facility] for evaluation of chest pain. Patient reports experiencing pain to left shoulder radiating down left arm across his back and into his lower jaw. Patient states this pain came on suddenly yesterday evening when he laid down to go to sleep. Patient denies having any increased activity or being out in the heat yesterday, reports feeling great all day until it was time to go to bed. Patient states, "I didn't really have any chest pain, it stayed in my left arm, across my back, and into jaw." Patient describes this pain as a squeezing sensation. He denies having any headache, lightheadedness, dizziness, diaphoresis, chills, palpitations, shortness of breath, cough or congestion, nausea, vomiting, or experiencing any swelling or weakness in his extremities. Discussed in detail with ED physician, troponin and EKG at [facility] were negative and patient also underwent a CTA chest which was negative for pulmonary emboli or other acute cardiopulmonary process. Upon arrival to our facility vital signs stable with blood pressure 134/72, heart rate 52, respiratory rate 18, temp 97.9F and SpO2 of 96% on room air. Initial EKG completed showing sinus bradycardia at 52 bpm with T-wave inversions in leads 1, aVL and V2 with no noted ST abnormalities upon personal review and interpretation. Labs completed and reviewed. CBC unremarkable. Coags normal findings. BMP revealing elevated glucose of 268, elevated BUN of 21, and sodium of 136. Repeat Troponin was elevated at 0.094 and a repeat EKG was then taken and again showing sinus bradycardia at 51 bpm with T-wave inversion in leads 1, aVL, and V2 and no noted ST abnormalities upon personal review and interpretation. Patient continued to report pain and left arm but is reporting improvement of jaw pain and back pain at this current time. Patient has been started on heparin infusion at 12 units/kg/hr as well as nitroglycerin infusion at 5 mcg/min or 1.5 mL/hr secondary to NSTEMI. Patient admitted under our services to cardiac stepdown unit with telemetry. Troponins trended overnight showing further elevation from 0.094, 0.616, and 0.930. Cardiology was consulted and evaluated patient taking him for cardiac cath on 04/08/23. Patient was found to have severe triple vessel CAD and underwent successful stenting of the SVG to LCx. Patient was started on dual antiplatelet therapy with aspirin and Plavix. Lisinopril 2.5 mg daily was also added to daily medication regimen. Had long discussion with patient regarding elevated hemoglobin A1c of 11.4%. With patient's history and noncompliance with medications and was strongly advised that patient be placed on insulin upon discharge. Patient adamant that he will not take insulin. Additional attempts made at placing patient on additional diabetic medications and patient adamantly refusing. Metformin was sent to pharmacy to take in addition to patient's 2.5 mg of glipizide daily, but patient again refused. States his primary doctor will manage his blood sugar levels. Patient educated on the risks of noncompliance and persistent elevation of glucose levels with underlying comorbid conditions including severe heart disease and patient remains adamant that he will not take additional medications and will discuss with his doctor only. Discussed with grinding room inspector, Dr. Dacosta. Cardiology recommending outpatient follow-up in our office in one week. Prescription sent for Plavix 75 mg daily, lisinopril 2.5 mg daily, and metformin 500 mg twice a day and patient to continue daily medication regimen with metoprolol 25 mg daily, levothyroxine 150 g daily, aspirin 81 mg daily, glipizide 2.5 mg daily, and rosuvastatin 40 mg daily. Patient currently denies having any chest pain, palpitations, shortness of breath, or any other complaints at this time. Vital signs unremarkable with blood pressure 116/69, heart rate 94, respiratory rate 16, and SpO2 of 95% on room air. Right groin inspected no signs of hematoma, bruising, or bleeding. Postcardiac care instructions being provided. Patient stable for discharge at this time and strongly encouraged to follow-up with PCP in 2-3 days and cardiology in 1 week. Physical exam: Vital signs reviewed and stable. General: Nontoxic, no distress and appears stated age. Derm: Skin warm and dry, normal coloration for ethnicity. Head: Atraumatic, normocephalic and symmetric. Eyes: EOMs intact, no lid lag, and anicteric sclera Mouth: no lip lesions, mucus membranes moist Cardiovascular: regular rate and rhythm with normal S1S2, no murmur, positive posterior tibial pulses bilaterally, and cap refill < 2 seconds. Lungs: Respirations even, regular, and unlabored on room air. Lungs CTA bilaterally, no rhonchi, no rales, no wheezing, and no accessory muscle usage. Abdominal: soft, nontender to palpation, no guarding, no appreciable organomegaly, cardiac cath access site right groin showing no signs of hematoma or active bleeding. Ext: ROM intact. No gross muscle atrophy, no edema, no contractures Neuro: Speech clear, face symmetrical and CN II-XII grossly intact with no noted focal neuro deficits Psych: Alert and oriented to person, place, time, and situation. Patient appears very anxious and agitated. A total of 41 minutes of time were spent preparing this complex discharge summary. Pt was discharged on 04/10/23 at 9:56 AM Patient was seen independently by Nurse Practitioner. This document was prepared using [employer] dictation software. Please allow for errors in compressor engineer while rare they do occur. Francis Eli NP rendered care for this patient independently, reviewed the findings and plan as documented in the note above. I did not physically speak with or examine the patient on this date. Patient Condition at Discharge: Stable Plan - Discharge Summary Discharge Rx Participant: No New Discharge Prescriptions: New Clopidogrel [Plavix] 75 mg PO DAILY 30 Days #30 tablet metFORMIN HCL [Glucophage] 500 mg PO BID 30 Days #60 tab lisinopriL [Zestril] 2.5 mg PO DAILY 30 Days #30 tab Continue Metoprolol Succinate [Metoprolol Succinate ER] 25 mg PO DAILY Levothyroxine Sodium [Synthroid] 150 mcg PO DAILY Aspirin EC [Ecotrin Low Dose] 81 mg PO DAILY glipiZIDE [glipiZIDE ER] 2.5 mg PO DIRECTED Rosuvastatin Calcium [Crestor] 40 mg PO DAILY Discharge Medication List Aspirin EC [Ecotrin Low Dose] 81 mg PO DAILY 04/07/23 [History] Levothyroxine Sodium [Synthroid] 150 mcg PO DAILY 04/07/23 [History] Metoprolol Succinate [Metoprolol Succinate ER] 25 mg PO DAILY 04/07/23 [History] Rosuvastatin Calcium [Crestor] 40 mg PO DAILY 04/07/23 [History] glipiZIDE [glipiZIDE ER] 2.5 mg PO DIRECTED 04/07/23 [History] Clopidogrel [Plavix] 75 mg PO DAILY 30 Days #30 tablet 04/10/23 [Rx] lisinopriL [Zestril] 2.5 mg PO DAILY 30 Days #30 tab 04/10/23 [Rx] metFORMIN HCL [Glucophage] 500 mg PO BID 30 Days #60 tab 04/10/23 [Rx] Follow up Appointment(s)/Referral(s): Sherrill Jeffery NPC [REFERRING] - 3 Days Julito King MD [STAFF PHYSICIAN] - 1 Week Patient Instructions/Handouts: *Surgery [facility] - After Heart Catheterization - Competitive Shopper Instructions, Diabetic Hyperglycemia (DC), Heart Catheterization (DC) Activity/Diet/Wound Care/Special Instructions: Discharge Instructions After Cardiac Catheterization with Stent Placement: Aspirin as anti-platelet therapy - Aspirin lessens the chance of heart attack and stroke. It helps prevent blood clots from forming, allowing the blood to flow more easily. Each day, you will take one 81 mg (non-enteric coated) tablet daily. Do not stop unless instructed by your doctor. Anti-platelet Therapy. -In addition to aspirin, you will take one additional anti-platelet medication daily. This will help prevent a clot from forming in your stent: Plavix (clopidogrel) -You will need to take your anti-platelet medicine every day for 12 months -Please consult your heart doctor before you stop this medicine. -They may want you to continue for a longer period of time. Statins -A statin medication lowers cholesterol levels in the blood. This helps slow the progression of heart disease. - Please take your statin medication as prescribed by your doctor. -You may be taking one of the following statins: Rosuvastatin Beta blockers Your Medication: Metoprolol Is a medication that protects your heart from stress and can prevent future heart attacks. It can slow your heart rate. It can take weeks for your body to get used to a beta konrad. The dose may need to be changed a few times as your body adjusts Do not stop taking these medicines without talking to your doctor. -Take all other medicines as directed by your doctor. Do not take any extra aspirin or ibuprofen. They can increase your risk of bleeding. Many gyuk-qax-tqidebp drugs contain aspirin. If you are unsure about what the drug contains, check with your pharmacist before taking it. -For mild discomfort, you may take plain Tylenol (acetaminophen). Follow dose directions, but do not take more than 4,000 mg of acetaminophen in 24 hours. Contact your doctor right away or go to the nearest hospital Emergency Room if you have: -Severe angina or chest pain. (This may be a sign of a problem with your stent.) -Excessive bruising, blood in urine/stool or black tarry stools. Healthy LifeStyle It is important to keep a heart healthy lifestyle. This can improve your long- term health and decrease your risk for heart attacks. -Managing your blood cholesterol, blood pressure, weight, and stress. -The importance of regular exercise. -Heart Healthy Diet: Include more plants in your diet. Eat lots of fresh vegetables and fresh fruits. Eat good fats: plant based oils, avocado, nuts, beans, legumes. Eat more seafood. Limit Meat. Switch to whole grains. -Avoid fried foods and animal fats and processed meats Follow up with your PCP and [facility] Also, as we discussed I highly recommend discharge home on insulin as your hemoglobin A1c is significantly elevated at 11.4%. This was discussed with both you and your and you were very adamant against being discharged on insulin. In addition to your Glipizide 2.5 mg daily you are also being discharged home on metformin 500 mg twice a day. I strongly suggested he monitor blood glucose levels closely and follow-up heart healthy and carb consistent diet with a goal to decrease your hemoglobin A1c to less than 6%. You will need to follow up outpatient with your primary doctor to have medications/dosages adjusted to assist you with obtaining this goal. Thank you for allowing us to participate in your care, it was truly a pleasure having you for our patient!!! Discharge Disposition: HOME SELF-CARE
== END 2023-04-10 13:24 | disposition home or self-care (01) | DRG 247 ==
LOC: EC 07:20 → 6NMEDSUR 07:40 → 3SCARD 09:28 → OBSVTOIN 04-08 13:23
PROVIDERS: ADMIT Internal Medicine; ATTEND Internal Medicine
PROC: B2181ZZ Fluoroscopy of Left Internal Mammary Bypass Graft using Low Osmolar Contrast (ICD-10-PCS; 2023-04-08)
PROC: B2131ZZ Fluoroscopy of Multiple Coronary Artery Bypass Grafts using Low Osmolar Contrast (ICD-10-PCS; 2023-04-08)
PROC: B41F1ZZ Fluoroscopy of Right Lower Extremity Arteries using Low Osmolar Contrast (ICD-10-PCS; 2023-04-08)
PROC: 027034Z Dilation of Coronary Artery, One Artery with Drug-eluting Intraluminal Device, Percutaneous Approach (ICD-10-PCS; principal; 2023-04-08 07:30)
PROC: 4A023N7 Measurement of Cardiac Sampling and Pressure, Left Heart, Percutaneous Approach (ICD-10-PCS; 2023-04-08 07:30)
DX: I21.4 Non-ST elevation (NSTEMI) myocardial infarction (principal); I10 Essential (primary) hypertension; I25.700 Atherosclerosis of coronary artery bypass graft(s), unspecified, with unstable angina pectoris; E78.5 Hyperlipidemia, unspecified; G47.30 Sleep apnea, unspecified; E11.65 Type 2 diabetes mellitus with hyperglycemia; E03.9 Hypothyroidism, unspecified; Z79.02 Long term (current) use of antithrombotics/antiplatelets; Z79.82 Long term (current) use of aspirin; Z79.84 Long term (current) use of oral hypoglycemic drugs; Z79.890 Hormone replacement therapy; Z79.899 Other long term (current) drug therapy; Z91.148 Patient's other noncompliance with medication regimen for other reason; Z95.1 Presence of aortocoronary bypass graft; Z88.8 Allergy status to other drugs, medicaments and biological substances; Z88.5 Allergy status to narcotic agent
CPT/HCPCS: 36415; 80048; 80053; 83036; 84439; 84443; 84484; 85025; 85610; 85730; 92937; 93005; 93306; 93459; 94760; 96365; 96366; 96368; 99291